=== PATIENT | male | born 1965 | race Caucasian/White ===

== ENCOUNTER 2016-12-17 15:56 | Day surgery (SDC) | payer OTHER ==
[~2016-12-17] VITALS: Ht 175.3 cm; Wt 105.7 kg
[2016-12-17] VITALS (8 sets, daily range): BP systolic 126–160; BP diastolic 80–98
[~2016-12-17 15:56] MED LIST: AC325T PO; ASP325T PO; ASP81CT PO; ASPI-808 PO; ATEN25TA PO; ATEN50TA PO; ATOR80TA PO; ATOR80TA76 PO; CIPR5DRO OP; CYCL10TA9 PO; DULO30CA3 PO; DULO40CA2 PO; HYDR-3583 PO; HYDR118S10 PO; IBUP-30 PO; ISM60TCR PO; NTG SL; PRAS10TA6 PO; PRAV80TA2 PO; ZLP10T PO; ZOLP10TA5 PO
[2016-12-17] MEDS ORDERED: ASPIRIN 81 MG CHEW (CHILDREN'S ASA) ONE (16:04)
[2016-12-17] MEDS ORDERED: RX-NITROGLYCERIN 0.4 MG TAB BTL 25'S SL ONE (16:05)
--- NOTE | 2016-12-17 16:19 | ED Chest Pain ---
General Chief Complaint: Chest Pain Stated Complaint: CHEST TIGHTNESS/SOA/ELEV BP Source: patient Exam Limitations: no limitations History of Present Illness Time seen by provider: 16:04 Initial Comments Here with reports of chest tightness, dizziness and overall not feeling well. Has history of 1112 cardiac stents. Patient normally follows with Dr. Mao. Denies nausea, vomiting or breathing problems. Timing/Duration: 1-3 hours, changing over time Severity/Quality: moderate, pressure Location: central Radiation: no radiation Activities at Onset: emotional stress Prior CP/Workup: cardiac cath, echocardiography, heart attack, stress test Modifying Factors: improves with oxygen, improves with rest Associated Symptoms: No abdominal pain, No back pain, dizziness, No nausea/ vomiting, No shortness of breath, No weakness Allergies and Home Medications Allergies Coded Allergies: amoxicillin (Verified Allergy, Unknown, 02/17/09) potassium clavulanate (Verified Allergy, Unknown, 02/17/09) Review of Systems Constitutional: see HPI, No chills, No fever EENTM: No Symptoms Reported Respiratory: No Symptoms Reported Cardiovascular: Chest Pain Gastrointestinal: No Symptoms Reported Genitourinary: No Symptoms Reported Musculoskeletal: no symptoms reported Skin: no symptoms reported Psychiatric/Neurological: See HPI, Anxiety, Other (dizziness) All Other Systems Reviewed Negative Unless Noted: Yes Past Jxqnuzk-Wuyziu-Wgfvrg Hx Patient Social History Alcohol Use: Denies Use Recreational Drug Use: No Smoking Status: Current Everyday Smoker Type Used: Cigarettes Recent Hopitalizations: No Seasonal Allergies Seasonal Allergies: No Surgeries HX Surgeries: Yes (CARDIAC STENTS x14, hernia X2, CYST REMOVAL WRIST/LOW BACK; BMT'S 04/2016) Surgeries: Abdominal, Cardiac, Coronary Stent, Ear Surgery Respiratory Hx Respiratory Disorders: No Cardiovascular Hx Cardiac Disorders: Yes (HX OF PA X2, HAS 14 STENTS) Cardiac Disorders: Coronary Artery Disease, Heart Attack, High Cholesterol, Hypertension Neurological Hx Neurological Disorders: No Reproductive System Hx Reproductive Disorders: No Genitourinary Hx Genitourinary Disorders: No Gastrointestinal Hx Gastrointestinal Disorders: No Musculoskeletal Hx Musculoskeletal Disorders: Yes (joint pain) Musculoskeletal Disorders: Arthritis, Chronic Back Pain Endocrine Hx Endocrine Disorders: No HEENT HX ENT Disorders: Yes (BMT'S 04/2016) HEENT Disorders: Chronic Ear Infection Cancer Hx Cancer: No Psychosocial Hx Psychiatric Problems: No Integumentary HX Skin/Integumentary Disorder: No Blood Transfusions Hx Blood Disorders: No Reviewed Nursing Assessment Reviewed/Agree w Nursing PMH: Yes Family Medical History Significant Family History: No Pertinent Family Hx Family Medial History: Physical Exam Vital Signs Vital Sign - Last 12Hours 12/17/16 15:57 Temp 97.3 Pulse 78 Resp 14 B/P (MAP) 161/101 Pulse Ox 95 O2 Delivery Room Air Capillary Refill : Less Than 3 Seconds General Appearance: No Apparent Distress, WD/WN HEENT: PERRL/EOMI Neck: Non Tender, Supple Respiratory: Lungs Clear, Normal Breath Sounds Cardiovascular: Regular Rate, Rhythm, No Murmur Gastrointestinal: Non Tender, Soft Extremity: Normal Range of Motion, Non Tender Neurologic/Psychiatric: Alert, Oriented x3 Skin: Normal Color, Warm/Dry Progress/Results/Core Measures Results/Orders Lab Results Laboratory Tests Test 12/17/16 16:00 Range/Units White Blood Count 10.5 4.3-11.0 10^3/uL Red Blood Count 4.81 4.35-5.85 10^6/uL Hemoglobin 16.0 13.3-17.7 G/DL Hematocrit 46 40-54 % Mean Corpuscular Volume 96 80-99 FL Mean Corpuscular Hemoglobin 33 25-34 PG Mean Corpuscular Hemoglobin Concent 35 32-36 G/DL Red Cell Distribution Width 13.2 10.0-14.5 % Platelet Count 225 130-400 10^3/uL Mean Platelet Volume 12.4 H 7.4-10.4 FL Neutrophils (%) (Auto) 70 42-75 % Lymphocytes (%) (Auto) 21 12-44 % Monocytes (%) (Auto) 7 0-12 % Eosinophils (%) (Auto) 1 0-10 % Basophils (%) (Auto) 0 0-10 % Neutrophils # (Auto) 7.4 1.8-7.8 X 10^3 Lymphocytes # (Auto) 2.2 1.0-4.0 X 10^3 Monocytes # (Auto) 0.8 0.0-1.0 X 10^3 Eosinophils # (Auto) 0.1 0.0-0.3 10^3/uL Basophils # (Auto) 0.0 0.0-0.1 10^3/uL Prothrombin Time 11.9 L 12.2-14.7 SEC INR Comment 0.9 0.8-1.4 Activated Partial Thromboplast Time 29 24-35 SEC D-Dimer 0.42 0.00-0.49 UG/ML Sodium Level 141 135-145 MMOL/L Potassium Level 4.0 3.6-5.0 MMOL/L Chloride Level 108 H 98-107 MMOL/L Carbon Dioxide Level 25 21-32 MMOL/L Anion Gap 8 5-14 MMOL/L Blood Urea Nitrogen 15 7-18 MG/DL Creatinine 0.86 0.60-1.30 MG/DL Estimat Glomerular Filtration Rate > 60 BUN/Creatinine Ratio 17 Glucose Level 130 H 70-105 MG/DL Calcium Level 9.7 8.5-10.1 MG/DL Magnesium Level 2.4 1.8-2.4 MG/DL Total Bilirubin 0.3 0.1-1.0 MG/DL Aspartate Amino Transf (AST/SGOT) 20 5-34 U/L Alanine Aminotransferase (ALT/SGPT) 33 0-55 U/L Alkaline Phosphatase 99 40-136 U/L Myoglobin 34.4 10.0-92.0 NG/ML Troponin I < 0.30 <0.30 NG/ML B-Type Natriuretic Peptide 11.5 <100.0 PG/ML Total Protein 7.6 6.4-8.2 G/DL Albumin 4.6 H 3.2-4.5 G/DL Amylase Level 48 25-125 U/L Lipase 36 8-78 U/L My Orders Orders - TONY MATIAS MD Aspirin Chewable Tablet (Baby Aspirin Ch (12/17/16 16:04) Rx-Nitroglycerin Sl Tabs (Rx-Nitrostat S (12/17/16 16:05) Cbc With Automated Diff (12/17/16 16:51) Magnesium (12/17/16 16:51) Chest 1 View, Ap/Pa Only (12/17/16 16:51) Ekg Tracing (12/17/16 16:51) Cardiac Profile 1 (12/17/16 16:51) Comprehensive Metabolic Panel (12/17/16 16:51) Myoglobin Serum (12/17/16 16:51) Protime With Inr (12/17/16 16:51) Partial Thromboplastin Time (12/17/16 16:51) O2 (12/17/16 16:51) Monitor-Rhythm Ecg Trace Only (12/17/16 16:51) Lipid Panel (12/18/16 06:00) Aspirin Chewable Tablet (Baby Aspirin Ch (12/17/16 17:00) Rx-Nitroglycerin Sl Tabs (Rx-Nitrostat S (12/17/16 17:00) Saline Lock/Iv-Start (12/17/16 16:51) Lipase (12/17/16 16:51) Amylase (12/17/16 16:51) BNP (12/17/16 16:51) Fibrin Degradation Products (12/17/16 16:51) Hydrocodone/Apap 7.5/325 Tab (Lortab 7. (12/17/16 17:56) Medications Given in ED Current Medications Medications Dose Ordered Sig/Paola Route Start Time Stop Time Status Last Admin Dose Admin Aspirin 81 mg STK-MED ONCE .ROUTE 12/17/16 16:04 12/17/16 16:09 DC 12/17/16 16:08 81 MG Nitroglycerin 0.4 mg STK-MED ONCE SL 12/17/16 16:05 12/17/16 16:10 DC 12/17/16 16:05 0.4 MG Vital Signs/I&O Vital Sign - Last 12Hours 12/17/16 12/17/16 15:57 15:57 Temp 97.3 Pulse 78 Resp 14 B/P (MAP) 161/101 Pulse Ox 95 O2 Delivery Room Air Progress Note : Progress Note Seen and evaluated. IV, labs, EKG and chest x-ray ordered. ASA 162 mg by mouth. Nitroglycerin sublingual given. 2 nitros were given and this did resolve the patient's pain. Given his history and current complaint, I do believe its indicated for admission for further evaluation. This was discussed with the patient and family who agree. 1759: Discussed case with Dr. Mueller and she agrees to admission, observation status. Dr. Rios consulted and accepts patient for Dr. Mao. Dr. Mao is his primary internet architect. ECG Initial ECG Impression Date: December 17, 2016 Initial ECG Impression Time: 16:01 Initial ECG Rate: 78 Initial ECG Rhythm: Normal Sinus Comment Sinus rhythm with left axis deviation. Occasional PVC. No evidence of ST elevation PA. Change from previous with increasing left axis. Interpreted by me. Diagnostic Imaging Diagonstic Imaging: Xray Plain Films/CT/US/NM/MRI: chest Comments VIA [facility], [facility]. [place], [place] NAME: GIANNA ROCA [facility] REC#: [id number] PT STATUS: REG ER : 1965 PHYSICIAN: TONY MATIAS MD ADMIT DATE: 12/17/16/ER Draft Date of Exam:12/17/16 CHEST 1 VIEW, AP/PA ONLY CLINICAL INDICATION: Patient complains of chest tightness and shortness of air this morning. Exam: Portable chest x-ray upright view. Comparisons: Chest x-ray dated 07/16/2016. Findings: Lungs/pleura: Lungs are clear. There is no pneumothorax. There is no pleural effusion. Mediastinum: Unremarkable. Pulmonary vasculature: Unremarkable. Heart: Unremarkable. Bones/extrathoracic soft tissue: There are small degenerative spurs involving the thoracic spine. Impression: There is no radiographic evidence of acute cardiopulmonary process. Dictated on workstation # [id number] Dict: 12/17/16 1732 Trans: 12/17/16 1740 [id number] Interpreted by: OCTAVIO BARFIELD MD Electronically signed by: Departure Communication Time/Spoke to Admitting Phy: 17:59 Time/Spoke to Consulting Physi: 18:02 Impression Impression: Primary Impression: Chest pain Qualified Codes: R07.9 - Chest pain, unspecified Disposition: ADMITTED INPATIENT Condition: Stable Decision to Admit Reason: Admit from ER (General) Decision to Admit/Date: December 17, 2016 Time/Decision to Admit Time: 17:59 Departure-Patient Inst. Referrals: FORTINO MUELLER DO (PCP/Family) Primary Care Physician TONY MATIAS MD December 17, 2016 16:19
[2016-12-17 17:00] LABS: BASOPHILS % (AUTO) 0 % (0-10); EOSINOPHILS # (AUTO) 0.1 10^3/uL (0.0-0.3); EOSINOPHILS % (AUTO) 1 % (0-10); LYMPHOCYTES # (AUTO) 2.2 X 10^3 (1.0-4.0); LYMPHOCYTES % (AUTO) 21 % (12-44); MEAN CORPUSCULAR HEMOGLOBIN 33 PG (25-34); MEAN CORPUSCULAR HGB CONC 35 G/DL (32-36); MEAN CORPUSCULAR VOLUME 96 FL (80-99); MEAN PLATELET VOLUME 12.4 FL (7.4-10.4); MONOCYTES # (AUTO) 0.8 X 10^3 (0.0-1.0); MONOCYTES % (AUTO) 7 % (0-12); NEUTROPHILS # (AUTO) 7.4 X 10^3 (1.8-7.8); NEUTROPHILS % (AUTO) 70 % (42-75); PLATELET COUNT 225 10^3/uL (130-400); RED BLOOD COUNT 4.81 10^6/uL (4.35-5.85); RED CELL DISTRIBUTION WIDTH 13.2 % (10.0-14.5); WHITE BLOOD COUNT 10.5 10^3/uL (4.3-11.0)
[2016-12-17] MEDS ORDERED: RX-NITROGLYCERIN 0.4 MG TAB BTL 25'S SL PRN (17:00)
[2016-12-17] MEDS ORDERED: ASPIRIN 81 MG CHEW (CHILDREN'S ASA) PO ONE (17:00)
[2016-12-17 17:02] LABS: INR 0.9 (0.8-1.4); PROTHROMBIN TIME PATIENT 11.9 SEC (12.2-14.7)
[2016-12-17 17:11] LABS: ALANINE AMINOTRANSFERASE 33 U/L (0-55); ALBUMIN 4.6 G/DL (3.2-4.5); AMYLASE 48 U/L (25-125); ANION GAP 8 MMOL/L (5-14); ASPARTATE AMINO TRANSFERASE 20 U/L (5-34); BILIRUBIN,TOTAL 0.3 MG/DL (0.1-1.0); BLOOD UREA NITROGEN 15 MG/DL (7-18); BUN/CREATININE RATIO 17; CALCIUM 9.7 MG/DL (8.5-10.1); CARBON DIOXIDE 25 MMOL/L (21-32); CHLORIDE 108 MMOL/L (98-107); CREATININE SERUM 0.86 MG/DL (0.60-1.30); GFR ESTIMATED > 60; GLUCOSE 130 MG/DL (70-105); LIPASE 36 U/L (8-78); MAGNESIUM 2.4 MG/DL (1.8-2.4); SODIUM 141 MMOL/L (135-145); TOTAL PROTEIN 7.6 G/DL (6.4-8.2)
[2016-12-17 17:18] LABS: MYOGLOBIN SERUM 34.4 NG/ML (10.0-92.0)
--- NOTE | 2016-12-17 17:41 | Diagnostic Imaging Report ---
CLINICAL INDICATION: Patient complains of chest tightness and shortness of air this morning. Exam: Portable chest x-ray upright view. Comparisons: Chest x-ray dated 07/16/2016. Findings: Lungs/pleura: Lungs are clear. There is no pneumothorax. There is no pleural effusion. Mediastinum: Unremarkable. Pulmonary vasculature: Unremarkable. Heart: Unremarkable. Bones/extrathoracic soft tissue: There are small degenerative spurs involving the thoracic spine. Impression: There is no radiographic evidence of acute cardiopulmonary process. Dictated by: Dictated on workstation # [id number]
[2016-12-17] MEDS ORDERED: HYDROcodone/APAP 7.5 MG/325 MG (LORTAB, LORCET PLUS) TABLET PO STA (17:56)
[2016-12-17] MEDS ORDERED: CATHETER FLUSH 10 ML SYR IV PRN (20:00)
[2016-12-17] MEDS ORDERED: morphine INJ 4 MG/ML 1 ML (VIAL/SYRINGE) IV PRN (20:00)
[2016-12-17] MEDS ORDERED: NITROGLYCERIN SUBLINGUAL 0.4 MG TAB (NITROSTAT) SL PRN (20:00)
[2016-12-17] MEDS: CATHETER FLUSH 10 ML SYR IV SCH (22:28)
[2016-12-17] MEDS ORDERED: ZOLPIDEM 5 MG (AMBIEN) TAB PO PRN (22:45)
[2016-12-17] MEDS ORDERED: ATENOLOL 25 MG (TENORMIN) TAB ONE (22:54)
[2016-12-17] MEDS: HYDROcodone/APAP 7.5 MG/325 MG (LORTAB, LORCET PLUS) TABLET PO PRN (23:01)
[2016-12-17] MEDS: ATENOLOL 25 MG (TENORMIN) TAB PO SCH (23:02)
[2016-12-17 23:43] LABS: MYOGLOBIN SERUM 37.5 NG/ML (10.0-92.0)
[2016-12-18] VITALS (13 sets, daily range): BP systolic 123–145; BP diastolic 80–105
[2016-12-18] MEDS: CATHETER FLUSH 10 ML SYR IV SCH ×3 (05:44→20:36)
[2016-12-18] MEDS: HYDROcodone/APAP 7.5 MG/325 MG (LORTAB, LORCET PLUS) TABLET PO PRN ×4 (05:48→18:29)
[2016-12-18 06:35] LABS: CHOLESTEROL 243 MG/DL (< 200); DIRECT LDL 142 MG/DL (1-129); TRIGLYCERIDES 347 MG/DL (<150); VLDL CHOLESTEROL 69 MG/DL (5-40)
[2016-12-18] MEDS ORDERED: ASPIRIN E.C. 325 MG (ECOTRIN) TABLET PO SCH (09:00)
[2016-12-18] MEDS: ATENOLOL 25 MG (TENORMIN) TAB PO SCH ×2 (09:37→20:35)
[2016-12-18] MEDS ORDERED: ZOLP10TA PO (11:30)
[2016-12-18] MEDS ORDERED: ASPI-983 PO (11:30)
[2016-12-18] MEDS ORDERED: IBUP-30 PO (11:30)
[2016-12-18] MEDS ORDERED: ATEN25TA PO (11:30)
[2016-12-18] MEDS ORDERED: ATOR80TA76 PO (11:30)
[2016-12-18] MEDS ORDERED: TRAM50TA2 PO (11:30)
[2016-12-18] MEDS ORDERED: NS IV 1000 ML 1,000 ML ONE (12:34)
[2016-12-18] MEDS ORDERED: LIDOCAINE 1% INJ 20 ML (XYLOCAINE) VIAL ONE (12:34)
[2016-12-18] MEDS ORDERED: HEParin (CATH LAB) 2,000 ML IV ONE (12:35)
--- NOTE | 2016-12-18 12:37 | Consultation-Cardiology ---
HPI-Cardiology Cardiology Consultation: Date of Consultation 12/18/16 Date of Admission 12-17-16 Attending Physician Franca Mueller DO Admitting Physician Franca Mueller DO Consulting Physician Garry Mao MD HPI: Chief Complaint: Chest pain Mr. Roca is a 51 year old male admitted to 429 from the ED with c/o left sided chest pain. He reports he has episodes of left sided chest discomfort for the last several months. He reports it is not r/t physical activity or emotional stress necessarily. The discomfort is a pressure. It lasts for minutes to half hour (length of time he is unclear on; he states he just puts it out of his mind). The episodes are not everyday, but at least a few times a week. He does not report any associated symptoms typically. Yesterday he was at work and began to have left sided chest pressure. He reports he felt generally unwell. He reports he has been having dizziness for the last few days, but yesterday it was worse. He reports feeling unsteady. No c/o SOB or palpitations. He states he came to the ED and received nitro which did result in resolution of the discomfort. He is currently not reporting any chest pain at this time. He does state he is concerned that it his heart causing him to feel unwell. No c/o LE edema. No c/o n/v/d. No c/o fever or chills. Review of Systems-Cardiology Review of Systems Constitutional: As described under HPI Eyes: No blurred vision, No drainage, No pain, No vision change Ears/Nose/Throat: No ear discharge, No ear pain, No nasal drainage, No ulcerations Respiratory: As described under HPI Cardiovascular: As described under HPI Gastrointestinal: No constipation, No diarrhea, No nausea, No vomiting, No stool coloration changes Genitourinary: No dysuria, No discharge, No frequency, No hematuria, No urgency Skin: No rash, No skin related problems, No ulcerations Psychiatric/Neurological: No anxiety, No depression, No focal weakness, No seizure, No syncope Hematologic: No bleeding abnormalities All Other Systems Reviewed Negative Unless Noted: Yes BJV-Ikqfze-Srdrby Hx Patient Social History Alcohol Use: Denies Use Recreational Drug Use: No Smoking Status: Current Everyday Smoker Type Used: Cigarettes Recent Foreign Travel: No Recent Infectious Disease Expo: No Hospitalization with Isolation: Denies Physical Abuse Screen: No Sexual Abuse: No Past Medical History PMH As described under Assessment. Family Medical History Family Medical History: He reports his father had CAD with CABG when he was in his 30's and a few years later of heart trouble. He reports his mother had strokes. Family History: Allergies and Home Medications Allergies Coded Allergies: amoxicillin (Verified Allergy, Unknown, 02/17/09) potassium clavulanate (Verified Allergy, Unknown, 02/17/09) Home Medications Aspirin 81 Mg Tablet.dr, 81 MG PO DAILY, (Reported) Atenolol 25 Mg Tablet, 25 MG PO HS, (Reported) Atorvastatin Calcium 80 Mg Tablet, 80 MG PO HS, (Reported) LAST FILLED #30 08-22-16 Ibuprofen 200 Mg Tablet, 1,200 MG PO BID, (Reported) TAKES 6 (200MG) TABLETS Tramadol HCl 50 Mg Tablet, 50 MG PO Q6H PRN for PAIN-MODERATE, (Reported) Zolpidem Tartrate 10 Mg Tablet, 10 MG PO HS, (Reported) Physical Exam-Cardiology Physical Exam Vital Signs/I&O Vital Sign - Last 12Hours 12/18/16 12/18/16 12/18/16 12/18/16 04:19 07:00 07:40 11:51 Temp 97.8 98.0 98.2 Pulse 73 68 72 69 Resp 18 20 20 B/P (MAP) 140/80 128/86 134/82 Pulse Ox 96 96 96 12/18/16 13:00 Pulse 63 Intake and Output 12/18/16 00:00 Intake Total 420 ml Balance 420 ml Capillary Refill : Less Than 3 Seconds Constitutional: appears stated age, No apparent distress, well-developed, well- nourished HEENT: PERRL, No discharge, hearing is well preserved, oral hygience is good, No ulceration, No xanthelasmas are seen Neck: No carotid bruit, carotid pulses are 2 + bilaterally Respiratory: No accessory muscle use, chest expansion is symmetric, chest is bilaterally symmetric, lungs clear to auscultation Cardiovascular: regular rate-rhythm, No JVD, S1 and S2 Gastrointestinal: No tender, soft, round, audible bowel sounds, No spleenomegaly Extremities: No clubbing, No cyanosis, no lower extremity edema bilateral, No significant edema Neurologic/Psychiatric: alert, oriented x 3, power is 5/5 both on sides Skin: No rash, No ulcerations Data Review Labs Laboratory Tests 12/17/16 16:00: White Blood Count 10.5, Red Blood Count 4.81, Hemoglobin 16.0, Hematocrit 46, Mean Corpuscular Volume 96, Mean Corpuscular Hemoglobin 33, Mean Corpuscular Hemoglobin Concent 35, Red Cell Distribution Width 13.2, Platelet Count 225, Mean Platelet Volume 12.4H, Neutrophils (%) (Auto) 70, Lymphocytes (%) (Auto) 21 , Monocytes (%) (Auto) 7, Eosinophils (%) (Auto) 1, Basophils (%) (Auto) 0, Neutrophils # (Auto) 7.4, Lymphocytes # (Auto) 2.2, Monocytes # (Auto) 0.8, Eosinophils # (Auto) 0.1, Basophils # (Auto) 0.0, Prothrombin Time 11.9L, INR Comment 0.9, Activated Partial Thromboplast Time 29, D-Dimer 0.42, Sodium Level 141, Potassium Level 4.0, Chloride Level 108H, Carbon Dioxide Level 25, Anion Gap 8, Blood Urea Nitrogen 15, Creatinine 0.86, Estimat Glomerular Filtration Rate > 60, BUN/Creatinine Ratio 17, Glucose Level 130H, Calcium Level 9.7, Magnesium Level 2.4, Total Bilirubin 0.3, Aspartate Amino Transf (AST/SGOT) 20, Alanine Aminotransferase (ALT/SGPT) 33, Alkaline Phosphatase 99, Myoglobin 34.4 , Troponin I < 0.30, B-Type Natriuretic Peptide 11.5, Total Protein 7.6, Albumin 4.6H, Amylase Level 48, Lipase 36 12/17/16 23:05: Myoglobin 37.5, Troponin I < 0.30 12/18/16 05:45: Triglycerides Level 347H, Cholesterol Level 243H, LDL Cholesterol Direct 142H, VLDL Cholesterol 69H, HDL Cholesterol 32L Radiology NAME: GIANNA ROCA [facility] REC#: [id number] PT STATUS: ADM Genoveva : 1965 PHYSICIAN: TONY MATIAS MD ADMIT DATE: 12/17/16 Signed Date of Exam: 12/17/16 CHEST 1 VIEW, AP/PA ONLY CLINICAL INDICATION: Patient complains of chest tightness and shortness of air this morning. Exam: Portable chest x-ray upright view. Comparisons: Chest x-ray dated 07/16/2016. Findings: Lungs/pleura: Lungs are clear. There is no pneumothorax. There is no pleural effusion. Mediastinum: Unremarkable. Pulmonary vasculature: Unremarkable. Heart: Unremarkable. Bones/extrathoracic soft tissue: There are small degenerative spurs involving the thoracic spine. Impression: There is no radiographic evidence of acute cardiopulmonary process. Dictated by: Dictated on workstation # [id number] Dict: 12/17/161731 Trans: 12/17/162132 Interpreted by: OCTAVIO BARFIELD MD Electronically signed by: OCTAVIO BARFIELD MD 12/17/162132 ECG Impression ECG Initial ECG Rhythm: Normal Sinus A/P-Cardiology Assessment/Admission Diagnosis Chest pain of undetermined etiology; unstable angina suspected CAD - Has complex cor stenting history. As far as we can determine, prior to 2011 he has had the following cor stents in [place], [place]: unknown stent of mid RCA ; Promus 3 x 23 in mid LAD and Promus 2.5 x 15 in distal LAD; Promus 2.5 x 18 in abdiag. At this hosp he has had the following stents: Promus element 2.5 x 12mm stent in the mid left circumflex [place] [address] Bolton; distal RCA with an Integrity Resolute 2.5 x 18mm stent [place] February [address] Bolton. Cardiac cath of 08-04-[address] Mao showed widely patent stents in the mid LAD, first diagonal branch, mid left cx and mid to distal RCA. LVEF 55-60%. Normal LVEDP. No significant MR HTN HLP - statin tx managed by PCP Tobaccoism - cessation advised Non-compliance with medications DJD, resulting in chronic bilateral ankle pain Anxiety Discussion and Recomendations Non-specific chest discomfort of undetermined etiology which has been off and on for the last 6 months. He has a h/o CAD with previous stent placement. He himself is expressing concern that his "heart" is causing him to feel unwell. Therefore, we advise cardiac cath for further work up. We have discussed with him the procedure, risks, benefits and potential complications of cardiac cath with possible ad hoc coronary intervention. He provides informed consent. We will continue ASA 81 mg daily. We will continue statin tx. He is reporting CABELLO , we will give Tylenol. Continue BB which has already been ordered. Further recommendations will be based on his hospital course. We would like to thank Dr. Mueller for this consult. This consult is being scribed by Roxana Vines APRN on behalf of Dr. Mao after discussion regarding plan of care. 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
[2016-12-18] MEDS ORDERED: NS IV 1000 ML 1,000 ML IV SCH ×2 (13:00→16:02)
[2016-12-18] MEDS ORDERED: ACETAMINOPHEN 500 MG TAB (TYLENOL) PO PRN (13:00)
[2016-12-18] MEDS ORDERED: ALPRAZolam 0.25 MG (XANAX) TAB PO NR (13:00)
[2016-12-18] MEDS ORDERED: fentaNYL INJECTION 100 MCG/2 ML AMP ONE (14:00)
[2016-12-18] MEDS ORDERED: MIDAZOLAM 5 MG/5 ML (VERSED) VIAL ONE (14:00)
[2016-12-18] MEDS ORDERED: diphenhydrAMINE 50 MG/ML INJ (BENADRYL) ONE (14:00)
[2016-12-18] MEDS ORDERED: EPTIFIBATIDE BOLUS 20 ML IV ONE (14:21)
[2016-12-18] MEDS ORDERED: NITROGLYCERIN DRIP 25 MG/D5W 250 ML IV ONE (14:21)
[2016-12-18] MEDS ORDERED: HEParin 1000 UNIT/ML (10ML VIAL) FOR BOLUS ONE (14:21)
[2016-12-18] MEDS ORDERED: CLOPIDOGREL 300 MG (PLAVIX) TABLET PO ONE (15:16)
[2016-12-18] MEDS ORDERED: ASPIRIN 81 MG CHEW (CHILDREN'S ASA) ONE (15:16)
[2016-12-18] MEDS ORDERED: PATIENT MAY USE OWN MEDS, ALL PO SCH (16:15)
[2016-12-18] MEDS ORDERED: CALCIUM CARBONATE 500 MG (TUMS) TAB.CHEW PO PRN (17:00)
[2016-12-18] MEDS: PANTOPRAZOLE 40 MG/10 ML (PROTONIX) VIAL IV SCH (17:22)
[2016-12-18] MEDS ORDERED: ATORVASTATIN 40 MG (LIPITOR) TABLET PO SCH (21:00)
--- NOTE | 2016-12-18 21:34 | History & Physicial ---
History of Present Illness History of Present Illness Reason for visit/HPI This is a 51 year old male with a history of CAD who presented to the emergency room with left sided chest pain and pressure that started while he was at work. He also reported dizziness the past few days which was worse on the day he presented to the emergency room. He admits to intermittent chest pain the past several months. He had been admitted with chest pain in July of 2016 and a cardiac catheterization was recommended, however, he left the hospital without this procedure being done and never followed up with cardiology as an outpatient as instructed to do so at that time. In the emergency room, he was given nitroglycerin which did relieve his chest pain. He will be admitted for cardiac consult and further evaluation. Date of Admission December 17, 2016 at 7:25 pm I consulted on this patient on 12/18/16 21:29 Attending Physician Franca Mueller DO Admitting Physician Franca Mueller DO Consult Allergies and Home Medications Allergies Coded Allergies: amoxicillin (Verified Allergy, Unknown, 02/17/09) potassium clavulanate (Verified Allergy, Unknown, 02/17/09) Home Medications Aspirin 81 Mg Tablet.dr, 81 MG PO DAILY, (Reported) Atenolol 25 Mg Tablet, 25 MG PO HS, (Reported) Atorvastatin Calcium 80 Mg Tablet, 80 MG PO HS, (Reported) LAST FILLED #30 08-22-16 Ibuprofen 200 Mg Tablet, 1,200 MG PO BID, (Reported) TAKES 6 (200MG) TABLETS Tramadol HCl 50 Mg Tablet, 50 MG PO Q6H PRN for PAIN-MODERATE, (Reported) Zolpidem Tartrate 10 Mg Tablet, 10 MG PO HS, (Reported) Past [id number]-Kgjmee-Ydkfup Hx Patient Social History Alcohol Use: Denies Use Recreational Drug Use: No Smoking Status: Current Everyday Smoker Type Used: Cigarettes Physical Abuse Screen: No Sexual Abuse: No Recent Foreign Travel: No Contact w/other who traveled: No Recent Hopitalizations: No Recent Infectious Disease Expo: No Seasonal Allergies Seasonal Allergies: No Surgeries HX Surgeries: Yes (CARDIAC STENTS x14, hernia X2, CYST REMOVAL WRIST/LOW BACK; BMT'S 04/2016) Surgeries: Abdominal, Cardiac, Coronary Stent, Ear Surgery Respiratory Hx Respiratory Disorders: No Cardiovascular Hx Cardiovascular Disorders: Yes (HX OF PA X2, HAS 14 STENTS) Cardiac Disorders: Coronary Artery Disease, Heart Attack, High Cholesterol, Hypertension Neurological Hx Neurological Disorders: No Reproductive System Hx Reproductive Disorders: No Sexually Transmitted Disease: No HIV/AIDS: No Genitourinary Hx Genitourinary Disorders: No Gastrointestinal Hx Gastrointestinal Disorders: No Musculoskeletal Hx Musculoskeletal Disorders: Yes (joint pain) Musculoskeletal Disorders: Arthritis, Chronic Back Pain Endocrine Hx Endocrine Disorders: No HEENT HX ENT Disorders: Yes (BMT'S 04/2016) HEENT Disorders: Chronic Ear Infection Loss of Vision: Denies Hearing Impairment: Denies Cancer Hx Cancer: No Psychosocial Hx Psychiatric Problems: No Integumentary HX Skin/Integumentary Disorder: No Blood Transfusions Hx Blood Disorders: No Reviewed Nursing Assessment Reviewed/Agree w Nursing PMH: Yes Family Medical History Significant Family History: No Pertinent Family Hx Family Hx: Constitutional: dizziness, weakness EENTM: No blurred vision, No dental problems, No double vision, No ear discharge, No ear pain, No epistaxis, No eye pain, No hearing loss, No hoarseness, No mouth pain, No mouth swelling, No no symptoms reported, No nose congestion, No nose pain, No other, No see HPI, No tearing, No throat pain, No throat swelling, No vision loss Respiratory: No no symptoms reported, No see HPI, No cough, No dyspnea on exertion, No hemoptysis, No orthopnea, No phlegm, No short of breath, No stridor , No wheezing, No other Cardiovascular: chest pain Gastrointestinal: No RUQ, No LUQ, No RLQ, No LLQ, No no symptoms reported, No see HPI, No abdominal pain, No constipation, No diarrhea, No dysphagia, No hematemesis, No heartburn, No jaundice, No loss of appetite, No melena, No nausea, No vomiting, No other Genitourinary: No no symptoms reported, No see HPI, No decreased output, No discharge, No dysuria, No frequency, No hematuria, No hesitancy, No incontinence , No nocturia, No pain, No other Musculoskeletal: back pain, joint pain Skin: No no symptoms reported, No see HPI, No change in color, No change in hair/nails, No dryness, No hx of skin cancer, No lesions, No lumps, No pruritus , No rash, No other Psychiatric/Neurological: Weakness Physical Exam Vital Signs Vital Sign - Last 12Hours 12/17/16 15:57 Temp 97.3 Pulse 78 Resp 14 B/P (MAP) 161/101 Pulse Ox 95 O2 Delivery Room Air Capillary Refill : Less Than 3 Seconds General Appearance: No Apparent Distress HEENT: Normal ENT Inspection Neck: Non Tender, Supple Respiratory: Lungs Clear Cardiovascular: Regular Rate, Rhythm, Systolic Murmur, Gallop/S4 Gastrointestinal: Normal Bowel Sounds, Non Tender, Soft Rectal: Deferred Back: No CVA Tenderness Extremity: Non Tender, No Calf Tenderness, No Pedal Edema Neurologic/Psychiatric: Alert, Oriented x3 Skin: Normal Color, Warm/Dry Lymphatic: No Adenopathy Comments Laboratory Tests 12/17/16 23:05: Myoglobin 37.5, Troponin I < 0.30 12/18/16 05:45: Triglycerides Level 347H, Cholesterol Level 243H, LDL Cholesterol Direct 142H, VLDL Cholesterol 69H, HDL Cholesterol 32L Assessment/Plan Assessment and Plan 1. Chest Pain suspicious for angina in patient with history of CAD--admit for repeat cardiac enzymes, cardiology consult, likely cardiac catheterization 2. Hypertension--restarted on atenolol 3. Hyperlipidemia--noncompliant with medications 4. Recent dizziness--likely inner ear etiology as has had increased ear pressure and drainage and has history of chronic inner ear problems 5. 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
[2016-12-19] VITALS: BP 117/73
[2016-12-19] MEDS: HYDROcodone/APAP 7.5 MG/325 MG (LORTAB, LORCET PLUS) TABLET PO PRN ×3 (02:27→11:27)
[2016-12-19 04:00] VITALS: BP 122/64
[2016-12-19 04:45] LABS: MEAN PLATELET VOLUME 12.1 FL (7.4-10.4); RED BLOOD COUNT 4.4 10^6/uL (4.35-5.85); RED CELL DISTRIBUTION WIDTH 13.5 % (10.0-14.5); WHITE BLOOD COUNT 7.2 10^3/uL (4.3-11.0)
[2016-12-19 05:06] LABS: ANION GAP 13 MMOL/L (5-14); BLOOD UREA NITROGEN 10 MG/DL (7-18); BUN/CREATININE RATIO 13; CALCIUM 8.8 MG/DL (8.5-10.1); CARBON DIOXIDE 19 MMOL/L (21-32); CHLORIDE 107 MMOL/L (98-107); CREATININE SERUM 0.79 MG/DL (0.60-1.30); GFR ESTIMATED > 60; GLUCOSE 108 MG/DL (70-105); SODIUM 139 MMOL/L (135-145)
[2016-12-19] MEDS: CATHETER FLUSH 10 ML SYR IV SCH (05:48)
[2016-12-19 08:04] VITALS: BP 129/84
[2016-12-19] MEDS: PANTOPRAZOLE 40 MG/10 ML (PROTONIX) VIAL IV SCH (08:08)
[2016-12-19] MEDS: ATENOLOL 25 MG (TENORMIN) TAB PO SCH (08:08)
--- NOTE | 2016-12-19 08:36 | Progress Note-Cardiology ---
Cardiology SOAP Progress Note Subjective: Feels better. No cp Has chronic bilat knee and ankle pains Has a h/o calf discomfort upon walking the equivalent of a couple of blocks, relieved with rest, unchanged in the recent past Does not report palp or syncope Has chronic exertional shortness of breath Does not report significant groin discomfort Objective: I&O/Vital Signs Vital Sign - Last 12Hours 12/19/16 12/19/16 12/19/16 12/19/16 00:00 01:00 04:00 06:55 Temp 97.8 98.1 Pulse 76 75 74 Resp 18 16 B/P (MAP) 117/73 122/64 Pulse Ox 94 95 98 O2 Flow Rate 2.00 2.00 12/19/16 12/19/16 07:00 08:04 Temp 97.3 Pulse 76 75 Resp 14 B/P (MAP) 129/84 Pulse Ox 95 Intake and Output 12/19/16 00:00 Intake Total 570 ml Output Total 300 ml Balance 270 ml Weight (Pounds): 233 Weight (Ounces): 0.0 Weight (Calculated Kilograms): 105.635134 Groin site without hematoma: Yes Condition: DP/PT pulses palpable Bruising: mild bruising Constitutional: appears stated age, No apparent distress, well-developed, well- nourished Respiratory: No accessory muscle use, chest expansion is symmetric, chest is bilaterally symmetric, lungs clear to auscultation Cardiovascular: regular rate-rhythm, No JVD, S1 and S2 Gastrointestional: No tender, soft, round, audible bowel sounds, No spleenomegaly Extremities: No clubbing, No cyanosis, no lower extremity edema bilateral, No significant edema Neurologic/Psychiatric: alert, oriented x 3, power is 5/5 both on sides Skin: No rash, No ulcerations Results/Procedures: Labs Laboratory Tests 12/19/16 04:00: White Blood Count 7.2, Red Blood Count 4.40, Hemoglobin 14.7, Hematocrit 43, Mean Corpuscular Volume 97, Mean Corpuscular Hemoglobin 33, Mean Corpuscular Hemoglobin Concent 34, Red Cell Distribution Width 13.5, Platelet Count 181, Mean Platelet Volume 12.1H, Sodium Level 139, Potassium Level 4.0, Chloride Level 107, Carbon Dioxide Level 19L, Anion Gap 13, Blood Urea Nitrogen 10, Creatinine 0.79, Estimat Glomerular Filtration Rate > 60, BUN/Creatinine Ratio 13, Glucose Level 108H, Calcium Level 8.8 Laboratory Tests 12/17/16 16:00 12/19/16 04:00 A/P: Assessment: Unstable angina, now resolved CAD - Has complex cor stenting history. As far as we can determine, prior to 2011 he has had the following cor stents in [place], [place]: unknown stent of mid RCA ; Promus 3 x 23 in mid LAD and Promus 2.5 x 15 in distal LAD; Promus 2.5 x 18 in a diag. At this hosp he has had the following stents: Promus element 2.5 x 12mm stent in the mid left circumflex in [address] Bolton; Integrity Resolute 2.5 x 18mm stent in the distal RCA in February [address] Bolton. Last card cath on 12/18/16: He underwent PTCA of distal LAD stent and placement of a new prox LAD stent (Alpine Xience 3x23); distal LAD has mod to severe disease that is not amenable to intervention due to very small vessel caliber; the very distal RCA has moderately severe obstructive disease, but the vessel here is of small caliber and should preferentially be treated with meds but consideration can be given to PCI if med therapy is inadequate in controlling symptoms DJD, primarily involving the knees and ankles and hands, managed by his pcp Symptoms of leg claudication HTN HLP - statin tx managed by PCP Tobaccoism - cessation advised Non-compliance with medications Anxiety Plan: * Multiple issues were reviewed and discussed * I discussed cath findings and cor interventions undertaken * I have advised med compliance and smoking cessation * I have reviewed the pros and cons of his card meds * I have advised close outpatient f/u for now, including eval for PAD Clinical Quality Measures AMI/AHF: ASA po 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
[2016-12-19] MEDS ORDERED: ASPIRIN E.C. 81 MG (ECOTRIN) TAB PO SCH (09:00)
[2016-12-19] MEDS ORDERED: CLOPIDOGREL 75 MG (PLAVIX) TABLET PO SCH (09:00)
[2016-12-19] MEDS ORDERED: ASPI-999 PO (09:40)
[2016-12-19] MEDS ORDERED: CLOP75TA69 PO (09:40)
[2016-12-19 12:05] VITALS: BP 132/82
[2016-12-19] MEDS ORDERED: CELE-63 PO (12:31)
[2016-12-19] MEDS ORDERED: DULO60CA6 PO (12:31)
--- NOTE | 2016-12-19 12:32 | Discharge Inst-Simple/Standard ---
Discharge Inst-Standard Discharge Medications New, Converted or Re-Newed RX: Transmitted to Pharmacy Patient Instructions/Follow Up Plan of Care/Instructions/FU: Fwup with me in 2 weeks Activity as Tolerated: Yes Discharge Diet: Cardiac Diet Planned Outpatient Orders/Ref. Pneu Vac Indicated: Yes FORTINO TAMAYO DO December 19, 2016 12:32
--- NOTE | 2016-12-19 12:40 | Discharge Summary ---
Diagnosis/Chief Complaint Date of Admission December 17, 2016 at 19:25 Date of Discharge Discharge Date: December 19, 2016 Admission Diagnosis Admission Diagnosis 1. Chest Pain suspicious for angina in patient with history of CAD--admit for repeat cardiac enzymes, cardiology consult, likely cardiac catheterization 2. Hypertension--restarted on atenolol 3. Hyperlipidemia--noncompliant with medications 4. Recent dizziness--likely inner ear etiology as has had increased ear pressure and drainage and has history of chronic inner ear problems 5. Osteoarthritis of Lumbars and bilateral ankles--given hydrocodone prn Discharge Diagnosis 1. Unstable Angina with Coronary Artery Disease--S/P balloon angioplasty and new stent placement 2. Hypertension--stable 3. History of Noncompliance--discussed importance of taking medications routinely, smoking cessation, lifestyle change with diet/exercise/weight loss and followup 4. Hyperlipidemia--resume atorvastatin plus lifestyle change 5. Osteoarthritis--will use celebrex since is back on plavix/aspirin and resume cymbalta, discussed that pain medications are not indicated for osteoarthritis Reason Hospital Visit This is a 51 year old male with a history of CAD who presented to the emergency room with left sided chest pain and pressure that started while he was at work. He also reported dizziness the past few days which was worse on the day he presented to the emergency room. He admits to intermittent chest pain the past several months. He had been admitted with chest pain in July of 2016 and a cardiac catheterization was recommended, however, he left the hospital without this procedure being done and never followed up with cardiology as an outpatient as instructed to do so at that time. In the emergency room, he was given nitroglycerin which did relieve his chest pain. He will be admitted for cardiac consult and further evaluation. Discharge Summary Hospital Course Hospital Course This is a 51 year old male with a history of CAD who presented to the emergency room with left sided chest pain and pressure that started while he was at work. He also reported dizziness the past few days which was worse on the day he presented to the emergency room. He admits to intermittent chest pain the past several months. He had been admitted with chest pain in July of 2016 and a cardiac catheterization was recommended, however, he left the hospital without this procedure being done and never followed up with cardiology as an outpatient as instructed to do so at that time. In the emergency room, he was given nitroglycerin which did relieve his chest pain. He will be admitted for cardiac consult and further evaluation. His repeat cardiac enzymes were negative and he had no further chest pressure after admission but due to his presentation and being high risk, he was taken to the cardiac catheterization lab by Dr. Mao on the afternoon of 12/19/16. He did undergo PTCA of distal LAD stent and placement of a new prox LAD stent (Alpine Xience 3x23). He was also found to have distal LAD with mod to severe disease that was not amenable to intervention due to very small vessel caliber. The patient was already feeling better on the day of discharge with less chest pressure. He was instructed of the importance of compliance with medications and followup as well as smoking cessation and lifestyle changes. He complained of ongoing arthritis pain with stiffness. He has recently seen rheumatology and was told had diffuse osteoarthritis but no evidence of inflammatory arthritis. I discussed with him that NSAIDs are the mainstay of treatment for osteoarthritis but due to his plavix and aspirin therapy that celebrex would be the only NSAID he could take. I also discussed restarting his cymbalta as he has been worse since stopping this. We also discussed pain management but I explained that narcotic medications should be last resort with osteoarthritis. Labs Laboratory Tests 12/17/16 16:00: Mean Platelet Volume 12.4H, Prothrombin Time 11.9L, Chloride Level 108H, Glucose Level 130H, Albumin 4.6H 12/17/16 23:05: 12/18/16 05:45: Triglycerides Level 347H, Cholesterol Level 243H, LDL Cholesterol Direct 142H, VLDL Cholesterol 69H, HDL Cholesterol 32L 12/19/16 04:00: Mean Platelet Volume 12.1H, Glucose Level 108H, Carbon Dioxide Level 19L Procedures Cardiac Catheterization by Dr. Mao on 12/18/[address] Mao Discharge Physical Examination Allergies: Coded Allergies: amoxicillin (Verified Allergy, Unknown, 02/17/09) potassium clavulanate (Verified Allergy, Unknown, 02/17/09) Vitals & I&Os Vital Signs Date Time Temp Pulse Resp B/P (MAP) Pulse Ox O2 Delivery O2 Flow Rate FiO2 12/19/16 08:04 97.3 75 14 129/84 95 12/19/16 06:55 2.00 12/17/16 15:57 Room Air General Appearance: Alert, Oriented X3, Cooperative, No Acute Distress Respiratory: Clear to Auscultation Cardiovascular: Regular Rate Abdominal: Normal Bowel Sounds, Soft, No Tenderness Skin: No Rashes Neuro: Normal Gait, Normal Speech Psych/Mental Status: Mental Status NL, Mood NL Discharge Home Medications Reviewed and agree with Discharge Medication list on patient's Discharge Instruction sheet Instructions to Patient/Family Please see electonic discharge instructions given to patient. 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
[2016-12-19 13:05] VITALS: BP 132/82
--- NOTE | 2016-12-19 21:29 | CARDIAC CATHETERIZATION ---
DATE OF SERVICE: 12/18/2016 PROCEDURE: Cardiac catheterization and coronary intervention report. HISTORY: The patient is a 51-year-old man with known coronary artery disease who was admitted with chest discomfort suggestive of unstable angina. He has a complex history of coronary stenting. As far as we can determine, he has had the following coronary interventions: Prior to 2011, he underwent an unknown stent to the mid right coronary artery; Promus 3 x 23 mm stents to the mid left anterior descending artery; Promus 2.5 x 15 mm stents to the distal left anterior descending artery; Promus 2.5 x 18 mm stents to a diagonal. At this hospital, he has had the following stents: Promus Element 2.5 x 12 mm stent to the mid left circumflex in January [address] Bolton; Resolute Integrity 2.5 x 18 mm stent to the distal right coronary artery by Dr. Bolton. PROCEDURE: He was brought to the cardiac catheterization laboratory in a fasting state. The right groin was prepared and draped in the usual sterile fashion. The 1% lidocaine was used for local anesthesia. Modified Seldinger technique was to advance a 5-Lithuanian sheath into the right femoral artery. A 5-Lithuanian JL4 catheter used for left coronary angiography and 5-Lithuanian JR4 catheter was not resulting in engagement with the right coronary artery. We exchanged the sheath over a wire for a 6 Lithuanian sheath and used 6-Lithuanian AL2 catheter to engage the right coronary artery which has a high anterior origin. Prior to the right coronary angiogram, we used 5-Lithuanian pigtail catheter for left heart catheterization and left ventricular angiography. PERCUTANEOUS INTERVENTION TO THE LEFT ANTERIOR DESCENDING ARTERY: Following completion of the diagnostic procedure, we used a 6-Lithuanian JL4 guide catheter to engage the left coronary artery and to carry out percutaneous intervention to the left anterior descending artery. We used a BMW wire which was placed across the multiple lesions in the left anterior descending artery and the tip of the wire was placed in the distal vessel. We first carried out balloon angioplasty with Emerge 2.5 x 15 mm balloon in a distal stent within left anterior descending artery which was exhibiting approximately 80% stenosis. Following balloon angioplasty, there is 0% residual stenosis. This balloon was then removed. We then proceeded with percutaneous intervention to the proximal left anterior descending artery which was exhibiting 80% stenosis. We used a Choice Floppy wire that was advanced into the ramus intermedius. We did this because it was not clear if the ramus intermedius was arising as a higher first diagonal branch from the left anterior descending artery, in which case, it would have been jailed by the proposed stent. We found that this was a ramus intermedius vessel and would not be in the path of the stent. This wire was then removed and we proceeded with stenting of the left anterior descending artery. We advanced an Alpine Xience 3.0 x 23 mm stent to the proximal left anterior descending artery. This was made slightly overlap with the previously present mid left anterior descending artery stent. The stent was deployed at 20 atmospheres achieving a final stent lumen size of nearly 3.4 mm, where full stent expansion was achieved. Subsequent angiography revealed 0% residual stenosis in the proximal left anterior descending artery where the patient previously had 80% stenosis. Flow throughout the vessel was normal. Angioplasty equipment was then removed. Angiography of the right femoral artery had been carried out through the sheath at the time of initial sheath deployment. At the end of the procedure, Mynx was used to achieve hemostasis. He tolerated the procedure well. HEMODYNAMICS: Left ventricular end diastolic pressure following coronary angiography was 11 mmHg. There was no significant pressure gradient on pullback across the aortic valve. The ascending aortic pressure is 122/79 with a mean of 98 mmHg. LEFT VENTRICULAR ANGIOGRAPHY: It was carried out in the MATHIS projection. Global left ventricular systolic function is normal. Left ventricular ejection fraction is 65-70%. No significant mitral regurgitation is seen. CORONARY ANGIOGRAPHY: Left main coronary artery does not exhibit significant disease. Left anterior descending artery had 80% proximal stenosis to which successful stenting was carried out with Alpine Xience 3.0 x 23 mm stent with reduction of stenosis to 0% residual. In the mid left anterior descending artery, the patient is known to have Promus 3.0 x 23 mm stent which is widely patent and free of significant disease. In the distal left anterior descending artery, the patient is known to have Promus 2.5 x 15 mm stent which was exhibiting 80% instent restenosis. To this, successful balloon angioplasty was carried out which reduced the stenosis to 0% residual. The very distal portion of the left anterior descending artery has moderately severe to severe disease, but here the vessel is too smaller caliber for intervention. The first diagonal branch of the left anterior descending artery had a patent stent. This is known to be Promus 2.5 x 18 mm stent. The left circumflex artery has a large first obtuse marginal branch which had a patent stent and this is known to be Promus Element 2.5 x 12 mm stent. The right coronary artery had a patent stent at its mid portion and patent stent at its distal portion. The proximal stent details are unknown. The distal stent is Resolute Integrity 2.5 x 18 mm stent. These stents did not show any significant instent restenosis. However, the distal right coronary artery distal to the origin of the posterior descending branch has multiple upto the 80% stenosis, but the vessel has a small caliber and is not easily amenable to intervention. CONCLUSIONS: 1. Coronary artery disease as detailed above. The patient underwent the stenting of the proximal left anterior descending artery with Alpine Xience 3.0 x 23 mm stent which reduced an 80% stenosis to 0% residual. The distal left anterior descending artery stent, known to be Promus 2.5 x 15 mm, was exhibiting 80% instent restenosis to which successful balloon angioplasty was carried out today with the reduction stenosis to 0% residual. The mid left anterior descending stent and a stent in the proximal portion of the first diagonal branch are patent. A stent in the proximal to mid portion of the first obtuse marginal branch is patent. Patent stents are also seen in the mid right coronary artery and distal right coronary artery. The very distal portion of the right coronary artery, following the origin of the posterior descending branch has multiple 80% stenosis, but the vessel is of small caliber and not easily amenable to intervention. The distal left anterior descending artery has moderately severe to severe disease. This is diffuse and the vessel is of a small caliber and the lesions are not amenable to intervention. 2. Normal global left ventricular systolic function with ejection fraction of approximately 65-70%. 3. Normal left ventricular end-diastolic pressures. 4. No significant mitral regurgitation. DISCUSSION AND RECOMMENDATIONS: Dual antiplatelet therapy has been initiated. We have again advised him to quit smoking immediately and completely. We have also advised statin therapy and this is being initiated. Further recommendations will be based on his hospital course. Job ID: [id number] DocumentID: [id number] Dictated Date: 12/18/2016 15:58:29 Filling Separator Date: 12/19/2016 14:38:25 Dictated By: LAKESHA GIBSON MD, MA, FACP, FACC, MTDD
== END 2016-12-19 13:05 | disposition home or self-care (01) ==
LOC: EDUNIT# 15:56 → ER 15:57 → 4TH 18:25 → UNDOADMOB 18:25 → 4TH 19:25 → CATH 19:25 → 4TH 19:25 → ICU 12-18 16:00 → 4TH 12-18 16:00 → CATH 12-19 13:05 → UNDODISOB 12-19 13:05
PROVIDERS: ATTEND Internal Medicine Cardiovascular Disease
DX: I25.110 Atherosclerotic heart disease of native coronary artery with unstable angina pectoris (principal); T82.855A Stenosis of coronary artery stent, initial encounter; I10 Essential (primary) hypertension; E78.5 Hyperlipidemia, unspecified; M19.90 Unspecified osteoarthritis, unspecified site; F41.9 Anxiety disorder, unspecified; Z72.0 Tobacco use; Z82.49 Family history of ischemic heart disease and other diseases of the circulatory system; Z79.899 Other long term (current) drug therapy; Z91.19 Patient's noncompliance with other medical treatment and regimen
CPT/HCPCS: 36415; 71010; 80048; 80053; 80061; 82150; 83690; 83735; 83874; 83880; 84484; 85025; 85027; 85379; 85610; 85730; 93005; 93041; 93458; G0378

== ENCOUNTER 2017-04-17 21:12 | Observation (INO) | payer OTHER ==
[~2017-04-17] VITALS: Ht 175.3 cm; Wt 100.3 kg
[~2017-04-17 21:12] MED LIST changes: +ASPI-983 PO; +ASPI-999 PO; +ASPIRIN 81 MG CHEW (CHILDREN'S ASA) ONE; +CELE-63 PO; +CLOP75TA69 PO; +DULO60CA6 PO; +TRAM50TA2 PO; +ZOLP10TA PO
[2017-04-17] MEDS ORDERED: RX-NITROGLYCERIN 0.4 MG TAB BTL 25'S SL PRN (21:15)
[2017-04-17] MEDS: ASPIRIN 81 MG CHEW (CHILDREN'S ASA) PO ONE (21:21)
[2017-04-17 21:26] LABS: BASOPHILS % (AUTO) 0 % (0-10); EOSINOPHILS # (AUTO) 0.2 10^3/uL (0.0-0.3); EOSINOPHILS % (AUTO) 2 % (0-10); LYMPHOCYTES # (AUTO) 2.2 X 10^3 (1.0-4.0); LYMPHOCYTES % (AUTO) 21 % (12-44); MEAN CORPUSCULAR HEMOGLOBIN 34 PG (25-34); MEAN CORPUSCULAR HGB CONC 35 G/DL (32-36); MEAN CORPUSCULAR VOLUME 95 FL (80-99); MEAN PLATELET VOLUME 11.9 FL (7.4-10.4); MONOCYTES # (AUTO) 0.7 X 10^3 (0.0-1.0); MONOCYTES % (AUTO) 7 % (0-12); NEUTROPHILS # (AUTO) 7.4 X 10^3 (1.8-7.8); NEUTROPHILS % (AUTO) 71 % (42-75); PLATELET COUNT 198 10^3/uL (130-400); RED BLOOD COUNT 4.52 10^6/uL (4.35-5.85); RED CELL DISTRIBUTION WIDTH 12.9 % (10.0-14.5); WHITE BLOOD COUNT 10.4 10^3/uL (4.3-11.0)
--- NOTE | 2017-04-17 21:28 | ED Chest Pain ---
General Chief Complaint: Chest Pain Stated Complaint: CHEST PAIN Source: patient History of Present Illness Time seen by provider: 21:15 Initial Comments PT ARRIVES VIA POV FROM HOME C/O LEFT LOWER CHEST PAIN SINCE 1900 TONIGHT--BEGAN WHILE LAYING DOWN PAIN COMES AND GOES, TOOK NTG X 1 AT 2013 AND PAIN HAS NOT RETURNED PT STATES HE IS ALWAYS SHORT OF BREATH, AND IS NO DIFFERENT TODAY HAS HAD CHILLS THEN SWEATS. 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 THIS FEELS THE SAME PRIOR CARDIAC PAIN PT HAS HISTORY OF NON-COMPLIANCE AND CONTINUES TO SMOKE PCP: TAMERA-GHADA, ANTONELLA WELCH DEPARTMENT OF MATHEMATICS CHAIR: DR. GIBSON Allergies and Home Medications Allergies Coded Allergies: amoxicillin (Verified Allergy, Unknown, 02/17/09) potassium clavulanate (Verified Allergy, Unknown, 02/17/09) Home Medications Aspirin 81 Mg Tab.chew, 81 MG PO DAILY for 30 Days Prescribed by: MAU HOLBROOK on 12/19/16 0940 Atenolol 25 Mg Tablet, 25 MG PO HS, (Reported) Atorvastatin Calcium 80 Mg Tablet, 80 MG PO HS, (Reported) LAST FILLED #30 08-22-16 Celecoxib 200 Mg Capsule, 200 MG PO DAILY for 30 Days, #30 Prescribed by: FORTINO TAMAYO on 12/19/16 1231 Clopidogrel Bisulfate 75 Mg Tablet, 75 MG PO DAILY for 90 Days, Ref 3 Prescribed by: MAU HOLBROOK on 12/19/16 0940 Duloxetine HCl 60 Mg Capsule., 60 MG PO DAILY, #30 Prescribed by: FORTINO TAMAYO on 12/19/16 1231 Zolpidem Tartrate 10 Mg Tablet, 10 MG PO HS, (Reported) Review of Systems Constitutional: see HPI, chills, diaphoresis EENTM: No Symptoms Reported Respiratory: See HPI, Denies Cough, Shortness of Air (CHRONIC /STABLE) Cardiovascular: See HPI, Chest Pain, Denies Edema, Denies Irregular Heart Rate , Denies Lightheadedness, Denies Palpitations, Denies Syncope Gastrointestinal: See HPI, Denies Abdominal Pain, Nausea, Vomiting Genitourinary: No Symptoms Reported Musculoskeletal: see HPI Skin: no symptoms reported Psychiatric/Neurological: Denies Headache, Denies Numbness, Denies Paresthesia , Other (AGITATED, ANGRY) Endocrine: No Symptoms Reported Hematologic/Lymphatic: No Symptoms Reported Past Cvfcqot-Ecbbwn-Boigap Hx Patient Social History Alcohol Use: Denies Use Recreational Drug Use: No Smoking Status: Current Everyday Smoker (<1/2 PPD) Type Used: Cigarettes Recent Foreign Travel: No Contact w/Someone Who Travel: No Recent Hopitalizations: No Seasonal Allergies Seasonal Allergies: No Surgeries History of Surgeries: Yes (CARDIAC CATHS--MULTIPLE ANGIOPLASTIES AND CARDIAC STENTS x14 OR 15, HERNIA X2, CYST REMOVAL WRIST/LOW BACK; BMT'S 04/2016) Surgeries: Abdominal, Cardiac, Coronary Stent, Ear Surgery Respiratory History of Respiratory Disorde: No (STATES HE IS ALWAYS SHORT OF BREATH, BUT NO DX OF RESPIRATORY PROBLEMS) Currently Using CPAP: No Currently Using BIPAP: No Cardiovascular History of Cardiac Disorders: Yes (HX OF SD X2, HAS 14 OR 15 STENTS; LAFB) Cardiac Disorders: Coronary Artery Disease, Heart Attack, High Cholesterol, Hypertension Neurological History of Neurological Disord: No Reproductive System Hx Reproductive Disorders: No Sexually Transmitted Disease: No HIV/AIDS: No Genitourinary History of Genitourinary Disor: No Gastrointestinal History of Gastrointestinal Di: No Musculoskeletal History of Musculoskeletal Dis: Yes (joint pain) Musculoskeletal Disorders: Arthritis, Chronic Back Pain Endocrine History of Endocrine Disorders: No HEENT History of HEENT Disorders: Yes HEENT Disorders: Chronic Ear Infection Loss of Vision: Denies Hearing Impairment: Denies Cancer History of Cancer: No Psychosocial History of Psychiatric Problem: No Integumentary History of Skin or Integumenta: No Blood Transfusions History of Blood Disorders: No Family Medical History Significant Family History: No Pertinent Family Hx Family Medial History: Physical Exam Vital Signs Vital Sign - Last 12Hours 04/17/17 21:18 Temp 97.6 Pulse 84 Resp 16 B/P (MAP) 156/105 Pulse Ox 95 O2 Delivery Room Air Capillary Refill : General Appearance: No Apparent Distress, WD/WN Neck: Full Range of Motion, Normal Inspection, Non Tender, Supple, No Carotid Bruit, No JVD Respiratory: Chest Non Tender, Normal Breath Sounds, No Accessory Muscle Use, No Respiratory Distress Cardiovascular: Regular Rate, Rhythm, No Edema, No JVD, No Murmur, Normal Peripheral Pulses Gastrointestinal: Normal Bowel Sounds, No Organomegaly, No Pulsatile Mass, Non Tender, Soft Extremity: Normal Capillary Refill, Normal Inspection, Normal Range of Motion, Non Tender, No Calf Tenderness, No Pedal Edema Neurologic/Psychiatric: Alert, Oriented x3, No Motor/Sensory Deficits, 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 Norm as Tested, Other (SOMEWHAT AGITATED AND ANGRY) Skin: Normal Color, Warm/Dry Progress/Results/Core Measures Results/Orders Lab Results Laboratory Tests Test 04/17/17 21:19 Range/Units White Blood Count 10.4 4.3-11.0 10^3/uL Red Blood Count 4.52 4.35-5.85 10^6/uL Hemoglobin 15.2 13.3-17.7 G/DL Hematocrit 43 40-54 % Mean Corpuscular Volume 95 80-99 FL Mean Corpuscular Hemoglobin 34 25-34 PG Mean Corpuscular Hemoglobin Concent 35 32-36 G/DL Red Cell Distribution Width 12.9 10.0-14.5 % Platelet Count 198 130-400 10^3/uL Mean Platelet Volume 11.9 H 7.4-10.4 FL Neutrophils (%) (Auto) 71 42-75 % Lymphocytes (%) (Auto) 21 12-44 % Monocytes (%) (Auto) 7 0-12 % Eosinophils (%) (Auto) 2 0-10 % Basophils (%) (Auto) 0 0-10 % Neutrophils # (Auto) 7.4 1.8-7.8 X 10^3 Lymphocytes # (Auto) 2.2 1.0-4.0 X 10^3 Monocytes # (Auto) 0.7 0.0-1.0 X 10^3 Eosinophils # (Auto) 0.2 0.0-0.3 10^3/uL Basophils # (Auto) 0.0 0.0-0.1 10^3/uL Prothrombin Time 13.1 12.2-14.7 SEC INR Comment 1.0 0.8-1.4 Activated Partial Thromboplast Time 27 24-35 SEC Sodium Level 142 135-145 MMOL/L Potassium Level 3.5 L 3.6-5.0 MMOL/L Chloride Level 105 98-107 MMOL/L Carbon Dioxide Level 26 21-32 MMOL/L Anion Gap 11 5-14 MMOL/L Blood Urea Nitrogen 12 7-18 MG/DL Creatinine 0.88 0.60-1.30 MG/DL Estimat Glomerular Filtration Rate > 60 BUN/Creatinine Ratio 14 Glucose Level 165 H 70-105 MG/DL Calcium Level 9.3 8.5-10.1 MG/DL Magnesium Level 2.2 1.8-2.4 MG/DL Total Bilirubin 0.4 0.1-1.0 MG/DL Aspartate Amino Transf (AST/SGOT) 21 5-34 U/L Alanine Aminotransferase (ALT/SGPT) 37 0-55 U/L Alkaline Phosphatase 95 40-136 U/L Total Creatine Kinase 151 30-200 U/L Creatine Kinase MB 1.6 <6.6 NG/ML Troponin I < 0.30 <0.30 NG/ML B-Type Natriuretic Peptide 25.2 <100.0 PG/ML Total Protein 7.1 6.4-8.2 GM/DL Albumin 4.4 3.2-4.5 GM/DL Amylase Level 44 25-125 U/L Lipase 43 8-78 U/L My Orders Orders - SYDNIE GUTIERREZ DO Amylase (04/17/17 21:15) Cbc With Automated Diff (04/17/17 21:15) Comprehensive Metabolic Panel (04/17/17 21:15) Creatine Kinase (04/17/17 21:15) Creatine Kinase Mb (04/17/17 21:15) Lipase (04/17/17 21:15) Partial Thromboplastin Time (04/17/17 21:15) Protime With Inr (04/17/17 21:15) Troponin I (04/17/17 21:15) Chest 1 View, Ap/Pa Only (04/17/17 21:15) O2 (04/17/17 21:15) Ekg Tracing (04/17/17 21:15) Aspirin Chewable Tablet (Baby Aspirin Ch (04/17/17 21:15) Rx-Nitroglycerin Sl Tabs (Rx-Nitrostat S (04/17/17 21:15) BNP (04/17/17 21:15) Monitor-Rhythm Ecg Trace Only (04/17/17 21:15) Magnesium (04/17/17 21:15) Aspirin Chewable Tablet (Baby Aspirin Ch (04/17/17 21:12) Lorazepam Injection (Ativan Injection) (04/17/17 21:45) Medications Given in ED Current Medications Medications Dose Ordered Sig/Paola Route Start Time Stop Time Status Last Admin Dose Admin Aspirin 324 mg ONCE ONCE PO 04/17/17 21:15 04/17/17 21:17 DC 04/17/17 21:21 324 MG Lorazepam 2 mg ONCE ONCE IVP 04/17/17 21:45 04/17/17 21:46 DC 04/17/17 21:42 2 MG Vital Signs/I&O Vital Sign - Last 12Hours 04/17/17 04/17/17 21:18 21:18 Temp 97.6 Pulse 84 Resp 16 B/P (MAP) 156/105 Pulse Ox 95 O2 Delivery Room Air Room Air Progress Note : Progress Note NO CHEST PAIN DURING ER STAY PT'S ANXIETY IMPROVED WITH ATIVAN ECG Initial ECG Impression Time: 21:13 Initial ECG Rate: 83 Initial ECG Rhythm: Normal Sinus (LAFB) Initial ECG Comparisson: Unchanged Diagnostic Imaging Comments CXR--BORDERLINE CARDIOMEGALY OTHERWISE NO ACUTE PROCESS, PER RADIOLOGIST REPORT @ 2135 Reviewed: Reviewed by Me Departure Communication (Admissions) Progress Notes 2199--SPOKE WITH DR. DOSS, ACCEPTS PT FOR ADMIT 2204--SPOKE WITH DR. GIBSON FOR CARDIOLOGY CONSULT Impression Impression: Primary Impression: Chest pain Additional Impressions: HX OF CAD Anxiety Smoker HTN (hypertension) Disposition: ADMITTED INPATIENT Condition: Improved Admissions Decision to Admit Reason: Admit from ER (General) Decision to Admit/Date: Apr 17, 2017 Time/Decision to Admit Time: 22:00 Departure-Patient Inst. Referrals: NO,LOCAL PHYSICIAN (PCP) Primary Care Physician SYDNIE GUTIERREZ DO Apr 17, 2017 21:28
--- NOTE | 2017-04-17 21:34 | Diagnostic Imaging Report ---
INDICATION: Chest pain. Frontal chest obtained at 9:26 p.m. FINDINGS: Heart is borderline in size. Mediastinal silhouette is unremarkable. The lungs are clear. There is no pneumothorax or pleural fluid. IMPRESSION: Borderline heart size with no acute process in the chest. Dictated by: Dictated on workstation # [id number]
[2017-04-17 21:36] LABS: PROTHROMBIN TIME PATIENT 13.1 SEC (12.2-14.7)
[2017-04-17] MEDS ORDERED: LORazepam INJ 2 MG/ML (ATIVAN) VIAL IVP ONE (21:45)
[2017-04-17 21:47] LABS: ALANINE AMINOTRANSFERASE 37 U/L (0-55); ALBUMIN 4.4 GM/DL (3.2-4.5); AMYLASE 44 U/L (25-125); ANION GAP 11 MMOL/L (5-14); ASPARTATE AMINO TRANSFERASE 21 U/L (5-34); BILIRUBIN,TOTAL 0.4 MG/DL (0.1-1.0); BLOOD UREA NITROGEN 12 MG/DL (7-18); BUN/CREATININE RATIO 14; CALCIUM 9.3 MG/DL (8.5-10.1); CARBON DIOXIDE 26 MMOL/L (21-32); CHLORIDE 105 MMOL/L (98-107); CREATINE KINASE 151 U/L (30-200); CREATININE SERUM 0.88 MG/DL (0.60-1.30); GFR ESTIMATED > 60; GLUCOSE 165 MG/DL (70-105); LIPASE 43 U/L (8-78); MAGNESIUM 2.2 MG/DL (1.8-2.4); POTASSIUM 3.5 MMOL/L (3.6-5.0); SODIUM 142 MMOL/L (135-145); TOTAL PROTEIN 7.1 GM/DL (6.4-8.2)
[2017-04-17 21:53] LABS: TROPONIN I < 0.30 NG/ML (<0.30)
[2017-04-17 22:55] VITALS: BP 155/98
[2017-04-17 23:04] VITALS: BP 152/98
[2017-04-17 23:20] VITALS: BP 146/91
[2017-04-17 23:45] VITALS: BP 154/87
[2017-04-18] VITALS (8 sets, daily range): BP systolic 132–159; BP diastolic 78–102
[2017-04-18] MEDS ORDERED: LORazepam INJ 2 MG/ML (ATIVAN) VIAL IV PRN (00:15)
[2017-04-18] MEDS ORDERED: NITROGLYCERIN 0.4 MG SL TABS BTL 25'S SL PRN (00:15)
[2017-04-18] MEDS ORDERED: morphine INJ 4 MG/ML 1 ML (VIAL/SYRINGE) IV PRN (00:15)
[2017-04-18 04:25] LABS: BASOPHILS % (AUTO) 0 % (0-10); EOSINOPHILS # (AUTO) 0.2 10^3/uL (0.0-0.3); EOSINOPHILS % (AUTO) 3 % (0-10); LYMPHOCYTES # (AUTO) 2.6 X 10^3 (1.0-4.0); LYMPHOCYTES % (AUTO) 32 % (12-44); MEAN CORPUSCULAR HEMOGLOBIN 33 PG (25-34); MEAN CORPUSCULAR HGB CONC 34 G/DL (32-36); MEAN CORPUSCULAR VOLUME 96 FL (80-99); MEAN PLATELET VOLUME 12.1 FL (7.4-10.4); MONOCYTES # (AUTO) 0.9 X 10^3 (0.0-1.0); MONOCYTES % (AUTO) 11 % (0-12); NEUTROPHILS # (AUTO) 4.4 X 10^3 (1.8-7.8); NEUTROPHILS % (AUTO) 55 % (42-75); PLATELET COUNT 177 10^3/uL (130-400); RED BLOOD COUNT 4.37 10^6/uL (4.35-5.85)
[2017-04-18 04:44] LABS: ALANINE AMINOTRANSFERASE 34 U/L (0-55); ANION GAP 10 MMOL/L (5-14); ASPARTATE AMINO TRANSFERASE 20 U/L (5-34); BILIRUBIN,TOTAL 0.4 MG/DL (0.1-1.0); BLOOD UREA NITROGEN 11 MG/DL (7-18); BUN/CREATININE RATIO 14; CARBON DIOXIDE 23 MMOL/L (21-32); CHLORIDE 108 MMOL/L (98-107); CHOLESTEROL 141 MG/DL (< 200); DIRECT LDL 80 MG/DL (1-129); GFR ESTIMATED > 60; GLUCOSE 122 MG/DL (70-105); POTASSIUM 3.7 MMOL/L (3.6-5.0); SODIUM 141 MMOL/L (135-145); TOTAL PROTEIN 6.6 GM/DL (6.4-8.2); TRIGLYCERIDES 230 MG/DL (<150); VLDL CHOLESTEROL 46 MG/DL (5-40)
[2017-04-18 04:55] LABS: MYOGLOBIN SERUM 33.3 NG/ML (10.0-92.0)
--- NOTE | 2017-04-18 07:43 | Consultation-Cardiology ---
HPI-Cardiology Cardiology Consultation: Date of Consultation 04/18/17 Time Seen by Provider: 07:15 Date of Admission Attending Physician Johanny Lopez MD Admitting Physician Kasey Molina DO Consulting Physician LAKESHA GIBSON MD, MA, FACP, FACC, FSCAI, CCDS HPI: Chief Complaint: CC: Chest pain 51 yo man with numerous episodes of cp last night after an emotionally stressful day Chest pain description: L lateral and L axillary Sharp at time, dull at times Lasting up to 30 sec Frequently repetitive (at least 6 episodes last night; none since) Self-resolving Associated with anxiety and a feeling of chills and sweats No radiation Has never experience such pain before Also feels he was getting irritable; feels it was having panic attacks Has chronic exertional shortness of breath, mod, unchanged. Denies palp or syncope or ankle swelling. Notes leg discomfort when walking, improved with rest , chronic, moderate, unchanged in the recent past. No leg discoloration Review of Systems-Cardiology Review of Systems Constitutional: tiredness, No weight loss, No weight gain Eyes: No vision change Ears/Nose/Throat: No ear discharge, No nasal drainage, No recent hearing loss Respiratory: As described under HPI Cardiovascular: As described under HPI Gastrointestinal: No constipation, No diarrhea, No nausea, No vomiting Genitourinary: No dysuria, No hematuria, No urine frequency changes Musculoskeletal: back pain, joint pain (chronic) Skin: No rash, No ulcerations Psychiatric/Neurological: anxiety, No seizure, No focal weakness, No syncope Hematologic: No bleeding abnormalities TWA-Bofzbq-Xjnkbz Hx Patient Social History Alcohol Use: Denies Use Recreational Drug Use: No Smoking Status: Current Everyday Smoker Type Used: Cigarettes 2nd Hand Smoke Exposure: Yes Recent Foreign Travel: No Recent Infectious Disease Expo: No Hospitalization with Isolation: Denies Physical Abuse Screen: No Sexual Abuse: No Immunizations Up To Date Tetanus Booster (TDap): Unknown Past Medical History PMH As described under Assessment. Family Medical History Family Medical History: He reports his father had CAD with CABG when he was in his 30's and a few years later of heart trouble. He reports his mother had strokes. Family History: Allergies and Home Medications Allergies Coded Allergies: amoxicillin (Verified Allergy, Unknown, 02/17/09) potassium clavulanate (Verified Allergy, Unknown, 7/16/09) Home Medications Aspirin 81 Mg Tab.chew, 81 MG PO DAILY for 30 Days Prescribed by: MAU HOLBROOK on 12/19/16 0940 Atenolol 25 Mg Tablet, 25 MG PO HS, (Reported) Atorvastatin Calcium 80 Mg Tablet, 80 MG PO HS, (Reported) LAST FILLED #30 08-22-16 Celecoxib 200 Mg Capsule, 200 MG PO DAILY for 30 Days, #30 Prescribed by: FORTINO TAMAYO on 12/19/16 1231 Clopidogrel Bisulfate 75 Mg Tablet, 75 MG PO DAILY for 90 Days, Ref 3 Prescribed by: MAU HOLBROOK on 12/19/16 0940 Duloxetine HCl 60 Mg Capsule.dr, 60 MG PO DAILY, #30 Prescribed by: FORTINO TAMAYO on 12/19/16 1231 Zolpidem Tartrate 10 Mg Tablet, 10 MG PO HS, (Reported) Physical Exam-Cardiology Physical Exam Vital Signs/I&O Vital Sign - Last 12Hours 04/17/17 04/17/17 04/17/17 04/17/17 21:18 21:18 22:44 22:55 Temp 97.6 97.6 97.8 Pulse 84 83 77 Resp 16 20 18 B/P (MAP) 156/105 155/98 Pulse Ox 95 95 96 O2 Delivery Room Air Room Air Room Air Room Air 04/17/17 04/17/17 04/17/17 04/17/17 23:04 23:07 23:20 23:45 Pulse 76 81 77 Resp 20 18 20 B/P (MAP) 152/98 146/91 154/87 Pulse Ox 95 93 97 96 O2 Delivery Room Air Room Air Room Air Room Air 04/18/17 04/18/17 04/18/17 04/18/17 00:00 00:30 00:30 01:00 Temp 98.2 Pulse 85 82 Resp 16 B/P (MAP) 151/78 147/85 Pulse Ox 93 98 O2 Delivery Room Air Room Air 04/18/17 04/18/17 04/18/17 04/18/17 01:00 01:30 02:00 03:04 Temp 98.0 Pulse 74 77 80 81 Resp 16 18 20 16 B/P (MAP) 155/92 149/87 147/96 159/102 Pulse Ox 95 96 94 97 O2 Delivery Room Air Room Air Room Air Room Air 04/18/17 04/18/17 03:05 04:00 Pulse 88 Resp 22 B/P (MAP) 157/96 Pulse Ox 97 98 O2 Delivery Room Air Room Air Capillary Refill : Less Than 3 Seconds Constitutional: AAO x 3, well-developed, well-nourished HEENT: PERRL, EOMI, hearing is well preserved, No xanthelasmas are seen Neck: carotid pulses are 2 + bilaterally, with good upstrokes Respiratory: No accessory muscle use, lungs clear to percussion, lungs clear to auscultation Cardiovascular: regular rate-rhythm, S1 and S2, systolic murmur (faint PETER at cardiac base) Gastrointestinal: No tender, soft, No guarding, No rebound, audible bowel sounds Extremities: No clubbing, No cyanosis, No significant edema Neurologic/Psychiatric: oriented x 3, grossly intact, power is 5/5 both on sides Skin: No rash on exposed areas, No ulcerations on exposed areas Data Review Labs Laboratory Tests 04/17/17 21:19: White Blood Count 10.4, Red Blood Count 4.52, Hemoglobin 15.2, Hematocrit 43, Mean Corpuscular Volume 95, Mean Corpuscular Hemoglobin 34, Mean Corpuscular Hemoglobin Concent 35, Red Cell Distribution Width 12.9, Platelet Count 198, Mean Platelet Volume 11.9H, Neutrophils (%) (Auto) 71, Lymphocytes (%) (Auto) 21 , Monocytes (%) (Auto) 7, Eosinophils (%) (Auto) 2, Basophils (%) (Auto) 0, Neutrophils # (Auto) 7.4, Lymphocytes # (Auto) 2.2, Monocytes # (Auto) 0.7, Eosinophils # (Auto) 0.2, Basophils # (Auto) 0.0, Prothrombin Time 13.1, INR Comment 1.0, Activated Partial Thromboplast Time 27, Sodium Level 142, Potassium Level 3.5L, Chloride Level 105, Carbon Dioxide Level 26, Anion Gap 11 , Blood Urea Nitrogen 12, Creatinine 0.88, Estimat Glomerular Filtration Rate > 60, BUN/Creatinine Ratio 14, Glucose Level 165H, Calcium Level 9.3, Magnesium Level 2.2, Total Bilirubin 0.4, Aspartate Amino Transf (AST/SGOT) 21, Alanine Aminotransferase (ALT/SGPT) 37, Alkaline Phosphatase 95, Total Creatine Kinase 151, Creatine Kinase MB 1.6, Troponin I < 0.30, B-Type Natriuretic Peptide 25.2 , Total Protein 7.1, Albumin 4.4, Amylase Level 44, Lipase 43 04/18/17 03:44: White Blood Count 8.0, Red Blood Count 4.37, Hemoglobin 14.5, Hematocrit 42, Mean Corpuscular Volume 96, Mean Corpuscular Hemoglobin 33, Mean Corpuscular Hemoglobin Concent 34, Red Cell Distribution Width 13.0, Platelet Count 177, Mean Platelet Volume 12.1H, Neutrophils (%) (Auto) 55, Lymphocytes (%) (Auto) 32 , Monocytes (%) (Auto) 11, Eosinophils (%) (Auto) 3, Basophils (%) (Auto) 0, Neutrophils # (Auto) 4.4, Lymphocytes # (Auto) 2.6, Monocytes # (Auto) 0.9, Eosinophils # (Auto) 0.2, Basophils # (Auto) 0.0, Sodium Level 141, Potassium Level 3.7, Chloride Level 108H, Carbon Dioxide Level 23, Anion Gap 10, Blood Urea Nitrogen 11, Creatinine 0.80, Estimat Glomerular Filtration Rate > 60, BUN/ Creatinine Ratio 14, Glucose Level 122H, Calcium Level 9.0, Total Bilirubin 0.4 , Aspartate Amino Transf (AST/SGOT) 20, Alanine Aminotransferase (ALT/SGPT) 34, Alkaline Phosphatase 89, Troponin I < 0.30, Total Protein 6.6, Albumin 4.0, Myoglobin 33.3, Triglycerides Level 230H, Cholesterol Level 141, LDL Cholesterol Direct 80, VLDL Cholesterol 46H, HDL Cholesterol 30L Laboratory Tests 04/17/17 21:19 04/18/17 03:44 ECG Impression ECG Comment Serial ECGs on 04/17/17 and 04/18/17: NSR without evidence of acute ischemia A/P-Cardiology Assessment/Admission Diagnosis CAD - Has complex cor stenting history. As far as we can determine, prior to 2011 he has had the following cor stents in [place], [place]: unknown stent of mid RCA ; Promus 3 x 23 in mid LAD and Promus 2.5 x 15 in distal LAD; Promus 2.5 x 18 in a diag. At this hosp he has had the following stents: Promus element 2.5 x 12mm stent in the mid left circumflex in [place] [address] Bolton; Integrity Resolute 2.5 x 18mm stent in the distal RCA in February [address] Bolton. Last card cath on 12/18/16: He underwent PTCA of distal LAD stent and placement of a new prox LAD stent (Alpine Xience 3x23); distal LAD has mod to severe disease that is not amenable to intervention due to very small vessel caliber; the very distal RCA has moderately severe obstructive disease, but the vessel here is of small caliber and should preferentially be treated with meds but consideration can be given to PCI if med therapy is inadequate in controlling symptoms DJD, primarily involving the knees and ankles and hands, managed by his pcp Symptoms of leg claudication HTN HLP - statin tx managed by PCP Tobaccoism - refraining since 12/18/16 Intermittent non-compliance with medications Discussion and Recomendations * He has complex CV history, but there is no current evidence of any ACS and symptoms appear non-cardiac * Given symptoms of chills and sweating, we do recommend Medical eval which he is due to have with his pcp today * We again discussed risk factor modification and have advised f/u at our office tomorrow * W/u for chronic leg claudication is advised and this will be done as an outpatient * We have advised him to continue to refrain from tobacco use * We have advised med compliance and reviewed the rationale and potential side effects of his current card regimen Clinical Quality Measures AMI/AHF: ASA po Prior to arrival: No DVT/VTE Risk/Contraindication: Risk Factor Score Per Nursin RFS Level Per Nursing on Admit: 3=High LAKESHA GIBSON MD FACP FAC CCDS Apr 18, 2017 07:43
[2017-04-18] MEDS ORDERED: ASPIRIN E.C. 325 MG (ECOTRIN) TABLET PO SCH (09:00)
--- NOTE | 2017-04-18 09:45 | Short Stay Summary ---
HPI Attending Physician Jack Lopez MD PCP Kasey Molina DO Consult Date of Admission Apr 17, 2017 at 22:00 Home Medications Home Medications Reviewed patient Home Medication Reconciliation Form Allergies Coded Allergies: amoxicillin (Verified Allergy, Unknown, 02/17/09) potassium clavulanate (Verified Allergy, Unknown, 02/17/09) ATW-Uwqpxq-Ioerzx Hx Patient Social History Alcohol Use: Denies Use Recreational Drug Use: No Smoking Status: Current Everyday Smoker Type Used: Cigarettes 2nd Hand Smoke Exposure: Yes Recent Foreign Travel: No Contact w/other who traveled: No Recent Hopitalizations: No Recent Infectious Disease Expo: No Physical Abuse Screen: No Sexual Abuse: No Immunizations Up To Date Tetanus Booster (TDap): Unknown Family Medical History Significant Family History: No Pertinent Family Hx Family History: Physical Exam-(CHC) Physical Exam Vital Signs VS - Last 72 Hours, by Label 04/17/17 04/17/17 04/17/17 04/17/17 21:18 21:18 22:44 22:55 Temp 97.6 97.6 97.8 Pulse 84 83 77 Resp 16 20 18 B/P (MAP) 156/105 155/98 Pulse Ox 95 95 96 O2 Delivery Room Air Room Air Room Air Room Air 04/17/17 04/17/17 04/17/17 04/17/17 23:04 23:07 23:20 23:45 Pulse 76 81 77 Resp 20 18 20 B/P (MAP) 152/98 146/91 154/87 Pulse Ox 95 93 97 96 O2 Delivery Room Air Room Air Room Air Room Air 04/18/17 04/18/17 04/18/17 04/18/17 00:00 00:30 00:30 01:00 Temp 98.2 Pulse 85 82 Resp 16 B/P (MAP) 151/78 147/85 Pulse Ox 93 98 O2 Delivery Room Air Room Air 04/18/17 04/18/17 04/18/17 04/18/17 01:00 01:30 02:00 03:04 Temp 98.0 Pulse 74 77 80 81 Resp 16 18 20 16 B/P (MAP) 155/92 149/87 147/96 159/102 Pulse Ox 95 96 94 97 O2 Delivery Room Air Room Air Room Air Room Air 9/14/17 9/14/17 9/14/17 03:05 04:00 07:00 Pulse 88 81 Resp 22 B/P (MAP) 157/96 Pulse Ox 97 98 O2 Delivery Room Air Room Air Capillary Refill : Less Than 3 Seconds Clinical Quality Measures AMI/AHF: ASA po Prior to arrival: No DVT/VTE Risk/Contraindication: Risk Factor Score Per Nursin RFS Level Per Nursing on Admit: 3=High JACK LOPEZ MD Apr 18, 2017 09:45
--- NOTE | 2017-04-18 09:45 | Discharge Instructions ---
Discharge Inst-[facility] Discharge Medications New, Converted or Re-Newed RX: Other (No New scripts) Continued Medications: Aspirin (Aspirin) 81 Mg Tab.chew 81 MG PO DAILY for 30 Days, TAB Atenolol (Atenolol) 25 Mg Tablet 25 MG PO HS, TAB Atorvastatin Calcium (Atorvastatin Calcium) 80 Mg Tablet 80 MG PO HS, TAB LAST FILLED #30 08-22-16 Celecoxib (Celecoxib) 200 Mg Capsule 200 MG PO DAILY for 30 Days, #30 CAP Clopidogrel Bisulfate (Plavix) 75 Mg Tablet 75 MG PO DAILY for 90 Days, TAB 3 Refills Duloxetine HCl (Cymbalta) 60 Mg Capsule.dr 60 MG PO DAILY, #30 CAP Zolpidem Tartrate (Ambien) 10 Mg Tablet 10 MG PO HS, TAB Patient Instructions Goal/Follow Up Appt: Has Follow up appts tomorrow with Dr Mao and Little Martínez NP Return to The Hospital For: Severe Chest pain Shortness of breath Unable to tolerate medications Activity & Diet Discharge Diet: Cardiac Diet Activity as Tolerated: Yes Orders-Post D/C & Referrals Pneu Vac Indicated: Yes Copy Copies To 1: Little PHILIP HOLLY R MD Apr 18, 2017 09:45
== END 2017-04-18 09:43 | disposition home or self-care (01) ==
LOC: EDUNIT# 21:12 → ER 21:13 → UNDOADMOB 22:00 → ICU 22:00 → UNDODISOB 04-18 10:35
PROVIDERS: ADMIT Family Medicine; ATTEND Family Medicine
DX: R07.9 Chest pain, unspecified (principal); F41.9 Anxiety disorder, unspecified; I10 Essential (primary) hypertension; E78.00 Pure hypercholesterolemia, unspecified; I25.10 Atherosclerotic heart disease of native coronary artery without angina pectoris; I25.2 Old myocardial infarction; M17.0 Bilateral primary osteoarthritis of knee; M19.041 Primary osteoarthritis, right hand; M19.042 Primary osteoarthritis, left hand; M19.071 Primary osteoarthritis, right ankle and foot; M19.072 Primary osteoarthritis, left ankle and foot; F17.210 Nicotine dependence, cigarettes, uncomplicated; Z79.02 Long term (current) use of antithrombotics/antiplatelets; Z79.899 Other long term (current) drug therapy; Z79.82 Long term (current) use of aspirin; Z95.5 Presence of coronary angioplasty implant and graft
CPT/HCPCS: 36415; 71010; 80053; 80061; 82150; 82550; 82553; 83690; 83735; 83874; 83880; 84484; 85025; 85610; 85730; 93005; 93041; 96374

== ENCOUNTER 2019-12-11 12:55 | Day surgery (SDC) | payer BC, OTHER ==
[~2019-12-11] VITALS: Ht 175 cm; Wt 105.0 kg
[~2019-12-11 12:55] MED LIST changes: -ASPIRIN 81 MG CHEW (CHILDREN'S ASA) ONE; +HEParin (CATH LAB) 2,000 ML IV ONE; +LIDOCAINE 1% INJ 20 ML 20 ML VIAL ONE; +NS IV 1000 ML 1,000 ML ONE; -TRAM50TA2 PO; +TRM50T PO
[2019-12-11 13:13] VITALS: BP 135/89
[2019-12-11] MEDS: NS IV 1000 ML 1,000 ML IV SCH ×2 (13:21→18:30)
[2019-12-11 13:31] LABS: HEMOGLOBIN 15.4 G/DL (13.3-17.7); MEAN PLATELET VOLUME 11.7 FL (7.4-10.4); RED CELL DISTRIBUTION WIDTH 13.6 % (10.0-14.5)
[2019-12-11 13:57] LABS: ALANINE AMINOTRANSFERASE 20 U/L (0-55); ALBUMIN 4.3 GM/DL (3.2-4.5); ALKALINE PHOSPHATASE 85 U/L (40-136); BILIRUBIN,TOTAL 0.4 MG/DL (0.1-1.0); BUN/CREATININE RATIO 20; CALCIUM 9.6 MG/DL (8.5-10.1); CARBON DIOXIDE 25 MMOL/L (21-32); CHLORIDE 105 MMOL/L (98-107); CHOLESTEROL 197 MG/DL (< 200); CREATININE SERUM 0.82 MG/DL (0.60-1.30); GFR ESTIMATED > 60; GLUCOSE 107 MG/DL (70-105); HDL CHOLESTEROL 32 MG/DL (40-60); POTASSIUM 4.1 MMOL/L (3.6-5.0); SODIUM 140 MMOL/L (135-145); TOTAL PROTEIN 7.1 GM/DL (6.4-8.2); TRIGLYCERIDES 374 MG/DL (<150); VLDL CHOLESTEROL 75 MG/DL (5-40)
[2019-12-11] MEDS ORDERED: QUET200T PO (14:09)
[2019-12-11] MEDS ORDERED: AMLO5TAB9 PO (14:09)
[2019-12-11] MEDS ORDERED: NITR0.4T42 SL (14:09)
[2019-12-11] MEDS ORDERED: ATOR20TA66 PO (14:09)
[2019-12-11] MEDS ORDERED: TRAM50TA3 PO (14:09)
[2019-12-11] MEDS ORDERED: MTP100TCR PO (14:09)
--- OUTSIDE RECORDS SUMMARY | 2019-12-11 14:35 | XMS REPORT ---
Author Author Reza CLINTON Organization [facility] Address [address] [place] [address] Care Team Providers Care Bradder Name Role Phone JOSE ROBERTO CLINTON Unavailable PROBLEMS Type Condition ICD9-CM Code [id number] Code Onset Dates Condition S tatus SNOMED Code Problem Foot pain, left M79.672 Active 3167 [id number] Problem Plantar fasciitis, bilateral M72.2 A ctive [id number] Problem Tobacco abuse Z72.0 Active 899238 000 Problem Tobacco abuse counseling Z71.6 Activ e 429296257 Problem Pain in right ankle and joints of right foot M25.5 71 Active 668648040 Problem Anxiety F41.9 Active 97238943 Problem Obesity (BMI 30-39.9) E66.9 Active 853934825 Problem Essential hypertension I10 Active 74712960 Problem Coronary artery disease invo lving [place] coronary artery of [place] heart without angina pectoris I25.10 Active 1641 370281342 Problem Chronic pain disorder G89.4 Active 102331721 Problem Acute reaction to situational stress F43.0 Active 44579725 Problem Mixed hyperlipidemia E78.2 Active 205014916 Problem Primary insomnia F51.01 Active 397 2004 ALLERGIES No Information ENCOUNTERS Encounter Location Date Diagnosis [facility] [address] [facility] [id number] [address] [place] [phone] Jan, [facility] [address] [facility] [id number] [address] [place] [phone] December, Chronic pain disorder G89.4 [facility] [address] [facility] [id number] [address] [place] [phone] Nov, Primary insomnia F51.01 [facility] [address] [facility] [id number] [address] [place] [phone] Nov, Chronic pain disorder G89.4 [facility] [address] [place] [address] Nov, Viral URI J06.9 [facility] [address] [facility] [id number] [address] [place] [phone] Oct, Primary insomnia F51.01 [facility] [address] [facility] [id number] [address] [place] [phone] Oct, Chronic pain disorder G89.4 [facility] [address] [facility] [id number] [address] [place] [phone] Sep, Primary insomnia F51.01 [facility] [address] [facility] [id number] [address] [place] [phone] Sep, Chronic pain disorder G89.4 [facility] [address] [facility] [id number] [address] [place] [phone] Aug, Primary insomnia F51.01 [facility] [address] [facility] [id number] [address] [place] [phone] Aug, [facility] [address] [facility] [id number] [address] [place] [phone] Aug, Coronary artery disease invo lving [place] coronary artery of [place] heart without angina pectoris I25.10 [facility] [address] [facility] [id number] [address] [place] [phone] Aug, Chronic pain disorder G89.4 [facility] [address] [facility] [id number] [address] [place] [phone] Aug, Primary insomnia F51.01 [facility] [address] [facility] [id number] [address] [place] [phone] Jul, Mixed hyperlipidemia E78.2 a nd Chronic pain disorder G89.4 [facility] [address] [facility] [id number] [address] [place] [phone] Jul, Primary insomnia F51.01 [facility] [address] [facility] [id number] [address] [place] [phone] Jun, Chronic pain disorder G89.4 [facility] [address] [place] [id number] [address] [place] [phone] Jun, Chronic pain disorder G89.4 [facility] [address] [place] [id number] [address] [place] [phone] Jun, Primary insomnia F51.01 [facility] [address] [place] [id number] [address] [place] [phone] Jun, Primary insomnia F51.01 [facility] [address] [place] [id number] [address] [place] [phone] May, Chronic pain disorder G89.4 ; Foot pain, left M79.672 ; Coronary artery disease involving [place] coronary artery of [place] heart without angina pectoris I25.10 and Recurrent acute suppurative otitis media without spontaneous rupture of left tympanic membrane H66.005 [facility] [address] [place] [id number] [address] [place] [phone] May, Primary insomnia F51.01 [facility] [address] [place] [id number] [address] [place] [phone] Apr, Primary insomnia F51.01 [facility] [address] [place] [id number] [address] [place] [phone] Mar, Primary insomnia F51.01 [facility] [address] [place] [id number] [address] [place] [id number] Mar, Primary insomnia F51.01 [facility] [address] [place] [id number] [address] [place] [phone] Feb, Primary insomnia F51.01 [facility] [address] [place] [id number] [address] [place] [phone] Jan, Essential hypertension I10 ; Mixed hyperlipidemia E78.2 ; Throat tightness R68.89 ; Left arm pain M79.602 ; Coronary artery disease involving [place] coronary artery of [place] heart without angina pectoris I25.10 ; Chronic pain disorder G89.4 ; Tobacco abuse counseling Z71.6 and Primary insomnia F51.01 [facility] [address] [facility] [id number] [address] [place] [phone] Jan, [facility] [address] [facility] [id number] [address] [place] [phone] December, Essential hypertension I10 a nd Mixed hyperlipidemia E78.2 [facility] [address] [facility] [id number] [address] [place] [phone] December, [facility] [address] [facility] [id number] [address] [place] [phone] December, Primary insomnia F51.01 [facility] [address] [facility] [id number] [address] [place] [phone] Nov, Chronic pain disorder G89.4 [facility] [address] [facility] [id number] [address] [place] [phone] Nov, [facility] [address] [facility] [id number] [address] [place] [phone] Oct, Acute bronchitis, unspecifie d organism J20.9 [facility] [address] [facility] [id number] [address] [place] [phone] Oct, [facility] [address] [facility] [id number] [address] [place] [phone] Oct, Chronic pain disorder G89.4 and Primary insomnia F51.01 [facility] [address] [facility] [id number] [address] [place] [phone] Oct, [facility] [address] [facility] [id number] [address] [place] [phone] Oct, Anxiety F41.9 and Essential hypertension I10 [facility] [address] [facility] [id number] [address] [place] [phone] Sep, Primary insomnia F51.01 [facility] [address] [facility] [id number] [address] [place] [phone] Sep, Chronic pain disorder G89.4 [place] [address] [place] [id number] [address] [place] [phone] 12 Sep, 2017 Essential hypertension I10 a nd Chronic pain disorder G89.4 [place] [address] [address] Sep, Anxiety F41.9 and Chronic pa in disorder G89.4 [place] [address] [address] Sep, Controlled substance agreeme nt signed Z79.899 [place] [address] [address] Aug, Chronic pain disorder G89.4 and Primary insomnia F51.01 [place] [address] [address] Aug, Essential hypertension I10 ; Mixed hyperlipidemia E78.2 ; Primary insomnia F51.01 ; Tobacco abuse Z72.0 ; Chronic pain disorder G89.4 ; Acute suppurative otitis media of left ear without spontaneous rupture of tympanic membrane, recurrence not specified H66.002 ; Acute bronchitis, unspecified organism J20.9 and Anxiety F41.9 [place] [address] [address] Aug, [place] [address] [address] Aug, [place] [address] [phone] Aug, Primary insomnia F51.01 [facility] [address] [place] [id number] [address] [place] [phone] Jul, Paronychia of finger of righ t hand L03.011 [place] [address] [place] [id number] [address] [place] [phone] Jul, Primary insomnia F51.01 [place] [address] [address] Jul, Mixed hyperlipidemia E78.2 [facility] [address] [id number] [address] [place] [id number] Jul, Chronic pain disorder G89.4 [facility] [address] [id number] [address] [place] [phone] Jun, Mixed hyperlipidemia E78.2 [facility] [address] [id number] [address] [place] [phone] Jun, Primary insomnia F51.01 [facility] [address] [id number] [address] [place] [phone] Jun, [facility] [address] [id number] [address] [place] [phone] May, [facility] [address] [id number] [address] [place] [phone] May, [facility] [address] [id number] [address] [place] [phone] May, Chronic pain disorder G89.4 ; Bilateral otitis media with effusion H65.93 and Primary insomnia F51.01 [facility] [address] [id number] [address] [place] [phone] May, Chronic pain disorder G89.4 [facility] [address] [id number] [address] [place] [phone] May, [facility] [address] [id number] [address] [place] [phone] May, [facility] [address] [id number] [address] [place] [phone] May, [facility] [address] [id number] [address] [place] [phone] Apr, [facility] [address] [id number] [address] [place] [phone] Apr, [facility] [address] [id number] [address] [place] [phone] 19 Apr, 2017 Coronary artery disease invo lving [place] coronary artery of [place] heart without angina pectoris I25.10 [facility] [address] [id number] [address] [place] [phone] 18 Apr, 2017 Chronic pain disorder G89.4 [facility] [address] [id number] [address] [place] [phone] 15 Apr, 2017 Coronary artery disease invo lving [place] coronary artery of [place] heart without angina pectoris I25.10 ; Tobacco abuse Z72.0 ; Tobacco abuse counseling Z71.6 ; Obesity (BMI 30-39.9) E66.9 ; Acute reaction to situational stress F43.0 ; Mixed hyperlipidemia E78.2 ; Chronic pain disorder G89.4 and Right otitis media with effusion H65.91 [facility] [address] [id number] [address] [place] [id number] Apr, Pain in right ankle and join ts of right foot M25.571 [facility] [address] [id number] [address] [place] [phone] Apr, Pain in right ankle and join ts of right foot M25.571 and Coronary artery disease involving [place] coronary artery of [place] heart without angina pectoris I25.10 [facility] [address] [id number] [address] [place] [id number] Mar, [facility] [address] [id number] [address] [place] [phone] Mar, [facility] [address] [id number] [address] [place] [phone] Mar, [facility] [address] [id number] [address] [place] [phone] Mar, Acute mucoid otitis media of both ears H65.113 and Dizziness R42 [facility] [address] [id number] [address] [place] [phone] Feb, [facility] [address] [id number] [address] [place] [phone] Feb, Pain in right ankle and join ts of right foot M25.571 ; Pain in left finger(s) M79.645 and Coronary artery disease involving [place] coronary artery of [place] heart without angina pectoris I25.10 [facility] [address] [facility] [id number] [address] [place] [phone] Feb, [facility] [address] [facility] [id number] [address] [place] [phone] Feb, [facility] [address] [facility] [id number] [address] [place] [phone] Jan, [facility] [address] [facility] [id number] [address] [place] [phone] Jan, Encounter for routine adult health examination with abnormal findings Z00.01 ; Foot pain, left M79.672 ; Pain in right ankle and joints of right foot M25.571 ; Chronic pain disorder G89.4 ; Coronary artery disease involving [place] coronary artery of [place] heart without angina pectoris I25.10 ; Tobacco abuse Z72.0 ; Tobacco abuse counseling Z71.6 and Obesity (BMI 30-39.9) E66.9 [facility] [address] [facility] [id number] [address] [place] [phone] Jan, [facility] [address] [id number] [address] [place] [id number] Mar, Dental examination V72.2 IMMUNIZATIONS No Known Immunizations SOCIAL HISTORY Never Assessed REASON FOR VISIT controlled 10/10 PLAN OF CARE VITAL SIGNS MEDICATIONS Medication Instructions Dosage Frequency Start Date End Date Duration S tatus Tramadol HCl 50 mg Orally every 6 hrs 1 tablet as needed 6h 28 days Active RESULTS No Results PROCEDURES No Known procedures INSTRUCTIONS MEDICATIONS ADMINISTERED No Known Medications MEDICAL (GENERAL) HISTORY Type Description Date Medical History Arthritis Medical History 2 heart attacks with numerou s stents- 10 yrs ago and then 7 years ago- 1st [place]- Promus 2.5 x 18 mm stent to LAD, 3.0x 23 mm stent to DIAG, 2.5x 15 mm stent to LAD/ 2nd [place]- Promus 2.5 x12 to distal Circ and Resolute 2.5x 18 mm to RCA- then recently had another stent placed along with PTCA-unknown vessel Medical History hypertension Medical History hyperlipidemia Surgical History hernia repair x2 2016 Surgical History cysts on wrists and lower tail bone Surgical History numerous stent placements Surgical History injections into lower lumbar of back (Dr Margaret Nelson) Surgical History myringotomy with ventilating tube multip le times Hospitalization History Surgery(s) Hospitalization History 2 heart attacks Hospitalization History chest pain 04/2017
--- OUTSIDE RECORDS SUMMARY | 2019-12-11 14:35 | XMS REPORT ---
Author Author Reza CLINTON Organization [facility] Address [address] [place] [address] Care Team Providers Care Energy Efficiency Engineer Name Role Phone JOSE ROBERTO CLINTON Unavailable PROBLEMS Type Condition ICD9-CM Code GLL33-OE Code Onset Dates Condition S tatus SNOMED Code Problem Plantar fasciitis, bilateral M72.2 A ctive [id number] Problem Coronary artery disease invo lving [place] coronary artery of [place] heart without angina pectoris I25.10 Active 1641 315779503 Problem Foot pain, left M79.672 Active 3167 [id number] Problem Tobacco abuse counseling Z71.6 Activ e 130210819 Problem Pain in right ankle and joints of right foot M25.5 71 Active 996399897 Problem Chronic pain disorder G89.4 Active 926706068 Problem Essential hypertension I10 Active 89412688 Problem Tobacco abuse Z72.0 Active 740150 000 Problem Dysthymia F34.1 Active 81958942 Problem Obesity (BMI 30-39.9) E66.9 Active 139872597 Problem Acute reaction to situational stress F43.0 Active 88169027 Problem Mixed hyperlipidemia E78.2 Active 678485415 Problem Primary insomnia F51.01 Active 397 2004 Problem Anxiety F41.9 Active 46301055 ALLERGIES No Information ENCOUNTERS Encounter Location Date Diagnosis [facility] [id number] [place] [address] Sep, [facility] [id number] [place] [address] Sep, Chronic pain disorder G89.4 [facility] [id number] [place] [address] Aug, Chronic pain disorder G89.4 [facility] [id number] [place] [address] Jul, Essential hypertension I10 ; Dysthymia F 34.1 and Chronic pain disorder G89.4 [facility] [id number] [place] [address] Jul, [facility] [id number] [place] [address] Jul, Chronic pain disorder G89.4 [facility] [address] [address] Jun, Chronic pain disorder G89.4 [facility] [id number] [place] [address] May, Chronic pain disorder G89.4 [facility] [id number] [place] [address] May, [facility] [id number] [place] [address] May, Primary insomnia F51.01 [facility] [id number] [place] [address] Apr, Chronic pain disorder G89.4 [facility] [id number] [place] [address] Apr, Primary insomnia F51.01 and Chronic pain disorder G89.4 [facility] [id number] [place] [address] Mar, Chronic pain disorder G89.4 [facility] [id number] [place] [address] Mar, Primary insomnia F51.01 [facility] [id number] [place] [address] Mar, Primary insomnia F51.01 [facility] [id number] [place] [address] Mar, Chronic pain disorder G89.4 [facility] [id number] [place] [address] Feb, Primary insomnia F51.01 [facility] [id number] [place] [address] Feb, Chronic pain disorder G89.4 [facility] [id number] [place] [address] Feb, Chronic pain disorder G89.4 [facility] [id number] [place] [address] Jan, Primary insomnia F51.01 [facility] [address] [address] Jan, Chronic pain disorder G89.4 ; Dysthymia F34.1 and Coronary artery disease involving [place] coronary artery of [place] heart without angina pectoris I25.10 [facility] [id number] [place] [address] Jan, [facility] [id number] [place] [address] Jan, [facility] [id number] [place] [address] Jan, Chronic pain disorder G89.4 [facility] [address] [facility] [id number] [place] [address] December, Laceration of right hand wit hout foreign body, initial encounter S61.411A ; Encounter for immunization Z23 and Foreign body of left eye, initial encounter T15.92XA [address] [place] [address] December, Primary insomnia F51.01 [facility] [address] [facility] [place] [address] December, [facility] [id number] [place] [address] December, Chronic pain disorder G89.4 [facility] [id number] [place] [address] Nov, Primary insomnia F51.01 [facility] [address] [address] Nov, Chronic pain disorder G89.4 [facility] [address] [facility] [place] [address] Nov, Viral URI J06.9 [facility] [address] [facility] [place] [address] Oct, Primary insomnia F51.01 [facility] [address] [address] Oct, Chronic pain disorder G89.4 [facility] [address] [address] Sep, Primary insomnia F51.01 [facility] [address] [address] Sep, Chronic pain disorder G89.4 [facility] [address] [address] Aug, Primary insomnia F51.01 [facility] [address] [address] Aug, [facility] [address] [address] Aug, Coronary artery disease involving [place] coronary artery of [place] heart without angina pectoris I25.10 [facility] [address] [address] Aug, Chronic pain disorder G89.4 [facility] [address] [address] Aug, Primary insomnia F51.01 [facility] [address] [address] Jul, Mixed hyperlipidemia E78.2 and Chronic p ain disorder G89.4 [facility] [address] [address] Jul, Primary insomnia F51.01 [facility] [address] [address] Jun, Chronic pain disorder G89.4 [address] [address] Jun, Chronic pain disorder G89.4 [address] [address] Jun, Primary insomnia F51.01 [address] [address] Jun, Primary insomnia F51.01 [address] [address] May, Chronic pain disorder G89.4 ; Foot pain, left M79.672 ; Coronary artery disease involving [place] coronary artery of [place] heart without angina pectoris I25.10 and Recurrent acute suppurative otitis media without spontaneous rupture of left tympanic membrane H66.005 [address] [address] May, Primary insomnia F51.01 [address] [address] Apr, Primary insomnia F51.01 [address] [address] Mar, Primary insomnia F51.01 [address] [address] Mar, Primary insomnia F51.01 [address] [address] Feb, Primary insomnia F51.01 [address] [address] Jan, Essential hypertension I10 ; Mixed hyper lipidemia E78.2 ; Throat tightness R68.89 ; Left arm pain M79.602 ; Coronary artery disease involving [place] coronary artery of [place] heart without angina pectoris I25.10 ; Chronic pain disorder G89.4 ; Tobacco abuse counseling Z71.6 and Primary insomnia F51.01 [address] [address] Jan, [facility] [address] [address] December, Essential hypertension I10 and Mixed hyp erlipidemia E78.2 [address] [address] December, [address] [address] December, Primary insomnia F51.01 [facility] [address] [address] Nov, Chronic pain disorder G89.4 [address] [address] Nov, [address] [address] Oct, Acute bronchitis, unspecified organism J 20.9 [address] [address] 16 Oct, 2017 [address] [address] Oct, Chronic pain disorder G89.4 and Primary insomnia F51.01 [address] [address] Oct, [address] [address] Oct, Anxiety F41.9 and Essential hypertension I10 [address] [address] Sep, Primary insomnia F51.01 [address] [address] Sep, Chronic pain disorder G89.4 [address] [address] Sep, Essential hypertension I10 and Chronic p ain disorder G89.4 [address] [address] 09 Sep, 2017 Anxiety F41.9 and Chronic pain disorder G89.4 [address] [address] 02 Sep, 2017 Controlled substance agreement signed Z7 9.899 [address] [address] Aug, Chronic pain disorder G89.4 and Primary insomnia F51.01 [address] [address] Aug, Essential hypertension I10 ; Mixed hyper lipidemia E78.2 ; Primary insomnia F51.01 ; Tobacco abuse Z72.0 ; Chronic pain disorder G89.4 ; Acute suppurative otitis media of left ear without spontaneous rupture of tympanic membrane, recurrence not specified H66.002 ; Acute bronchitis, unspecified organism J20.9 and Anxiety F41.9 [address] [address] Aug, [address] [address] Aug, [address] [address] Aug, Primary insomnia F51.01 [facility] [address] [facility] [id number] [place] [address] Jul, Paronychia of finger of righ t hand L03.011 [address] [address] Jul, Primary insomnia F51.01 [address] [address] Jul, Mixed hyperlipidemia E78.2 [address] [address] Jul, Chronic pain disorder G89.4 [address] [address] Jun, Mixed hyperlipidemia E78.2 [facility] [address] [address] Jun, Primary insomnia F51.01 [facility] [address] [address] Jun, [facility] [address] [address] May, [facility] [address] [address] May, [facility] [address] [address] May, Chronic pain disorder G89.4 ; Bilateral otitis media with effusion H65.93 and Primary insomnia F51.01 [facility] [address] [address] May, Chronic pain disorder G89.4 [facility] [address] [address] May, [facility] [address] [address] May, [facility] [address] [address] May, [facility] [address] [address] Apr, [facility] [address] [address] Apr, [facility] [address] [address] 19 Apr, 2017 Coronary artery disease involving [place] coronary artery of [place] heart without angina pectoris I25.10 [facility] [address] [address] 18 Apr, 2017 Chronic pain disorder G89.4 [facility] [address] [address] 15 Apr, 2017 Coronary artery disease involving [place] coronary artery of [place] heart without angina pectoris I25.10 ; Tobacco abuse Z72.0 ; Tobacco abuse counseling Z71.6 ; Obesity (BMI 30-39.9) E66.9 ; Acute reaction to situational stress F43.0 ; Mixed hyperlipidemia E78.2 ; Chronic pain disorder G89.4 and Right otitis media with effusion H65.91 [address] [address] Apr, Pain in right ankle and joints of right foot M25.571 [address] [address] Apr, Pain in right ankle and joints of right foot M25.571 and Coronary artery disease involving [place] coronary artery of [place] heart without angina pectoris I25.10 [address] [address] Mar, [address] [address] Mar, [address] [address] Mar, [address] [address] Mar, Acute mucoid otitis media of both ears H 65.113 and Dizziness R42 [address] [address] Feb, [address] [address] Feb, Pain in right ankle and joints of right foot M25.571 ; Pain in left finger(s) M79.645 and Coronary artery disease involving [place] coronary artery of [place] heart without angina pectoris I25.10 [address] [address] Feb, [address] [address] Feb, [address] [address] Jan, [facility] [address] [facility] [place] [address] Jan, Encounter for routine adult health exami nation with abnormal findings Z00.01 ; Foot pain, left M79.672 ; Pain in right ankle and joints of right foot M25.571 ; Chronic pain disorder G89.4 ; Coronary artery disease involving [place] coronary artery of [place] heart without angina pectoris I25.10 ; Tobacco abuse Z72.0 ; Tobacco abuse counseling Z71.6 and Obesity (BMI 30-39.9) E66.9 [facility] [address] [facility] [place] [address] Jan, [facility] [address] [facility] [id number] [place] [id number] Mar, Dental examination V72.2 IMMUNIZATIONS No Known Immunizations SOCIAL HISTORY Never Assessed REASON FOR VISIT controlled 10/31 PLAN OF CARE VITAL SIGNS MEDICATIONS Medication Instructions Dosage Frequency Start Date End Date Duration S tatus Ambien 10 mg Orally Once a day 1 tablet at bedtime as needed 24h 28 days Active RESULTS No Results PROCEDURES No Known procedures INSTRUCTIONS MEDICATIONS ADMINISTERED No Known Medications MEDICAL (GENERAL) HISTORY Type Description Date Medical History Arthritis Medical History 2 heart attacks with numerou s stents- 10 yrs ago and then 7 years ago- 1st [place]- Promus 2.5 x 18 mm stent to LAD, 3.0x 23 mm stent to DIAG, 2.5x 15 mm stent to LAD/ 2nd [place]- Promus 2.5 x12 to distal Circ and [...]
--- OUTSIDE RECORDS SUMMARY | 2019-12-11 14:35 | XMS REPORT ---
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 Name Role Phone FEDERICOROB FRANCA Levy Unavailable JO CAMPUZANO Unavailable WELCH, OLIVER Unavailable WELCH, OLIVER Unavailable WELCH, OLIVER Unavailable WELCH, OLIVER Unavailable WELCH, OLIVER Unavailable WELCH, OLIVER Unavailable WELCH, OLIVER Unavailable WELCH, OLIVER Unavailable WELCH, OLIVER Unavailable WELCH, OLIVER Unavailable WELCH, OLIVER Unavailable WELCH, OLIVER Unavailable WELCH, OLIVER Unavailable WELCH, OLIVER Unavailable WELCH, OLIVER Unavailable WELCH, OLIVER Unavailable WELCH, OLIVER Unavailable MAKEDA ROBERTS Unavailable WELCH, OLIVER Unavailable WELCH, OLIVER Unavailable WELCH, OLIVER Unavailable WELCH, OLIVER Unavailable WELCH, OLIVER Unavailable WELCH, OLIVER Unavailable WELCH, OLIVER Unavailable WELCH, OLIVER Unavailable WELCH, OLIVER Unavailable WELCH, OLIVER Unavailable WELCH, OLIVER Unavailable WELCH, OLIVER Unavailable WELCH, OLIVER Unavailable WELCH, OLIVER Unavailable WELCH, OLIVER Unavailable WELCH, OLIVER Unavailable WELCH, OLIVER Unavailable malcolmmalcolmLAURENCERAMÍREZ ZEUS Unavailable WELCH, OLIVER Unavailable WELCH, OLIVER Unavailable WELCH, OLIVER Unavailable WELCH, OLIVER Unavailable WELCH, OLIVER Unavailable WELCH, OLIVER Unavailable WELCH, OLIVER Unavailable WELCH, OLIVER Unavailable ORENDER DO, FRANCA S Unavailable Unavailable ORENDER DO, FRANCA S Unavailable Unavailable FARHAD GATES, YOLANDA Ochoa Unavailable Unavailable AUDREY GATES, SEJAL Unavailable Unavailable ANKITA MERRILL APRN Unavailable Unavailable LAKE GATES, CHATO Olvera Unavailable Unavailable PAIGE GATES FACC, LAKESHA FACP CCDS Unavailable Unavailgeorgina NELSON MD, GAVIN Meredith Unavailable Unavailable WELCH, OLIVER Unavailable WELCH, OLIVER Unavailable WELCH, OLIVER Unavailable TRACI LAI Unavailable JOSE ROBERTO CLINTON Unavailable JOSE ROBERTO CLINTON Unavailable JOSE ROBERTO CLINTON Unavailable JOSE ROBERTO CLINTON Unavailable Philippender, Franca S. Unavailable Unavailable JOSE ROBERTO CLINTON Unavailable Unavailable JOSE ROBERTO CLINTON Unavailable Unavailable Unavailable Unavailable Unavailable Unavailable Unavailable Allergies The data below is from unstructured sources No Information No Information No Information No Information No Information No Information No Information No Information No Information No Information No Information No Information No Information No Information No Information No Information No Information No Information No Information No Information No Information No Information No Information No Information No Information No Information No Information No Information No Information No Information No Information No Information No Information No Information No Information No Information No Information No Information No Information No Information No Information No Information No Information No Information No Information No Information No Information No Information No Information No Information No Information No Information No Information No Information No Information No Information No Information No Information No Information No Information No Information No Information No Information No Information No Information No Information No Information No Information No Information No Information No Information No Information No Information No Information No Information No Information No Information No Information No Information No Information No Information No Information No Information No Information No Information No Information No Information No Information No Information No Information No Information No Information No Information No Information No Information No Information No Information No Information No Information No Information No Information No Information No Information No Information No Information No Information No Information No Information No Information No Information No Information No Information No Information No Information No Information No Information No Information Medications Medication Ingredient Drug Dose Dates Status Sig Sig Care Class(es) (Normalized) (Original) Provid er no ASA no Active no ASA 1 tab no information information information Active name (1 source.) baclofen 20 baclofen gamma-Amino 20 mg 01-29-20 Active no B aclofen 20 no mg oral Translation butyric 18 - information mg Orally na me tablet (1 s: [ Acid-ergic 04-28-20 every 8 hrs source.) Baclofen 20 Agonist 18 1 tablet mg] with food or milk 8h Jan, Apr, 30 day(s) Active codeine codeine / Opioid Active no Promethazine no phosphate 2 promethazin Agonist, information -Codeine name mg/ml / e Phenothiazi 6.25-10 promethazin Translation ne MG/5ML e s: [ Orally every hydrochlori Promethazin 6 hrs PRN de 1.25 e-Codeine cough 5 ml mg/ml oral 6.25-10 Active solution (1 MG/5ML] source.) eszopiclone eszopiclone no 2 mg 01-29-20 Active no Esz opiclone no 2 mg oral Translation information 18 information 2 MG Ora lly name tablet (1 s: [ Once a day 1 source.) Eszopiclone tablet 2 MG] immediately before bedtime 24h Jan, 30 days Active Problems Active Problems Problem Normalized Date Last Normalized Normalized Provider Fa cility Classification Problem(s) Recorded Problem Problem Sta tus Duration Other upper Acute upper Episodic Active JOSE ROBERTO henning respiratory [facility] infections (2 infection, of [place] sources.) unspecified [place] () Translations: [ - Viral URI J06.9] Other Ankle joint Episodic Active OLIVER Bello ity non-traumatic pain [facility] joint Translations: of [facility] disorders (12 [ Pain in [place] () sources.) right ankle and joints of right foot, Pain in right ankle and joints of right foot] Other Arthropathy, Chronic Active SEJAL KHANTHERONR , Not Av ailable non-traumatic unspecified, () joint site disorders (9 unspecified sources.) Other Bilateral no information Active JOSE ROBERTO [place] munity connective plantar [address] [facility] tissue disease fasciitis of [facility] (1 source.) Translations: [place] () [ Plantar fasciitis, bilateral] Other Body mass Chronic Active OLIVER ROJASHerbert Belloit y nutritional; index 30+ - 80141 [facility] endocrine; and obesity of [facility] metabolic Translations: [place] () disorders (12 [ Obesity (BMI sources.) 30-39.9), Obesity (BMI 30-39.9)] Other Body Mass Chronic Active SEJAL KHANQIR , Not Avail able nutritional; Index MD (48848) endocrine; and 34.0-34.9, metabolic adult disorders (5 sources.) Other nervous Chronic pain Episodic Active OLIVER Nair ommunity system syndrome [facility] [facility] disorders (11 Translations: of [facility] sources.) [ Chronic pain [place] (20235) disorder, Chronic pain disorder] Other nervous Chronic pain Chronic Active JOSE ROBERTO Nair ommunity system syndrome [address] [facility] disorders (1 Translations: of [facility] source.) [ Chronic pain [place] () disorder] Coronary Coronary no information Active FRANCA Not Celeste ilable atherosclerosi atherosclerosi RONI DO (32592) s and other s of [place] heart disease coronary (31 sources.) artery Translations: [ PERCUTANEOUS TRANSLUM CORON ANGIOPLASTY , PRESENCE OF CORONARY ANGIOPLASTY IMPLANT, OLD MYOCARDIAL INFARCTION, ATHSCL HEART DISEASE OF [place] CORONARY , OLD MYOCARDIAL INFARCT, CORONARY ATHEROSCLEROSI S OF [place] CORON] Diverticulosis Diverticulosis Chronic Active CHATO BETHEA Not Available and of intestine, , (25936) diverticulitis part (19 sources.) unspecified, without perforation or abscess without bleeding Mood disorders Dysthymia Chronic Active JOSE ROBERTO CLINTON Com munity (3 sources.) Translations: [address] [place] [address] [ Dysthymia, - of [place] Dysthymia [place] (62502) F34.1] Immunizations Encounter for Episodic Active JOSE ROBERTO CLINTON [facility] and screening immunization [address] [place] [address] for infectious Translations: of [facility] disease (1 [ - Encounter [place] ([address]) source.) for immunization Z23] Esophageal Esophageal Chronic Active FRANCA Not Avail able disorders (9 reflux DO RONI (87532) sources.) Other injuries Foreign body Episodic Active JOSE ROBERTO CLINTON [facility] and conditions on external [address] [place] [address] due to eye, part of [place] external unspecified, [place] (62158) causes (1 left eye, source.) initial encounter Translations: [ - Foreign body of left eye, initial encounter T15.92XA] Open wounds of Laceration Episodic Active JOSE ROBERTO CLINTON De mmunity extremities ([address] [place] [address] Center source.) foreign body of [facility] of right hand, [place] (88114) initial encounter Translations: [ - Laceration of right hand without foreign body, initial encounter S61.411A] Spondylosis; Lumbosacral Chronic Active ANKITA GARFIELD Not Available intervertebral spondylosis (01217) disc without disorders; myelopathy other back Translations: problems (20 [ sources.) LUMB/LUMBOSAC DISC DEGEN] Substance-rela Nicotine Chronic Active FRANCA Not Celeste ilable jennifer disorders dependence, DO RONI (53342) (20 sources.) cigarettes, uncomplicated Translations: [ TOBACCO USE DISORDER] Chronic Obstructive Chronic Active FRANCA Not Avail able obstructive chronic DO RONI (16707) pulmonary bronchitis disease and with acute bronchiectasis bronchitis (9 sources.) Residual Other general Episodic Active JOSE ROBERTO CLINTON Comm unity codes; symptoms and [address] [place] [address] unclassified signs of [facility] (4 sources.) Translations: [place] (10384) [ - Throat tightness R68.89] Otitis media Other no information Active YOLANDA Brown ot Available and related specified , (01059) conditions (20 disorders of sources.) Eustachian tube, bilateral Translations: [ CHRONIC SEROUS OTITIS MEDIA, BILATERAL] Other Pain in left Episodic Active OLIVER Peñaloza nitherbert connective arm [address] [place] [address] Center tissue disease Translations: of [facility] (12 sources.) [ - Left arm [place] (29479) pain M79.602, - Left arm pain M79.602] Other Pain in left no information Active [facility] connective foot [address] [place] [address] tissue disease Translations: of [facility] (1 source.) [ Foot pain, [place] (57830) left] Other Pain in left Episodic Active JOSE ROBERTO dee connective foot [address] [place] [address] tissue disease Translations: of [facility] (1 source.) [ Foot pain, [place] (70253) left] Other Pain in left Episodic Active OLIVER Peñaloza nitherbert connective foot [address] [place] [address] tissue disease Translations: of [facility] (20 sources.) [ - Foot pain, [place] (14013) left M79.672, Foot pain, left, Foot pain, left, - Foot pain, left M79.672, Foot pain, left] 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 [facility] (11 sources.) Translations: [place] (43946) [ Plantar fasciitis, bilateral, Plantar fasciitis, bilateral] Unclassified Primary Chronic Active OLIVERMARIA FERNANDA Bello ity (20 sources.) insomnia [address] [place] [address] Center Translations: of [facility] [ - Primary [place] (60408) insomnia F51.01, - Primary insomnia F51.01] Osteoarthritis Primary Chronic Active JACK SELAM , Not Available (20 sources.) osteoarthritis (58971) , left ankle and foot Translations: [ PRIMARY OSTEOARTHRITIS , LEFT HAND, PRIMARY OSTEOARTHRITIS , RIGHT HAND, BILATERAL PRIMARY OSTEOARTHRITIS OF KNEE, PRIMARY OSTEOARTHRITIS , RIGHT ANKLE AND , UNSPECIFIED OSTEOARTHRITIS , UNSPECIFIED ] Unclassified Tobacco user Chronic [facility] De mmunity (11 sources.) Translations: [facility] [ Tobacco of [facility] abuse, Tobacco [place] (87859) abuse] Residual Tobacco user Episodic Active JOSE ROBERTO ZHU Jh dee codes; Translations: [facility] unclassified [ Tobacco of [facility] (1 source.) abuse] [place] ([address]2482) Past or Other Problems Problem Normalized Date Last Normalized Normalized Provider Fa cility Classification Problem(s) Recorded Problem Problem Sta tus Duration Unclassified Abnormal Episodic Completed CHATO ODGERS Not Av ailable (19 sources.) findings on , () diagnostic imaging of other abdominal regions, including retroperitoneu m Residual Family history Episodic Completed ALI PAIGE , Not Available codes; of ischemic MD CORDERO () unclassified heart disease (7 sources.) and other diseases of the circulatory system Hypertension Hypertensive no information no information JACQUEL INE Not Available with urgency DO RONI (75784) complications and secondary hypertension (21 sources.) Other penitentiary Episodic Completed JACK GAULT , Not Avai lable aftercare (20 (current) use (39963) sources.) of antithrombotic s/antiplatelet s Other penitentiary Episodic Completed JACK GAULT , Not Avai lable aftercare (20 (current) use (25917) sources.) of aspirin Other Long-term Episodic Completed SEJAL BAQIR , Not Avail able aftercare (29 (current) use (12517) sources.) of antiplatelet/a ntithrombotic Other Long-term Episodic Completed SEJAL BAQIR , Not Avail able aftercare (29 (current) use MD (70559) sources.) of aspirin Other Long-term Episodic Completed SEJAL BAQIR , Not Avail able aftercare (29 (current) use MD () sources.) of other medications Spondylosis; Low back pain Episodic Completed FRANCA Not Available intervertebral Translations: DO RONI (32540) disc [ CERVICALGIA, disorders; LUMBAGO] other back problems (20 sources.) Abdominal pain Lower Episodic Completed CHATO ODGERS Not Available (20 sources.) abdominal , (43441) pain, unspecified Other lower Other Episodic Completed SEJAL BAQIR , Not Avai lable respiratory respiratory (02885) disease (9 abnormalities sources.) Other Pain in joint, Episodic Completed SEJAL BAQIR , Not Available non-traumatic site (75998) joint unspecified disorders (20 sources.) Other Pain in left Episodic Completed FRANCA Not Avai lable non-traumatic shoulder DO RONI (26361) joint disorders (20 sources.) Residual Patient's Episodic Completed ALI PAIGE , Not Avail able codes; noncompliance MD CORDERO (05635) unclassified with other (7 sources.) medical treatment and regimen Screening or Personal Episodic Completed SEJAL JIMÉNEZLaura , Not Celeste ilable history of history of MD (48169) mental health tobacco use and substance abuse (20 sources.) Disorders of Pure no information no information JACK DOSS , Not Available lipid hypercholester (66832) metabolism (20 olemia, sources.) unspecified Complication Stenosis of no information no information ALI LUDMILA AD , Not Available of device; coronary [facility] (37101) implant or artery stent, graft (23 initial sources.) encounter Unclassified no information no information no information PHILI P HERNANDEZ Not Available (9 sources.) , (75437) Unclassified no information no information no information PHILI P HERNANDEZ Not Available (9 sources.) , (13618) Unclassified no information no information no information PHILI P HERNANDEZ Not Available (9 sources.) , (99520) Unclassified no information no information no information PHILI P HERNANDEZ Not Available (9 sources.) , (69831) Procedures Procedure Normalized Procedure Procedure Result Performer Facility Date CORONAR ARTERIOGR-1 no information no name Not Availa ble (94347) CATH 01-28-2018 Ecg routine ecg no information no name [facility] w/least 12 [facility] w/o i&r [place] (25407) 01-28-2018 EKG, TRACING no information no name [facility] (IN-HOUSE) [facility] (60735) Insertion of one no information no name Not Available (13490) vascular stent INSRT OF DRUG-ELUTING no information no name Not Avai lable (58715) CORON ARTERY STENT PERCUTANEOUS no information no name Not Available ( 66774) TRANSLUMINAL CORONARY ANGIO Immunizations Normalized Immunization Date Notes Care Provider Facili Immunization tetanus toxoid, 01-02-2019 no information no name Formerly [facility] reduced diphtheria [facility] toxoid, and [facility] acellular pertussis (26920) vaccine, adsorbed Results Test Name Value Interpretation Reference Range Date Time Fa cility (Normalized) (Normalized) (Medline Reference) not yet categorized on 2019-01-09 COMMENT no information (no code) [facility] Healt [facility] (18955) medMATCH CONSISTENT (no code) [facility] Amphetamines [facility] (34065) medMATCH CONSISTENT (no code) [facility] Barbiturates [facility] (36232) medMATCH CONSISTENT (no code) [facility] Benzodiazepines [facility] (39163) medMATCH Cocaine CONSISTENT (no code) On license of [facility] Metab [facility] (51058) medMATCH CONSISTENT (no code) [facility] Marijuana Metab [facility] (92481) medMATCH CONSISTENT (no code) [facility] Methadone Metab [facility] (00618) medMATCH Opiates CONSISTENT (no code) [facility] (35651) medMATCH CONSISTENT (no code) [facility] Oxycodone [facility] (28763) medMATCH CONSISTENT (no code) [facility] Phencyclidine [facility] (56876) Prescribed Drug Tramadol (no code) [facility] (04858) laboratory on 2019-01-09 Amphetamines Ql Negative (no code) Critical access hospital (U) [facility] (35462) Barbiturates Ql Negative (no code) [facility] hospital (U) [facility] (38056) Benzodiazepines Negative (no code) [facility] hospital Ql (U) [facility] (85581) Benzoylecgonine Negative (no code) [facility] hospital Ql (U) [facility] (81074) Creatinine (U) 204.4 mg/dL (no code) [facility] [Mass/Vol] [facility] (58378) Methadone Ql (U) Negative (no code) [facility] (39288) Opiates Ql (U) Negative (no code) [facility] (19643) Oxidants Ql (U) Negative (no code) [facility] (60488) Oxycodone Ql (U) Negative (no code) [facility] (44169) pH (U) 6.90 [pH] (no code) 4.6 - 8 [pH] [facility] (55427) Phencyclidine Ql Negative (no code) [facility] lt (U) [facility] (04710) Tetrahydrocannab Negative (no code) On license of [facility] inol Ql (U) [facility] (85360) thyroid on 2017-02-19 Free T3 3.7 pg/mL (no code) 2.3 - 4.2 pg/mL 02-19-2017 Not Av ailable [Mass/Vol] 17:50-0400 (76211) Free T4 1.35 ng/dL (no code) 0.9 - 2.2 ng/dL 02-19-2017 Not A vailable [Mass/Vol] 16:40-0400 (37304) TSH Qn 0.264 (L) 02-19-2017 Not Available 13:13-0400 (87624) other on 2017-02-19 Albumin/Globulin 2.0 {ratio} (no code) 1 - 2.5 {ratio} 7 Not Available [Mass ratio] 09:06-0400 (82396) Erythrocyte 14.2 % (no code) 11.6 - 14.6 % 02-19-2017 Not Av ailable distribution 09:170400 (34714) width (RBC) [Ratio] Globulin (S) 2.3 g/dL (no code) 2 - 3.5 g/dL 02-19-2017 Not Av ailable [Mass/Vol] 09:060400 (47804) Immature 0.0 10*3/uL (no code) 0 - 0.2 10*3/uL 02-19-2017 Not Available granulocytes 09:170400 (22597) (Bld) [#/Vol] Immature 0 % (no code) 0 - 0.5 % 02-19-2017 Not Availabl e granulocytes/100 09:170400 (59979) WBC (Bld) Interpretive Comment (no code) 02-19-2017 Not Available Comment 17:50-0400 (89388) MCHC (RBC) 33.8 g/dL (no code) 32 - 36 g/dL 02-19-2017 Not Avai lable [Mass/Vol] 09:17 (31776) Rheumatoid [IU]/mL (no code) 0 - 15 [IU]/mL 02-19-2017 Not Av ailable factor Qn 13:470 (28581) metabolic panel on 2017-02-19 Albumin 4.7 g/dL (no code) 3.4 - 5.4 g/dL 02-19-2017 Not Celeste ilable [Mass/Vol] 09: (80666) ALP [Catalytic 96 U/L (no code) 44 - 147 U/L 02-19-2017 Not Available activity/Vol] 09: (97457) ALT [Catalytic 25 U/L (no code) 4 - 40 U/L 02-19-2017 Not Av ailable activity/Vol] 09: (10244) AST [Catalytic 19 U/L (no code) 10 - 34 U/L 02-19-2017 Not A vailable activity/Vol] 09: () Bilirubin 0.6 mg/dL (no code) 0.1 - 1.2 mg/dL 02-19-2017 Not Av ailable [Mass/Vol] 09: () Calcium 9.4 mg/dL (no code) 8.5 - 10.2 mg/dL 02-19-2017 Not A vailable [Mass/Vol] 09: (86841) Chloride 103 mmol/L (no code) 95 - 106 mmol/L 02-19-2017 Not A vailable [Moles/Vol] 09: (30455) CO2 [Moles/Vol] 20 mmol/L (no code) 23 - 29 mmol/L 02-19-2017 N ot Available 09: (32995) Creatinine 0.80 mg/dL (no code) 02-19-2017 Not Available [Mass/Vol] 09: (09505) GFR/1.73 sq M 119 (no code) 90 - 120 02-19-2017 Not Avai lable predicted among mL/min/{1.73_m2} mL/min/{1.73_m2} 09: (71894) blacks MDRD (S/P/Bld) [Vol rate/Area] GFR/1.73 sq M 103 (no code) 90 - 120 02-19-2017 Not Avai lable predicted among mL/min/{1.73_m2} mL/min/{1.73_m2} 09: (68915) non-blacks MDRD (S/P/Bld) [Vol rate/Area] Glucose 91 mg/dL (no code) 60 - 125 mg/dL 02-19-2017 Not Celeste ilable [Mass/Vol] 09: (30406) Potassium 3.8 mmol/L (no code) 3.7 - 5.2 mmol/L 02-19-2017 Not Available [Moles/Vol] 09: (01441) Protein 7.0 g/dL (no code) 6.4 - 8.3 g/dL 02-19-2017 Not Celeste ilable [Mass/Vol] 09: (31867) Sodium 144 mmol/L (no code) 135 - 145 mmol/L 02-19-2017 Not Available [Moles/Vol] 09: (58745) Urea nitrogen 9 mg/dL (no code) 7 - 20 mg/dL 02-19-2017 Not A vailable [Mass/Vol] 09: (30629) Urea 11 mg/mg (no code) 6 - 22 mg/mg 02-19-2017 Not Avail able nitrogen/Creatin 09: (70469) ine [Mass ratio] hematology on 2017-02-19 Basophils (Bld) 0.0 10*3/uL (no code) 0 - 0.3 10*3/uL 02-19-2017 Not Available [#/Vol] 09:0 (33183) Basophils/100 0 % (no code) 0.5 - 1 % 02-19-2017 Not Avai lable WBC (Bld) 09: (84019) Eosinophils 0.1 10*3/uL (no code) 0.05 - 0.5 02-19-2017 Not Celeste ilable (Bld) [#/Vol] 10*3/uL 09:0 (97388) Eosinophils/100 1 % (no code) 1 - 4 % 02-19-2017 Not Av ailable WBC (Bld) 09: (20897) Hematocrit (Bld) 43.5 % (no code) 36.1 - 50.3 % 02-19-2017 N ot Available [Volume 09: (16116) fraction] Hemoglobin (Bld) 14.7 g/dL (no code) 12.1 - 17.2 g/dL 02-19-2017 Not Available [Mass/Vol] 09: (85131) Lymphocytes 2.0 10*3/uL (no code) 0.9 - 2.9 02-19-2017 Not Avai lable (Bld) [#/Vol] 10*3/uL 09: (85824) Lymphocytes/100 19 % (no code) 20 - 40 % 02-19-2017 Not Av ailable WBC (Bld) 09: (28181) MCH (RBC) 33.0 pg (no code) 27 - 31 pg 02-19-2017 Not Availab le [Entitic mass] 09: (47376) MCV (RBC) 98 fL (H) 80 - 100 fL 02-19-2017 Not Availa ble [Entitic vol] 09: (11197) Monocytes (Bld) 0.7 10*3/uL (no code) 0.3 - 0.9 02-19-2017 Not Available [#/Vol] 10*3/uL 09:0 (90210) Monocytes/100 7 % (no code) 2 - 8 % 02-19-2017 Not Avai lable WBC (Bld) 09: (17459) Neutrophils 7.6 10*3/uL (H) 1.7 - 7 10*3/uL 02-19-2017 No t Available (Bld) [#/Vol] 09:0 (12922) Neutrophils/100 73 % (no code) 40 - 60 % 02-19-2017 Not Av ailable WBC (Bld) 09: (34109) Platelets (Bld) 207 10*3/uL (no code) 150 - 450 02-19-2017 Not Available [#/Vol] 10*3/uL 09: (14989) RBC (Bld) 4.45 10*6/uL (no code) 4.2 - 6.1 02-19-2017 Not Avail able [#/Vol] 10*6/uL 09: (41026) WBC (Bld) 10.4 10*3/uL (no code) 3.5 - 10.5 02-19-2017 Not Avai lable [#/Vol] 10*3/uL 09: (26083) Vital Signs Vital Sign Value Interpretation Reference Date Time Care [facility] ider Facility (Normalized) (Normalized) Range BMI (Body Mass 32.69 kg/m2 (no code) 15 - 25 kg/m2 01-28-2018 M [facility] [facility] Community Index) 16:40-[address] [place] [address] ([id number]) BMI (Body Mass 33.52 kg/m2 (no code) 15 - 25 kg/m2 10-28-2017 [facility] Community Index) 16:40-[address] ([id number]) Body 98.6 [degF] (no code) 97.8 - 99.0 01-28-2018 [facility] Temperature [degF] 16:40-[address] [place] [address] ([id number]) Body 98.7 [degF] (no code) 97.8 - 99.0 10-28-2017 [facility] Temperature [degF] 16:40-[address] ([id number]) Height 175.26 cm (no code) cm 01-28-2018 [facility] 16:40-[address] [place] [address] ([id number]) Height 175.26 cm (no code) cm 10-28-2017 [facility] 16:40-[address] ([id number]) Weight 100.43 kg (no code) kg 01-28-2018 [facility] 16:40-[address] [place] [address] ([id number]) Weight 102.97 kg (no code) kg 10-28-2017 [facility] 16:40-0400 [facility] [address] [facility] ([id number]) Interventions No Information Plan of Treatment Normalized Care Care Detail Care Activity Date Care Provider F acility Activity (CHM) Chronic Health [facility] 01-09-2019 JOSE ROBERTO CLINTON [address] [facility] ([id number]) (IPT) Internal PCP [facility] 05-20-2018 TRACI LAI [phone] [facility] ([id number]) Goals No Information Social History No Information Functional Status The data below is from unstructured sources Query Response Date Brayden rded Patient Orientation Person Place Time Situation July 17, 2016 11:29am Comprehension Ability Understands Co ncepts July 17, 2016 12:49am Query Response Date Brayden rded Patient Orientation Person Place Time Situation December 19, 2016 9:00am Comprehension Ability Understands Co ncepts December 19, 2016 8:00am Query Response Date Brayden rded Comprehension Ability Understands Co ncepts April 18, 2017 9:00am Mental Status No Information Encounters Encounter Normalized Encounter Encounter Diagnosis Care Provi krysta Organization Date Type 05-02-2018 ([facility]) Chronic Health no information OLIVERMARIA FERNANDA ROJASY ( no [facility] Maintenance phone) (no phone) 05-20-2018 (IPT) Internal PCP Chronic pain syndrome JOSE ROBERTO NOLAN (no [facility] - Transfer phone) (no phone) 05-20-2018 - 05-20-2018 11-05-2018 (SD) Same Day Acute upper ASHLEY GARCIA (no [facility] (no phone) - respiratory infection, phone) 11-05-2018 unspecified - 11-05-2018 01-02-2019 [facility] Laceration without HAZEL GILR EATH (no [facility] CARE foreign body of right phone) CARE (no phone) hand, initial encounter 09-25-2019 [facility] no information JO CAMPUZANO (no phone) [facility] (no phone) 07-31-2019 [facility] Essential (primary) JOSE ROBERTO RUIZ (no [facility] hypertension phone) (no phone) 04-14-2019 [facility] Primary insomnia JOSE ROBERTO Sanchez (no [facility] phone) (no phone) 01-09-2019 [facility] Chronic pain syndrome JOSE ROBERTO ENGLISH (no [facility] phone) (no phone) 03-13-2018 [facility] Primary insomnia [facility] (no [facility] - phone) OLIVER zzCAREY (no phone) 03-13-2018 (no phone) OLIVER - zzCAREY (no phone) 03-13-2018 03-11-2018 [facility] Primary insomnia [facility] (no [facility] - phone) OLIVER zzCAREY (no phone) 03-11-2018 (no phone) OLIVER - zzCAREY (no phone) 03-11-2018 02-11-2018 [facility] Primary insomnia [facility] (no [facility] - phone) OLIVER zzCAREY (no phone) 02-11-2018 (no phone) OLIVER - zzCAREY (no phone) 02-11-2018 12-17-2016 Evaluation and no information no name no organ ization name - management of 12-19-2016 inpatient 01-28-2012 Evaluation and no information no name no organ ization name - management of 01-29-2012 inpatient NEGATED Patient encounter no information no name no or ganization name 01-28-2018 NEGATED Patient encounter no information no name no or ganization name 10-28-2017 12-17-2016 Patient encounter no information no name no or ganization name - 12-19-2016 04-20-2016 Patient encounter no information no name no or ganization name - 04-20-2016 01-03-2015 Patient encounter no information no name no or ganization name 01-02-2013 Patient encounter no information no name no or ganization name 08-04-2012 Patient encounter no information no name no or ganization name - 08-05-2012 02-22-2012 Patient encounter no information no name no or ganization name - 02-23-2012 01-25-2012 Patient encounter no information no name no or ganization name - 01-26-2012 02-09-2009 Patient encounter no information no name no or ganization name 12-04-2019 Patient encounter no information JOSE ROBERTO CLINTON (n o [facility]) [facility] (no phone) 09-25-2019 Patient encounter no information JOSE ROBERTO CLINTON (n o [facility] phone) [facility] (no phone) 07-31-2019 Patient encounter no information no name no or ganization name procedure 01-09-2019 Patient encounter no information no name no or ganization name procedure 01-09-2019 Patient encounter no information no name no or ganization name procedure 01-02-2019 Patient encounter no information no name no or ganization name procedure 01-02-2019 Patient encounter no information no name no or ganization name procedure 11-05-2018 Patient encounter no information no name no or ganization name procedure 04-17-2017 Patient encounter no information no name no or ganization name - procedure 04-18-2017 09-15-2019 Telephone encounter Chronic pain syndrome JOSE ROBERTO ESTEVES RTER (no [facility] phone) (no phone) 08-20-2019 Telephone encounter Chronic pain syndrome JOSE ROBERTO ESTEVES RTER (no [facility] phone) (no phone) 07-27-2019 Telephone encounter no information JOSE ROBERTO CLINTON (n o [facility] phone) (no phone) 07-22-2019 Telephone encounter Chronic pain syndrome JOSE ROBERTO ESTEVES RTER (no [facility] phone) (no phone) 06-23-2019 Telephone encounter Chronic pain syndrome JOSE ROBERTO ESTEVES RTER (no [facility] phone) (no phone) 05-29-2019 Telephone encounter Chronic pain syndrome JOSE ROBERTO ESTEVES RTER (no [facility] phone) (no phone) 05-27-2019 Telephone encounter no information JOSE ROBERTO CLINTON (n o [facility] phone) (no phone) 05-08-2019 Telephone encounter Primary insomnia JOSE ROBERTO CLINTON (no [facility] phone) (no phone) 05-01-2019 Telephone encounter Chronic pain syndrome JOSE ROBERTO ESTEVES RTER (no [facility] phone) (no phone) 04-02-2019 Telephone encounter Chronic pain syndrome JOSE ROBERTO ESTEVES RTER (no [facility] phone) (no phone) 03-26-2019 Telephone encounter Primary insomnia JOSE ROBERTO CLINTON (no [facility] phone) (no phone) 03-23-2019 Telephone encounter Primary insomnia JOSE ROBERTO CLINTON (no [facility] phone) (no phone) 03-06-2019 Telephone encounter Chronic pain syndrome JOSE ROBERTO ESTEVES RTER (no [facility] phone) (no phone) 02-23-2019 Telephone encounter Primary insomnia JOSE ROBERTO CLINTON (no [facility] phone) (no phone) 02-09-2019 Telephone encounter Chronic pain syndrome JOSE ROBERTO ESTEVES RTER (no [facility] phone) (no phone) 02-06-2019 Telephone encounter Chronic pain syndrome JOSE ROBERTO ESTEVES RTER (no [facility] phone) (no phone) 01-22-2019 Telephone encounter Primary insomnia JOSE ROBERTO CLINTON (no [facility] phone) (no phone) 01-09-2019 Telephone encounter no information JOSE ROBERTO CLINTON (n o [facility] phone) (no phone) 01-05-2019 Telephone encounter Chronic pain syndrome JOSE ROBERTO ESTEVES RTER (no [facility] phone) (no phone) 01-02-2019 Telephone encounter Primary insomnia JOSE ROBERTO CLINTON (no [facility] phone) (no phone) 12-10-2018 Telephone encounter no information JOSE ROBERTO CLINTON (n o [facility] phone) (no phone) 12-04-2018 Telephone encounter Chronic pain syndrome TRACI MA DL (no phone) [facility] - (no phone) 12-04-2018 - 12-04-2018 12-02-2018 Telephone encounter Primary insomnia JOSE ROBERTO CLINTON (no [facility] - phone) (no phone) 12-02-2018 - 12-02-2018 11-06-2018 Telephone encounter Chronic pain syndrome JOSE ROBERTO ESTEVES RTER (no [facility] - phone) (no phone) 11-06-2018 - 11-06-2018 10-29-2018 Telephone encounter Primary insomnia JOSE ROBERTO CLINTON (no [facility] - phone) (no phone) 10-29-2018 - 10-29-2018 10-08-2018 Telephone encounter Chronic pain syndrome JOSE ROBERTO ESTEVES RTER (no [facility] - phone) (no phone) 10-08-2018 - 10-08-2018 10-01-2018 Telephone encounter Primary insomnia JOSE ROBERTO CLINTON (no [facility] (no phone) 10-01-2018 - 10-01-2018 09-11-2018 Telephone encounter Chronic pain syndrome JOSE ROBERTO ESTEVES RTER (no [facility] phone) (no phone) 09-11-2018 - 09-11-2018 09-04-2018 Telephone encounter Primary insomnia JOSE ROBERTO CLINTON (no [facility] phone) (no phone) 09-04-2018 - 09-04-2018 08-22-2018 Telephone encounter Atherosclerotic heart JOSE ROBERTO ESTEVES RTER ([facility] [place] [facility] (no phone) 08-22-2018 coronary artery - without angina 08-22-2018 pectoris 08-13-2018 Telephone encounter Chronic pain syndrome JOSE ROBERTO ESTEVES RTER (no [email or web address] (no phone) 08-13-2018 - 08-13-2018 2018 Telephone encounter Primary insomnia JOSE ROBERTO CLINTON (no [email or web address]) (no phone) 2018 - 2018 07-14-2018 Telephone encounter Mixed hyperlipidemia JOSE ROBERTO ANAYA TER (no [facility] phone) (no phone) 07-14-2018 - 07-14-2018 07-10-2018 Telephone encounter Primary insomnia JOSE ROBERTO CLINTON ([facility] (no phone) 07-10-2018 - 07-10-2018 06-20-2018 Telephone encounter Chronic pain syndrome JOSE ROBERTO ESTEVES RTER (no [facility] (no phone) 06-20-2018 - 06-20-2018 06-16-2018 Telephone encounter Chronic pain syndrome JOSE ROBERTO ESTEVES RTER (no [facility]) (no phone) 06-16-2018 - 06-16-2018 06-12-2018 Telephone encounter Primary insomnia JOSE ROBERTO CLINTON (no [facility] phone) (no phone) 06-12-2018 - 06-12-2018 06-10-2018 Telephone encounter Primary insomnia JOSE ROBERTO CLINTON (no [facility]) (no phone) 06-10-2018 - 06-10-2018 05-13-2018 Telephone encounter Primary insomnia TRACI LAI (n o phone) [facility] - (no phone) 05-13-2018 - 05-13-2018 04-11-2018 Telephone encounter Primary insomnia OLIVER WELCH (no [facility] - phone) OLIVER Mccain (no phone) 04-11-2018 (no phone) OLIVER Mccain (no phone) 04-11-2018 no information Encounter for general no name no organ ization name adult medical examination with abnormal findings no information Dental examination no name no organiza tion name no information Encounter for other no name no organiz ation name preprocedural examination Medical Equipment No Information Payers No Information History general Narrative - Reported Note Type Note Facility History general Narrative - Reported Type Medical Arthritis History Medical 2 heart attacks with tay us stents- 10 yrs ago and then 7 years ago- 1st [facility]- History Promus 2.5 x 18 mm stent to LAD, 3.0x 23 mm stent to DIAG, 2.5x 15 mm stent to LAD/ 2nd UT- Promus 2.5 x12 to distal C irc and Resolute 2.5x 18 mm to RCA- then recently had another stent placed along with PTCA-unknown vessel Medical hypertension History Medical hyperlipidemia History Surgical hernia repair x2 2016 History Surgical cysts on wrists and lower t ail bone History Surgical numerous stent placements History Surgical injections into lower lumba r of back (Dr. Nelson) History Surgical myringotomy with ventilatin g tube multiple times History Hospitaliz Surgery(s) ation History Hospitaliz 2 heart attacks ation History Hospitaliz chest pain 04/2017 ation History [facility] ([id number]) Advance Directives Directive Response Recor ded Date/Time Advance Directives No 2:55pm Health Care Power of Supervisor Underwriting Clerks No 04/19/16 2:55pm Organ Donor Yes 04/19/16 2:55pm Resuscitation Status Full Code 04/19/16 2:55pm Directive Response Recor ded Date/Time Advance Directives No 12:56am Health Care Power of Supervisor Underwriting Clerks No 07/17/16 12:56am Organ Donor Yes 07/17/16 12:56am Resuscitation Status Full Code 07/17/16 12:56am Directive Response Recor ded Date/Time Advance Directives No 7:25pm Health Care Power of Supervisor Underwriting Clerks No 12/17/16 7:25pm Organ Donor Yes 12/17/16 7:25pm Resuscitation Status Full Code 12/17/16 7:25pm Directive Response Recor ded Date/Time Advance Directives No 3:09pm Health Care Power of Supervisor Underwriting Clerks No 08/26/15 3:09pm Organ Donor Yes 08/26/15 3:09pm Resuscitation Status Full Code 08/26/15 3:09pm Directive Response Recor ded Date/Time Advance Directives No 11:03pm Health Care Power of Supervisor Underwriting Clerks No 04/17/17 11:03pm Organ Donor Yes 04/17/17 11:03pm Resuscitation Status Full Code 04/17/17 11:03pm Discharge Instructions No hospital discharge instructions. Patient Instructions Physician Instructions New, Converted or Re-Newed RX: Transmitted to Pharmacy Patient Instructions: Immediate and complete smoking cessation Follow up appointment to see Dr. Mao on Saturday Be compliant with all medications and medical instructions Pneu Vac Indicated: Yes Care Plan Patient Instructions:: Immediate and complete smoking cessationFollow up appointment to see Dr. Mao on SaturdayBe compliant with all medications and medical instructions Patient Instructions Physician Instructions New, Converted or Re-Newed RX: Transmitted to Pharmacy Plan of Care/Instructions/FU: Fwup with me in 2 weeks Activity as Tolerated: Yes Discharge Diet: Cardiac Diet Pneu Vac Indicated: Yes Care Plan Patient Instructions:: Fwup with me in 2 weeks No hospital discharge instructions.No hospital discharge instructions.No hospit al discharge instruction information available.No hospital discharge instruction information available. Additional Source Comments This clinical document has been generated using [employer] ? software that has been certified by the Office of the National Coordinator for Health Information Technology (ONC 15.99.04.3023.Diam.[id number]) and the National Committee for Files Supervisor (NCQA, as an eMeasure certified technology). FOR RECORDS PERTAINING TO PATIENTS WHO ARE OR HAVE BEEN ENROLLED IN A CHEMICAL D EPENDENCY/SUBSTANCE ABUSE PROGRAM, SOME INFORMATION MAY BE OMITTED. This clinica l summary was aggregated from multiple sources. Caution should be exercised in using it in the provision of clinical care. This summary normalizes information from multiple sources, and as a consequence, information in this document may ma terially change the coding, format and clinical context of patient data. In sunil tion, data may be omitted in some cases. CLINICAL DECISIONS SHOULD BE BASED ON T HE PRIMARY CLINICAL RECORDS. [employer] provides no warranty or guara ntee of the accuracy or completeness of information in this document.The followi ng information is based on time limited clinical information UNRECOGNIZED CONTENT PROVIDED BELOW FOR UNRECOGNIZED SECTION MEDICAL (GENERAL) HISTORY Type Description Date Medical History Arthritis Medical History 2 heart attacks with numerous stents- 10 yrs ago and then 7 years ago- 1st UT- Promus 2.5 x 18 mm stent to LAD, 3.0x 23 mm stent to DIAG, 2.5x 15 mm stent to LAD/ 2nd UT- Promus 2.5 x12 to distal Circ a nd Resolute 2.5x 18 mm to RCA- then recently had another stent placed along with PTCA-unknown vessel Medical History hypertension Medical History hyperlipidemia Surgical History hernia repair x2 2016 Surgical History cysts on wrists and lower tail bone Surgical History numerous stent placements Surgical History injections into low er lumbar of back (Dr. Nelson) Surgical History myringotomy with ve ntilating tube multiple times Hospitalization History Surgery(s) Hospitalization History 2 heart attacks Hospitalization History chest pain 04/2017 UNRECOGNIZED CONTENT PROVIDED BELOW FOR UNRECOGNIZED SECTION REASON FOR VISIT Blood Pressure Pt here for blood pressure issues, also c/o recently pulling a mu scle in his back Mary, MAMedication questionRefill requestrequesting return c allControlled Med RefillAmbienAmbienambienControlled Med Refill 07/11Controlled Med Refill ontrolled ontrolled 10/31
--- OUTSIDE RECORDS SUMMARY | 2019-12-11 14:35 | XMS REPORT ---
Author Author Reza CLINTON Organization [facility] Address [address] [place] [address] Care Team Providers Care Member Certification Manager Name Role Phone JOSE ROBERTO CLINTON Unavailable PROBLEMS Type Condition ICD9-CM Code [id number] Code Onset Dates Condition S tatus SNOMED Code Problem Tobacco abuse Z72.0 Active 758518 000 Problem Pain in right ankle and joints of right foot M25.5 71 Active 854856401 Problem Tobacco abuse counseling Z71.6 Activ e 420369654 Problem Plantar fasciitis, bilateral M72.2 A ctive [id number] Problem Foot pain, left M79.672 Active 3167 [id number] Problem Coronary artery disease invo lving mentasta coronary artery of mentasta heart without angina pectoris I25.10 Active 1641 816095426 Problem Obesity (BMI 30-39.9) E66.9 Active 776658914 Problem Essential hypertension I10 Active 90626379 Problem Anxiety F41.9 Active 19530938 Problem Acute reaction to situational stress F43.0 Active 75453620 Problem Chronic pain disorder G89.4 Active 241221018 Problem Primary insomnia F51.01 Active 397 2004 Problem Mixed hyperlipidemia E78.2 Active 835822170 ALLERGIES No Information ENCOUNTERS Encounter Location Date Diagnosis [facility] [address] [facility] [id number] [address] [place] [phone] Jul, Mixed hyperlipidemia E78.2 a nd Chronic pain disorder G89.4 [facility] [address] [facility] [id number] [address] [place] [id number] Jul, Primary insomnia F51.01 [facility] [address] [facility] [id number] [address] [place] [phone] Jun, Chronic pain disorder G89.4 [facility] [address] [facility] [id number] [address] [place] [phone] Jun, Chronic pain disorder G89.4 [facility] [address] [facility] [id number] [address] [place] [phone] Jun, Primary insomnia F51.01 [facility] [address] [facility] [id number] [address] [place] [phone] Jun, Primary insomnia F51.01 [facility] [address] [place] [id number] [address] [place] [phone] May, Chronic pain disorder G89.4 ; Foot pain, left M79.672 ; Coronary artery disease involving mentasta coronary artery of mentasta heart without angina pectoris I25.10 and Recurrent acute suppurative otitis media without spontaneous rupture of left tympanic membrane H66.005 [facility] [address] [place] [id number] [address] [place] [phone] May, Primary insomnia F51.01 [place] [address] [place] [id number] [address] [place] [phone] Apr, Primary insomnia F51.01 [place] [address] [place] [id number] [address] [place] [phone] Mar, Primary insomnia F51.01 [place] [address] [place] [id number] [address] [place] [phone] Mar, Primary insomnia F51.01 [facility] [address] [place] [id number] [address] [place] [phone] Feb, Primary insomnia F51.01 [facility] [address] [facility] [id number] [address] [place] [phone] Jan, Essential hypertension I10 ; Mixed hyperlipidemia E78.2 ; Throat tightness R68.89 ; Left arm pain M79.602 ; Coronary artery disease involving mentasta coronary artery of mentasta heart without angina pectoris I25.10 ; Chronic pain disorder G89.4 ; Tobacco abuse counseling Z71.6 and Primary insomnia F51.01 [facility] [address] [place] [id number] [address] [place] [phone] Jan, [facility] [address] [facility] [id number] [address] [place] [phone] December, Essential hypertension I10 a nd Mixed hyperlipidemia E78.2 [facility] [address] [facility] [id number] [address] [place] [phone] December, [facility] [address] [facility] [id number] [address] [place] [phone] December, Primary insomnia F51.01 [facility] [address] [facility] [id number] [address] [place] [phone] Nov, Chronic pain disorder G89.4 [facility] [address] [facility] [id number] [address] [place] [phone] Nov, [facility] [address] [place] [id number] [address] [place] [phone] Oct, Acute bronchitis, unspecifie d organism J20.9 [facility] [address] [facility] [id number] [address] [place] [phone] 16 Oct, 2017 [facility] [address] [facility] [id number] [address] [place] [phone] Oct, Chronic pain disorder G89.4 and Primary insomnia F51.01 [facility] [address] [facility] [id number] [address] [place] [phone] 14 Oct, 2017 [facility] [address] [place] [id number] [address] [place] [phone] 05 Oct, 2017 Anxiety F41.9 and Essential hypertension I10 [facility] [address] [facility] [id number] [address] [place] [phone] Sep, Primary insomnia F51.01 [facility] [address] [facility] [id number] [address] [place] [phone] Sep, Chronic pain disorder G89.4 [facility] [address] [facility] [id number] [address] [place] [phone] Sep, Essential hypertension I10 a nd Chronic pain disorder G89.4 [facility] [address] [place] [id number] [address] [place] [phone] 09 Sep, 2017 Anxiety F41.9 and Chronic pa in disorder G89.4 [facility] [address] [place] [id number] [address] [place] [phone] 02 Sep, 2017 Controlled substance agreeme nt signed Z79.899 [facility] [address] [place] [id number] [address] [place] [phone] Aug, Chronic pain disorder G89.4 and Primary insomnia F51.01 [place] [address] [address] Aug, Essential hypertension I10 ; Mixed hyperlipidemia E78.2 ; Primary insomnia F51.01 ; Tobacco abuse Z72.0 ; Chronic pain disorder G89.4 ; Acute suppurative otitis media of left ear without spontaneous rupture of tympanic membrane, recurrence not specified H66.002 ; Acute bronchitis, unspecified organism J20.9 and Anxiety F41.9 [facility] [id number] [place] [phone] Aug, [facility] [address] [place] [id number] [address] [place] [phone] Aug, [facility] [id number] [place] [phone] Aug, Primary insomnia F51.01 [facility] [address] [place] [id number] [address] [place] [phone] Jul, Paronychia of finger of righ t hand L03.011 [facility] [address] [place] [id number] [address] [place] [phone] Jul, Primary insomnia F51.01 [facility] [address] [place] [id number] [address] [place] [phone] Jul, Mixed hyperlipidemia E78.2 [facility] [address] [place] [id number] [address] [place] [address] Jul, Chronic pain disorder G89.4 [facility] [address] [id number] [address] [place] [phone] Jun, Mixed hyperlipidemia E78.2 [facility] [address] [id number] [address] [place] [phone] Jun, Primary insomnia F51.01 [facility] [address] [id number] [address] [place] [phone] Jun, [facility] [address] [id number] [address] [place] [phone] May, [facility] [address] [id number] [address] [place] [phone] May, [facility] [address] [id number] [address] [place] [phone] May, Chronic pain disorder G89.4 ; Bilateral otitis media with effusion H65.93 and Primary insomnia F51.01 [facility] [address] [id number] [address] [place] [phone] May, Chronic pain disorder G89.4 [facility] [address] [id number] [address] [place] [phone] May, [facility] [address] [id number] [address] [place] [phone] May, [facility] [address] [id number] [address] [place] [phone] May, [facility] [address] [id number] [address] [place] [phone] Apr, [facility] [address] [id number] [address] [place] [phone] Apr, [facility] [address] [id number] [address] [place] [phone] 19 Apr, 2017 Coronary artery disease invo lving mentasta coronary artery of mentasta heart without angina pectoris I25.10 [place] [id number] [id number] [address] [place] [phone] 18 Apr, 2017 Chronic pain disorder G89.4 [facility] [address] [id number] [address] [place] [phone] 15 Apr, 2017 Coronary artery disease invo lving mentasta coronary artery of mentasta heart without angina pectoris I25.10 ; Tobacco abuse Z72.0 ; Tobacco abuse counseling Z71.6 ; Obesity (BMI 30-39.9) E66.9 ; Acute reaction to situational stress F43.0 ; Mixed hyperlipidemia E78.2 ; Chronic pain disorder G89.4 and Right otitis media with effusion H65.91 [place] [address] [id number] [address] [place] [phone] Apr, Pain in right ankle and join ts of right foot M25.571 [place] [address] [facility] [id number] [address] [place] [phone] Apr, Pain in right ankle and join ts of right foot M25.571 and Coronary artery disease involving mentasta coronary artery of mentasta heart without angina pectoris I25.10 [place] [address] [id number] [address] [place] [phone] Mar, [place] [address] [id number] [address] [place] [phone] Mar, [place] [address] [id number] [address] [place] [phone] Mar, [place] [address] [facility] [id number] [address] [place] [phone] Mar, Acute mucoid otitis media of both ears H65.113 and Dizziness R42 [place] [address] [id number] [address] [place] [phone] Feb, [place] [address] [facility] [id number] [address] [place] [phone] Feb, Pain in right ankle and join ts of right foot M25.571 ; Pain in left finger(s) M79.645 and Coronary artery disease involving mentasta coronary artery of mentasta heart without angina pectoris I25.10 [facility] [address] [facility] [id number] [address] [place] [phone] Feb, [facility] [address] [facility] [id number] [address] [place] [phone] Feb, [place] [address] [place] [id number] [address] [place] [phone] Jan, [facility] [address] [place] [id number] [address] [place] [phone] Jan, Encounter for routine adult health examination with abnormal findings Z00.01 ; Foot pain, left M79.672 ; Pain in right ankle and joints of right foot M25.571 ; Chronic pain disorder G89.4 ; Coronary artery disease involving mentasta coronary artery of mentasta heart without angina pectoris I25.10 ; Tobacco abuse Z72.0 ; Tobacco abuse counseling Z71.6 and Obesity (BMI 30-39.9) E66.9 [facility] [address] [facility] [id number] [address] [place] [phone] Jan, [facility] [address] [facility] [id number] [address] [place] [id number] Mar, Dental examination V72.2 IMMUNIZATIONS No Known Immunizations SOCIAL HISTORY Never Assessed REASON FOR VISIT Controlled Med Refill 07/18 PLAN OF CARE VITAL SIGNS MEDICATIONS Medication Instructions Dosage Frequency Start Date End Date Duration S tatus Tramadol HCl 50 mg Orally every 6 hrs 1 tablet as needed 6h 28 days Active Atorvastatin Calcium 80 MG Orally Once a day 1 tablet 24h 30 days Active RESULTS No Results PROCEDURES No Known procedures INSTRUCTIONS MEDICATIONS ADMINISTERED No Known Medications MEDICAL (GENERAL) HISTORY Type Description Date Medical History Arthritis Medical History 2 heart attacks with numerou s stents- 10 yrs ago and then 7 years ago- 1st OR- Promus 2.5 x 18 mm stent to LAD, 3.0x 23 mm stent to DIAG, 2.5x 15 mm stent to LAD/ 2nd OR- Promus 2.5 x12 to distal Circ and [...]
--- OUTSIDE RECORDS SUMMARY | 2019-12-11 14:36 | XMS REPORT ---
Author Author Reza CLINTON Organization [facility] Address [address] [place] [address] Care Team Providers Care News Video Editor Name Role Phone JOSE ROBERTO CLINTON Unavailable PROBLEMS Type Condition ICD9-CM Code [id number] Code Onset Dates Condition S tatus SNOMED Code Problem Tobacco abuse Z72.0 Active 369960 000 Problem Pain in right ankle and joints of right foot M25.5 71 Active 256301299 Problem Tobacco abuse counseling Z71.6 Activ e 063178950 Problem Plantar fasciitis, bilateral M72.2 A ctive [id number] Problem Foot pain, left M79.672 Active 3167 [id number] Problem Coronary artery disease invo lving ho-chunk coronary artery of ho-chunk heart without angina pectoris I25.10 Active 1641 320705083 Problem Obesity (BMI 30-39.9) E66.9 Active 741945805 Problem Essential hypertension I10 Active 43594086 Problem Anxiety F41.9 Active 02808885 Problem Acute reaction to situational stress F43.0 Active 13282815 Problem Chronic pain disorder G89.4 Active 000626472 Problem Primary insomnia F51.01 Active 397 2004 Problem Mixed hyperlipidemia E78.2 Active 053674303 ALLERGIES No Information ENCOUNTERS Encounter Location Date Diagnosis [facility] [address] [place] [id number] [address] [place] [id number] Jun, Primary insomnia F51.01 [facility] [address] [facility] [id number] [address] [place] [id number] May, Chronic pain disorder G89.4 ; Foot pain, left M79.672 ; Coronary artery disease involving ho-chunk coronary artery of ho-chunk heart without angina pectoris I25.10 and Recurrent acute suppurative otitis media without spontaneous rupture of left tympanic membrane H66.005 [facility] [id number] [address] [place] [phone] May, Primary insomnia F51.01 [facility] [address] [facility] [id number] [address] [place] [phone] Apr, Primary insomnia F51.01 [facility] [address] [facility] [id number] [address] [place] [phone] Mar, Primary insomnia F51.01 [facility] [address] [facility] [id number] [address] [place] [phone] Mar, Primary insomnia F51.01 [facility] [address] [facility] [id number] [address] [place] [phone] Feb, Primary insomnia F51.01 [facility] [address] [facility] [id number] [address] [place] [phone] Jan, Essential hypertension I10 ; Mixed hyperlipidemia E78.2 ; Throat tightness R68.89 ; Left arm pain M79.602 ; Coronary artery disease involving ho-chunk coronary artery of ho-chunk heart without angina pectoris I25.10 ; Chronic pain disorder G89.4 ; Tobacco abuse counseling Z71.6 and Primary insomnia F51.01 [facility] [address] [facility] [id number] [address] [place] [phone] Jan, [facility] [address] [facility] [id number] [address] [place] [phone] December, Essential hypertension I10 a nd Mixed hyperlipidemia E78.2 [facility] [address] [facility] [id number] [address] [place] [id number] December, [facility] [address] [facility] [id number] [address] [place] [phone] December, Primary insomnia F51.01 [facility] [address] [facility] [id number] [address] [place] [phone] Nov, Chronic pain disorder G89.4 [facility] [address] [facility] [id number] [address] [place] [phone] Nov, [facility] [address] [phone] 26 Oct, 2017 Acute bronchitis, unspecifie d organism J20.9 [place] [address] [place] [id number] 16 Oct, 2017 [place] [address] [phone] 15 Oct, 2017 Chronic pain disorder G89.4 and Primary insomnia F51.01 [place] [address] [phone] Oct, [place] [address] [phone] 05 Oct, 2017 Anxiety F41.9 and Essential hypertension I10 [place] [address] [address] Sep, Primary insomnia F51.01 [place] [address] [address] Sep, Chronic pain disorder G89.4 [place] [address] [address] Sep, Essential hypertension I10 a nd Chronic pain disorder G89.4 [place] [address] [address] Sep, Anxiety F41.9 and Chronic pa in disorder G89.4 [place] [address] [address] Sep, Controlled substance agreeme nt signed Z79.899 [place] [address] [address] Aug, Chronic pain disorder G89.4 and Primary insomnia F51.01 [place] [address] [place] [id number] [place] [phone] Aug, Essential hypertension I10 ; Mixed hyperlipidemia E78.2 ; Primary insomnia F51.01 ; Tobacco abuse Z72.0 ; Chronic pain disorder G89.4 ; Acute suppurative otitis media of left ear without spontaneous rupture of tympanic membrane, recurrence not specified H66.002 ; Acute bronchitis, unspecified organism J20.9 and Anxiety F41.9 [facility] [address] [facility] [id number] [address] [place] [phone] Aug, [facility] [address] [id number] [address] [place] [phone] Aug, [facility] [address] [id number] [address] [place] [phone] Aug, Primary insomnia F51.01 [facility] [address] [id number] [address] [place] [id number] Jul, Paronychia of finger of righ t hand L03.011 [facility] [address] [id number] [address] [place] [address] Jul, Primary insomnia F51.01 [facility] [address] [id number] [place] [phone] Jul, Mixed hyperlipidemia E78.2 [facility] [address] [address] Jul, Chronic pain disorder G89.4 [facility] [id number] [place] [phone] 17 Jun, 2017 Mixed hyperlipidemia E78.2 [facility] [id number] [place] [id number] 16 Jun, 2017 Primary insomnia F51.01 [facility] [address] [id number] [place] [phone] Jun, [facility] [id number] [place] [address] May, [facility] [address] [id number] [address] [place] [id number] May, [facility] [address] [place] [id number] [place] [address] May, Chronic pain disorder G89.4 ; Bilateral otitis media with effusion H65.93 and Primary insomnia F51.01 [facility] [address] [id number] [address] [place] [id number] May, Chronic pain disorder G89.4 [facility] [address] [id number] [address] [place] [phone] May, [facility] [address] [id number] [address] [place] [phone] May, [facility] [address] [id number] [address] [place] [phone] May, [facility] [address] [facility] [id number] [address] [place] [id number] 22 Apr, 2017 [place] [address] [facility] [id number] [address] [place] [id number] 21 Apr, 2017 [facility] [address] [id number] [address] [place] [id number] 19 Apr, 2017 Coronary artery disease invo lving ho-chunk coronary artery of ho-chunk heart without angina pectoris I25.10 [facility] [address] [facility] [id number] [address] [place] [id number] 18 Apr, 2017 Chronic pain disorder G89.4 [place] [address] [facility] [id number] [address] [place] [phone] 15 Apr, 2017 Coronary artery disease invo lving ho-chunk coronary artery of ho-chunk heart without angina pectoris I25.10 ; Tobacco abuse Z72.0 ; Tobacco abuse counseling Z71.6 ; Obesity (BMI 30-39.9) E66.9 ; Acute reaction to situational stress F43.0 ; Mixed hyperlipidemia E78.2 ; Chronic pain disorder G89.4 and Right otitis media with effusion H65.91 [facility] [address] [facility] [id number] [address] [place] [phone] 13 Apr, 2017 Pain in right ankle and join ts of right foot M25.571 [facility] [address] [id number] [address] [place] [address] Apr, Pain in right ankle and join ts of right foot M25.571 and Coronary artery disease involving ho-chunk coronary artery of ho-chunk heart without angina pectoris I25.10 [facility] [address] [id number] [address] [place] [id number] Mar, [facility] [address] [id number] [address] [place] [phone] Mar, [facility] [address] [id number] [address] [place] [phone] Mar, [place] [address] [id number] [address] [place] [address] Mar, Acute mucoid otitis media of both ears H65.113 and Dizziness R42 [facility] [address] [id number] [address] [place] [phone] Feb, [facility] [address] [id number] [address] [place] [id number] Feb, Pain in right ankle and join ts of right foot M25.571 ; Pain in left finger(s) M79.645 and Coronary artery disease involving ho-chunk coronary artery of ho-chunk heart without angina pectoris I25.10 [facility] [address] [id number] [address] [place] [phone] Feb, [facility] [address] [id number] [address] [place] [phone] Feb, [facility] [address] [id number] [address] [place] [phone] Jan, [place] [address] [id number] [address] [place] [phone] Jan, Encounter for routine adult health examination with abnormal findings Z00.01 ; Foot pain, left M79.672 ; Pain in right ankle and joints of right foot M25.571 ; Chronic pain disorder G89.4 ; Coronary artery disease involving ho-chunk coronary artery of ho-chunk heart without angina pectoris I25.10 ; Tobacco abuse Z72.0 ; Tobacco abuse counseling Z71.6 and Obesity (BMI 30-39.9) E66.9 [facility] [address] [facility] [id number] [address] [place] [address] Jan, [facility] [address] [id number] [address] [place] [id number] Mar, Dental examination V72.2 IMMUNIZATIONS No Known Immunizations SOCIAL HISTORY Never Assessed REASON FOR VISIT ambien PLAN OF CARE VITAL SIGNS MEDICATIONS Medication [...] ago and then 7 years ago- 1st AR- Promus 2.5 x 18 mm stent to LAD, 3.0x 23 mm stent to DIAG, 2.5x 15 mm stent to LAD/ 2nd AR- Promus 2.5 x12 to distal Circ and [...]
--- OUTSIDE RECORDS SUMMARY | 2019-12-11 14:36 | XMS REPORT ---
Author Author Reza CLINTON Organization 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 Phone JOSE ROBERTO CLINTON Unavailable PROBLEMS Type Condition ICD9-CM Code SWE84-FL Code Onset Dates Condition S tatus SNOMED Code Problem Tobacco abuse Z72.0 Active 778277 000 Problem Pain in right ankle and joints of right foot M25.5 71 Active 903923200 Problem Tobacco abuse counseling Z71.6 Activ e 634281409 Problem Plantar fasciitis, bilateral M72.2 A ctive [id number] Problem Foot pain, left M79.672 Active 3167 [id number] Problem Coronary artery disease invo lving [place] coronary artery of [place] heart without angina pectoris I25.10 Active 1641 193967652 Problem Obesity (BMI 30-39.9) E66.9 Active 138465085 Problem Essential hypertension I10 Active 59632191 Problem Anxiety F41.9 Active 27019664 Problem Acute reaction to situational stress F43.0 Active 29061571 Problem Chronic pain disorder G89.4 Active 246165193 Problem Primary insomnia F51.01 Active 397 2004 Problem Mixed hyperlipidemia E78.2 Active 533440920 ALLERGIES No Information ENCOUNTERS Encounter Location Date Diagnosis [facility] [address] [facility] [id number] [address] [place] [phone] Jul, Primary insomnia F51.01 [facility] [address] [facility] [id number] [address] [place] [phone] Jun, Chronic pain disorder G89.4 [facility] [address] [facility] [id number] [address] [place] [phone] Jun, Chronic pain disorder G89.4 [facility] [address] [facility] [id number] [address] [place] [phone] Jun, Primary insomnia F51.01 [facility] [address] [facility] [id number] [address] [place] [phone] Jun, Primary insomnia F51.01 [facility] [address] [facility] [id number] [address] [place] [address] May, Chronic pain disorder G89.4 ; Foot pain, left M79.672 ; Coronary artery disease involving [place] coronary artery of [place] heart without angina pectoris I25.10 and Recurrent acute suppurative otitis media without spontaneous rupture of left tympanic membrane H66.005 [facility] [address] [facility] [id number] [address] [place] [phone] May, Primary insomnia F51.01 [facility] [address] [facility] [id number] [address] [place] [phone] Apr, Primary insomnia F51.01 [facility] [address] [place] [id number] [address] [place] [phone] Mar, Primary insomnia F51.01 [facility] [address] [facility] [id number] [address] [place] [phone] Mar, Primary insomnia F51.01 [facility] [address] [facility] [id number] [address] [place] [phone] Feb, Primary insomnia F51.01 [facility] [address] [facility] [id number] [address] [place] [address] Jan, Essential hypertension I10 ; Mixed hyperlipidemia E78.2 ; Throat tightness R68.89 ; Left arm pain M79.602 ; Coronary artery disease involving [place] coronary artery of [place] heart without angina pectoris I25.10 ; Chronic pain disorder G89.4 ; Tobacco abuse counseling Z71.6 and Primary insomnia F51.01 [facility] [address] [facility] [id number] [address] [place] [phone] Jan, [facility] [address] [facility] [id number] [address] [place] [phone] December, Essential hypertension I10 a nd Mixed hyperlipidemia E78.2 [facility] [address] [facility] [id number] [address] [place] [phone] December, [facility] [address] [facility] [id number] [address] [place] [phone] December, Primary insomnia F51.01 [facility] [address] [facility] [id number] [address] [place] [phone] Nov, Chronic pain disorder G89.4 [facility] [address] [facility] [id number] [address] [place] [phone] Nov, [facility] [address] [facility] [id number] [address] [place] [phone] Oct, Acute bronchitis, unspecifie d organism J20.9 [facility] [address] [facility] [id number] [address] [place] [phone] 16 Oct, 2017 [facility] [address] [facility] [id number] [address] [place] [phone] 15 Oct, 2017 Chronic pain disorder G89.4 and Primary insomnia F51.01 [facility] [address] [facility] [id number] [address] [place] [phone] 14 Oct, 2017 [facility] [address] [facility] [id number] [address] [place] [phone] 05 Oct, 2017 Anxiety F41.9 and Essential hypertension I10 [facility] [address] [facility] [id number] [address] [place] [phone] Sep, Primary insomnia F51.01 [facility] [address] [facility] [id number] [address] [place] [address] Sep, Chronic pain disorder G89.4 [facility] [address] [facility] [id number] [address] [place] [address] Sep, Essential hypertension I10 a nd Chronic pain disorder G89.4 [facility] [address] [facility] [id number] [address] [place] [phone] 09 Sep, 2017 Anxiety F41.9 and Chronic pa in disorder G89.4 [facility] [address] [facility] [id number] [address] [place] [phone] 02 Sep, 2017 Controlled substance agreeme nt signed Z79.899 [place] [address] [facility] [id number] [address] [place] [phone] Aug, Chronic pain disorder G89.4 and Primary insomnia F51.01 [facility] [address] [place] [id number] [address] [place] [address] Aug, Essential hypertension I10 ; Mixed hyperlipidemia E78.2 ; Primary insomnia F51.01 ; Tobacco abuse Z72.0 ; Chronic pain disorder G89.4 ; Acute suppurative otitis media of left ear without spontaneous rupture of tympanic membrane, recurrence not specified H66.002 ; Acute bronchitis, unspecified organism J20.9 and Anxiety F41.9 [place] [address] [place] [id number] [address] [place] [phone] Aug, [place] [address] [place] [id number] [address] [place] [phone] Aug, [place] [address] [place] [id number] [address] [place] [address] Aug, Primary insomnia F51.01 [facility] [address] [facility] [id number] [address] [place] [address] Jul, Paronychia of finger of righ t hand L03.011 [facility] [address] [facility] [id number] [address] [place] [address] Jul, Primary insomnia F51.01 [facility] [address] [facility] [id number] [address] [place] [phone] Jul, Mixed hyperlipidemia E78.2 [place] [address] [place] [id number] [address] [place] [phone] Jul, Chronic pain disorder G89.4 [facility] [address] [place] [id number] [address] [place] [phone] Jun, Mixed hyperlipidemia E78.2 [facility] [address] [id number] [address] [place] [address] Jun, Primary insomnia F51.01 [facility] [address] [id number] [address] [place] [phone] Jun, [facility] [address] [id number] [address] [place] [phone] May, [facility] [address] [id number] [address] [place] [phone] May, [facility] [address] [id number] [address] [place] [phone] May, Chronic pain disorder G89.4 ; Bilateral otitis media with effusion H65.93 and Primary insomnia F51.01 [facility] [address] [id number] [address] [place] [phone] May, Chronic pain disorder G89.4 [facility] [address] [id number] [address] [place] [phone] May, [facility] [address] [id number] [address] [place] [phone] May, [facility] [address] [id number] [address] [place] [phone] May, [facility] [address] [id number] [address] [place] [phone] Apr, [facility] [address] [id number] [address] [place] [phone] Apr, [facility] [address] [id number] [address] [place] [phone] 19 Apr, 2017 Coronary artery disease invo [place]ving [place] coronary artery of [place] heart without angina pectoris I25.10 [facility] [address] [id number] [address] [place] [phone] 18 Apr, 2017 Chronic pain disorder G89.4 [facility] [address] [facility] [id number] [address] [place] [phone] 15 Apr, 2017 Coronary artery disease invo [place]ving [place] coronary artery of [place] heart without angina pectoris I25.10 ; Tobacco abuse Z72.0 ; Tobacco abuse counseling Z71.6 ; Obesity (BMI 30-39.9) E66.9 ; Acute reaction to situational stress F43.0 ; Mixed hyperlipidemia E78.2 ; Chronic pain disorder G89.4 and Right otitis media with effusion H65.91 [place] [address] [id number] [address] [place] [phone] Apr, Pain in right ankle and join ts of right foot M25.571 [place] [address] [facility] [id number] [address] [place] [phone] Apr, Pain in right ankle and join ts of right foot M25.571 and Coronary artery disease involving [place] coronary artery of [place] heart without angina pectoris I25.10 [place] [address] [facility] [id number] [address] [place] [phone] Mar, [place] [address] [id number] [address] [place] [phone] Mar, [place] [address] [facility] [id number] [address] [place] [phone] Mar, [place] [address] [facility] [id number] [address] [place] [address] Mar, Acute mucoid otitis media of both ears H65.113 and Dizziness R42 [place] [address] [id number] [address] [place] [phone] Feb, [place] [address] [id number] [address] [place] [phone] Feb, Pain in right ankle and join ts of right foot M25.571 ; Pain in left finger(s) M79.645 and Coronary artery disease involving [place] coronary artery of [place] heart without angina pectoris I25.10 [place] [address] [place] [id number] [address] [place] [phone] Feb, [facility] [address] [facility] [id number] [address] [place] [phone] Feb, [facility] [address] [facility] [id number] [address] [place] [phone] Jan, [facility] [address] [facility] [id number] [address] [place] [phone] Jan, Encounter for routine adult health examination with abnormal findings Z00.01 ; Foot pain, left M79.672 ; Pain in right ankle and joints of right foot M25.571 ; Chronic pain disorder G89.4 ; Coronary artery disease involving [place] coronary artery of [place] heart without angina pectoris I25.10 ; Tobacco abuse Z72.0 ; Tobacco abuse counseling Z71.6 and Obesity (BMI 30-39.9) E66.9 [facility] [address] [facility] [id number] [address] [place] [phone] Jan, [facility] [address] [facility] [id number] [address] [place] [id number] Mar, Dental examination V72.2 IMMUNIZATIONS No Known Immunizations SOCIAL HISTORY Never Assessed REASON FOR VISIT Controlled Med Refill 07/11 PLAN OF CARE VITAL SIGNS MEDICATIONS Medication [...] ago and then 7 years ago- 1st ME- Promus 2.5 x 18 mm stent to LAD, 3.0x 23 mm stent to DIAG, 2.5x 15 mm stent to LAD/ 2nd ME- Promus 2.5 x12 to distal Circ and [...]
--- OUTSIDE RECORDS SUMMARY | 2019-12-11 14:36 | XMS REPORT ---
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 WELCH Unavailable PROBLEMS Type Condition ICD9-CM Code KXT71-VA Code Onset Dates Condition S tatus SNOMED Code Problem Tobacco abuse Z72.0 Active 282904 000 Problem Pain in right ankle and joints of right foot M25.5 71 Active 830067795 Problem Tobacco abuse counseling Z71.6 Activ e 935130988 Problem Plantar fasciitis, bilateral M72.2 A ctive [id number] Problem Foot pain, left M79.672 Active 3167 [id number] Problem Coronary artery disease invo lving [place] coronary artery of [place] heart without angina pectoris I25.10 Active 1641 686254464 Problem Obesity (BMI 30-39.9) E66.9 Active 893675756 Problem Essential hypertension I10 Active 07254194 Problem Anxiety F41.9 Active 68931420 Problem Acute reaction to situational stress F43.0 Active 30267500 Problem Chronic pain disorder G89.4 Active 831712534 Problem Primary insomnia F51.01 Active 397 2004 Problem Mixed hyperlipidemia E78.2 Active 606762900 ALLERGIES No Information ENCOUNTERS Encounter Location Date Diagnosis [facility] [address] [facility] [id number] [address] [place] [address] Apr, [facility] [address] [facility] [id number] [address] [place] [address] Apr, Primary insomnia F51.01 [facility] [address] [facility] [id number] [address] [place] [address] Mar, Primary insomnia F51.01 [facility] [address] [facility] [id number] [address] [place] [address] Mar, Primary insomnia F51.01 [facility] [address] [facility] [id number] [address] [place] [address] Feb, Primary insomnia F51.01 [facility] [address] [facility] [id number] [address] [place] [phone] Jan, Essential hypertension I10 ; Mixed hyperlipidemia E78.2 ; Throat tightness R68.89 ; Left arm pain M79.602 ; Coronary artery disease involving [place] coronary artery of [place] heart without angina pectoris I25.10 ; Chronic pain disorder G89.4 ; Tobacco abuse counseling Z71.6 and Primary insomnia F51.01 [facility] [address] [facility] [id number] [address] [place] [address] Jan, [facility] [address] [place] [id number] [address] [place] [address] December, Essential hypertension I10 a nd Mixed hyperlipidemia E78.2 [facility] [address] [place] [id number] [address] [place] [address] December, [facility] [address] [facility] [id number] [address] [place] [address] December, Primary insomnia F51.01 [facility] [address] [facility] [id number] [address] [place] [address] Nov, Chronic pain disorder G89.4 [facility] [address] [place] [id number] [address] [place] [address] Nov, [facility] [address] [place] [id number] [address] [place] [address] Oct, Acute bronchitis, unspecifie d organism J20.9 [facility] [address] [facility] [id number] [address] [place] [address] Oct, [facility] [address] [place] [id number] [address] [place] [address] Oct, Chronic pain disorder G89.4 and Primary insomnia F51.01 [facility] [address] [place] [id number] [address] [place] [address] Oct, [facility] [address] [place] [id number] [address] [place] [address] Oct, Anxiety F41.9 and Essential hypertension I10 [facility] [address] [place] [id number] [address] [place] [address] Sep, Primary insomnia F51.01 [facility] [id number] [place] [address] Sep, Chronic pain disorder G89.4 [place] [address] [place] [id number] [address] [place] [address] Sep, Essential hypertension I10 a nd Chronic pain disorder G89.4 [place] [address] [address] Sep, Anxiety F41.9 and Chronic pa in disorder G89.4 [place] [address] [address] Sep, Controlled substance agreeme nt signed Z79.899 [place] [address] [address] Aug, Chronic pain disorder G89.4 and Primary insomnia F51.01 [place] [address] [address] Aug, Essential hypertension I10 ; Mixed hyperlipidemia E78.2 ; Primary insomnia F51.01 ; Tobacco abuse Z72.0 ; Chronic pain disorder G89.4 ; Acute suppurative otitis media of left ear without spontaneous rupture of tympanic membrane, recurrence not specified H66.002 ; Acute bronchitis, unspecified organism J20.9 and Anxiety F41.9 [place] [address] [place] [id number] [address] [place] [address] Aug, [place] [address] [place] [id number] [address] [place] [address] Aug, [place] [address] [place] [address] Aug, Primary insomnia F51.01 [facility] [address] [facility] [id number] [address] [place] [address] Jul, Paronychia of finger of karl t hand L03.011 [facility] [address] [facility] [id number] [address] [place] [address] Jul, Primary insomnia F51.01 [facility] [address] [facility] [id number] [address] [place] [address] Jul, Mixed hyperlipidemia E78.2 [facility] [address] [facility] [id number] [address] [place] [address] Jul, Chronic pain disorder G89.4 [facility] [address] [facility] [id number] [address] [place] [address] Jun, Mixed hyperlipidemia E78.2 [facility] [address] [facility] [id number] [address] [place] [address] Jun, Primary insomnia F51.01 [facility] [address] [facility] [id number] [address] [place] [address] Jun, [facility] [address] [facility] [id number] [address] [place] [address] May, [facility] [address] [facility] [id number] [address] [place] [address] May, [facility] [address] [facility] [id number] [address] [place] [phone] May, Chronic pain disorder G89.4 ; Bilateral otitis media with effusion H65.93 and Primary insomnia F51.01 [facility] [address] [facility] [id number] [address] [place] [address] May, Chronic pain disorder G89.4 [facility] [address] [facility] [id number] [address] [place] [address] May, [facility] [address] [id number] [address] [place] [address] May, [facility] [address] [id number] [address] [place] [phone] May, [facility] [address] [id number] [address] [place] [address] Apr, [facility] [address] [id number] [address] [place] [address] Apr, [facility] [address] [id number] [address] [place] [address] 19 Apr, 2017 Coronary artery disease invo lving [place] coronary artery of [place] heart without angina pectoris I25.10 [facility] [address] [facility] [id number] [address] [place] [address] 18 Apr, 2017 Chronic pain disorder G89.4 [facility] [address] [id number] [address] [place] [address] 15 Apr, 2017 Coronary artery disease invo lving [place] coronary artery of [place] heart without angina pectoris I25.10 ; Tobacco abuse Z72.0 ; Tobacco abuse counseling Z71.6 ; Obesity (BMI 30-39.9) E66.9 ; Acute reaction to situational stress F43.0 ; Mixed hyperlipidemia E78.2 ; Chronic pain disorder G89.4 and Right otitis media with effusion H65.91 [facility] [address] [id number] [address] [place] [address] 13 Apr, 2017 Pain in right ankle and join ts of right foot M25.571 [facility] [address] [id number] [address] [place] [address] 13 Apr, 2017 Pain in right ankle and join ts of right foot M25.571 and Coronary artery disease involving [place] coronary artery of [place] heart without angina pectoris I25.10 [facility] [address] [id number] [address] [place] [address] Mar, [facility] [address] [id number] [address] [place] [address] Mar, [place] [address] [facility] [id number] [address] [place] [address] Mar, [place] [address] [place] [id number] [place] [address] Mar, Acute mucoid otitis media of both ears H65.113 and Dizziness R42 [place] [id number] [address] [place] [address] Feb, [place] [address] [place] [id number] [address] [place] [address] Feb, Pain in right ankle and join ts of right foot M25.571 ; Pain in left finger(s) M79.645 and Coronary artery disease involving [place] coronary artery of [place] heart without angina pectoris I25.10 [place] [id number] [address] [place] [address] Feb, [place] [id number] [address] [place] [address] Feb, [place] [address] [place] [id number] [address] [place] [address] Jan, [place] [id number] [place] [address] Jan, Encounter for routine adult health examination with abnormal findings Z00.01 ; Foot pain, left M79.672 ; Pain in right ankle and joints of right foot M25.571 ; Chronic pain disorder G89.4 ; Coronary artery disease involving [place] coronary artery of [place] heart without angina pectoris I25.10 ; Tobacco abuse Z72.0 ; Tobacco abuse counseling Z71.6 and Obesity (BMI 30-39.9) E66.9 [place] [id number] [address] [place] [address] Jan, [facility] [address] [id number] [address] [place] [id number] Mar, Dental examination V72.2 IMMUNIZATIONS No Known Immunizations SOCIAL HISTORY Never Assessed REASON FOR VISIT requesting return call PLAN OF CARE VITAL SIGNS MEDICATIONS Medication Instructions Dosage Frequency Start Date End Date Duration S tanna Ambien 10 mg Orally Once a day [...]
--- OUTSIDE RECORDS SUMMARY | 2019-12-11 14:36 | XMS REPORT ---
Author Author Reza LAI Organization [facility] Address [address] [place] [address] Care Team Providers Care Automotive Porter Name Role Phone TRACI LAI Unavailable PROBLEMS Type Condition ICD9-CM Code TCS27-WA Code Onset Dates Condition S tatus SNOMED Code Problem Tobacco abuse Z72.0 Active 836998 000 Problem Pain in right ankle and joints of right foot M25.5 71 Active 668447913 Problem Tobacco abuse counseling Z71.6 Activ e 038591014 Problem Plantar fasciitis, bilateral M72.2 A ctive [id number] Problem Foot pain, left M79.672 Active 3167 65462721890 Problem Coronary artery disease invo lving [place] coronary artery of teller heart without angina pectoris I25.10 Active 1641 589901533 Problem Obesity (BMI 30-39.9) E66.9 Active 296349088 Problem Essential hypertension I10 Active 15071287 Problem Anxiety F41.9 Active 76905676 Problem Acute reaction to situational stress F43.0 Active 49210866 Problem Chronic pain disorder G89.4 Active 324156661 Problem Primary insomnia F51.01 Active 397 2004 Problem Mixed hyperlipidemia E78.2 Active 662408320 ALLERGIES No Information ENCOUNTERS Encounter Location Date Diagnosis [facility] [address] [facility] [id number] [address] [place] [address] May, [facility] [address] [facility] [id number] [address] [place] [address] May, Primary insomnia F51.01 [facility] [address] [facility] [id number] [address] [place] [address] Apr, Primary insomnia F51.01 [facility] [address] [facility] [id number] [address] [place] [address] Mar, Primary insomnia F51.01 [facility] [address] [facility] [id number] [address] [place] [address] Mar, Primary insomnia F51.01 [facility] [address] [facility] [id number] [address] [place] [address] Feb, Primary insomnia F51.01 [facility] [address] [facility] [id number] [address] [place] [address] Jan, Essential hypertension I10 ; Mixed hyperlipidemia E78.2 ; Throat tightness R68.89 ; Left arm pain M79.602 ; Coronary artery disease involving teller coronary artery of teller heart without angina pectoris I25.10 ; Chronic pain disorder G89.4 ; Tobacco abuse counseling Z71.6 and Primary insomnia F51.01 [facility] [address] [facility] [id number] [address] [place] [address] Jan, [facility] [address] [facility] [id number] [address] [place] [address] December, Essential hypertension I10 a nd Mixed hyperlipidemia E78.2 [facility] [address] [facility] [id number] [address] [place] [address] December, [facility] [address] [facility] [id number] [address] [place] [address] December, Primary insomnia F51.01 [facility] [address] [facility] [id number] [address] [place] [address] Nov, Chronic pain disorder G89.4 [facility] [address] [facility] [id number] [address] [place] [address] Nov, [facility] [address] [facility] [id number] [address] [place] [phone] Oct, Acute bronchitis, unspecifie d organism J20.9 [facility] [address] [facility] [id number] [address] [place] [address] Oct, [facility] [address] [facility] [id number] [address] [place] [address] Oct, Chronic pain disorder G89.4 and Primary insomnia F51.01 [place] [id number] [address] Oct, [facility] [address] [place] [address] 05 Oct, 2017 Anxiety F41.9 and Essential hypertension I10 [place] [address] [address] Sep, Primary insomnia F51.01 [place] [address] [address] Sep, Chronic pain disorder G89.4 [place] [address] [address] Sep, Essential hypertension I10 a nd Chronic pain disorder G89.4 [place] [address] [address] Sep, Anxiety F41.9 and Chronic pa in disorder G89.4 [place] [address] [address] Sep, Controlled substance agreeme nt signed Z79.899 [place] [address] [address] Aug, Chronic pain disorder G89.4 and Primary insomnia F51.01 [place] [address] [address] Aug, Essential hypertension I10 ; Mixed hyperlipidemia E78.2 ; Primary insomnia F51.01 ; Tobacco abuse Z72.0 ; Chronic pain disorder G89.4 ; Acute suppurative otitis media of left ear without spontaneous rupture of tympanic membrane, recurrence not specified H66.002 ; Acute bronchitis, unspecified organism J20.9 and Anxiety F41.9 [place] [address] [place] [id number] [address] [place] [address] Aug, [place] [address] [facility] [id number] [address] [place] [address] Aug, [facility] [address] [facility] [id number] [address] [place] [address] Aug, Primary insomnia F51.01 [facility] [address] [facility] [id number] [address] [place] [address] Jul, Paronychia of finger of righ t hand L03.011 [facility] [address] [facility] [id number] [address] [place] [address] Jul, Primary insomnia F51.01 [facility] [address] [facility] [id number] [address] [place] [address] Jul, Mixed hyperlipidemia E78.2 [facility] [address] [facility] [id number] [address] [place] [address] Jul, Chronic pain disorder G89.4 [facility] [address] [facility] [id number] [address] [place] [address] Jun, Mixed hyperlipidemia E78.2 [facility] [address] [facility] [id number] [address] [place] [address] Jun, Primary insomnia F51.01 [facility] [address] [facility] [id number] [address] [place] [address] Jun, [facility] [address] [facility] [id number] [address] [place] [address] May, [facility] [address] [facility] [id number] [address] [place] [address] May, [facility] [address] [facility] [id number] [address] [place] [address] May, Chronic pain disorder G89.4 ; Bilateral otitis media with effusion H65.93 and Primary insomnia F51.01 [facility] [address] [facility] [id number] [address] [place] [address] May, Chronic pain disorder G89.4 [facility] [address] [facility] [id number] [address] [place] [address] May, [facility] [address] [facility] [id number] [address] [place] [address] May, [facility] [address] [facility] [id number] [address] [place] [address] May, [facility] [address] [facility] [id number] [address] [place] [address] Apr, [facility] [address] [facility] [id number] [address] [place] [address] Apr, [facility] [address] [facility] [id number] [address] [place] [address] 19 Apr, 2017 Coronary artery disease invo lving teller coronary artery of teller heart without angina pectoris I25.10 [place] [address] [facility] [id number] [address] [place] [address] 18 Apr, 2017 Chronic pain disorder G89.4 [place] [address] [facility] [id number] [address] [place] [address] 15 Apr, 2017 Coronary artery disease invo lving teller coronary artery of teller heart without angina pectoris I25.10 ; Tobacco abuse Z72.0 ; Tobacco abuse counseling Z71.6 ; Obesity (BMI 30-39.9) E66.9 ; Acute reaction to situational stress F43.0 ; Mixed hyperlipidemia E78.2 ; Chronic pain disorder G89.4 and Right otitis media with effusion H65.91 [facility] [address] [facility] [id number] [address] [place] [address] 13 Apr, 2017 Pain in right ankle and join ts of right foot M25.571 [place] [address] [facility] [id number] [address] [place] [address] 13 Apr, 2017 Pain in right ankle and join ts of right foot M25.571 and Coronary artery disease involving teller coronary artery of teller heart without angina pectoris I25.10 [place] [address] [facility] [id number] [address] [place] [address] Mar, [facility] [address] [facility] [id number] [address] [place] [address] Mar, [facility] [address] [facility] [id number] [address] [place] [address] Mar, [facility] [address] [place] [id number] [address] [place] [address] Mar, Acute mucoid otitis media of both ears H65.113 and Dizziness R42 [facility] [address] [facility] [id number] [address] [place] [address] Feb, [place] [address] [place] [id number] [address] [place] [address] Feb, Pain in right ankle and join ts of right foot M25.571 ; Pain in left finger(s) M79.645 and Coronary artery disease involving teller coronary artery of teller heart without angina pectoris I25.10 [place] [address] [place] [id number] [address] [place] [address] Feb, [facility] [address] [place] [id number] [address] [place] [address] Feb, [facility] [address] [place] [id number] [address] [place] [address] Jan, [place] [id number] [place] [address] Jan, Encounter for routine adult health examination with abnormal findings Z00.01 ; Foot pain, left M79.672 ; Pain in right ankle and joints of right foot M25.571 ; Chronic pain disorder G89.4 ; Coronary artery disease involving teller coronary artery of teller heart without angina pectoris I25.10 ; Tobacco abuse Z72.0 ; Tobacco abuse counseling Z71.6 and Obesity (BMI 30-39.9) E66.9 [facility] [address] [place] [id number] [address] [place] [phone] Jan, [facility] [address] [facility] [id number] [facility] [place] [id number] 10 Mar, 2015 Dental examination V72.2 IMMUNIZATIONS No Known Immunizations SOCIAL HISTORY Never Assessed REASON FOR VISIT Ambien PLAN OF CARE VITAL SIGNS MEDICATIONS Medication [...] ago and then 7 years ago- 1st VT- Promus 2.5 x 18 mm stent to LAD, 3.0x 23 mm stent to DIAG, 2.5x 15 mm stent to LAD/ 2nd VT- Promus 2.5 x12 to distal Circ and [...]
--- OUTSIDE RECORDS SUMMARY | 2019-12-11 14:36 | XMS REPORT ---
Author Author Reza WELCH Organization [facility] Address [address] [place] [address] Care Team Providers Care Six Pack Packer Name Role Phone OLIVER WELCH Unavailable PROBLEMS Type Condition ICD9-CM Code [id number] Code Onset Dates Condition S tatus SNOMED Code Problem Tobacco abuse Z72.0 Active 689478 000 Problem Pain in right ankle and joints of right foot M25.5 71 Active 567216145 Problem Tobacco abuse counseling Z71.6 Activ e 722076766 Problem Plantar fasciitis, bilateral M72.2 A ctive [id number] Problem Foot pain, left M79.672 Active 3167 [id number] Problem Coronary artery disease invo lving [place] coronary artery of [place] heart without angina pectoris I25.10 Active 1641 137853166 Problem Obesity (BMI 30-39.9) E66.9 Active 812021918 Problem Essential hypertension I10 Active 76124366 Problem Anxiety F41.9 Active 51981754 Problem Acute reaction to situational stress F43.0 Active 81201631 Problem Chronic pain disorder G89.4 Active 395667656 Problem Primary insomnia F51.01 Active 397 2004 Problem Mixed hyperlipidemia E78.2 Active 347667478 ALLERGIES Substance Reaction Event Type Date Status Augmentin Unknown Drug Allergy Jan, Active ENCOUNTERS Encounter Location Date Diagnosis [facility] [address] [facility] [id number] [address] [place] [phone] Apr, [facility] [address] [facility] [id number] [address] [place] [phone] Mar, Primary insomnia F51.01 [facility] [address] [facility] [id number] [address] [place] [phone] Mar, Primary insomnia F51.01 [facility] [address] [facility] [id number] [address] [place] [phone] Feb, Primary insomnia F51.01 [facility] [address] [facility] [id number] [address] [place] [phone] Jan, Essential hypertension I10 ; Mixed hyperlipidemia E78.2 ; Throat tightness R68.89 ; Left arm pain M79.602 ; Coronary artery disease involving [place] coronary artery of [place] heart without angina pectoris I25.10 ; Chronic pain disorder G89.4 ; Tobacco abuse counseling Z71.6 and Primary insomnia F51.01 [facility] [address] [facility] [id number] [address] [place] [phone] Jan, [facility] [address] [facility] [id number] [address] [place] [phone] December, Essential hypertension I10 a nd Mixed hyperlipidemia E78.2 [facility] [address] [facility] [id number] [address] [place] [phone] December, [facility] [address] [facility] [id number] [address] [place] [phone] December, Primary insomnia F51.01 [facility] [address] [facility] [id number] [address] [place] [phone] Nov, Chronic pain disorder G89.4 [facility] [address] [facility] [id number] [address] [place] [phone] Nov, [facility] [address] [facility] [id number] [address] [place] [phone] Oct, Acute bronchitis, unspecifie d organism J20.9 [facility] [address] [facility] [id number] [address] [place] [phone] Oct, [facility] [address] [facility] [id number] [address] [place] [phone] Oct, Chronic pain disorder G89.4 and Primary insomnia F51.01 [facility] [address] [facility] [id number] [address] [place] [phone] Oct, [facility] [address] [phone] Oct, Anxiety F41.9 and Essential hypertension I10 [place] [address] [address] Sep, Primary insomnia F51.01 [place] [address] [address] Sep, Chronic pain disorder G89.4 [place] [address] [address] Sep, Essential hypertension I10 a nd Chronic pain disorder G89.4 [place] [address] [address] Sep, Anxiety F41.9 and Chronic pa in disorder G89.4 [place] [address] [address] Sep, Controlled substance agreeme nt signed Z79.899 [place] [address] [address] Aug, Chronic pain disorder G89.4 and Primary insomnia F51.01 [place] [address] [address] Aug, Essential hypertension I10 ; Mixed hyperlipidemia E78.2 ; Primary insomnia F51.01 ; Tobacco abuse Z72.0 ; Chronic pain disorder G89.4 ; Acute suppurative otitis media of left ear without spontaneous rupture of tympanic membrane, recurrence not specified H66.002 ; Acute bronchitis, unspecified organism J20.9 and Anxiety F41.9 [place] [address] [address] Aug, [place] [address] [address] Aug, [place] [address] [address] Aug, Primary insomnia F51.01 [facility] [address] [id number] [address] [place] [phone] Jul, Paronychia of finger of karl t hand L03.011 [facility] [address] [id number] [address] [place] [phone] Jul, Primary insomnia F51.01 [facility] [address] [facility] [id number] [address] [place] [phone] Jul, Mixed hyperlipidemia E78.2 [facility] [address] [id number] [address] [place] [phone] Jul, Chronic pain disorder G89.4 [facility] [address] [facility] [id number] [address] [place] [phone] Jun, Mixed hyperlipidemia E78.2 [facility] [address] [facility] [id number] [address] [place] [phone] Jun, Primary insomnia F51.01 [facility] [address] [id number] [address] [place] [phone] Jun, [facility] [address] [facility] [id number] [address] [place] [phone] May, [facility] [address] [facility] [id number] [address] [place] [phone] May, [facility] [address] [facility] [id number] [address] [place] [phone] May, Chronic pain disorder G89.4 ; Bilateral otitis media with effusion H65.93 and Primary insomnia F51.01 [facility] [address] [facility] [id number] [address] [place] [phone] May, Chronic pain disorder G89.4 [facility] [address] [facility] [id number] [address] [place] [phone] May, [facility] [address] [facility] [id number] [address] [place] [phone] May, [facility] [address] [id number] [address] [place] [phone] May, [facility] [address] [id number] [address] [place] [phone] Apr, [facility] [address] [id number] [address] [place] [phone] Apr, [facility] [address] [id number] [address] [place] [phone] 19 Apr, 2017 Coronary artery disease invo lving [place] coronary artery of [place] heart without angina pectoris I25.10 [facility] [address] [id number] [address] [place] [phone] 18 Apr, 2017 Chronic pain disorder G89.4 [place] [address] [id number] [address] [place] [phone] 15 Apr, 2017 Coronary artery disease invo lving [place] coronary artery of [place] heart without angina pectoris I25.10 ; Tobacco abuse Z72.0 ; Tobacco abuse counseling Z71.6 ; Obesity (BMI 30-39.9) E66.9 ; Acute reaction to situational stress F43.0 ; Mixed hyperlipidemia E78.2 ; Chronic pain disorder G89.4 and Right otitis media with effusion H65.91 [facility] [address] [id number] [address] [place] [phone] 13 Apr, 2017 Pain in right ankle and join ts of right foot M25.571 [facility] [address] [id number] [address] [place] [phone] Apr, Pain in right ankle and join ts of right foot M25.571 and Coronary artery disease involving [place] coronary artery of [place] heart without angina pectoris I25.10 [facility] [address] [id number] [address] [place] [phone] Mar, [facility] [address] [id number] [address] [place] [phone] Mar, [facility] [address] [id number] [address] [place] [phone] Mar, [facility] [address] [facility] [id number] [address] [place] [phone] Mar, Acute mucoid otitis media of both ears H65.113 and Dizziness R42 [place] [address] [facility] [id number] [address] [place] [phone] Feb, [place] [address] [facility] [id number] [address] [place] [phone] Feb, Pain in right ankle and join ts of right foot M25.571 ; Pain in left finger(s) M79.645 and Coronary artery disease involving [place] coronary artery of [place] heart without angina pectoris I25.10 [place] [address] [facility] [id number] [address] [place] [phone] Feb, [place] [address] [facility] [id number] [address] [place] [phone] Feb, [place] [address] [facility] [id number] [address] [place] [phone] Jan, [place] [address] [facility] [id number] [address] [place] [phone] Jan, Encounter for routine adult health examination with abnormal findings Z00.01 ; Foot pain, left M79.672 ; Pain in right ankle and joints of right foot M25.571 ; Chronic pain disorder G89.4 ; Coronary artery disease involving [place] coronary artery of [place] heart without angina pectoris I25.10 ; Tobacco abuse Z72.0 ; Tobacco abuse counseling Z71.6 and Obesity (BMI 30-39.9) E66.9 [facility] [address] [facility] [id number] [address] [place] [phone] Jan, [facility] [address] [id number] [address] [place] [id number] Mar, Dental examination V72.2 IMMUNIZATIONS No Known Immunizations SOCIAL HISTORY Never Assessed REASON FOR VISIT Blood Pressure Pt here for blood pressure issues, also c/o recently pulling a m uscle in his back SILVIA Hernandez PLAN OF CARE Activity Details Follow Up 3 Months, prn Reason:CHM/HTN VITAL SIGNS Height 69 in 2018-01-28 Weight 221.4 lbs 2018-01-28 Temperature 98.6 degrees Fahrenheit 2018-01-28 Heart Rate 100 bpm 2018-01-28 Respiratory Rate 20 2018-01-28 BMI 32.69 kg/m2 2018-01-28 Blood pressure systolic 156 mmHg 2018-01-28 Blood pressure diastolic 96 mmHg 2018-01-28 MEDICATIONS Medication Instructions Dosage Frequency Start Date End Date Duration S tatus Baclofen 20 mg Orally every 8 hrs 1 tablet with food or milk 8h Jan, Apr, 30 day(s) Active Atenolol 50 MG Orally twice a day 1 tablet 12h 90 Active Eszopiclone 2 MG Orally Once a day 1 tablet immediately before bedt rolanda 24h Jan, 30 days Active Duloxetine HCl 40 mg Orally Once a day 1 capsule 24h 90 days Active Atorvastatin Calcium 80 MG Orally Once a day 1 tablet 24h 90 days Active Clopidogrel Bisulfate 75 MG Orally Once a day 1 tablet 24h 90 days Active ASA 1 tab Active RESULTS No Results PROCEDURES Procedure Date Ordered Result Body Site EKG, TRACING (IN-HOUSE) 2018-01-28 N/A ELECTROCARDIOGRAM, TRACING January 28, 2018 INSTRUCTIONS MEDICATIONS ADMINISTERED No Known Medications MEDICAL (GENERAL) HISTORY Type Description Date Medical History Arthritis Medical History 2 heart attacks with numerou s stents- 10 yrs ago and then 7 years ago- 1st PA- Promus 2.5 x 18 mm stent to LAD, 3.0x 23 mm stent to DIAG, 2.5x 15 mm stent to LAD/ 2nd PA- Promus 2.5 x12 to distal Circ and [...]
--- OUTSIDE RECORDS SUMMARY | 2019-12-11 14:36 | XMS REPORT ---
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 Role Phone OLIVER WELCH Unavailable PROBLEMS Type Condition ICD9-CM Code BRM96-DP Code Onset Dates Condition S tatus SNOMED Code Problem Tobacco abuse Z72.0 Active 844070 000 Problem Pain in right ankle and joints of right foot M25.5 71 Active 133683675 Problem Tobacco abuse counseling Z71.6 Activ e 147498002 Problem Plantar fasciitis, bilateral M72.2 A ctive [id number] Problem Foot pain, left M79.672 Active 3167 81390993603 Problem Coronary artery disease invo lving [place] coronary artery of [place] heart without angina pectoris I25.10 Active 1641 555667723 Problem Obesity (BMI 30-39.9) E66.9 Active 807661508 Problem Essential hypertension I10 Active 24409960 Problem Anxiety F41.9 Active 78742298 Problem Acute reaction to situational stress F43.0 Active 21725570 Problem Chronic pain disorder G89.4 Active 881213201 Problem Primary insomnia F51.01 Active 397 2004 Problem Mixed hyperlipidemia E78.2 Active [id number] ALLERGIES No Information ENCOUNTERS Encounter Location Date Diagnosis [facility] [address] [facility] [id number] [address] [place] [phone] Apr, [facility] [address] [facility] [id number] [address] [place] [address] Mar, Primary insomnia F51.01 [facility] [address] [facility] [id number] [address] [place] [address] Mar, Primary insomnia F51.01 [facility] [address] [facility] [id number] [address] [place] [address] Feb, Primary insomnia F51.01 [facility] [address] [facility] [id number] [address] [place] [address] Jan, Essential hypertension I10 ; Mixed hyperlipidemia E78.2 ; Throat tightness R68.89 ; Left arm pain M79.602 ; Coronary artery disease involving [place] coronary artery of [place] heart without angina pectoris I25.10 ; Chronic pain disorder G89.4 ; Tobacco abuse counseling Z71.6 and Primary insomnia F51.01 [facility] [address] [facility] [id number] [address] [place] [phone] 15 Jan, 2018 [facility] [address] [facility] [id number] [address] [place] [address] December, Essential hypertension I10 a nd Mixed hyperlipidemia E78.2 [facility] [address] [facility] [id number] [address] [place] [address] December, [place] [address] [place] [id number] [address] [place] [address] December, Primary insomnia F51.01 [facility] [address] [facility] [id number] [address] [place] [phone] Nov, Chronic pain disorder G89.4 [place] [address] [facility] [id number] [address] [place] [address] Nov, [facility] [address] [place] [id number] [address] [place] [phone] Oct, Acute bronchitis, unspecifie d organism J20.9 [facility] [address] [facility] [id number] [address] [place] [phone] 16 Oct, 2017 [facility] [address] [facility] [id number] [address] [place] [phone] Oct, Chronic pain disorder G89.4 and Primary insomnia F51.01 [facility] [address] [facility] [id number] [address] [place] [address] Oct, [facility] [address] [place] [id number] [address] [place] [id number] Oct, Anxiety F41.9 and Essential hypertension I10 [facility] [address] [facility] [id number] [address] [place] [address] Sep, Primary insomnia F51.01 [facility] [address] [facility] [id number] [address] [place] [address] Sep, Chronic pain disorder G89.4 [facility] [address] [place] [address] Sep, Essential hypertension I10 a nd Chronic pain disorder G89.4 [facility] [address] [place] [address] Sep, Anxiety F41.9 and Chronic pa in disorder G89.4 [facility] [address] [place] [address] Sep, Controlled substance agreeme nt signed Z79.899 [place] [address] [address] [place] [id number] [address] [place] [address] Aug, Chronic pain disorder G89.4 and Primary insomnia F51.01 [facility] [address] [place] [id number] [address] [place] [address] Aug, Essential hypertension I10 ; Mixed hyperlipidemia E78.2 ; Primary insomnia F51.01 ; Tobacco abuse Z72.0 ; Chronic pain disorder G89.4 ; Acute suppurative otitis media of left ear without spontaneous rupture of tympanic membrane, recurrence not specified H66.002 ; Acute bronchitis, unspecified organism J20.9 and Anxiety F41.9 [facility] [address] [facility] [id number] [address] [place] [phone] Aug, [facility] [address] [place] [address] Aug, [facility] [address] [facility] [id number] [address] [place] [phone] Aug, Primary insomnia F51.01 [facility] [address] [id number] [address] [place] [address] Jul, Paronychia of finger of righ t hand L03.011 [facility] [address] [facility] [id number] [address] [place] [address] Jul, Primary insomnia F51.01 [facility] [address] [facility] [id number] [address] [place] [phone] Jul, Mixed hyperlipidemia E78.2 [facility] [address] [facility] [id number] [address] [place] [address] Jul, Chronic pain disorder G89.4 [facility] [address] [id number] [address] [place] [address] Jun, Mixed hyperlipidemia E78.2 [facility] [address] [facility] [id number] [address] [place] [address] Jun, Primary insomnia F51.01 [facility] [address] [facility] [id number] [address] [place] [address] Jun, [facility] [address] [facility] [id number] [address] [place] [phone] May, [facility] [address] [facility] [id number] [address] [place] [phone] May, [facility] [address] [facility] [id number] [address] [place] [address] May, Chronic pain disorder G89.4 ; Bilateral otitis media with effusion H65.93 and Primary insomnia F51.01 [facility] [address] [id number] [address] [place] [address] May, Chronic pain disorder G89.4 [facility] [address] [facility] [id number] [address] [place] [address] May, [facility] [address] [facility] [id number] [address] [place] [phone] May, [facility] [address] [facility] [id number] [address] [place] [phone] May, [facility] [address] [id number] [address] [place] [phone] Apr, [facility] [address] [id number] [address] [place] [phone] Apr, [facility] [address] [id number] [address] [place] [phone] 19 Apr, 2017 Coronary artery disease invo lving [place] coronary artery of [place] heart without angina pectoris I25.10 [facility] [address] [id number] [address] [place] [phone] 18 Apr, 2017 Chronic pain disorder G89.4 [facility] [address] [id number] [address] [place] [phone] 15 Apr, 2017 Coronary artery disease invo lving [place] coronary artery of [place] heart without angina pectoris I25.10 ; Tobacco abuse Z72.0 ; Tobacco abuse counseling Z71.6 ; Obesity (BMI 30-39.9) E66.9 ; Acute reaction to situational stress F43.0 ; Mixed hyperlipidemia E78.2 ; Chronic pain disorder G89.4 and Right otitis media with effusion H65.91 [facility] [address] [id number] [address] [place] [phone] Apr, Pain in right ankle and join ts of right foot M25.571 [facility] [address] [id number] [address] [place] [address] Apr, Pain in right ankle and join ts of right foot M25.571 and Coronary artery disease involving [place] coronary artery of [place] heart without angina pectoris I25.10 [facility] [address] [id number] [address] [place] [address] Mar, [facility] [address] [id number] [address] [place] [address] Mar, [facility] [address] [id number] [address] [place] [phone] Mar, [facility] [address] [place] [id number] [address] [place] [address] Mar, Acute mucoid otitis media of both ears H65.113 and Dizziness R42 [place] [address] [facility] [id number] [address] [place] [phone] Feb, [place] [address] [place] [id number] [address] [place] [address] Feb, Pain in right ankle and join ts of right foot M25.571 ; Pain in left finger(s) M79.645 and Coronary artery disease involving [place] coronary artery of [place] heart without angina pectoris I25.10 [place] [id number] [address] [place] [phone] Feb, [place] [address] [place] [id number] [place] [address] Feb, [address] [place] [address] Jan, [address] [place] [address] Jan, Encounter for routine adult health examination with abnormal findings Z00.01 ; Foot pain, left M79.672 ; Pain in right ankle and joints of right foot M25.571 ; Chronic pain disorder G89.4 ; Coronary artery disease involving [place] coronary artery of [place] heart without angina pectoris I25.10 ; Tobacco abuse Z72.0 ; Tobacco abuse counseling Z71.6 and Obesity (BMI 30-39.9) E66.9 [place] [id number] [address] [place] [phone] Jan, [facility] [address] [facility] [id number] [address] [place] [place] [id number] Mar, Dental examination V72.2 IMMUNIZATIONS No Known Immunizations SOCIAL HISTORY Never Assessed REASON FOR VISIT Medication question PLAN OF CARE VITAL SIGNS MEDICATIONS Medication [...] ago and then 7 years ago- 1st AK- Promus 2.5 x 18 mm stent to LAD, 3.0x 23 mm stent to DIAG, 2.5x 15 mm stent to LAD/ 2nd AK- Promus 2.5 x12 to distal Circ and [...]
--- OUTSIDE RECORDS SUMMARY | 2019-12-11 14:36 | XMS REPORT ---
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 Role Phone OLIVER WELCH Unavailable PROBLEMS Type Condition ICD9-CM Code AAF40-BY Code Onset Dates Condition S tatus SNOMED Code Problem Tobacco abuse Z72.0 Active 390463 000 Problem Pain in right ankle and joints of right foot M25.5 71 Active 397720830 Problem Tobacco abuse counseling Z71.6 Activ e 862992950 Problem Plantar fasciitis, bilateral M72.2 A ctive 86381625435918041 Problem Foot pain, left M79.672 Active 3167 61644767667 Problem Coronary artery disease invo lving [place] coronary artery of [place] heart without angina pectoris I25.10 Active 1641 683182136 Problem Obesity (BMI 30-39.9) E66.9 Active 296486376 Problem Essential hypertension I10 Active 46937342 Problem Anxiety F41.9 Active 49938036 Problem Acute reaction to situational stress F43.0 Active 03012362 Problem Chronic pain disorder G89.4 Active 757371864 Problem Primary insomnia F51.01 Active 397 2004 Problem Mixed hyperlipidemia E78.2 Active 202403710 ALLERGIES No Information ENCOUNTERS Encounter Location Date Diagnosis [facility] [place] [address] [facility] [id number] [address] [place] [phone] Apr, [facility] [place] [address] [facility] [id number] [address] [place] [address] Apr, Primary insomnia F51.01 [facility] [place] [address] [facility] [id number] [address] [place] [address] Mar, Primary insomnia F51.01 [facility] [place] [address] [facility] [id number] [address] [place] [address] Mar, Primary insomnia F51.01 [facility] [place] [address] [facility] [id number] [address] [place] [address] Feb, Primary insomnia F51.01 [facility] [place] [address] [facility] [id number] [address] [place] [address] Jan, Essential hypertension I10 ; Mixed hyperlipidemia E78.2 ; Throat tightness R68.89 ; Left arm pain M79.602 ; Coronary artery disease involving [place] coronary artery of [place] heart without angina pectoris I25.10 ; Chronic pain disorder G89.4 ; Tobacco abuse counseling Z71.6 and Primary insomnia F51.01 [facility] [place] [address] [facility] [id number] [address] [place] [address] Jan, [facility] [place] [address] [place] [id number] [address] [place] [address] December, Essential hypertension I10 a nd Mixed hyperlipidemia E78.2 [facility] [place] [address] [place] [id number] [address] [place] [address] December, [facility] [place] [address] [facility] [id number] [address] [place] [address] December, Primary insomnia F51.01 [facility] [place] [address] [facility] [id number] [address] [place] [phone] Nov, Chronic pain disorder G89.4 [facility] [place] [address] [place] [id number] [address] [place] [address] Nov, [facility] [place] [address] [place] [id number] [address] [place] [address] Oct, Acute bronchitis, unspecifie d organism J20.9 [facility] [place] [address] [facility] [id number] [address] [place] [address] Oct, [facility] [place] [address] [place] [id number] [address] [place] [address] Oct, Chronic pain disorder G89.4 and Primary insomnia F51.01 [facility] [place] [address] [place] [id number] [address] [place] [address] Oct, [facility] [place] [address] [place] [id number] [address] [place] [address] Oct, Anxiety F41.9 and Essential hypertension I10 [facility] [place] [address] [place] [id number] [address] [place] [address] Sep, Primary insomnia F51.01 [facility] [place] [address] [place] [address] Sep, Chronic pain disorder G89.4 [place] [address] [address] [place] [id number] [address] [place] [address] Sep, Essential hypertension I10 a nd Chronic pain disorder G89.4 [place] [address] [address] Sep, Anxiety F41.9 and Chronic pa in disorder G89.4 [place] [address] [address] Sep, Controlled substance agreeme nt signed Z79.899 [place] [address] [address] Aug, Chronic pain disorder G89.4 and Primary insomnia F51.01 [place] [address] [address] Aug, Essential hypertension I10 ; Mixed hyperlipidemia E78.2 ; Primary insomnia F51.01 ; Tobacco abuse Z72.0 ; Chronic pain disorder G89.4 ; Acute suppurative otitis media of left ear without spontaneous rupture of tympanic membrane, recurrence not specified H66.002 ; Acute bronchitis, unspecified organism J20.9 and Anxiety F41.9 [place] [address] [place] [id number] [address] [place] [address] Aug, [place] [address] [place] [id number] [address] [place] [address] Aug, [place] [address] [place] [address] Aug, Primary insomnia F51.01 [facility] [address] [facility] [id number] [address] [place] [address] Jul, Paronychia of finger of karl t hand L03.011 [facility] [place] [address] [facility] [id number] [address] [place] [address] Jul, Primary insomnia F51.01 [facility] [place] [address] [facility] [id number] [address] [place] [address] Jul, Mixed hyperlipidemia E78.2 [facility] [place] [address] [facility] [id number] [address] [place] [address] Jul, Chronic pain disorder G89.4 [facility] [place] [address] [facility] [id number] [address] [place] [address] Jun, Mixed hyperlipidemia E78.2 [facility] [place] [address] [facility] [id number] [address] [place] [address] Jun, Primary insomnia F51.01 [facility] [place] [address] [facility] [id number] [address] [place] [address] Jun, [facility] [place] [address] [facility] [id number] [address] [place] [address] May, [facility] [place] [address] [facility] [id number] [address] [place] [address] May, [facility] [place] [address] [facility] [id number] [address] [place] [address] May, Chronic pain disorder G89.4 ; Bilateral otitis media with effusion H65.93 and Primary insomnia F51.01 [facility] [place] [address] [facility] [id number] [address] [place] [address] May, Chronic pain disorder G89.4 [facility] [place] [address] [facility] [id number] [address] [place] [address] May, [facility] [place] [address] [id number] [address] [place] [address] May, [facility] [place] [address] [id number] [address] [place] [address] May, [facility] [place] [address] [id number] [address] [place] [address] Apr, [facility] [place] [address] [id number] [address] [place] [address] Apr, [facility] [place] [address] [id number] [address] [place] [address] 19 Apr, 2017 Coronary artery disease invo lving [place] coronary artery of [place] heart without angina pectoris I25.10 [facility] [place] [address] [facility] [id number] [address] [place] [address] 18 Apr, 2017 Chronic pain disorder G89.4 [facility] [place] [address] [id number] [address] [place] [address] 15 Apr, 2017 Coronary artery disease invo lving [place] coronary artery of [place] heart without angina pectoris I25.10 ; Tobacco abuse Z72.0 ; Tobacco abuse counseling Z71.6 ; Obesity (BMI 30-39.9) E66.9 ; Acute reaction to situational stress F43.0 ; Mixed hyperlipidemia E78.2 ; Chronic pain disorder G89.4 and Right otitis media with effusion H65.91 [facility] [place] [address] [id number] [address] [place] [address] 13 Apr, 2017 Pain in right ankle and join ts of right foot M25.571 [facility] [place] [address] [id number] [address] [place] [address] 13 Apr, 2017 Pain in right ankle and join ts of right foot M25.571 and Coronary artery disease involving [place] coronary artery of [place] heart without angina pectoris I25.10 [facility] [place] [address] [id number] [address] [place] [address] Mar, [facility] [place] [address] [id number] [address] [place] [address] Mar, [place] [address] [facility] [id number] [address] [place] [address] Mar, [place] [address] [place] [id number] [place] [address] Mar, Acute mucoid otitis media of both ears H65.113 and Dizziness R42 [place] [id number] [address] [place] [address] Feb, [place] [address] [place] [id number] [address] [place] [address] Feb, Pain in right ankle and join ts of right foot M25.571 ; Pain in left finger(s) M79.645 and Coronary artery disease involving [place] coronary artery of [place] heart without angina pectoris I25.10 [place] [id number] [address] [place] [phone] Feb, [place] [id number] [address] [place] [phone] Feb, [place] [address] [place] [id number] [address] [place] [phone] Jan, [place] [id number] [place] [phone] Jan, Encounter for routine adult health examination with abnormal findings Z00.01 ; Foot pain, left M79.672 ; Pain in right ankle and joints of right foot M25.571 ; Chronic pain disorder G89.4 ; Coronary artery disease involving [place] coronary artery of [place] heart without angina pectoris I25.10 ; Tobacco abuse Z72.0 ; Tobacco abuse counseling Z71.6 and Obesity (BMI 30-39.9) E66.9 [place] [id number] [place] [phone] Jan, [facility] [address] [id number] [address] [place] [id number] Mar, Dental examination V72.2 IMMUNIZATIONS No Known Immunizations SOCIAL HISTORY Never Assessed REASON FOR VISIT Refill request PLAN OF CARE VITAL SIGNS MEDICATIONS Medication [...] ago and then 7 years ago- 1st AL- Promus 2.5 x 18 mm stent to LAD, 3.0x 23 mm stent to DIAG, 2.5x 15 mm stent to LAD/ 2nd AL- Promus 2.5 x12 to distal Circ and [...]
--- OUTSIDE RECORDS SUMMARY | 2019-12-11 14:36 | XMS REPORT ---
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 Name Role Phone OLIVER WELCH Unavailable PROBLEMS Type Condition ICD9-CM Code LBM53-RP Code Onset Dates Condition S tatus SNOMED Code Problem Tobacco abuse Z72.0 Active 303649 000 Problem Pain in right ankle and joints of right foot M25.5 71 Active 970770527 Problem Tobacco abuse counseling Z71.6 Activ e 845757902 Problem Plantar fasciitis, bilateral M72.2 A ctive [id number] Problem Foot pain, left M79.672 Active 3167 83680045472 Problem Coronary artery disease invo lving [place] coronary artery of [place] heart without angina pectoris I25.10 Active 1641 310866616 Problem Obesity (BMI 30-39.9) E66.9 Active 045467064 Problem Essential hypertension I10 Active 86395657 Problem Anxiety F41.9 Active 87488831 Problem Acute reaction to situational stress F43.0 Active 85188539 Problem Chronic pain disorder G89.4 Active 117003869 Problem Primary insomnia F51.01 Active 397 2004 Problem Mixed hyperlipidemia E78.2 Active 037511954 ALLERGIES No Information ENCOUNTERS Encounter Location Date Diagnosis [facility] [address] [facility] [id number] [address] [place] [id number] Apr, Primary insomnia F51.01 [facility] [address] [facility] [id number] [address] [place] [phone] Mar, Primary insomnia F51.01 [facility] [address] [facility] [id number] [address] [place] [address] Mar, Primary insomnia F51.01 [facility] [address] [facility] [id number] [address] [place] [address] Feb, Primary insomnia F51.01 [facility] [address] [facility] [id number] [address] [place] [address] Jan, Essential hypertension I10 ; Mixed hyperlipidemia E78.2 ; Throat tightness R68.89 ; Left arm pain M79.602 ; Coronary artery disease involving [place] coronary artery of [place] heart without angina pectoris I25.10 ; Chronic pain disorder G89.4 ; Tobacco abuse counseling Z71.6 and Primary insomnia F51.01 [facility] [address] [facility] [id number] [address] [place] [address] Jan, [facility] [address] [facility] [id number] [address] [place] [address] December, Essential hypertension I10 a nd Mixed hyperlipidemia E78.2 [facility] [address] [facility] [id number] [address] [place] [address] December, [facility] [address] [facility] [id number] [address] [place] [address] December, Primary insomnia F51.01 [facility] [address] [facility] [id number] [address] [place] [id number] Nov, Chronic pain disorder G89.4 [facility] [address] [facility] [id number] [address] [place] [phone] Nov, [facility] [address] [facility] [id number] [address] [place] [address] Oct, Acute bronchitis, unspecifie d organism J20.9 [facility] [address] [facility] [id number] [address] [place] [phone] Oct, [facility] [address] [facility] [id number] [address] [place] [address] Oct, Chronic pain disorder G89.4 and Primary insomnia F51.01 [facility] [address] [facility] [id number] [address] [place] [address] Oct, [facility] [address] [facility] [id number] [address] [place] [phone] Oct, Anxiety F41.9 and Essential hypertension I10 [facility] [address] [facility] [id number] [address] [place] [address] Sep, Primary insomnia F51.01 [facility] [address] [place] [id number] [address] [place] [address] Sep, Chronic pain disorder G89.4 [facility] [id number] [place] [address] Sep, Essential hypertension I10 a nd Chronic pain disorder G89.4 [place] [address] [address] Sep, Anxiety F41.9 and Chronic pa in disorder G89.4 [facility] [address] [address] Sep, Controlled substance agreeme nt signed Z79.899 [place] [address] [place] [address] Aug, Chronic pain disorder G89.4 and Primary insomnia F51.01 [facility] [address] [address] Aug, Essential hypertension I10 ; Mixed hyperlipidemia E78.2 ; Primary insomnia F51.01 ; Tobacco abuse Z72.0 ; Chronic pain disorder G89.4 ; Acute suppurative otitis media of left ear without spontaneous rupture of tympanic membrane, recurrence not specified H66.002 ; Acute bronchitis, unspecified organism J20.9 and Anxiety F41.9 [facility] [address] [facility] [id number] [address] [place] [address] Aug, [place] [address] [place] [id number] [address] [place] [address] Aug, [facility] [address] [place] [id number] [address] [place] [address] Aug, Primary insomnia F51.01 [facility] [address] [id number] [address] [place] [address] Jul, Paronychia of finger of righ t hand L03.011 [facility] [address] [id number] [address] [place] [address] Jul, Primary insomnia F51.01 [facility] [address] [id number] [address] [place] [address] Jul, Mixed hyperlipidemia E78.2 [facility] [address] [id number] [address] [place] [address] Jul, Chronic pain disorder G89.4 [facility] [address] [id number] [address] [place] [address] Jun, Mixed hyperlipidemia E78.2 [facility] [address] [facility] [id number] [address] [place] [address] Jun, Primary insomnia F51.01 [facility] [address] [id number] [address] [place] [phone] Jun, [facility] [address] [id number] [address] [place] [address] May, [facility] [address] [facility] [id number] [address] [place] [address] May, [facility] [address] [facility] [id number] [address] [place] [address] May, Chronic pain disorder G89.4 ; Bilateral otitis media with effusion H65.93 and Primary insomnia F51.01 [facility] [address] [id number] [address] [place] [address] May, Chronic pain disorder G89.4 [facility] [address] [facility] [id number] [address] [place] [address] May, [facility] [address] [facility] [id number] [address] [place] [address] May, [facility] [address] [id number] [address] [place] [phone] May, [facility] [address] [id number] [address] [place] [address] Apr, [facility] [address] [id number] [address] [place] [address] Apr, [facility] [address] [id number] [address] [place] [phone] 19 Apr, 2017 Coronary artery disease invo lving [place] coronary artery of [place] heart without angina pectoris I25.10 [facility] [address] [id number] [address] [place] [address] 18 Apr, 2017 Chronic pain disorder G89.4 [facility] [address] [id number] [address] [place] [phone] 15 Apr, 2017 Coronary artery disease invo lving [place] coronary artery of [place] heart without angina pectoris I25.10 ; Tobacco abuse Z72.0 ; Tobacco abuse counseling Z71.6 ; Obesity (BMI 30-39.9) E66.9 ; Acute reaction to situational stress F43.0 ; Mixed hyperlipidemia E78.2 ; Chronic pain disorder G89.4 and Right otitis media with effusion H65.91 [facility] [address] [id number] [address] [place] [address] Apr, Pain in right ankle and join ts of right foot M25.571 [facility] [address] [id number] [address] [place] [address] Apr, Pain in right ankle and join ts of right foot M25.571 and Coronary artery disease involving [place] coronary artery of [place] heart without angina pectoris I25.10 [facility] [address] [id number] [address] [place] [address] Mar, [facility] [address] [id number] [address] [place] [address] Mar, [facility] [address] [id number] [address] [place] [address] Mar, [place] [address] [facility] [id number] [address] [place] [address] Mar, Acute mucoid otitis media of both ears H65.113 and Dizziness R42 [place] [address] [facility] [id number] [address] [place] [address] Feb, [place] [address] [place] [id number] [place] [address] Feb, Pain in right ankle and join ts of right foot M25.571 ; Pain in left finger(s) M79.645 and Coronary artery disease involving [place] coronary artery of [place] heart without angina pectoris I25.10 [place] [address] [place] [id number] [place] [phone] Feb, [place] [address] [place] [id number] [place] [address] Feb, [place] [address] [address] Jan, [place] [address] [place] [id number] [address] [place] [address] Jan, Encounter for routine adult health examination with abnormal findings Z00.01 ; Foot pain, left M79.672 ; Pain in right ankle and joints of right foot M25.571 ; Chronic pain disorder G89.4 ; Coronary artery disease involving [place] coronary artery of [place] heart without angina pectoris I25.10 ; Tobacco abuse Z72.0 ; Tobacco abuse counseling Z71.6 and Obesity (BMI 30-39.9) E66.9 [place] [address] [place] [id number] [address] [place] [address] Jan, [facility] [address] [facility] [id number] [address] [place] [id number] Mar, Dental examination V72.2 IMMUNIZATIONS No Known Immunizations SOCIAL HISTORY Never Assessed REASON FOR VISIT Controlled Med Refill PLAN OF CARE VITAL SIGNS MEDICATIONS Medication [...] ago and then 7 years ago- 1st [place]- Promus 2.5 x 18 mm stent to LAD, 3.0x 23 mm stent to DIAG, 2.5x 15 mm stent to LAD/ 2nd [place]- Promus 2.5 x12 to distal Circ and [...]
--- OUTSIDE RECORDS SUMMARY | 2019-12-11 14:37 | XMS REPORT ---
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 Role Phone REBEKAH OLIVER Unavailable PROBLEMS Type Condition ICD9-CM Code YTZ09-DL Code Onset Dates Condition S tatus SNOMED Code Problem Tobacco abuse Z72.0 Active 468525 000 Problem Pain in right ankle and joints of right foot M25.5 71 Active 309251518 Problem Tobacco abuse counseling Z71.6 Activ e 946560085 Problem Plantar fasciitis, bilateral M72.2 A ctive [id number] Problem Foot pain, left M79.672 Active 3167 18170470302 Problem Coronary artery disease invo lving [place] coronary artery of [place] heart without angina pectoris I25.10 Active 1641 188946141 Problem Obesity (BMI 30-39.9) E66.9 Active 308678790 Problem Essential hypertension I10 Active 95226906 Problem Anxiety F41.9 Active 13203136 Problem Acute reaction to situational stress F43.0 Active 66075191 Problem Chronic pain disorder G89.4 Active 216157231 Problem Primary insomnia F51.01 Active 397 2004 Problem Mixed hyperlipidemia E78.2 Active 671144823 ALLERGIES No Information ENCOUNTERS Encounter Location Date Diagnosis [facility] [address] [facility] [id number] [address] [place] [phone] Mar, Primary insomnia F51.01 [facility] [address] [facility] [id number] [address] [place] [phone] Mar, Primary insomnia F51.01 [facility] [address] [facility] [id number] [address] [place] [phone] Feb, Primary insomnia F51.01 [facility] [address] [facility] [id number] [address] [place] [address] Jan, Essential hypertension I10 ; Mixed hyperlipidemia E78.2 ; Throat tightness R68.89 ; Left arm pain M79.602 ; Coronary artery disease involving [place] coronary artery of [place] heart without angina pectoris I25.10 ; Chronic pain disorder G89.4 ; Tobacco abuse counseling Z71.6 and Primary insomnia F51.01 [facility] [address] [facility] [id number] [address] [place] [phone] 15 Jan, 2018 [facility] [address] [facility] [id number] [address] [place] [phone] December, Essential hypertension I10 a nd Mixed hyperlipidemia E78.2 [facility] [address] [facility] [id number] [address] [place] [phone] December, [facility] [address] [place] [id number] [address] [place] [phone] December, Primary insomnia F51.01 [facility] [address] [place] [id number] [address] [place] [phone] Nov, Chronic pain disorder G89.4 [facility] [address] [place] [id number] [address] [place] [phone] Nov, [facility] [address] [place] [id number] [address] [place] [phone] Oct, Acute bronchitis, unspecifie d organism J20.9 [facility] [address] [place] [id number] [address] [place] [phone] 16 Oct, 2017 [facility] [address] [place] [id number] [address] [place] [phone] Oct, Chronic pain disorder G89.4 and Primary insomnia F51.01 [facility] [address] [place] [id number] [address] [place] [phone] Oct, [facility] [address] [place] [id number] [address] [place] [phone] 05 Oct, 2017 Anxiety F41.9 and Essential hypertension I10 [facility] [address] [place] [id number] [address] [place] [phone] Sep, Primary insomnia F51.01 [facility] [address] [place] [phone] Sep, Chronic pain disorder G89.4 [facility] [address] [place] [id number] [address] [place] [phone] Sep, Essential hypertension I10 a nd Chronic pain disorder G89.4 [place] [address] [place] [address] Sep, Anxiety F41.9 and Chronic pa in disorder G89.4 [place] [address] [address] Sep, Controlled substance agreeme nt signed Z79.899 [place] [address] [address] Aug, Chronic pain disorder G89.4 and Primary insomnia F51.01 [facility] [address] [place] [address] Aug, Essential hypertension I10 ; Mixed hyperlipidemia E78.2 ; Primary insomnia F51.01 ; Tobacco abuse Z72.0 ; Chronic pain disorder G89.4 ; Acute suppurative otitis media of left ear without spontaneous rupture of tympanic membrane, recurrence not specified H66.002 ; Acute bronchitis, unspecified organism J20.9 and Anxiety F41.9 [facility] [address] [place] [phone] Aug, [facility] [address] [place] [phone] Aug, [facility] [address] [place] [id number] [address] [place] [phone] Aug, Primary insomnia F51.01 [facility] [address] [facility] [id number] [address] [place] [phone] Jul, Paronychia of finger of righ t hand L03.011 [facility] [address] [id number] [address] [place] [phone] Jul, Primary insomnia F51.01 [facility] [address] [id number] [address] [place] [phone] Jul, Mixed hyperlipidemia E78.2 [facility] [address] [id number] [address] [place] [phone] Jul, Chronic pain disorder G89.4 [facility] [address] [id number] [address] [place] [phone] Jun, Mixed hyperlipidemia E78.2 [facility] [address] [id number] [address] [place] [phone] Jun, Primary insomnia F51.01 [facility] [address] [id number] [address] [place] [phone] Jun, [facility] [address] [id number] [address] [place] [phone] May, [facility] [address] [id number] [address] [place] [phone] May, [facility] [address] [facility] [id number] [address] [place] [phone] May, Chronic pain disorder G89.4 ; Bilateral otitis media with effusion H65.93 and Primary insomnia F51.01 [facility] [address] [id number] [address] [place] [phone] May, Chronic pain disorder G89.4 [facility] [address] [id number] [address] [place] [phone] May, [facility] [address] [id number] [address] [place] [phone] May, [facility] [address] [id number] [address] [place] [phone] May, [facility] [address] [id number] [address] [place] [phone] Apr, [facility] [address] [id number] [address] [place] [phone] Apr, [facility] [address] [id number] [address] [place] [phone] 19 Apr, 2017 Coronary artery disease invo lving chipewwa coronary artery of ch[place] heart without angina pectoris I25.10 [facility] [address] [id number] [address] [place] [phone] 18 Apr, 2017 Chronic pain disorder G89.4 [facility] [address] [id number] [address] [place] [phone] 15 Apr, 2017 Coronary artery disease invo lving ch[place]ww[place] coronary artery of chipe[place] heart without angina pectoris I25.10 ; Tobacco abuse Z72.0 ; Tobacco abuse counseling Z71.6 ; Obesity (BMI 30-39.9) E66.9 ; Acute reaction to situational stress F43.0 ; Mixed hyperlipidemia E78.2 ; Chronic pain disorder G89.4 and Right otitis media with effusion H65.91 [facility] [address] [id number] [address] [place] [phone] Apr, Pain in right ankle and join ts of right foot M25.571 [facility] [address] [id number] [address] [place] [phone] Apr, Pain in right ankle and join ts of right foot M25.571 and Coronary artery disease involving chipewwa coronary artery of chipe[place] heart without angina pectoris I25.10 [facility] [address] [id number] [address] [place] [phone] Mar, [facility] [address] [id number] [address] [place] [phone] Mar, [facility] [address] [id number] [address] [place] [phone] Mar, [facility] [address] [id number] [address] [place] [phone] Mar, Acute mucoid otitis media of both ears H65.113 and Dizziness R42 [facility] [address] [facility] [id number] [address] [place] [phone] Feb, [place] [id number] [address] [place] [phone] Feb, Pain in right ankle and join ts of right foot M25.571 ; Pain in left finger(s) M79.645 and Coronary artery disease involving chipewwa coronary artery of [place]a heart without angina pectoris I25.10 [place] [id number] [address] [place] [phone] Feb, [place] [id number] [place] [phone] Feb, [place] [id number] [place] [phone] Jan, [address] [address] Jan, Encounter for routine adult health examination with abnormal findings Z00.01 ; Foot pain, left M79.672 ; Pain in right ankle and joints of right foot M25.571 ; Chronic pain disorder G89.4 ; Coronary artery disease involving chipewwa coronary artery of chipewwa heart without angina pectoris I25.10 ; Tobacco abuse Z72.0 ; Tobacco abuse counseling Z71.6 and Obesity (BMI 30-39.9) E66.9 [facility] [address] [place] [id number] [address] [place] [phone] Jan, [facility] [address] [facility] [id number] [address] [place] [id number] Mar, Dental examination V72.2 IMMUNIZATIONS No Known Immunizations SOCIAL HISTORY Never Assessed REASON FOR VISIT Controlled Med Refill PLAN OF CARE VITAL SIGNS MEDICATIONS Unknown Medications RESULTS No Results PROCEDURES No Known procedures INSTRUCTIONS MEDICATIONS ADMINISTERED No Known Medications MEDICAL (GENERAL) HISTORY Type Description Date Medical History Arthritis Medical History 2 heart attacks with numerou s stents- 10 yrs ago and then 7 years ago- 1st [place]- Promus 2.5 x 18 mm stent to LAD, 3.0x 23 mm stent to DIAG, 2.5x 15 mm stent to LAD/ 2nd [place]- Promus 2.5 x12 to distal Circ and [...]
--- OUTSIDE RECORDS SUMMARY | 2019-12-11 14:37 | XMS REPORT ---
Author Author Reza WELCH Organization [facility] Address [address] [place] [address] Care Team Providers Care Rubber Washer Name Role Phone OLIVER WELCH Unavailable PROBLEMS Type Condition ICD9-CM Code KOS12-GB Code Onset Dates Condition S tatus SNOMED Code Problem Tobacco abuse Z72.0 Active 674844 000 Problem Pain in right ankle and joints of right foot M25.5 71 Active 941359370 Problem Tobacco abuse counseling Z71.6 Activ e 548743971 Problem Plantar fasciitis, bilateral M72.2 A ctive [id number] Problem Foot pain, left M79.672 Active 3167 [id number] Problem Coronary artery disease invo lving [place] coronary artery of [place] heart without angina pectoris I25.10 Active 1641 896395435 Problem Obesity (BMI 30-39.9) E66.9 Active 901128429 Problem Essential hypertension I10 Active 75317539 Problem Anxiety F41.9 Active 00517239 Problem Acute reaction to situational stress F43.0 Active 15587434 Problem Chronic pain disorder G89.4 Active 382471219 Problem Primary insomnia F51.01 Active 397 2004 Problem Mixed hyperlipidemia E78.2 Active [id number] ALLERGIES No Information ENCOUNTERS Encounter Location Date Diagnosis [facility] [address] [place] [id number] [address] [place] [address] Feb, Primary insomnia F51.01 [facility] [address] [facility] [id number] [address] [place] [address] Jan, Essential hypertension I10 ; Mixed hyperlipidemia E78.2 ; Throat tightness R68.89 ; Left arm pain M79.602 ; Coronary artery disease involving la jolla coronary artery of [place] j[place] heart without angina pectoris I25.10 ; Chronic pain disorder G89.4 ; Tobacco abuse counseling Z71.6 and Primary insomnia F51.01 [facility] [address] [place] [address] [id number] [address] [place] [id number] 15 Jan, 2018 [facility] [address] [facility] [id number] [address] [place] [address] December, Essential hypertension I10 a nd Mixed hyperlipidemia E78.2 [facility] [address] [facility] [id number] [address] [place] [address] December, [facility] [address] [facility] [id number] [address] [place] [address] December, Primary insomnia F51.01 [facility] [address] [facility] [id number] [address] [place] [address] Nov, Chronic pain disorder G89.4 [facility] [address] [facility] [id number] [address] [place] [address] Nov, [facility] [address] [facility] [id number] [address] [place] [phone] Oct, Acute bronchitis, unspecifie d organism J20.9 [facility] [address] [facility] [id number] [address] [place] [address] Oct, [facility] [address] [facility] [id number] [address] [place] [address] Oct, Chronic pain disorder G89.4 and Primary insomnia F51.01 [facility] [address] [facility] [id number] [address] [place] [address] Oct, [facility] [address] [facility] [id number] [address] [place] [id number] 05 Oct, 2017 Anxiety F41.9 and Essential hypertension I10 [facility] [address] [facility] [id number] [address] [place] [address] Sep, Primary insomnia F51.01 [facility] [address] [facility] [id number] [address] [place] [address] Sep, Chronic pain disorder G89.4 [facility] [address] [place] [address] [address] Sep, Essential hypertension I10 a nd Chronic pain disorder G89.4 [place] [address] [address] 09 Sep, 2017 Anxiety F41.9 and Chronic pa in disorder G89.4 [place] [address] [address] 02 Sep, 2017 Controlled substance agreeme nt signed Z79.899 [place] [address] [address] Aug, Chronic pain disorder G89.4 and Primary insomnia F51.01 [place] [address] [address] Aug, Essential hypertension I10 ; Mixed hyperlipidemia E78.2 ; Primary insomnia F51.01 ; Tobacco abuse Z72.0 ; Chronic pain disorder G89.4 ; Acute suppurative otitis media of left ear without spontaneous rupture of tympanic membrane, recurrence not specified H66.002 ; Acute bronchitis, unspecified organism J20.9 and Anxiety F41.9 [place] [address] [address] Aug, [place] [address] [address] Aug, [place] [address] [address] Aug, Primary insomnia F51.01 [facility] [address] [address] Jul, Paronychia of finger of righ t hand L03.011 [place] [address] [address] Jul, Primary insomnia F51.01 [facility] [address] [address] Jul, Mixed hyperlipidemia E78.2 [facility] [address] [id number] [address] [place] [address] Jul, Chronic pain disorder G89.4 [facility] [address] [id number] [address] [place] [address] Jun, Mixed hyperlipidemia E78.2 [facility] [address] [id number] [address] [place] [address] Jun, Primary insomnia F51.01 [facility] [address] [id number] [address] [place] [address] Jun, [facility] [address] [id number] [address] [place] [address] May, [facility] [address] [id number] [address] [place] [address] May, [facility] [address] [id number] [address] [place] [address] May, Chronic pain disorder G89.4 ; Bilateral otitis media with effusion H65.93 and Primary insomnia F51.01 [facility] [address] [id number] [address] [place] [address] May, Chronic pain disorder G89.4 [facility] [address] [id number] [address] [place] [address] May, [facility] [address] [id number] [address] [place] [address] May, [facility] [address] [id number] [address] [place] [address] May, [facility] [address] [id number] [address] [place] [address] Apr, [facility] [address] [id number] [address] [place] [address] Apr, [facility] [address] [id number] [address] [place] [address] Apr, Coronary artery disease invo lving [place] j[place] coronary artery of [place] heart without angina pectoris I25.10 [facility] [address] [id number] [address] [place] [address] 18 Apr, 2017 Chronic pain disorder G89.4 [facility] [address] [id number] [address] [place] [address] 15 Apr, 2017 Coronary artery disease invo lving [place] coronary artery of [place] heart without angina pectoris I25.10 ; Tobacco abuse Z72.0 ; Tobacco abuse counseling Z71.6 ; Obesity (BMI 30-39.9) E66.9 ; Acute reaction to situational stress F43.0 ; Mixed hyperlipidemia E78.2 ; Chronic pain disorder G89.4 and Right otitis media with effusion H65.91 [facility] [address] [id number] [address] [place] [address] 13 Apr, 2017 Pain in right ankle and join ts of right foot M25.571 [place] [address] [id number] [address] [place] [address] Apr, Pain in right ankle and join ts of right foot M25.571 and Coronary artery disease involving la j[place] coronary artery of [place] heart without angina pectoris I25.10 [facility] [address] [id number] [address] [place] [phone] Mar, [facility] [address] [id number] [address] [place] [address] Mar, [facility] [address] [id number] [address] [place] [address] Mar, [facility] [address] [id number] [address] [place] [address] Mar, Acute mucoid otitis media of both ears H65.113 and Dizziness R42 [facility] [address] [id number] [address] [place] [address] Feb, [facility] [address] [id number] [address] [place] [address] Feb, Pain in right ankle and join ts of right foot M25.571 ; Pain in left finger(s) M79.645 and Coronary artery disease involving la jolla coronary artery of [place] heart without angina pectoris I25.10 [facility] [address] [facility] [id number] [address] [place] [address] Feb, [facility] [address] [facility] [id number] [address] [place] [address] Feb, [facility] [address] [facility] [id number] [address] [place] [address] Jan, [facility] [address] [facility] [id number] [address] [place] [address] Jan, Encounter for routine adult health examination with abnormal findings Z00.01 ; Foot pain, left M79.672 ; Pain in right ankle and joints of right foot M25.571 ; Chronic pain disorder G89.4 ; Coronary artery disease involving [place] j[place] coronary artery of [place] heart without angina pectoris I25.10 ; Tobacco abuse Z72.0 ; Tobacco abuse counseling Z71.6 and Obesity (BMI 30-39.9) E66.9 [facility] [address] [facility] [id number] [address] [place] [phone] Jan, [facility] [address] [facility] [id number] [address] [place] [id number] Mar, Dental examination V72.2 IMMUNIZATIONS No Known Immunizations SOCIAL HISTORY Never Assessed REASON FOR VISIT Refill request PLAN OF CARE VITAL SIGNS MEDICATIONS Unknown Medications RESULTS No Results PROCEDURES No Known procedures INSTRUCTIONS MEDICATIONS ADMINISTERED No Known Medications MEDICAL (GENERAL) HISTORY Type Description Date Medical History Arthritis Medical History 2 heart attacks with numerou s stents- 10 yrs ago and then 7 years ago- 1st DE- Promus 2.5 x 18 mm stent to LAD, 3.0x 23 mm stent to DIAG, 2.5x 15 mm stent to LAD/ 2nd DE- Promus 2.5 x12 to distal Circ and [...]
--- OUTSIDE RECORDS SUMMARY | 2019-12-11 14:37 | XMS REPORT ---
Author Author Reza WELCH Organization [facility] Address [address] [place] [address] Care Team Providers Care Fudge Candy Maker Name Role Phone REBEKAH OLIVER Unavailable PROBLEMS Type Condition ICD9-CM Code ANF06-DJ Code Onset Dates Condition S tatus SNOMED Code Problem Tobacco abuse Z72.0 Active 956147 000 Problem Pain in right ankle and joints of right foot M25.5 71 Active 583660615 Problem Tobacco abuse counseling Z71.6 Activ e 841559432 Problem Plantar fasciitis, bilateral M72.2 A ctive [id number] Problem Foot pain, left M79.672 Active 3167 97893278102 Problem Coronary artery disease invo lving benton coronary artery of benton heart without angina pectoris I25.10 Active 1641 476194294 Problem Obesity (BMI 30-39.9) E66.9 Active 509299397 Problem Essential hypertension I10 Active 47739588 Problem Anxiety F41.9 Active 05806987 Problem Acute reaction to situational stress F43.0 Active 75863127 Problem Chronic pain disorder G89.4 Active 661310878 Problem Primary insomnia F51.01 Active 397 2004 Problem Mixed hyperlipidemia E78.2 Active 649834179 ALLERGIES No Information ENCOUNTERS Encounter Location Date Diagnosis [facility] [address] [facility] [id number] [address] [place] [address] Mar, Primary insomnia F51.01 [facility] [address] [facility] [id number] [address] [place] [address] Mar, Primary insomnia F51.01 [facility] [address] [facility] [id number] [address] [place] [address] Feb, Primary insomnia F51.01 [facility] [address] [facility] [id number] [address] [place] [address] Jan, Essential hypertension I10 ; Mixed hyperlipidemia E78.2 ; Throat tightness R68.89 ; Left arm pain M79.602 ; Coronary artery disease involving benton coronary artery of benton heart without angina pectoris I25.10 ; Chronic pain disorder G89.4 ; Tobacco abuse counseling Z71.6 and Primary insomnia F51.01 [facility] [address] [facility] [id number] [address] [place] [id number] 15 Jan, 2018 [facility] [address] [facility] [id number] [address] [place] [address] December, Essential hypertension I10 a nd Mixed hyperlipidemia E78.2 [facility] [address] [facility] [id number] [address] [place] [address] December, [facility] [address] [place] [id number] [address] [place] [address] December, Primary insomnia F51.01 [facility] [address] [place] [id number] [address] [place] [phone] Nov, Chronic pain disorder G89.4 [facility] [address] [place] [id number] [address] [place] [address] Nov, [facility] [address] [place] [id number] [address] [place] [address] Oct, Acute bronchitis, unspecifie d organism J20.9 [facility] [address] [place] [id number] [address] [place] [id number] 16 Oct, 2017 [facility] [address] [place] [id number] [address] [place] [id number] Oct, Chronic pain disorder G89.4 and Primary insomnia F51.01 [facility] [address] [place] [id number] [address] [place] [address] Oct, [facility] [address] [place] [id number] [address] [place] [phone] 05 Oct, 2017 Anxiety F41.9 and Essential hypertension I10 [facility] [address] [place] [id number] [address] [place] [address] Sep, Primary insomnia F51.01 [facility] [address] [place] [address] Sep, Chronic pain disorder G89.4 [facility] [address] [place] [id number] [address] [place] [address] Sep, Essential hypertension I10 a nd Chronic pain disorder G89.4 [place] [address] [place] [address] Sep, Anxiety F41.9 and Chronic pa in disorder G89.4 [place] [address] [address] Sep, Controlled substance agreeme nt signed Z79.899 [place] [address] [address] Aug, Chronic pain disorder G89.4 and Primary insomnia F51.01 [facility] [address] [place] [address] Aug, Essential hypertension I10 ; Mixed hyperlipidemia E78.2 ; Primary insomnia F51.01 ; Tobacco abuse Z72.0 ; Chronic pain disorder G89.4 ; Acute suppurative otitis media of left ear without spontaneous rupture of tympanic membrane, recurrence not specified H66.002 ; Acute bronchitis, unspecified organism J20.9 and Anxiety F41.9 [facility] [address] [place] [address] Aug, [facility] [address] [place] [phone] Aug, [facility] [address] [place] [id number] [address] [place] [address] Aug, Primary insomnia F51.01 [facility] [address] [facility] [id number] [address] [place] [address] Jul, Paronychia of finger of righ t hand L03.011 [facility] [address] [id number] [address] [place] [address] Jul, Primary insomnia F51.01 [facility] [address] [id number] [address] [place] [address] Jul, Mixed hyperlipidemia E78.2 [facility] [address] [id number] [address] [place] [address] Jul, Chronic pain disorder G89.4 [facility] [address] [id number] [address] [place] [address] Jun, Mixed hyperlipidemia E78.2 [facility] [address] [id number] [address] [place] [address] Jun, Primary insomnia F51.01 [facility] [address] [id number] [address] [place] [address] Jun, [facility] [address] [id number] [address] [place] [address] May, [facility] [address] [id number] [address] [place] [address] May, [facility] [address] [facility] [id number] [address] [place] [address] May, Chronic pain disorder G89.4 ; Bilateral otitis media with effusion H65.93 and Primary insomnia F51.01 [facility] [address] [id number] [address] [place] [address] May, Chronic pain disorder G89.4 [facility] [address] [id number] [address] [place] [address] May, [facility] [address] [id number] [address] [place] [address] May, [facility] [address] [id number] [address] [place] [address] May, [facility] [address] [id number] [address] [place] [address] Apr, [facility] [address] [id number] [address] [place] [address] Apr, [facility] [address] [id number] [address] [place] [address] 19 Apr, 2017 Coronary artery disease invo lving benton coronary artery of benton heart without angina pectoris I25.10 [facility] [address] [id number] [address] [place] [phone] 18 Apr, 2017 Chronic pain disorder G89.4 [facility] [address] [id number] [address] [place] [id number] 15 Apr, 2017 Coronary artery disease invo lving benton coronary artery of benton heart without angina pectoris I25.10 ; Tobacco abuse Z72.0 ; Tobacco abuse counseling Z71.6 ; Obesity (BMI 30-39.9) E66.9 ; Acute reaction to situational stress F43.0 ; Mixed hyperlipidemia E78.2 ; Chronic pain disorder G89.4 and Right otitis media with effusion H65.91 [facility] [address] [id number] [address] [place] [address] Apr, Pain in right ankle and join ts of right foot M25.571 [facility] [address] [id number] [address] [place] [address] Apr, Pain in right ankle and join ts of right foot M25.571 and Coronary artery disease involving benton coronary artery of benton heart without angina pectoris I25.10 [facility] [address] [id number] [address] [place] [address] Mar, [facility] [address] [id number] [address] [place] [address] Mar, [facility] [address] [id number] [address] [place] [address] Mar, [facility] [address] [id number] [address] [place] [address] Mar, Acute mucoid otitis media of both ears H65.113 and Dizziness R42 [facility] [address] [place] [id number] [address] [place] [phone] Feb, [place] [id number] [address] [place] [phone] Feb, Pain in right ankle and join ts of right foot M25.571 ; Pain in left finger(s) M79.645 and Coronary artery disease involving benton coronary artery of benton heart without angina pectoris I25.10 [place] [id number] [address] [place] [phone] Feb, [place] [id number] [place] [address] Feb, [place] [id number] [place] [address] Jan, [address] [address] Jan, Encounter for routine adult health examination with abnormal findings Z00.01 ; Foot pain, left M79.672 ; Pain in right ankle and joints of right foot M25.571 ; Chronic pain disorder G89.4 ; Coronary artery disease involving benton coronary artery of benton heart without angina pectoris I25.10 ; Tobacco abuse Z72.0 ; Tobacco abuse counseling Z71.6 and Obesity (BMI 30-39.9) E66.9 [facility] [address] [place], [place] [id number] [address] [place] [phone] Jan, [facility] [address] [facility] [id number] [address] [place] [address] [id number] 10 Mar, 2015 Dental examination V72.2 IMMUNIZATIONS No Known Immunizations SOCIAL HISTORY Never Assessed REASON FOR VISIT medication question PLAN OF CARE VITAL SIGNS MEDICATIONS Medication Instructions Dosage Frequency Start Date End Date Duration S whitneyus Clopidogrel Bisulfate 75 MG Orally Once a day 1 tablet 24h 30 days Active Atorvastatin Calcium 80 MG Orally Once a day 1 tablet 24h Active RESULTS No Results PROCEDURES No Known [...]
--- OUTSIDE RECORDS SUMMARY | 2019-12-11 14:37 | XMS REPORT ---
Author Author Reza WELCH Organization [facility] Address [address] [place] [address] Care Team Providers Care Reconciling Clerk Name Role Phone OLIVER WELCH Unavailable PROBLEMS Type Condition ICD9-CM Code [id number] Code Onset Dates Condition S tatus SNOMED Code Problem Tobacco abuse Z72.0 Active 088194 000 Problem Pain in right ankle and joints of right foot M25.5 71 Active 253676280 Problem Tobacco abuse counseling Z71.6 Activ e 370019921 Problem Plantar fasciitis, bilateral M72.2 A ctive [id number] Problem Foot pain, left M79.672 Active 3167 [id number] Problem Coronary artery disease invo lving [place] coronary artery of [place] heart without angina pectoris I25.10 Active 1641 514970859 Problem Obesity (BMI 30-39.9) E66.9 Active 691233036 Problem Essential hypertension I10 Active 47060029 Problem Anxiety F41.9 Active 04741970 Problem Acute reaction to situational stress F43.0 Active 74234691 Problem Chronic pain disorder G89.4 Active 965059864 Problem Primary insomnia F51.01 Active 397 2004 Problem Mixed hyperlipidemia E78.2 Active 946844293 ALLERGIES No Information ENCOUNTERS Encounter Location Date Diagnosis [facility] [address] [place] [id number] [address] [place] [address] Feb, Primary insomnia F51.01 [facility] [address] [facility] [id number] [address] [place] [address] Jan, Essential hypertension I10 ; Mixed hyperlipidemia E78.2 ; Throat tightness R68.89 ; Left arm pain M79.602 ; Coronary artery disease involving [place] coronary artery of [place] heart without angina pectoris I25.10 ; Chronic pain disorder G89.4 ; Tobacco abuse counseling Z71.6 and Primary insomnia F51.01 [facility] [address] [place] [id number] [address] [place] [id number] 15 Jan, 2018 [facility] [address] [facility] [id number] [address] [place] [address] December, Essential hypertension I10 a nd Mixed hyperlipidemia E78.2 [facility] [address] [facility] [id number] [address] [place] [address] December, [facility] [address] [facility] [id number] [address] [place] [address] December, Primary insomnia F51.01 [facility] [address] [facility] [id number] [address] [place] [address] Nov, Chronic pain disorder G89.4 [facility] [address] [facility] [id number] [address] [place] [address] Nov, [facility] [address] [facility] [id number] [address] [place] [id number] Oct, Acute bronchitis, unspecifie d organism J20.9 [facility] [address] [facility] [id number] [address] [place] [address] Oct, [facility] [address] [facility] [id number] [address] [place] [address] Oct, Chronic pain disorder G89.4 and Primary insomnia F51.01 [facility] [address] [facility] [id number] [address] [place] [phone] Oct, [facility] [address] [facility] [id number] [address] [place] [id number] 05 Oct, 2017 Anxiety F41.9 and Essential hypertension I10 [facility] [address] [facility] [id number] [address] [place] [address] Sep, Primary insomnia F51.01 [facility] [address] [facility] [id number] [address] [place] [address] Sep, Chronic pain disorder G89.4 [facility] [address] [place] [address] [address] Sep, Essential hypertension I10 a nd Chronic pain disorder G89.4 [place] [address] [id number] 09 Sep, 2017 Anxiety F41.9 and Chronic pa in disorder G89.4 [place] [address] [address] 02 Sep, 2017 Controlled substance agreeme nt signed Z79.899 [place] [address] [address] Aug, Chronic pain disorder G89.4 and Primary insomnia F51.01 [place] [address] [address] Aug, Essential hypertension I10 ; Mixed hyperlipidemia E78.2 ; Primary insomnia F51.01 ; Tobacco abuse Z72.0 ; Chronic pain disorder G89.4 ; Acute suppurative otitis media of left ear without spontaneous rupture of tympanic membrane, recurrence not specified H66.002 ; Acute bronchitis, unspecified organism J20.9 and Anxiety F41.9 [place] [address] [address] Aug, [place] [address] [address] Aug, [place] [address] [address] Aug, Primary insomnia F51.01 [facility] [address] [address] Jul, Paronychia of finger of righ t hand L03.011 [place] [address] [address] Jul, Primary insomnia F51.01 [facility] [address] [address] Jul, Mixed hyperlipidemia E78.2 [facility] [address] [id number] [address] [place] [address] Jul, Chronic pain disorder G89.4 [facility] [address] [id number] [address] [place] [address] Jun, Mixed hyperlipidemia E78.2 [facility] [address] [id number] [address] [place] [address] Jun, Primary insomnia F51.01 [facility] [address] [id number] [address] [place] [address] Jun, [facility] [address] [id number] [address] [place] [phone] May, [facility] [address] [id number] [address] [place] [address] May, [facility] [address] [id number] [address] [place] [address] May, Chronic pain disorder G89.4 ; Bilateral otitis media with effusion H65.93 and Primary insomnia F51.01 [facility] [address] [id number] [address] [place] [address] May, Chronic pain disorder G89.4 [facility] [address] [id number] [address] [place] [address] May, [facility] [address] [id number] [address] [place] [address] May, [facility] [address] [id number] [address] [place] [address] May, [facility] [address] [id number] [address] [place] [address] Apr, [facility] [address] [id number] [address] [place] [address] Apr, [facility] [address] [id number] [address] [place] [address] Apr, Coronary artery disease invo lving [place] coronary artery of [place] heart without angina pectoris I25.10 [facility] [address] [id number] [address] [place] [id number] 18 Apr, 2017 Chronic pain disorder G89.4 [facility] [address] [id number] [address] [place] [address] 15 Apr, 2017 Coronary artery disease invo lving [place] coronary artery of [place] heart without angina pectoris I25.10 ; Tobacco abuse Z72.0 ; Tobacco abuse counseling Z71.6 ; Obesity (BMI 30-39.9) E66.9 ; Acute reaction to situational stress F43.0 ; Mixed hyperlipidemia E78.2 ; Chronic pain disorder G89.4 and Right otitis media with effusion H65.91 [facility] [address] [id number] [address] [place] [address] 13 Apr, 2017 Pain in right ankle and join ts of right foot M25.571 [place] [address] [id number] [address] [place] [address] Apr, Pain in right ankle and join ts of right foot M25.571 and Coronary artery disease involving [place] coronary artery of [place] heart without angina pectoris I25.10 [facility] [address] [id number] [address] [place] [address] Mar, [facility] [address] [id number] [address] [place] [id number] Mar, [facility] [address] [id number] [address] [place] [id number] Mar, [facility] [address] [id number] [address] [place] [address] Mar, Acute mucoid otitis media of both ears H65.113 and Dizziness R42 [facility] [address] [id number] [address] [place] [address] Feb, [facility] [address] [id number] [address] [place] [address] Feb, Pain in right ankle and join ts of right foot M25.571 ; Pain in left finger(s) M79.645 and Coronary artery disease involving [place] coronary artery of [place] heart without angina pectoris I25.10 [facility] [address] [facility] [id number] [address] [place] [id number] Feb, [facility] [address] [facility] [id number] [address] [place] [address] Feb, [facility] [address] [facility] [id number] [address] [place] [id number] Jan, [facility] [address] [facility] [id number] [address] [place] [address] Jan, Encounter for routine adult health examination with abnormal findings Z00.01 ; Foot pain, left M79.672 ; Pain in right ankle and joints of right foot M25.571 ; Chronic pain disorder G89.4 ; Coronary artery disease involving [place] coronary artery of [place] heart without angina pectoris I25.10 ; Tobacco abuse Z72.0 ; Tobacco abuse counseling Z71.6 and Obesity (BMI 30-39.9) E66.9 [facility] [address] [facility] [id number] [address] [place] [address] Jan, [facility] [address] [facility] [id number] [address] [place] [id number] Mar, Dental examination V72.2 IMMUNIZATIONS No Known Immunizations SOCIAL HISTORY Never Assessed REASON FOR VISIT med refill PLAN OF CARE VITAL SIGNS MEDICATIONS Unknown Medications RESULTS No Results PROCEDURES No Known procedures INSTRUCTIONS MEDICATIONS ADMINISTERED No Known Medications MEDICAL (GENERAL) HISTORY Type Description Date Medical History Arthritis Medical History 2 heart attacks with numerou s stents- 10 yrs ago and then 7 years ago- 1st [place]- Promus 2.5 x 18 mm stent to LAD, 3.0x 23 mm stent to DIAG, 2.5x 15 mm stent to LAD/ 2nd [place]- Promus 2.5 x12 to distal Circ and [...]
--- OUTSIDE RECORDS SUMMARY | 2019-12-11 14:37 | XMS REPORT ---
Author Author Reza Prieto Organization [facility] Address [address] [place] [address] Care Team Providers Care Plasterer Spray Gun Name Role Phone ZEUS Prieto Unavailable PROBLEMS Type Condition ICD9-CM Code CPC54-NA Code Onset Dates Condition S tatus SNOMED Code Problem Tobacco abuse Z72.0 Active 334737 000 Problem Pain in right ankle and joints of right foot M25.5 71 Active 102853075 Problem Tobacco abuse counseling Z71.6 Activ e 189985859 Problem Plantar fasciitis, bilateral M72.2 A ctive [id number] Problem Foot pain, left M79.672 Active 3167 62011552465 Problem Coronary artery disease invo lving [place] coronary artery of [place] heart without angina pectoris I25.10 Active 1641 923904220 Problem Obesity (BMI 30-39.9) E66.9 Active 367760317 Problem Essential hypertension I10 Active 23437152 Problem Anxiety F41.9 Active 73846035 Problem Acute reaction to situational stress F43.0 Active 54480678 Problem Chronic pain disorder G89.4 Active 234307221 Problem Primary insomnia F51.01 Active 397 2004 Problem Mixed hyperlipidemia E78.2 Active 286951942 ALLERGIES Substance Reaction Event Type Date Status Augmentin Unknown Drug Allergy Oct, Active ENCOUNTERS Encounter Location Date Diagnosis [facility] [address] [facility] [id number] [address] [place] [phone] Feb, Primary insomnia F51.01 [facility] [address] [facility] [id number] [address] [place] [phone] Jan, Essential hypertension I10 ; Mixed hyperlipidemia E78.2 ; Throat tightness R68.89 ; Left arm pain M79.602 ; Coronary artery disease involving [place] coronary artery of lummi heart without angina pectoris I25.10 ; Chronic pain disorder G89.4 ; Tobacco abuse counseling Z71.6 and Primary insomnia F51.01 [facility] [address] [facility] [id number] [address] [place] [phone] Jan, [facility] [address] [place] [id number] [address] [place] [phone] December, Essential hypertension I10 a nd Mixed hyperlipidemia E78.2 [facility] [address] [place] [id number] [address] [place] [phone] December, [facility] [address] [facility] [id number] [address] [place] [phone] December, Primary insomnia F51.01 [facility] [address] [facility] [id number] [address] [place] [phone] Nov, Chronic pain disorder G89.4 [facility] [address] [place] [id number] [place] [phone] Nov, [facility] [address] [place] [id number] [address] [place] [phone] Oct, Acute bronchitis, unspecifie d organism J20.9 [facility] [address] [place] [id number] [place] [address] 16 Oct, 2017 [facility] [address] [place] [id number] [address] [place] [phone] Oct, Chronic pain disorder G89.4 and Primary insomnia F51.01 [facility] [address] [place] [id number] [address] [place] [phone] Oct, [facility] [address] [place] [id number] [address] [place] [phone] 05 Oct, 2017 Anxiety F41.9 and Essential hypertension I10 [facility] [address] [place] [id number] [address] [place] [phone] Sep, Primary insomnia F51.01 [facility] [address] [place] [id number] [address] [place] [phone] Sep, Chronic pain disorder G89.4 [facility] [address] [place] [id number] [address] [place] [address] Sep, Essential hypertension I10 a nd Chronic pain disorder G89.4 [facility] [address] [address] Sep, Anxiety F41.9 and Chronic pa in disorder G89.4 [facility] [address] [address] Sep, Controlled substance agreeme nt signed Z79.899 [place] [address] [address] Aug, Chronic pain disorder G89.4 and Primary insomnia F51.01 [place] [address] [address] Aug, Essential hypertension I10 ; Mixed hyperlipidemia E78.2 ; Primary insomnia F51.01 ; Tobacco abuse Z72.0 ; Chronic pain disorder G89.4 ; Acute suppurative otitis media of left ear without spontaneous rupture of tympanic membrane, recurrence not specified H66.002 ; Acute bronchitis, unspecified organism J20.9 and Anxiety F41.9 [place] [address] [place] [id number] [address] [place] [phone] Aug, [place] [address] [address] Aug, [facility] [address] [address] Aug, Primary insomnia F51.01 [facility] [address] [place] [id number] [address] [place] [phone] Jul, Paronychia of finger of righ t hand L03.011 [facility] [address] [place] [id number] [address] [place] [phone] Jul, Primary insomnia F51.01 [place] [address] [place] [address] Jul, Mixed hyperlipidemia E78.2 [facility] [address] [id number] [address] [place] [phone] Jul, Chronic pain disorder G89.4 [facility] [address] [id number] [address] [place] [phone] Jun, Mixed hyperlipidemia E78.2 [facility] [address] [id number] [address] [place] [phone] Jun, Primary insomnia F51.01 [facility] [address] [id number] [address] [place] [phone] Jun, [facility] [address] [id number] [address] [place] [phone] May, [facility] [address] [id number] [address] [place] [phone] May, [facility] [address] [id number] [address] [place] [address] May, Chronic pain disorder G89.4 ; Bilateral otitis media with effusion H65.93 and Primary insomnia F51.01 [facility] [address] [id number] [address] [place] [phone] May, Chronic pain disorder G89.4 [facility] [address] [id number] [address] [place] [phone] May, [facility] [address] [id number] [address] [place] [phone] May, [facility] [address] [id number] [address] [place] [phone] May, [facility] [address] [facility] [id number] [address] [place] [phone] Apr, [facility] [address] [id number] [address] [place] [phone] Apr, [facility] [address] [id number] [address] [place] [id number] 19 Apr, 2017 Coronary artery disease invo lving lummi coronary artery of lummi heart without angina pectoris I25.10 [facility] [address] [facility] [id number] [address] [place] [phone] 18 Apr, 2017 Chronic pain disorder G89.4 [facility] [address] [id number] [address] [place] [phone] 15 Apr, 2017 Coronary artery disease invo lving [place] coronary artery of lummi heart without angina pectoris I25.10 ; Tobacco abuse Z72.0 ; Tobacco abuse counseling Z71.6 ; Obesity (BMI 30-39.9) E66.9 ; Acute reaction to situational stress F43.0 ; Mixed hyperlipidemia E78.2 ; Chronic pain disorder G89.4 and Right otitis media with effusion H65.91 [place] [address] [facility] [id number] [address] [place] [phone] Apr, Pain in right ankle and join ts of right foot M25.571 [place] [address] [id number] [address] [place] [phone] Apr, Pain in right ankle and join ts of right foot M25.571 and Coronary artery disease involving lummi coronary artery of lummi heart without angina pectoris I25.10 [facility] [address] [id number] [address] [place] [phone] Mar, [facility] [address] [id number] [address] [place] [phone] Mar, [facility] [address] [id number] [address] [place] [phone] Mar, [facility] [address] [facility] [id number] [address] [place] [phone] Mar, Acute mucoid otitis media of both ears H65.113 and Dizziness R42 [facility] [address] [id number] [address] [place] [phone] Feb, [facility] [address] [facility] [id number] [address] [place] [phone] 17 Feb, 2017 Pain in right ankle and join ts of right foot M25.571 ; Pain in left finger(s) M79.645 and Coronary artery disease involving lummi coronary artery of lummi heart without angina pectoris I25.10 [place] [address] [place] [id number] [address] [place] [phone] Feb, [place] [address] [place] [id number] [address] [place] [phone] Feb, [place] [address] [place] [id number] [address] [place] [phone] Jan, [place] [address] [place] [id number] [address] [place] [address] Jan, Encounter for routine adult health examination with abnormal findings Z00.01 ; Foot pain, left M79.672 ; Pain in right ankle and joints of right foot M25.571 ; Chronic pain disorder G89.4 ; Coronary artery disease involving lummi coronary artery of lummi heart without angina pectoris I25.10 ; Tobacco abuse Z72.0 ; Tobacco abuse counseling Z71.6 and Obesity (BMI 30-39.9) E66.9 [place] [address] [place] [id number] [address] [place] [phone] Jan, [facility] [address] [facility] [id number] [address] [place] [address] [id number] Mar, Dental examination V72.2 IMMUNIZATIONS No Known Immunizations SOCIAL HISTORY Never Assessed REASON FOR VISIT cough x4 days, rib/back pain, yellow sputum----DBennettRN PLAN OF CARE Activity Details Follow Up prn Reason: VITAL SIGNS Height 69 in 2017-10-28 Weight 227 lbs 2017-10-28 Temperature 98.7 degrees Fahrenheit 2017-10-28 Heart Rate 70 bpm 2017-10-28 Respiratory Rate 20 2017-10-28 BMI 33.52 kg/m2 2017-10-28 Blood pressure systolic 142 mmHg 2017-10-28 Blood pressure diastolic 90 mmHg 2017-10-28 MEDICATIONS Medication Instructions Dosage Frequency Start Date End Date Duration S tatus Promethazine-Codeine 6.25-10 MG/5ML Orally every 6 hrs PRN cough 5 ml Active Clopidogrel Bisulfate 75 MG Orally Once a day 1 tablet 24h 30 days Active Lyrica 150 MG Orally twice a day 1 capsule 1 to 3 flower rs before bedtime in the evening 12h Aug, 30 days Active Azithromycin 250 MG Orally Once a day 2 tablets on day 1, the take 1 tablet day 2-5 24h 5 day(s) Active Duloxetine HCl 40 mg Orally Once a day 1 capsule 24h 15 Apr, 2017 30 day(s) Not-Taking Aspir-81 81 MG Orally Once a day 1 tablet 24h 3 Jan, 2018 30 days Active PredniSONE 10 mg Orally once daily, morning with food 4 t ablet x 2 day, then 3 tablets x 2 days, then 2 tablets x 2 days, then 1 tablets x 2 days 30 day(s) Active Clonidine HCl 0.1 MG Orally twice a day PRN 1 tablet May, 30 days Active Atenolol 25 MG Orally twice a day 2 tablet 12h Active Atorvastatin Calcium 80 MG Orally Once a day 1 tablet 24h Active Ambien 10 mg Orally Once a day 1 tablet at bedtime as needed 24h 28 days Active Meclizine HCl 25 MG Orally 3 times a day 1 tablet as needed 8h Mar, 10 days Active Tramadol HCl 50 mg Orally every 6 hrs 1 tablet as needed 6h 28 days Active Ciprodex 0.3-0.1 % Otic Twice a day 4 drops into affected ear 12h 16 May, 2017 10 days Not-Taking RESULTS No Results PROCEDURES No Known procedures INSTRUCTIONS MEDICATIONS ADMINISTERED No Known Medications MEDICAL (GENERAL) HISTORY Type Description Date Medical History Arthritis Medical History 2 heart attacks with numerou s stents- 10 yrs ago and then 7 years ago- 1st [place]- Promus 2.5 x 18 mm stent to LAD, 3.0x 23 mm stent to DIAG, 2.5x 15 mm stent to LAD/ 2nd [place]- Promus 2.5 x12 to distal Circ and [...]
--- OUTSIDE RECORDS SUMMARY | 2019-12-11 14:37 | XMS REPORT ---
Author Author Reza WELCH Organization [facility] Address [address] [place] [address] Care Team Providers Care Medical Educator Name Role Phone OLIVER WELCH Unavailable PROBLEMS Type Condition ICD9-CM Code RDT83-ZH Code Onset Dates Condition S tatus SNOMED Code Problem Tobacco abuse Z72.0 Active 793738 000 Problem Pain in right ankle and joints of right foot M25.5 71 Active 562492089 Problem Tobacco abuse counseling Z71.6 Activ e 889623519 Problem Plantar fasciitis, bilateral M72.2 A ctive [id number] Problem Foot pain, left M79.672 Active 3167 95395235698 Problem Coronary artery disease invo lving 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.10 Active 1641 685120463 Problem Obesity (BMI 30-39.9) E66.9 Active 288575432 Problem Essential hypertension I10 Active 50494522 Problem Anxiety F41.9 Active 09837357 Problem Acute reaction to situational stress F43.0 Active 67879348 Problem Chronic pain disorder G89.4 Active 990072884 Problem Primary insomnia F51.01 Active 397 2004 Problem Mixed hyperlipidemia E78.2 Active 624588723 ALLERGIES No Information ENCOUNTERS Encounter Location Date Diagnosis [facility] [address] [place] [id number] [address] [place] [phone] Feb, Primary insomnia F51.01 [facility] [address] [facility] [id number] [address] [place] [phone] Jan, Essential hypertension I10 ; Mixed hyperlipidemia E78.2 ; Throat tightness R68.89 ; Left arm pain M79.602 ; Coronary artery disease involving 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.10 ; Chronic pain disorder G89.4 ; Tobacco abuse counseling Z71.6 and Primary insomnia F51.01 [facility] [address] [place] [id number] [address] [place] [phone] 15 Jan, 2018 [facility] [address] [facility] [id number] [address] [place] [phone] December, Essential hypertension I10 a nd Mixed hyperlipidemia E78.2 [facility] [address] [facility] [id number] [address] [place] [phone] December, [facility] [address] [facility] [id number] [address] [place] [phone] December, Primary insomnia F51.01 [facility] [address] [facility] [id number] [address] [place] [phone] Nov, Chronic pain disorder G89.4 [facility] [address] [facility] [id number] [address] [place] [phone] Nov, [facility] [address] [facility] [id number] [address] [place] [phone] Oct, Acute bronchitis, unspecifie d organism J20.9 [facility] [address] [facility] [id number] [address] [place] [phone] Oct, [facility] [address] [facility] [id number] [address] [place] [phone] Oct, Chronic pain disorder G89.4 and Primary insomnia F51.01 [facility] [address] [facility] [id number] [address] [place] [phone] Oct, [facility] [address] [facility] [id number] [address] [place] [phone] 05 Oct, 2017 Anxiety F41.9 and Essential hypertension I10 [facility] [address] [facility] [id number] [address] [place] [phone] Sep, Primary insomnia F51.01 [facility] [address] [facility] [id number] [address] [place] [phone] Sep, Chronic pain disorder G89.4 [facility] [address] [place] [address] [address] Sep, Essential hypertension I10 a nd Chronic pain disorder G89.4 [place] [address] [phone] 09 Sep, 2017 Anxiety F41.9 and Chronic pa in disorder G89.4 [place] [address] [address] 02 Sep, 2017 Controlled substance agreeme nt signed Z79.899 [place] [address] [address] Aug, Chronic pain disorder G89.4 and Primary insomnia F51.01 [place] [address] [address] Aug, Essential hypertension I10 ; Mixed hyperlipidemia E78.2 ; Primary insomnia F51.01 ; Tobacco abuse Z72.0 ; Chronic pain disorder G89.4 ; Acute suppurative otitis media of left ear without spontaneous rupture of tympanic membrane, recurrence not specified H66.002 ; Acute bronchitis, unspecified organism J20.9 and Anxiety F41.9 [place] [address] [address] Aug, [place] [address] [address] Aug, [place] [address] [address] Aug, Primary insomnia F51.01 [facility] [address] [address] Jul, Paronychia of finger of righ t hand L03.011 [place] [address] [address] Jul, Primary insomnia F51.01 [facility] [address] [address] Jul, Mixed hyperlipidemia E78.2 [facility] [address] [id number] [address] [place] [phone] Jul, Chronic pain disorder G89.4 [facility] [address] [id number] [address] [place] [phone] Jun, Mixed hyperlipidemia E78.2 [facility] [address] [id number] [address] [place] [phone] Jun, Primary insomnia F51.01 [facility] [address] [id number] [address] [place] [phone] Jun, [facility] [address] [id number] [address] [place] [phone] May, [facility] [address] [id number] [address] [place] [phone] May, [facility] [address] [id number] [address] [place] [address] May, Chronic pain disorder G89.4 ; Bilateral otitis media with effusion H65.93 and Primary insomnia F51.01 [facility] [address] [id number] [address] [place] [phone] May, Chronic pain disorder G89.4 [facility] [address] [id number] [address] [place] [phone] May, [facility] [address] [id number] [address] [place] [phone] May, [facility] [address] [id number] [address] [place] [phone] May, [facility] [address] [id number] [address] [place] [phone] Apr, [facility] [address] [id number] [address] [place] [phone] Apr, [facility] [address] [id number] [address] [place] [phone] Apr, Coronary artery disease invo lving 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.10 [facility] [address] [id number] [address] [place] [phone] 18 Apr, 2017 Chronic pain disorder G89.4 [facility] [address] [id number] [address] [place] [phone] 15 Apr, 2017 Coronary artery disease invo lving 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.10 ; Tobacco abuse Z72.0 ; Tobacco abuse counseling Z71.6 ; Obesity (BMI 30-39.9) E66.9 ; Acute reaction to situational stress F43.0 ; Mixed hyperlipidemia E78.2 ; Chronic pain disorder G89.4 and Right otitis media with effusion H65.91 [facility] [address] [id number] [address] [place] [phone] 13 Apr, 2017 Pain in right ankle and join ts of right foot M25.571 [place] [address] [id number] [address] [place] [phone] Apr, Pain in right ankle and join ts of right foot M25.571 and Coronary artery disease involving 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.10 [facility] [address] [id number] [address] [place] [phone] Mar, [facility] [address] [id number] [address] [place] [phone] Mar, [facility] [address] [id number] [address] [place] [phone] Mar, [facility] [address] [id number] [address] [place] [phone] Mar, Acute mucoid otitis media of both ears H65.113 and Dizziness R42 [facility] [address] [id number] [address] [place] [phone] Feb, [facility] [address] [id number] [address] [place] [phone] Feb, Pain in right ankle and join ts of right foot M25.571 ; Pain in left finger(s) M79.645 and Coronary artery disease involving 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.10 [facility] [address] [facility] [id number] [address] [place] [phone] Feb, [facility] [address] [facility] [id number] [address] [place] [phone] Feb, [facility] [address] [facility] [id number] [address] [place] [phone] Jan, [facility] [address] [facility] [id number] [address] [place] [phone] Jan, Encounter for routine adult health examination with abnormal findings Z00.01 ; Foot pain, left M79.672 ; Pain in right ankle and joints of right foot M25.571 ; Chronic pain disorder G89.4 ; Coronary artery disease involving 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.10 ; Tobacco abuse Z72.0 ; Tobacco abuse counseling Z71.6 and Obesity (BMI 30-39.9) E66.9 [facility] [address] [facility] [id number] [address] [place] [phone] Jan, [facility] [address] [facility] [id number] [address] [place] [id number] Mar, Dental examination V72.2 IMMUNIZATIONS No Known Immunizations SOCIAL HISTORY Never Assessed REASON FOR VISIT Medication refill request PLAN OF CARE VITAL SIGNS MEDICATIONS Unknown Medications RESULTS No Results PROCEDURES No Known procedures INSTRUCTIONS MEDICATIONS ADMINISTERED No Known Medications MEDICAL (GENERAL) HISTORY Type Description Date Medical History Arthritis Medical History 2 heart attacks with numerou s stents- 10 yrs ago and then 7 years ago- 1st MT- Promus 2.5 x 18 mm stent to LAD, 3.0x 23 mm stent to DIAG, 2.5x 15 mm stent to LAD/ 2nd MT- Promus 2.5 x12 to distal Circ and [...]
--- OUTSIDE RECORDS SUMMARY | 2019-12-11 14:37 | XMS REPORT ---
Author Author Reza WELCH Organization [facility] Address [address] [place] [address] Care Team Providers Care Bi Technical Lead Name Role Phone OLIVER WELCH Unavailable PROBLEMS Type Condition ICD9-CM Code YTD42-SV Code Onset Dates Condition S tatus SNOMED Code Problem Tobacco abuse Z72.0 Active 039743 000 Problem Pain in right ankle and joints of right foot M25.5 71 Active 147164394 Problem Tobacco abuse counseling Z71.6 Activ e 382645469 Problem Plantar fasciitis, bilateral M72.2 A ctive [id number] Problem Foot pain, left M79.672 Active 3167 02488397421 Problem Coronary artery disease invo lving wrangell coronary artery of wrangell heart without angina pectoris I25.10 Active 1641 025158215 Problem Obesity (BMI 30-39.9) E66.9 Active 150567721 Problem Essential hypertension I10 Active 08129878 Problem Anxiety F41.9 Active 20034399 Problem Acute reaction to situational stress F43.0 Active 37359522 Problem Chronic pain disorder G89.4 Active 257841931 Problem Primary insomnia F51.01 Active 397 2004 Problem Mixed hyperlipidemia E78.2 Active 799677825 ALLERGIES No Information ENCOUNTERS Encounter Location Date Diagnosis [facility] [address] [facility] [id number] [address] [place] [phone] Mar, Primary insomnia F51.01 [facility] [address] [facility] [id number] [address] [place] [phone] Mar, Primary insomnia F51.01 [facility] [address] [facility] [id number] [address] [place] [address] Feb, Primary insomnia F51.01 [facility] [address] [facility] [id number] [address] [place] [address] Jan, Essential hypertension I10 ; Mixed hyperlipidemia E78.2 ; Throat tightness R68.89 ; Left arm pain M79.602 ; Coronary artery disease involving wrangell coronary artery of wrangell heart without angina pectoris I25.10 ; Chronic pain disorder G89.4 ; Tobacco abuse counseling Z71.6 and Primary insomnia F51.01 [facility] [address] [facility] [id number] [address] [place] [phone] 15 Jan, 2018 [facility] [address] [facility] [id number] [address] [place] [phone] December, Essential hypertension I10 a nd Mixed hyperlipidemia E78.2 [facility] [address] [facility] [id number] [address] [place] [address] December, [facility] [address] [place] [id number] [address] [place] [phone] December, Primary insomnia F51.01 [facility] [address] [place] [id number] [address] [place] [phone] Nov, Chronic pain disorder G89.4 [facility] [address] [place] [id number] [address] [place] [phone] Nov, [facility] [address] [place] [id number] [address] [place] [phone] Oct, Acute bronchitis, unspecifie d organism J20.9 [facility] [address] [place] [id number] [address] [place] [phone] 16 Oct, 2017 [facility] [address] [place] [id number] [address] [place] [address] Oct, Chronic pain disorder G89.4 and Primary insomnia F51.01 [facility] [address] [place] [id number] [address] [place] [phone] Oct, [facility] [address] [place] [id number] [address] [place] [phone] 05 Oct, 2017 Anxiety F41.9 and Essential hypertension I10 [facility] [address] [place] [id number] [address] [place] [phone] Sep, Primary insomnia F51.01 [facility] [address] [place] [address] Sep, Chronic pain disorder G89.4 [facility] [address] [place] [id number] [address] [place] [address] Sep, Essential hypertension I10 a nd Chronic pain disorder G89.4 [place] [address] [place] [address] Sep, Anxiety F41.9 and Chronic pa in disorder G89.4 [place] [address] [address] Sep, Controlled substance agreeme nt signed Z79.899 [place] [address] [address] Aug, Chronic pain disorder G89.4 and Primary insomnia F51.01 [facility] [address] [place] [address] Aug, Essential hypertension I10 ; Mixed hyperlipidemia E78.2 ; Primary insomnia F51.01 ; Tobacco abuse Z72.0 ; Chronic pain disorder G89.4 ; Acute suppurative otitis media of left ear without spontaneous rupture of tympanic membrane, recurrence not specified H66.002 ; Acute bronchitis, unspecified organism J20.9 and Anxiety F41.9 [facility] [address] [place] [address] Aug, [facility] [address] [place] [address] Aug, [facility] [address] [place] [id number] [address] [place] [address] Aug, Primary insomnia F51.01 [facility] [address] [facility] [id number] [address] [place] [address] Jul, Paronychia of finger of righ t hand L03.011 [facility] [address] [id number] [address] [place] [address] Jul, Primary insomnia F51.01 [facility] [address] [id number] [address] [place] [address] Jul, Mixed hyperlipidemia E78.2 [facility] [address] [id number] [address] [place] [address] Jul, Chronic pain disorder G89.4 [facility] [address] [id number] [address] [place] [address] Jun, Mixed hyperlipidemia E78.2 [facility] [address] [id number] [address] [place] [address] Jun, Primary insomnia F51.01 [facility] [address] [id number] [address] [place] [address] Jun, [facility] [address] [id number] [address] [place] [address] May, [facility] [address] [id number] [address] [place] [address] May, [facility] [address] [facility] [id number] [address] [place] [address] May, Chronic pain disorder G89.4 ; Bilateral otitis media with effusion H65.93 and Primary insomnia F51.01 [facility] [address] [id number] [address] [place] [address] May, Chronic pain disorder G89.4 [facility] [address] [id number] [address] [place] [phone] May, [facility] [address] [id number] [address] [place] [phone] May, [facility] [address] [id number] [address] [place] [address] May, [facility] [address] [id number] [address] [place] [phone] Apr, [facility] [address] [id number] [address] [place] [address] Apr, [facility] [address] [id number] [address] [place] [id number] 19 Apr, 2017 Coronary artery disease invo lving wrangell coronary artery of wrangell heart without angina pectoris I25.10 [facility] [address] [id number] [address] [place] [address] 18 Apr, 2017 Chronic pain disorder G89.4 [facility] [address] [id number] [address] [place] [phone] 15 Apr, 2017 Coronary artery disease invo lving wrangell coronary artery of wrangell heart without angina pectoris I25.10 ; Tobacco abuse Z72.0 ; Tobacco abuse counseling Z71.6 ; Obesity (BMI 30-39.9) E66.9 ; Acute reaction to situational stress F43.0 ; Mixed hyperlipidemia E78.2 ; Chronic pain disorder G89.4 and Right otitis media with effusion H65.91 [facility] [address] [id number] [address] [place] [address] Apr, Pain in right ankle and join ts of right foot M25.571 [facility] [address] [id number] [address] [place] [address] Apr, Pain in right ankle and join ts of right foot M25.571 and Coronary artery disease involving wrangell coronary artery of wrangell heart without angina pectoris I25.10 [facility] [address] [id number] [address] [place] [address] Mar, [facility] [address] [id number] [address] [place] [phone] Mar, [facility] [address] [id number] [address] [place] [address] Mar, [facility] [address] [id number] [address] [place] [address] Mar, Acute mucoid otitis media of both ears H65.113 and Dizziness R42 [facility] [address] [place] [id number] [address] [place] [address] Feb, [place] [id number] [address] [place] [address] Feb, Pain in right ankle and join ts of right foot M25.571 ; Pain in left finger(s) M79.645 and Coronary artery disease involving wrangell coronary artery of wrangell heart without angina pectoris I25.10 [place] [id number] [address] [place] [address] Feb, [place] [id number] [place] [phone] Feb, [place] [id number] [place] [address] Jan, [address] [address] Jan, Encounter for routine adult health examination with abnormal findings Z00.01 ; Foot pain, left M79.672 ; Pain in right ankle and joints of right foot M25.571 ; Chronic pain disorder G89.4 ; Coronary artery disease involving wrangell coronary artery of wrangell heart without angina pectoris I25.10 ; Tobacco abuse Z72.0 ; Tobacco abuse counseling Z71.6 and Obesity (BMI 30-39.9) E66.9 [facility] [address] [place] [id number] [address] [place] [address] Jan, [facility] [address] [facility] [id number] [address] [place] [address] [id number] 10 Mar, 2015 Dental examination V72.2 IMMUNIZATIONS No Known Immunizations SOCIAL HISTORY Never Assessed REASON FOR VISIT Refill request PLAN OF CARE VITAL SIGNS MEDICATIONS Medication Instructions Dosage Frequency Start Date End Date Duration S whitneyus Clopidogrel Bisulfate 75 MG Orally Once a day 1 tablet 24h 30 Active Duloxetine HCl 40 mg Orally Once a day 1 capsule 24h 30 Active Atorvastatin Calcium 80 MG Orally Once a day 1 tablet 24h Active RESULTS No Results PROCEDURES No Known procedures INSTRUCTIONS MEDICATIONS ADMINISTERED No Known Medications MEDICAL (GENERAL) HISTORY Type Description Date Medical History Arthritis Medical History 2 heart attacks with numerou s stents- 10 yrs ago and then 7 years ago- 1st DC- Promus 2.5 x 18 mm stent to LAD, 3.0x 23 mm stent to DIAG, 2.5x 15 mm stent to LAD/ 2nd DC- Promus 2.5 x12 to distal Circ and [...]
--- OUTSIDE RECORDS SUMMARY | 2019-12-11 14:37 | XMS REPORT ---
Author Author Reza WELCH Organization [facility] Address [address] [place] [address] Care Team Providers Care Cable Mechanic Name Role Phone OLIVER WELCH Unavailable PROBLEMS Type Condition ICD9-CM Code [id number] Code Onset Dates Condition S tatus SNOMED Code Problem Tobacco abuse Z72.0 Active 959660 000 Problem Pain in right ankle and joints of right foot M25.5 71 Active 740824718 Problem Tobacco abuse counseling Z71.6 Activ e 559457265 Problem Plantar fasciitis, bilateral M72.2 A ctive [id number] Problem Foot pain, left M79.672 Active 3167 [id number] Problem Coronary artery disease invo lving [place] coronary artery of [place] heart without angina pectoris I25.10 Active 1641 198258776 Problem Obesity (BMI 30-39.9) E66.9 Active 038501563 Problem Essential hypertension I10 Active 46059502 Problem Anxiety F41.9 Active 38099229 Problem Acute reaction to situational stress F43.0 Active 33367850 Problem Chronic pain disorder G89.4 Active 595209309 Problem Primary insomnia F51.01 Active 397 2004 Problem Mixed hyperlipidemia E78.2 Active 186487684 ALLERGIES No Information ENCOUNTERS Encounter Location Date Diagnosis [facility] [address] [place] [id number] [address] [place] [phone] Feb, Primary insomnia F51.01 [facility] [address] [facility] [id number] [address] [place] [phone] Jan, Essential hypertension I10 ; Mixed hyperlipidemia E78.2 ; Throat tightness R68.89 ; Left arm pain M79.602 ; Coronary artery disease involving [place] coronary artery of [place] heart without angina pectoris I25.10 ; Chronic pain disorder G89.4 ; Tobacco abuse counseling Z71.6 and Primary insomnia F51.01 [facility] [address] [place] [id number] [address] [place] [id number] 15 Jan, 2018 [facility] [address] [facility] [id number] [address] [place] [phone] December, Essential hypertension I10 a nd Mixed hyperlipidemia E78.2 [facility] [address] [facility] [id number] [address] [place] [phone] December, [facility] [address] [facility] [id number] [address] [place] [id number] December, Primary insomnia F51.01 [facility] [address] [facility] [id number] [address] [place] [phone] Nov, Chronic pain disorder G89.4 [facility] [address] [facility] [id number] [address] [place] [phone] Nov, [facility] [address] [facility] [id number] [address] [place] [phone] Oct, Acute bronchitis, unspecifie d organism J20.9 [facility] [address] [facility] [id number] [address] [place] [phone] Oct, [facility] [address] [facility] [id number] [address] [place] [phone] Oct, Chronic pain disorder G89.4 and Primary insomnia F51.01 [facility] [address] [facility] [id number] [address] [place] [id number] Oct, [facility] [address] [facility] [id number] [address] [place] [id number] 05 Oct, 2017 Anxiety F41.9 and Essential hypertension I10 [facility] [address] [facility] [id number] [address] [place] [phone] Sep, Primary insomnia F51.01 [facility] [address] [facility] [id number] [address] [place] [phone] Sep, Chronic pain disorder G89.4 [facility] [address] [address] Sep, Essential hypertension I10 a nd Chronic pain disorder G89.4 [place] [address] [address] 09 Sep, 2017 Anxiety F41.9 and Chronic pa in disorder G89.4 [place] [address] [address] 02 Sep, 2017 Controlled substance agreeme nt signed Z79.899 [place] [address] [address] Aug, Chronic pain disorder G89.4 and Primary insomnia F51.01 [place] [address] [address] Aug, Essential hypertension I10 ; Mixed hyperlipidemia E78.2 ; Primary insomnia F51.01 ; Tobacco abuse Z72.0 ; Chronic pain disorder G89.4 ; Acute suppurative otitis media of left ear without spontaneous rupture of tympanic membrane, recurrence not specified H66.002 ; Acute bronchitis, unspecified organism J20.9 and Anxiety F41.9 [place] [address] [address] Aug, [place] [address] [address] Aug, [place] [address] [address] Aug, Primary insomnia F51.01 [facility] [address] [address] Jul, Paronychia of finger of righ t hand L03.011 [place] [address] [address] Jul, Primary insomnia F51.01 [facility] [address] [address] Jul, Mixed hyperlipidemia E78.2 [facility] [address] [id number] [address] [place] [phone] Jul, Chronic pain disorder G89.4 [facility] [address] [id number] [address] [place] [phone] Jun, Mixed hyperlipidemia E78.2 [facility] [address] [id number] [address] [place] [id number] Jun, Primary insomnia F51.01 [facility] [address] [id number] [address] [place] [phone] Jun, [facility] [address] [id number] [address] [place] [phone] May, [facility] [address] [id number] [address] [place] [phone] May, [facility] [address] [id number] [address] [place] [phone] May, Chronic pain disorder G89.4 ; Bilateral otitis media with effusion H65.93 and Primary insomnia F51.01 [facility] [address] [id number] [address] [place] [phone] May, Chronic pain disorder G89.4 [facility] [address] [id number] [address] [place] [phone] May, [facility] [address] [id number] [address] [place] [phone] May, [facility] [address] [id number] [address] [place] [phone] May, [facility] [address] [id number] [address] [place] [phone] Apr, [facility] [address] [id number] [address] [place] [phone] Apr, [facility] [address] [id number] [address] [place] [phone] Apr, Coronary artery disease invo lving [place] coronary artery of [place] heart without angina pectoris I25.10 [facility] [address] [id number] [address] [place] [phone] 18 Apr, 2017 Chronic pain disorder G89.4 [facility] [address] [id number] [address] [place] [phone] 15 Apr, 2017 Coronary artery disease invo lving [place] coronary artery of [place] heart without angina pectoris I25.10 ; Tobacco abuse Z72.0 ; Tobacco abuse counseling Z71.6 ; Obesity (BMI 30-39.9) E66.9 ; Acute reaction to situational stress F43.0 ; Mixed hyperlipidemia E78.2 ; Chronic pain disorder G89.4 and Right otitis media with effusion H65.91 [facility] [address] [id number] [address] [place] [id number] 13 Apr, 2017 Pain in right ankle and join ts of right foot M25.571 [place] [address] [id number] [address] [place] [phone] Apr, Pain in right ankle and join ts of right foot M25.571 and Coronary artery disease involving [place] coronary artery of [place] heart without angina pectoris I25.10 [facility] [address] [id number] [address] [place] [id number] Mar, [facility] [address] [id number] [address] [place] [phone] Mar, [facility] [address] [id number] [address] [place] [phone] Mar, [facility] [address] [id number] [address] [place] [phone] Mar, Acute mucoid otitis media of both ears H65.113 and Dizziness R42 [facility] [address] [id number] [address] [place] [phone] Feb, [facility] [address] [id number] [address] [place] [phone] Feb, Pain in right ankle and join ts of right foot M25.571 ; Pain in left finger(s) M79.645 and Coronary artery disease involving [place] coronary artery of [place] heart without angina pectoris I25.10 [facility] [address] [facility] [id number] [address] [place] [phone] Feb, [facility] [address] [facility] [id number] [address] [place] [phone] Feb, [facility] [address] [facility] [id number] [address] [place] [phone] Jan, [facility] [address] [facility] [id number] [address] [place] [phone] Jan, Encounter for routine adult health examination with abnormal findings Z00.01 ; Foot pain, left M79.672 ; Pain in right ankle and joints of right foot M25.571 ; Chronic pain disorder G89.4 ; Coronary artery disease involving [place] coronary artery of [place] heart without angina pectoris I25.10 ; Tobacco abuse Z72.0 ; Tobacco abuse counseling Z71.6 and Obesity (BMI 30-39.9) E66.9 [facility] [address] [facility] [id number] [address] [place] [phone] Jan, [facility] [address] [facility] [id number] [address] [place] [id number] Mar, Dental examination V72.2 IMMUNIZATIONS No Known [...] ago and then 7 years ago- 1st [place]- Promus 2.5 x 18 mm stent to LAD, 3.0x 23 mm stent to DIAG, 2.5x 15 mm stent to LAD/ 2nd [place]- Promus 2.5 x12 to distal Circ and [...]
--- OUTSIDE RECORDS SUMMARY | 2019-12-11 14:37 | XMS REPORT ---
Author Author Reza WELCH Organization [facility] Address [address] [place] [address] Care Team Providers Care It Network Engineer Name Role Phone OLIVER WELCH Unavailable PROBLEMS Type Condition ICD9-CM Code [id number] Code Onset Dates Condition S tatus SNOMED Code Problem Tobacco abuse Z72.0 Active 921873 000 Problem Pain in right ankle and joints of right foot M25.5 71 Active 461886042 Problem Tobacco abuse counseling Z71.6 Activ e 883213364 Problem Plantar fasciitis, bilateral M72.2 A ctive [id number] Problem Foot pain, left M79.672 Active 3167 09273890350 Problem Coronary artery disease invo lving [place] coronary artery of [place] heart without angina pectoris I25.10 Active 1641 247724864 Problem Obesity (BMI 30-39.9) E66.9 Active 461555029 Problem Essential hypertension I10 Active 80647932 Problem Anxiety F41.9 Active 58657510 Problem Acute reaction to situational stress F43.0 Active 32180673 Problem Chronic pain disorder G89.4 Active 908106206 Problem Primary insomnia F51.01 Active 397 2004 Problem Mixed hyperlipidemia E78.2 Active 816034572 ALLERGIES No Information ENCOUNTERS Encounter Location Date Diagnosis [facility] [address] [facility] [id number] [address] [place] [phone] Mar, [facility] [address] [facility] [id number] [address] [place] [phone] Feb, Primary insomnia F51.01 [facility] [address] [facility] [id number] [address] [place] [phone] Jan, Essential hypertension I10 ; Mixed hyperlipidemia E78.2 ; Throat tightness R68.89 ; Left arm pain M79.602 ; Coronary artery disease involving [place] coronary artery of [place] heart without angina pectoris I25.10 ; Chronic pain disorder G89.4 ; Tobacco abuse counseling Z71.6 and Primary insomnia F51.01 [facility] [address] [id number] Jan, [facility] [address] [place] [id number] [address] [place] [phone] December, Essential hypertension I10 a nd Mixed hyperlipidemia E78.2 [facility] [address] [address] December, [facility] [address] [address] December, Primary insomnia F51.01 [place] [address] [address] Nov, Chronic pain disorder G89.4 [place] [address] [address] Nov, [facility] [address] [address] Oct, Acute bronchitis, unspecifie d organism J20.9 [place] [address] [address] 16 Oct, 2017 [place] [address] [address] Oct, Chronic pain disorder G89.4 and Primary insomnia F51.01 [facility] [address] [place] [id number] [address] [place] [phone] Oct, [facility] [address] [address] 05 Oct, 2017 Anxiety F41.9 and Essential hypertension I10 [facility] [address] [place] [id number] [address] [place] [address] Sep, Primary insomnia F51.01 [facility] [address] [place] [id number] [address] [place] [address] Sep, Chronic pain disorder G89.4 [facility] [address] [place] [address] Sep, Essential hypertension I10 a nd Chronic pain disorder G89.4 [facility] [address] [place] [address] Sep, Anxiety F41.9 and Chronic pa in disorder G89.4 [place] [address] [address] Sep, Controlled substance agreeme nt signed Z79.899 [place] [address] [address] Aug, Chronic pain disorder G89.4 and Primary insomnia F51.01 [place] [address] [address] Aug, Essential hypertension I10 ; Mixed hyperlipidemia E78.2 ; Primary insomnia F51.01 ; Tobacco abuse Z72.0 ; Chronic pain disorder G89.4 ; Acute suppurative otitis media of left ear without spontaneous rupture of tympanic membrane, recurrence not specified H66.002 ; Acute bronchitis, unspecified organism J20.9 and Anxiety F41.9 [place] [address] [place] [id number] [address] [place] [phone] Aug, [place] [address] [address] Aug, [facility] [address] [place] [id number] [address] [place] [address] Aug, Primary insomnia F51.01 [facility] [address] [place] [address] Jul, Paronychia of finger of righ t hand L03.011 [facility] [address] [place] [id number] [address] [place] [address] Jul, Primary insomnia F51.01 [place] [address] [id number] [address] [place] [address] Jul, Mixed hyperlipidemia E78.2 [facility] [address] [id number] [address] [place] [phone] Jul, Chronic pain disorder G89.4 [facility] [address] [id number] [address] [place] [phone] Jun, Mixed hyperlipidemia E78.2 [facility] [address] [id number] [address] [place] [address] Jun, Primary insomnia F51.01 [facility] [address] [id number] [address] [place] [phone] Jun, [facility] [address] [id number] [address] [place] [phone] May, [facility] [address] [id number] [address] [place] [phone] May, [facility] [address] [id number] [address] [place] [phone] May, Chronic pain disorder G89.4 ; Bilateral otitis media with effusion H65.93 and Primary insomnia F51.01 [facility] [address] [id number] [address] [place] [address] May, Chronic pain disorder G89.4 [facility] [address] [id number] [address] [place] [address] May, [facility] [address] [id number] [address] [place] [address] May, [facility] [address] [id number] [address] [place] [phone] May, [facility] [address] [id number] [address] [place] [phone] Apr, [facility] [address] [id number] [address] [place] [phone] Apr, [facility] [address] [id number] [address] [place] [id number] 19 Apr, 2017 Coronary artery disease invo lving [place] coronary artery of [place] heart without angina pectoris I25.10 [facility] [address] [id number] [address] [place] [phone] 18 Apr, 2017 Chronic pain disorder G89.4 [facility] [address] [id number] [address] [place] [address] 15 Apr, 2017 Coronary artery disease invo lving [place] coronary artery of [place] heart without angina pectoris I25.10 ; Tobacco abuse Z72.0 ; Tobacco abuse counseling Z71.6 ; Obesity (BMI 30-39.9) E66.9 ; Acute reaction to situational stress F43.0 ; Mixed hyperlipidemia E78.2 ; Chronic pain disorder G89.4 and Right otitis media with effusion H65.91 [place] [id number] [id number] [address] [place] [address] Apr, Pain in right ankle and join ts of right foot M25.571 [place] [address] [id number] [address] [place] [address] Apr, Pain in right ankle and join ts of right foot M25.571 and Coronary artery disease involving [place] coronary artery of [place] heart without angina pectoris I25.10 [facility] [address] [id number] [address] [place] [address] Mar, [facility] [address] [id number] [address] [place] [phone] Mar, [facility] [address] [id number] [address] [place] [phone] Mar, [facility] [address] [facility] [id number] [address] [place] [phone] Mar, Acute mucoid otitis media of both ears H65.113 and Dizziness R42 [facility] [address] [id number] [address] [place] [phone] Feb, [place] [address] [facility] [id number] [address] [place] [phone] Feb, Pain in right ankle and join ts of right foot M25.571 ; Pain in left finger(s) M79.645 and Coronary artery disease involving [place] coronary artery of [place] heart without angina pectoris I25.10 [place] [address] [place] [id number] [address] [place] [phone] Feb, [place] [address] [place] [id number] [address] [place] [phone] Feb, [place] [address] [place] [id number] [address] [place] [phone] Jan, [place] [address] [place] [id number] [address] [place] [id number] Jan, Encounter for routine adult health examination with abnormal findings Z00.01 ; Foot pain, left M79.672 ; Pain in right ankle and joints of right foot M25.571 ; Chronic pain disorder G89.4 ; Coronary artery disease involving [place] coronary artery of [place] heart without angina pectoris I25.10 ; Tobacco abuse Z72.0 ; Tobacco abuse counseling Z71.6 and Obesity (BMI 30-39.9) E66.9 [place] [id number] [address] [place] [phone] Jan, [facility] [address] [facility] [id number] [address] [place] [id number] Mar, Dental examination V72.2 IMMUNIZATIONS No Known [...]
--- OUTSIDE RECORDS SUMMARY | 2019-12-11 14:38 | XMS REPORT ---
Author Author Reza WELCH Organization [facility] Address [address] [place] [address] Care Team Providers Care Press Set Up Name Role Phone OLIVER WELCH Unavailable PROBLEMS Type Condition ICD9-CM Code MZH80-QX Code Onset Dates Condition S tatus SNOMED Code Problem Tobacco abuse Z72.0 Active 306941 000 Problem Pain in right ankle and joints of right foot M25.5 71 Active 709928870 Problem Tobacco abuse counseling Z71.6 Activ e 397828740 Problem Plantar fasciitis, bilateral M72.2 A ctive 40684506532247927 Problem Foot pain, left M79.672 Active 3167 91757046751 Problem Coronary artery disease invo lving [place] coronary artery of [place] heart without angina pectoris I25.10 Active 1641 057567705 Problem Obesity (BMI 30-39.9) E66.9 Active 083537489 Problem Essential hypertension I10 Active 15672185 Problem Anxiety F41.9 Active 49200409 Problem Acute reaction to situational stress F43.0 Active 43712219 Problem Chronic pain disorder G89.4 Active 253415450 Problem Primary insomnia F51.01 Active 397 2004 Problem Mixed hyperlipidemia E78.2 Active 038834962 ALLERGIES No Information ENCOUNTERS Encounter Location Date Diagnosis [facility] [address] [place] [id number] [address] [place] [phone] Feb, Primary insomnia F51.01 [facility] [address] [facility] [id number] [address] [place] [phone] Jan, Essential hypertension I10 ; Mixed hyperlipidemia E78.2 ; Throat tightness R68.89 ; Left arm pain M79.602 ; Coronary artery disease involving [place] coronary artery of [place] heart without angina pectoris I25.10 ; Chronic pain disorder G89.4 ; Tobacco abuse counseling Z71.6 and Primary insomnia F51.01 [facility] [address] [place] [id number] [address] [place] [id number] 15 Jan, 2018 [facility] [address] [facility] [id number] [address] [place] [address] December, Essential hypertension I10 a nd Mixed hyperlipidemia E78.2 [facility] [address] [facility] [id number] [address] [place] [phone] December, [facility] [address] [facility] [id number] [address] [place] [phone] December, Primary insomnia F51.01 [facility] [address] [facility] [id number] [address] [place] [phone] Nov, Chronic pain disorder G89.4 [facility] [address] [facility] [id number] [address] [place] [phone] Nov, [facility] [address] [facility] [id number] [address] [place] [phone] Oct, Acute bronchitis, unspecifie d organism J20.9 [facility] [address] [facility] [id number] [address] [place] [phone] Oct, [facility] [address] [facility] [id number] [address] [place] [phone] Oct, Chronic pain disorder G89.4 and Primary insomnia F51.01 [facility] [address] [facility] [id number] [address] [place] [phone] Oct, [facility] [address] [facility] [id number] [address] [place] [phone] 05 Oct, 2017 Anxiety F41.9 and Essential hypertension I10 [facility] [address] [facility] [id number] [address] [place] [phone] Sep, Primary insomnia F51.01 [facility] [address] [facility] [id number] [address] [place] [phone] Sep, Chronic pain disorder G89.4 [facility] [address] [address] Sep, Essential hypertension I10 a nd Chronic pain disorder G89.4 [place] [address] [address] 09 Sep, 2017 Anxiety F41.9 and Chronic pa in disorder G89.4 [place] [address] [address] 02 Sep, 2017 Controlled substance agreeme nt signed Z79.899 [place] [address] [address] Aug, Chronic pain disorder G89.4 and Primary insomnia F51.01 [place] [address] [address] Aug, Essential hypertension I10 ; Mixed hyperlipidemia E78.2 ; Primary insomnia F51.01 ; Tobacco abuse Z72.0 ; Chronic pain disorder G89.4 ; Acute suppurative otitis media of left ear without spontaneous rupture of tympanic membrane, recurrence not specified H66.002 ; Acute bronchitis, unspecified organism J20.9 and Anxiety F41.9 [place] [address] [address] Aug, [place] [address] [address] Aug, [place] [address] [address] Aug, Primary insomnia F51.01 [facility] [address] [address] Jul, Paronychia of finger of righ t hand L03.011 [place] [address] [address] Jul, Primary insomnia F51.01 [facility] [address] [address] Jul, Mixed hyperlipidemia E78.2 [facility] [address] [id number] [address] [place] [id number] Jul, Chronic pain disorder G89.4 [facility] [address] [id number] [address] [place] [phone] Jun, Mixed hyperlipidemia E78.2 [facility] [address] [id number] [address] [place] [phone] Jun, Primary insomnia F51.01 [facility] [address] [id number] [address] [place] [phone] Jun, [facility] [address] [id number] [address] [place] [phone] May, [facility] [address] [id number] [address] [place] [phone] May, [facility] [address] [id number] [address] [place] [phone] May, Chronic pain disorder G89.4 ; Bilateral otitis media with effusion H65.93 and Primary insomnia F51.01 [facility] [address] [id number] [address] [place] [phone] May, Chronic pain disorder G89.4 [facility] [address] [id number] [address] [place] [phone] May, [facility] [address] [id number] [address] [place] [phone] May, [facility] [address] [id number] [address] [place] [phone] May, [facility] [address] [id number] [address] [place] [id number] Apr, [facility] [address] [id number] [address] [place] [id number] Apr, [facility] [address] [id number] [address] [place] [phone] Apr, Coronary artery disease invo lving [place] coronary artery of [place] heart without angina pectoris I25.10 [facility] [address] [id number] [address] [place] [id number] 18 Apr, 2017 Chronic pain disorder G89.4 [facility] [address] [id number] [address] [place] [id number] 15 Apr, 2017 Coronary artery disease invo lving [place] coronary artery of [place] heart without angina pectoris I25.10 ; Tobacco abuse Z72.0 ; Tobacco abuse counseling Z71.6 ; Obesity (BMI 30-39.9) E66.9 ; Acute reaction to situational stress F43.0 ; Mixed hyperlipidemia E78.2 ; Chronic pain disorder G89.4 and Right otitis media with effusion H65.91 [facility] [address] [id number] [address] [place] [phone] 13 Apr, 2017 Pain in right ankle and join ts of right foot M25.571 [place] [address] [id number] [address] [place] [address] Apr, Pain in right ankle and join ts of right foot M25.571 and Coronary artery disease involving [place] coronary artery of [place] heart without angina pectoris I25.10 [facility] [address] [id number] [address] [place] [phone] Mar, [facility] [address] [id number] [address] [place] [phone] Mar, [facility] [address] [id number] [address] [place] [address] Mar, [facility] [address] [id number] [address] [place] [id number] Mar, Acute mucoid otitis media of both ears H65.[address] [facility] [address] [id number] [address] [place] [phone] Feb, [facility] [address] [id number] [address] [place] [phone] Feb, Pain in right ankle and join ts of right foot M25.571 ; Pain in left finger(s) M79.645 and Coronary artery disease involving [place] coronary artery of [place] heart without angina pectoris I25.10 [facility] [address] [facility] [id number] [address] [place] [phone] Feb, [facility] [address] [facility] [id number] [address] [place] [phone] Feb, [facility] [address] [facility] [id number] [address] [place] [phone] Jan, [facility] [address] [facility] [id number] [address] [place] [phone] Jan, Encounter for routine adult health examination with abnormal findings Z00.01 ; Foot pain, left M79.672 ; Pain in right ankle and joints of right foot M25.571 ; Chronic pain disorder G89.4 ; Coronary artery disease involving [place] coronary artery of [place] heart without angina pectoris I25.10 ; Tobacco abuse Z72.0 ; Tobacco abuse counseling Z71.6 and Obesity (BMI 30-39.9) E66.9 [facility] [address] [facility] [id number] [address] [place] [phone] Jan, [facility] [address] [facility] [id number] [address] [place] [id number] Mar, Dental examination V72.2 IMMUNIZATIONS No Known Immunizations SOCIAL HISTORY Never Assessed REASON FOR VISIT refill request PLAN OF CARE VITAL SIGNS MEDICATIONS Medication Instructions Dosage Frequency Start Date End Date Duration S tatus Aspir-81 81 MG Orally Once a day 1 tablet 24h 3 Jan, 2018 30 days Active Clonidine HCl 0.1 MG Orally twice a day PRN 1 tablet May, 7 30 days Active RESULTS No Results PROCEDURES No Known procedures INSTRUCTIONS MEDICATIONS ADMINISTERED No Known Medications MEDICAL (GENERAL) HISTORY Type Description Date Medical History Arthritis Medical History 2 heart attacks with numerou s stents- 10 yrs ago and then 7 years ago- 1st [place]- Promus 2.5 x 18 mm stent to LAD, 3.0x 23 mm stent to DIAG, 2.5x 15 mm stent to LAD/ 2nd [place]- Promus 2.5 x12 to distal Circ and [...]
--- OUTSIDE RECORDS SUMMARY | 2019-12-11 14:38 | XMS REPORT ---
Author Author Reza WELCH Organization [facility] [place] Address [address] [place] [address] Care Team Providers Care Residence Director Name Role Phone REBEKAH OLIVER Unavailable PROBLEMS Type Condition ICD9-CM Code MCW82-OF Code Onset Dates Condition S tatus SNOMED Code Problem Tobacco abuse Z72.0 Active 081534 000 Problem Pain in right ankle and joints of right foot M25.5 71 Active 996244740 Problem Tobacco abuse counseling Z71.6 Activ e 652770706 Problem Plantar fasciitis, bilateral M72.2 A ctive 92025088170511113 Problem Foot pain, left M79.672 Active 3167 42722201589 Problem Coronary artery disease invo lving [place] coronary artery of [place] heart without angina pectoris I25.10 Active 1641 089679217 Problem Obesity (BMI 30-39.9) E66.9 Active 832461272 Problem Essential hypertension I10 Active 56465246 Problem Anxiety F41.9 Active 87296393 Problem Acute reaction to situational stress F43.0 Active 99179038 Problem Chronic pain disorder G89.4 Active 014377438 Problem Primary insomnia F51.01 Active 397 2004 Problem Mixed hyperlipidemia E78.2 Active 453310599 ALLERGIES No Information ENCOUNTERS Encounter Location Date Diagnosis [facility] [place] [address] [facility] [id number] [address] [place] [phone] 16 Oct, 2017 [facility] [place] [address] [facility] [id number] [address] [place] [id number] 15 Oct, 2017 Chronic pain disorder G89.4 and Primary insomnia F51.01 [facility] [place] [address] [facility] [id number] [address] [place] [phone] 14 Oct, 2017 [facility] [place] [address] [facility] [id number] [address] [place] [phone] 05 Oct, 2017 Anxiety F41.9 and Essential hypertension I10 [facility] [place] [address] [facility] [id number] [address] [place] [phone] Sep, Primary insomnia F51.01 [facility] [place] [address] [facility] [id number] [address] [place] [phone] Sep, Chronic pain disorder G89.4 [facility] [place] [address] [facility] [id number] [address] [place] [phone] Sep, Essential hypertension I10 a nd Chronic pain disorder G89.4 [facility] [place] [address] [facility] [id number] [address] [place] [phone] Sep, Anxiety F41.9 and Chronic pa in disorder G89.4 [facility] [place] [address] [facility] [id number] [address] [place] [id number] Sep, Controlled substance agreeme nt signed Z79.899 [place] [address] [place] [id number] [address] [place] [phone] Aug, Chronic pain disorder G89.4 and Primary insomnia F51.01 [facility] [place] [address] [facility] [id number] [address] [place] [phone] Aug, Essential hypertension I10 ; Mixed hyperlipidemia E78.2 ; Primary insomnia F51.01 ; Tobacco abuse Z72.0 ; Chronic pain disorder G89.4 ; Acute suppurative otitis media of left ear without spontaneous rupture of tympanic membrane, recurrence not specified H66.002 ; Acute bronchitis, unspecified organism J20.9 and Anxiety F41.9 [facility] [place] [address] [facility] [id number] [address] [place] [phone] Aug, [facility] [place] [address] [facility] [id number] [address] [place] [phone] Aug, [facility] [place] [address] [facility] [id number] [address] [place] [phone] Aug, Primary insomnia F51.01 [facility] [address] [facility] [id number] [address] [place] [phone] Jul, Paronychia of finger of righ t hand L03.011 [facility] [place] [address] [id number] [address] [place] [phone] Jul, Primary insomnia F51.01 [facility] [place] [address] [id number] [address] [place] [phone] Jul, Mixed hyperlipidemia E78.2 [facility] [place] [address] [id number] [address] [place] [phone] Jul, Chronic pain disorder G89.4 [facility] [place] [address] [id number] [address] [place] [phone] Jun, Mixed hyperlipidemia E78.2 [facility] [place] [address] [id number] [address] [place] [phone] Jun, Primary insomnia F51.01 [facility] [place] [address] [id number] [address] [place] [phone] Jun, [facility] [place] [address] [id number] [address] [place] [phone] May, [facility] [place] [address] [facility] [id number] [address] [place] [phone] May, [facility] [place] [address] [facility] [id number] [address] [place] [phone] May, Chronic pain disorder G89.4 ; Bilateral otitis media with effusion H65.93 and Primary insomnia F51.01 [facility] [place] [address] [id number] [address] [place] [phone] May, Chronic pain disorder G89.4 [facility] [place] [address] [facility] [id number] [address] [place] [phone] May, [facility] [place] [address] [facility] [id number] [address] [place] [phone] May, [facility] [place] [address] [facility] [id number] [address] [place] [phone] May, [facility] [place] [address] [id number] [address] [place] [phone] Apr, [facility] [place] [address] [id number] [address] [place] [phone] Apr, [facility] [place] [address] [id number] [address] [place] [phone] 19 Apr, 2017 Coronary artery disease invo lving [place] coronary artery of [place] heart without angina pectoris I25.10 [facility] [place] [address] [id number] [address] [place] [phone] 18 Apr, 2017 Chronic pain disorder G89.4 [facility] [place] [address] [id number] [address] [place] [phone] 15 Apr, 2017 Coronary artery disease invo lving [place] coronary artery of [place] heart without angina pectoris I25.10 ; Tobacco abuse Z72.0 ; Tobacco abuse counseling Z71.6 ; Obesity (BMI 30-39.9) E66.9 ; Acute reaction to situational stress F43.0 ; Mixed hyperlipidemia E78.2 ; Chronic pain disorder G89.4 and Right otitis media with effusion H65.91 [facility] [place] [address] [id number] [address] [place] [phone] Apr, Pain in right ankle and join ts of right foot M25.571 [facility] [place] [address] [id number] [address] [place] [phone] Apr, Pain in right ankle and join ts of right foot M25.571 and Coronary artery disease involving [place] coronary artery of [place] heart without angina pectoris I25.10 [facility] [place] [address] [id number] [address] [place] [phone] Mar, [facility] [place] [address] [id number] [address] [place] [phone] Mar, [facility] [place] [address] [id number] [address] [place] [phone] Mar, [facility] [place] [address] [id number] [address] [place] [phone] Mar, Acute mucoid otitis media of both ears H65.113 and Dizziness R42 [address] [address] Feb, [address] [address] Feb, Pain in right ankle and join ts of right foot M25.571 ; Pain in left finger(s) M79.645 and Coronary artery disease involving [place] coronary artery of [place] heart without angina pectoris I25.[address] [address] Feb, [place] [address] [address] Feb, [address] [address] Jan, [address] [address] Jan, Encounter for routine adult health examination with abnormal findings Z00.01 ; Foot pain, left M79.672 ; Pain in right ankle and joints of right foot M25.571 ; Chronic pain disorder G89.4 ; Coronary artery disease involving [place] coronary artery of [place] heart without angina pectoris I25.10 ; Tobacco abuse Z72.0 ; Tobacco abuse counseling Z71.6 and Obesity (BMI 30-39.9) E66.9 [place] [id number] [place] [phone] Jan, [facility] [address] [facility] [id number] [address] [place] [id number] Mar, Dental examination V72.2 IMMUNIZATIONS No Known Immunizations SOCIAL HISTORY Never Assessed REASON FOR VISIT Controlled Refill Request PLAN OF CARE VITAL SIGNS MEDICATIONS Medication Instructions Dosage Frequency Start Date End Date Duration S tatus Tramadol HCl 50 mg Orally every 6 hrs 1 tablet as needed 6h Feb, 28 days Active RESULTS No Results PROCEDURES [...]
--- OUTSIDE RECORDS SUMMARY | 2019-12-11 14:38 | XMS REPORT ---
Author Author Reza WELCH Organization [facility] Address [address] [place] [address] Care Team Providers Care Sports Therapist Name Role Phone OLIVER WELCH Unavailable PROBLEMS Type Condition ICD9-CM Code XKU95-CF Code Onset Dates Condition S tatus SNOMED Code Problem Tobacco abuse Z72.0 Active 502777 000 Problem Pain in right ankle and joints of right foot M25.5 71 Active 986601535 Problem Tobacco abuse counseling Z71.6 Activ e 878798455 Problem Plantar fasciitis, bilateral M72.2 A ctive 26117897466547001 Problem Foot pain, left M79.672 Active 3167 49481965514 Problem Coronary artery disease invo lving [place] coronary artery of [place] heart without angina pectoris I25.10 Active 1641 725929849 Problem Obesity (BMI 30-39.9) E66.9 Active 621153431 Problem Essential hypertension I10 Active 79354286 Problem Anxiety F41.9 Active 47070124 Problem Acute reaction to situational stress F43.0 Active 33251597 Problem Chronic pain disorder G89.4 Active 282956785 Problem Primary insomnia F51.01 Active 397 2004 Problem Mixed hyperlipidemia E78.2 Active 948378518 ALLERGIES Substance Reaction Event Type Date Status Augmentin Unknown Drug Allergy May, Active ENCOUNTERS Encounter Location Date Diagnosis [facility] [address] [facility] [id number] [address] [place] [phone] December, Primary insomnia F51.01 [facility] [address] [facility] [id number] [address] [place] [phone] Nov, Chronic pain disorder G89.4 [facility] [address] [facility] [id number] [address] [place] [phone] Nov, [facility] [address] [facility] [id number] [address] [place] [phone] Oct, Acute bronchitis, unspecifie d organism J20.9 [place] [address] [address] Oct, [place] [address] [place] [address] Oct, Chronic pain disorder G89.4 and Primary insomnia F51.01 [place] [address] [address] Oct, [place] [address] [address] 05 Oct, 2017 Anxiety F41.9 and Essential hypertension I10 [place] [address] [address] Sep, Primary insomnia F51.01 [place] [address] [address] Sep, Chronic pain disorder G89.4 [place] [address] [address] Sep, Essential hypertension I10 a nd Chronic pain disorder G89.4 [place] [address] [address] Sep, Anxiety F41.9 and Chronic pa in disorder G89.4 [place] [address] [address] Sep, Controlled substance agreeme nt signed Z79.899 [place] [address] [address] Aug, Chronic pain disorder G89.4 and Primary insomnia F51.01 [place] [address] [address] Aug, Essential hypertension I10 ; Mixed hyperlipidemia E78.2 ; Primary insomnia F51.01 ; Tobacco abuse Z72.0 ; Chronic pain disorder G89.4 ; Acute suppurative otitis media of left ear without spontaneous rupture of tympanic membrane, recurrence not specified H66.002 ; Acute bronchitis, unspecified organism J20.9 and Anxiety F41.9 [facility] [address] [place] [id number] [address] [place] [phone] Aug, [facility] [address] [place] [id number] [address] [place] [address] Aug, [facility] [address] [place] [address] Aug, Primary insomnia F51.01 [facility] [address] [facility] [id number] [address] [place] [address] Jul, Paronychia of finger of righ t hand L03.011 [facility] [address] [place] [id number] [address] [place] [phone] Jul, Primary insomnia F51.01 [facility] [address] [place] [id number] [address] [place] [address] Jul, Mixed hyperlipidemia E78.2 [facility] [address] [address] Jul, Chronic pain disorder G89.4 [facility] [address] [place] [id number] [address] [place] [phone] 17 Jun, 2017 Mixed hyperlipidemia E78.2 [facility] [address] [place] [id number] [address] [place] [address] 16 Jun, 2017 Primary insomnia F51.01 [facility] [address] [place] [id number] [address] [place] [phone] Jun, [facility] [address] [place] [id number] [address] [place] [phone] May, [facility] [address] [place] [id number] [address] [place] [phone] May, [facility] [address] [place] [id number] [place] [address] May, Chronic pain disorder G89.4 ; Bilateral otitis media with effusion H65.93 and Primary insomnia F51.01 [facility] [address] [id number] [address] [place] [phone] May, Chronic pain disorder G89.4 [facility] [address] [id number] [address] [place] [phone] May, [facility] [address] [id number] [address] [place] [phone] May, [facility] [address] [id number] [address] [place] [phone] May, [facility] [address] [id number] [address] [place] [phone] 22 Apr, 2017 [facility] [address] [id number] [address] [place] [phone] Apr, [facility] [address] [id number] [address] [place] [phone] 19 Apr, 2017 Coronary artery disease invo lving [place] coronary artery of [place] heart without angina pectoris I25.10 [facility] [address] [facility] [id number] [address] [place] [phone] 18 Apr, 2017 Chronic pain disorder G89.4 [facility] [address] [id number] [address] [place] [phone] 15 Apr, 2017 Coronary artery disease invo lving [place] coronary artery of [place] heart without angina pectoris I25.10 ; Tobacco abuse Z72.0 ; Tobacco abuse counseling Z71.6 ; Obesity (BMI 30-39.9) E66.9 ; Acute reaction to situational stress F43.0 ; Mixed hyperlipidemia E78.2 ; Chronic pain disorder G89.4 and Right otitis media with effusion H65.91 [facility] [address] [id number] [address] [place] [phone] 13 Apr, 2017 Pain in right ankle and join ts of right foot M25.571 [facility] [address] [id number] [address] [place] [address] Apr, Pain in right ankle and join ts of right foot M25.571 and Coronary artery disease involving [place] coronary artery of [place] heart without angina pectoris I25.10 [facility] [address] [id number] [address] [place] [phone] Mar, [place] [address] [id number] [address] [place] [phone] Mar, [place] [address] [id number] [address] [place] [address] Mar, [place] [address] [id number] [address] [place] [address] Mar, Acute mucoid otitis media of both ears H65.113 and Dizziness R42 [address] [id number] [address] [place] [phone] Feb, [place] [address] [id number] [address] [place] [address] Feb, Pain in right ankle and join ts of right foot M25.571 ; Pain in left finger(s) M79.645 and Coronary artery disease involving [place] coronary artery of [place] heart without angina pectoris I25.10 [place] [id number] [id number] [address] [place] [phone] Feb, [place] [address] [facility] [id number] [address] [place] [phone] Feb, [place] [address] [id number] [address] [place] [phone] Jan, [address] [id number] [address] [place] [address] Jan, Encounter for routine adult health examination with abnormal findings Z00.01 ; Foot pain, left M79.672 ; Pain in right ankle and joints of right foot M25.571 ; Chronic pain disorder G89.4 ; Coronary artery disease involving [place] coronary artery of [place] heart without angina pectoris I25.10 ; Tobacco abuse Z72.0 ; Tobacco abuse counseling Z71.6 and Obesity (BMI 30-39.9) E66.9 [facility] [address] [id number] [address] [place] [address] Jan, [facility] [address] [id number] [address] [place] [id number] Mar, Dental examination V72.2 IMMUNIZATIONS No Known Immunizations SOCIAL HISTORY Never Assessed REASON FOR VISIT Ear c/o-both ears are clogged and cannot hear, pt has tubes in his ears-AHarryma nRN PLAN OF CARE Activity Details Follow Up prn Reason: VITAL SIGNS Height 69 in 2017-05-20 Weight 230.3 lbs 2017-05-20 Temperature 98.1 degrees Fahrenheit 2017-05-20 Heart Rate 86 bpm 2017-05-20 Respiratory Rate 20 2017-05-20 BMI 34.01 kg/m2 2017-05-20 Blood pressure systolic 136 mmHg 2017-05-20 Blood pressure diastolic 98 mmHg 2017-05-20 MEDICATIONS Medication Instructions Dosage Frequency Start Date End Date Duration S tatus Atorvastatin Calcium 80 MG Orally Once a day 1 tablet 24h 90 days Active Clopidogrel Bisulfate 75 MG Orally Once a day 1 tablet 24h 90 days Active Lyrica 75 MG Orally Twice a day 1 capsule 12h Apr, 9 0 days Active Aspir-81 81 MG Orally Once a day 1 tablet 24h 30 day s Active Duloxetine HCl 40 mg Orally Once a day 1 capsule 24h Apr, 30 day(s) Active Tramadol HCl 50 mg Orally every 6 hrs 1 tablet as needed 6h 28 days Active Ambien 10 mg Orally Once a day 1 tablet at bedtime as needed 24h 28 days Active Atenolol 25 MG Orally twice a day 2 tablet 12h 90 da ys Active Clonidine HCl 0.1 MG Orally twice a day 1 tablet at bedtime 12h 06 May, 2017 30 day(s) Active Meclizine HCl 25 MG Orally 3 times a day 1 tablet as needed 8h 03 Mar, 2017 10 days Active Azithromycin 250 MG Orally Once a day 2 tablets on the fi rst day, then 1 tablet daily for 4 days 24h 16 May, 2017 May, 5 day(s) Active Ciprodex 0.3-0.1 % Otic Twice a day 4 drops into affected ear 12h 16 May, 2017 10 days Active RESULTS No Results PROCEDURES No [...]
--- OUTSIDE RECORDS SUMMARY | 2019-12-11 14:38 | XMS REPORT ---
Author Author Reza WELCH Organization [facility] Address [address] [place] [address] Care Team Providers Care Biomedical Scientist Name Role Phone OLIVER WELCH Unavailable PROBLEMS Type Condition ICD9-CM Code WKK42-KP Code Onset Dates Condition S tatus SNOMED Code Problem Tobacco abuse Z72.0 Active 610479 000 Problem Pain in right ankle and joints of right foot M25.5 71 Active 010495649 Problem Tobacco abuse counseling Z71.6 Activ e 858972771 Problem Plantar fasciitis, bilateral M72.2 A ctive 11245807710827730 Problem Foot pain, left M79.672 Active 3167 92505795902 Problem Coronary artery disease invo lving [place] coronary artery of [place] heart without angina pectoris I25.10 Active 1641 489782463 Problem Obesity (BMI 30-39.9) E66.9 Active 764098191 Problem Essential hypertension I10 Active 51594279 Problem Anxiety F41.9 Active 70933002 Problem Acute reaction to situational stress F43.0 Active 66398041 Problem Chronic pain disorder G89.4 Active 296233253 Problem Primary insomnia F51.01 Active 397 2004 Problem Mixed hyperlipidemia E78.2 Active 195325966 ALLERGIES No Information ENCOUNTERS Encounter Location Date Diagnosis [facility] [address] [facility] [id number] [address] [place] [phone] Nov, Chronic pain disorder G89.4 [facility] [address] [facility] [id number] [address] [place] [phone] Nov, [facility] [address] [facility] [id number] [address] [place] [phone] Oct, Acute bronchitis, unspecifie d organism J20.9 [facility] [address] [facility] [id number] [address] [place] [address] Oct, [place] [id number] [place] [address] Oct, Chronic pain disorder G89.4 and Primary insomnia F51.01 [place] [id number] [place] [address] Oct, [place] [address] [phone] Oct, Anxiety F41.9 and Essential hypertension I10 [place] [address] [place] [id number] [address] [place] [address] Sep, Primary insomnia F51.01 [place] [address] [address] Sep, Chronic pain disorder G89.4 [place] [address] [address] Sep, Essential hypertension I10 a nd Chronic pain disorder G89.4 [place] [address] [address] Sep, Anxiety F41.9 and Chronic pa in disorder G89.4 [place] [address] [address] Sep, Controlled substance agreeme nt signed Z79.899 [place] [address] [address] Aug, Chronic pain disorder G89.4 and Primary insomnia F51.01 [place] [address] [place] [id number] [address] [place] [address] Aug, Essential hypertension I10 ; Mixed hyperlipidemia E78.2 ; Primary insomnia F51.01 ; Tobacco abuse Z72.0 ; Chronic pain disorder G89.4 ; Acute suppurative otitis media of left ear without spontaneous rupture of tympanic membrane, recurrence not specified H66.002 ; Acute bronchitis, unspecified organism J20.9 and Anxiety F41.9 [place] [address] [place] [address] [address] Aug, [facility] [address] [facility] [id number] [address] [place] [phone] Aug, [facility] [address] [facility] [id number] [address] [place] [address] Aug, Primary insomnia F51.01 [facility] [address] [facility] [id number] [address] [place] [address] Jul, Paronychia of finger of righ t hand L03.011 [facility] [address] [facility] [id number] [address] [place] [address] Jul, Primary insomnia F51.01 [facility] [address] [facility] [id number] [address] [place] [address] Jul, Mixed hyperlipidemia E78.2 [facility] [address] [facility] [id number] [address] [place] [address] Jul, Chronic pain disorder G89.4 [facility] [address] [facility] [id number] [address] [place] [address] Jun, Mixed hyperlipidemia E78.2 [facility] [address] [facility] [id number] [address] [place] [address] Jun, Primary insomnia F51.01 [facility] [address] [facility] [id number] [address] [place] [address] Jun, [facility] [address] [facility] [id number] [address] [place] [phone] May, [facility] [address] [facility] [id number] [address] [place] [address] May, [facility] [address] [facility] [id number] [address] [place] [address] May, Chronic pain disorder G89.4 ; Bilateral otitis media with effusion H65.93 and Primary insomnia F51.01 [facility] [address] [facility] [id number] [address] [place] [address] 16 May, 2017 Chronic pain disorder G89.4 [facility] [address] [id number] [address] [place] [phone] 12 May, 2017 [facility] [address] [id number] [address] [place] [address] 05 May, 2017 [facility] [address] [id number] [address] [place] [phone] 03 May, 2017 [facility] [address] [id number] [address] [place] [address] 22 Apr, 2017 [facility] [address] [id number] [address] [place] [phone] 21 Apr, 2017 [facility] [address] [id number] [address] [place] [phone] 19 Apr, 2017 Coronary artery disease invo lving [place] coronary artery of [place] heart without angina pectoris I25.10 [facility] [address] [id number] [address] [place] [address] 18 Apr, 2017 Chronic pain disorder G89.4 [facility] [address] [id number] [address] [place] [phone] 15 Apr, 2017 Coronary artery disease invo lving [place] coronary artery of [place] heart without angina pectoris I25.10 ; Tobacco abuse Z72.0 ; Tobacco abuse counseling Z71.6 ; Obesity (BMI 30-39.9) E66.9 ; Acute reaction to situational stress F43.0 ; Mixed hyperlipidemia E78.2 ; Chronic pain disorder G89.4 and Right otitis media with effusion H65.91 [facility] [address] [id number] [address] [place] [address] 13 Apr, 2017 Pain in right ankle and join ts of right foot M25.571 [facility] [address] [id number] [address] [place] [address] 13 Apr, 2017 Pain in right ankle and join ts of right foot M25.571 and Coronary artery disease involving [place] coronary artery of [place] heart without angina pectoris I25.10 [place] [id number] [id number] [address] [place] [address] Mar, [facility] [address] [id number] [address] [place] [address] Mar, [facility] [address] [facility] [id number] [address] [place] [address] Mar, [place] [address] [facility] [id number] [address] [place] [address] Mar, Acute mucoid otitis media of both ears H65.113 and Dizziness R42 [place] [address] [id number] [address] [place] [phone] Feb, [place] [address] [facility] [id number] [address] [place] [address] Feb, Pain in right ankle and join ts of right foot M25.571 ; Pain in left finger(s) M79.645 and Coronary artery disease involving [place] coronary artery of [place] heart without angina pectoris I25.10 [place] [address] [facility] [id number] [address] [place] [phone] Feb, [place] [address] [facility] [id number] [address] [place] [id number] Feb, [place] [address] [facility] [id number] [address] [place] [phone] Jan, [place] [address] [facility] [id number] [address] [place] [phone] Jan, Encounter for routine adult health examination with abnormal findings Z00.01 ; Foot pain, left M79.672 ; Pain in right ankle and joints of right foot M25.571 ; Chronic pain disorder G89.4 ; Coronary artery disease involving [place] coronary artery of [place] heart without angina pectoris I25.10 ; Tobacco abuse Z72.0 ; Tobacco abuse counseling Z71.6 and Obesity (BMI 30-39.9) E66.[address] [id number] [address] [place] [phone] Jan, [facility] [address] [id number] [address] [place] [id number] Mar, Dental examination V72.2 IMMUNIZATIONS No Known Immunizations SOCIAL HISTORY Never Assessed REASON FOR VISIT Requests return call PLAN OF CARE VITAL SIGNS MEDICATIONS Unknown [...]
--- OUTSIDE RECORDS SUMMARY | 2019-12-11 14:38 | XMS REPORT ---
Author Author Reza WELCH Organization [facility] Address [address] [place] [address] Care Team Providers Care Welding Manager Name Role Phone REBEKAH OLIVER Unavailable PROBLEMS Type Condition ICD9-CM Code [id number] Code Onset Dates Condition S tatus SNOMED Code Problem Tobacco abuse Z72.0 Active 871243 000 Problem Pain in right ankle and joints of right foot M25.5 71 Active 549918768 Problem Tobacco abuse counseling Z71.6 Activ e 951991834 Problem Plantar fasciitis, bilateral M72.2 A ctive [id number] Problem Foot pain, left M79.672 Active 3167 [id number] Problem Coronary artery disease invo lving ho[place] coronary artery of ho[place] heart without angina pectoris I25.10 Active 1641 848625899 Problem Obesity (BMI 30-39.9) E66.9 Active 525535041 Problem Essential hypertension I10 Active 38902547 Problem Anxiety F41.9 Active 19246026 Problem Acute reaction to situational stress F43.0 Active 57901573 Problem Chronic pain disorder G89.4 Active 892755722 Problem Primary insomnia F51.01 Active 397 2004 Problem Mixed hyperlipidemia E78.2 Active 527190544 ALLERGIES No Information ENCOUNTERS Encounter Location Date Diagnosis [facility] [address] [id number] [address] [place] [address] December, [facility] [address] [id number] [address] [place] [address] December, Primary insomnia F51.01 [facility] [address] [id number] [address] [place] [address] Nov, Chronic pain disorder G89.4 [facility] [address] [id number] [address] [place] [phone] Nov, [facility] [address] [address] 26 Oct, 2017 Acute bronchitis, unspecifie d organism J20.9 [place] [address] [address] 16 Oct, 2017 [place] [address] [address] 15 Oct, 2017 Chronic pain disorder G89.4 and Primary insomnia F51.01 [place] [address] [address] Oct, [place] [address] [address] 05 Oct, 2017 Anxiety F41.9 and Essential hypertension I10 [place] [address] [address] Sep, Primary insomnia F51.01 [place] [address] [address] Sep, Chronic pain disorder G89.4 [place] [address] [address] Sep, Essential hypertension I10 a nd Chronic pain disorder G89.4 [place] [address] [address] Sep, Anxiety F41.9 and Chronic pa in disorder G89.4 [place] [address] [address] Sep, Controlled substance agreeme nt signed Z79.899 [place] [address] [address] Aug, Chronic pain disorder G89.4 and Primary insomnia F51.01 [place] [address] [address] Aug, Essential hypertension I10 ; Mixed hyperlipidemia E78.2 ; Primary insomnia F51.01 ; Tobacco abuse Z72.0 ; Chronic pain disorder G89.4 ; Acute suppurative otitis media of left ear without spontaneous rupture of tympanic membrane, recurrence not specified H66.002 ; Acute bronchitis, unspecified organism J20.9 and Anxiety F41.9 [facility] [address] [id number] [address] [place] [address] Aug, [facility] [address] [place] [id number] [address] [place] [phone] Aug, [facility] [address] [id number] [address] [place] [address] Aug, Primary insomnia F51.01 [facility] [address] [id number] [address] [place] [address] Jul, Paronychia of finger of righ t hand L03.011 [place] [address] [place] [id number] [address] [place] [address] Jul, Primary insomnia F51.01 [facility] [address] [id number] [address] [place] [address] Jul, Mixed hyperlipidemia E78.2 [place] [address] [id number] [address] [place] [address] Jul, Chronic pain disorder G89.4 [facility] [address] [id number] [address] [place] [phone] 17 Jun, 2017 Mixed hyperlipidemia E78.2 [facility] [address] [id number] [address] [place] [id number] 16 Jun, 2017 Primary insomnia F51.01 [facility] [address] [id number] [address] [place] [address] Jun, [facility] [address] [id number] [address] [place] [phone] May, [facility] [address] [place] [id number] [address] [place] [address] May, [place] [address] [id number] [address] [place] [address] 16 May, 2017 Chronic pain disorder G89.4 ; Bilateral otitis media with effusion H65.93 and Primary insomnia F51.01 [facility] [address] [id number] [address] [place] [phone] May, Chronic pain disorder G89.4 [facility] [address] [id number] [address] [place] [address] May, [facility] [address] [id number] [address] [place] [phone] May, [facility] [address] [id number] [address] [place] [address] May, [facility] [address] [id number] [address] [place] [address] 22 Apr, 2017 [facility] [address] [id number] [address] [place] [address] 21 Apr, 2017 [facility] [address] [id number] [address] [place] [phone] 19 Apr, 2017 Coronary artery disease invo lving ho-[place] coronary artery of ho-chunk heart without angina pectoris I25.10 [facility] [address] [id number] [address] [place] [phone] 18 Apr, 2017 Chronic pain disorder G89.4 [facility] [address] [id number] [address] [place] [phone] 15 Apr, 2017 Coronary artery disease invo lving [place] coronary artery of ho-[place] heart without angina pectoris I25.10 ; Tobacco abuse Z72.0 ; Tobacco abuse counseling Z71.6 ; Obesity (BMI 30-39.9) E66.9 ; Acute reaction to situational stress F43.0 ; Mixed hyperlipidemia E78.2 ; Chronic pain disorder G89.4 and Right otitis media with effusion H65.91 [facility] [address] [id number] [address] [place] [id number] 13 Apr, 2017 Pain in right ankle and join ts of right foot M25.571 [facility] [address] [id number] [address] [place] [address] Apr, Pain in right ankle and join ts of right foot M25.571 and Coronary artery disease involving ho-[place] coronary artery of ho-[place] heart without angina pectoris I25.10 [facility] [address] [id number] [address] [place] [phone] Mar, [facility] [address] [id number] [address] [place] [address] Mar, [facility] [address] [id number] [address] [place] [address] Mar, [place] [address] [id number] [address] [place] [address] Mar, Acute mucoid otitis media of both ears H65.113 and Dizziness R42 [facility] [address] [id number] [address] [place] [address] Feb, [facility] [address] [id number] [address] [place] [address] Feb, Pain in right ankle and join ts of right foot M25.571 ; Pain in left finger(s) M79.645 and Coronary artery disease involving ho-[place] coronary artery of ho-chunk heart without angina pectoris I25.10 [facility] [address] [id number] [address] [place] [address] Feb, [facility] [address] [id number] [address] [place] [address] Feb, [facility] [address] [id number] [address] [place] [address] Jan, [place] [address] [id number] [address] [place] [address] Jan, Encounter for routine adult health examination with abnormal findings Z00.01 ; Foot pain, left M79.672 ; Pain in right ankle and joints of right foot M25.571 ; Chronic pain disorder G89.4 ; Coronary artery disease involving ho-chunk coronary artery of ho-chunk heart without angina pectoris I25.10 ; Tobacco abuse Z72.0 ; Tobacco abuse counseling Z71.6 and Obesity (BMI 30-39.9) E66.9 [facility] [address] [id number] [address] [place] [address] 12 Jan, 2017 [facility] [address] [facility] [id number] [address] [place] [id number] Mar, Dental examination V72.2 IMMUNIZATIONS No Known Immunizations SOCIAL HISTORY Never Assessed REASON FOR VISIT Requesting return call PLAN OF CARE VITAL SIGNS MEDICATIONS Unknown Medications RESULTS No Results PROCEDURES No Known procedures INSTRUCTIONS MEDICATIONS ADMINISTERED No Known Medications MEDICAL (GENERAL) HISTORY Type Description Date Medical History Arthritis Medical History 2 heart attacks with numerou s stents- 10 yrs ago and then 7 years ago- 1st MD- Promus 2.5 x 18 mm stent to LAD, 3.0x 23 mm stent to DIAG, 2.5x 15 mm stent to LAD/ 2nd MD- Promus 2.5 x12 to distal Circ and [...]
--- OUTSIDE RECORDS SUMMARY | 2019-12-11 14:38 | XMS REPORT ---
Author Author Reza WELCH Organization [facility] Address [address] [place] [address] Care Team Providers Care Tufter Hand Name Role Phone REBEKAH OLIVER Unavailable PROBLEMS Type Condition ICD9-CM Code DYU57-VU Code Onset Dates Condition S tatus SNOMED Code Problem Tobacco abuse Z72.0 Active 622752 000 Problem Pain in right ankle and joints of right foot M25.5 71 Active 519717378 Problem Tobacco abuse counseling Z71.6 Activ e 989848469 Problem Plantar fasciitis, bilateral M72.2 A ctive [id number] Problem Foot pain, left M79.672 Active 3167 91539617666 Problem Coronary artery disease invo lving [place] coronary artery of [place] heart without angina pectoris I25.10 Active 1641 607088926 Problem Obesity (BMI 30-39.9) E66.9 Active 575602053 Problem Essential hypertension I10 Active 81214591 Problem Anxiety F41.9 Active 32536241 Problem Acute reaction to situational stress F43.0 Active 36306552 Problem Chronic pain disorder G89.4 Active 365385574 Problem Primary insomnia F51.01 Active 397 2004 Problem Mixed hyperlipidemia E78.2 Active 912527025 ALLERGIES No Information ENCOUNTERS Encounter Location Date Diagnosis [facility] [address] [facility] [id number] [address] [place] [address] December, Primary insomnia F51.01 [facility] [address] [facility] [id number] [address] [place] [address] Nov, Chronic pain disorder G89.4 [facility] [address] [facility] [id number] [address] [place] [address] Nov, [facility] [address] [facility] [id number] [address] [place] [address] Oct, Acute bronchitis, unspecifie d organism J20.9 [place] [address] [address] 16 Oct, 2017 [place] [address] [address] 15 Oct, 2017 Chronic pain disorder G89.4 and Primary insomnia F51.01 [place] [address] [address] 14 Oct, 2017 [place] [address] [address] 05 Oct, 2017 Anxiety F41.9 and Essential hypertension I10 [place] [address] [address] Sep, Primary insomnia F51.01 [place] [address] [address] Sep, Chronic pain disorder G89.4 [place] [address] [address] Sep, Essential hypertension I10 a nd Chronic pain disorder G89.4 [place] [address] [address] Sep, Anxiety F41.9 and Chronic pa in disorder G89.4 [place] [address] [address] Sep, Controlled substance agreeme nt signed Z79.899 [place] [address] [place] [id number] [address] [place] [address] Aug, Chronic pain disorder G89.4 and Primary insomnia F51.01 [place] [address] [address] Aug, Essential hypertension I10 ; Mixed hyperlipidemia E78.2 ; Primary insomnia F51.01 ; Tobacco abuse Z72.0 ; Chronic pain disorder G89.4 ; Acute suppurative otitis media of left ear without spontaneous rupture of tympanic membrane, recurrence not specified H66.002 ; Acute bronchitis, unspecified organism J20.9 and Anxiety F41.9 [facility] [address] [facility] [id number] [address] [place] [address] Aug, [facility] [address] [facility] [id number] [address] [place] [address] Aug, [facility] [address] [place] [id number] [address] [place] [address] Aug, Primary insomnia F51.01 [facility] [address] [facility] [id number] [address] [place] [address] Jul, Paronychia of finger of righ t hand L03.011 [facility] [address] [facility] [id number] [address] [place] [address] Jul, Primary insomnia F51.01 [facility] [address] [facility] [id number] [address] [place] [address] Jul, Mixed hyperlipidemia E78.2 [facility] [address] [facility] [id number] [address] [place] [address] Jul, Chronic pain disorder G89.4 [facility] [address] [facility] [id number] [address] [place] [address] Jun, Mixed hyperlipidemia E78.2 [facility] [address] [facility] [id number] [address] [place] [address] Jun, Primary insomnia F51.01 [facility] [address] [facility] [id number] [address] [place] [address] Jun, [facility] [address] [facility] [id number] [address] [place] [address] May, [facility] [address] [facility] [id number] [address] [place] [address] May, [facility] [address] [facility] [id number] [address] [place] [address] May, Chronic pain disorder G89.4 ; Bilateral otitis media with effusion H65.93 and Primary insomnia F51.01 [facility] [address] [id number] [address] [place] [address] 16 May, 2017 Chronic pain disorder G89.4 [facility] [address] [id number] [address] [place] [address] May, [facility] [address] [id number] [address] [place] [phone] May, [facility] [address] [id number] [address] [place] [address] May, [facility] [address] [id number] [address] [place] [address] 22 Apr, 2017 [facility] [address] [id number] [address] [place] [address] Apr, [facility] [address] [facility] [id number] [address] [place] [address] 19 Apr, 2017 Coronary artery disease invo lving [place] coronary artery of [place] heart without angina pectoris I25.10 [facility] [address] [id number] [address] [place] [address] 18 Apr, 2017 Chronic pain disorder G89.4 [facility] [address] [facility] [id number] [address] [place] [address] 15 Apr, 2017 Coronary artery disease invo lving [place] coronary artery of [place] heart without angina pectoris I25.10 ; Tobacco abuse Z72.0 ; Tobacco abuse counseling Z71.6 ; Obesity (BMI 30-39.9) E66.9 ; Acute reaction to situational stress F43.0 ; Mixed hyperlipidemia E78.2 ; Chronic pain disorder G89.4 and Right otitis media with effusion H65.91 [facility] [address] [id number] [address] [place] [address] 13 Apr, 2017 Pain in right ankle and join ts of right foot M25.571 [facility] [address] [facility] [id number] [address] [place] [address] Apr, Pain in right ankle and join ts of right foot M25.571 and Coronary artery disease involving [place] coronary artery of [place] heart without angina pectoris I25.10 [facility] [address] [id number] [address] [place] [address] Mar, [facility] [address] [id number] [address] [place] [address] Mar, [facility] [address] [id number] [address] [place] [address] Mar, [facility] [address] [id number] [address] [place] [address] Mar, Acute mucoid otitis media of both ears H65.113 and Dizziness R42 [place] [address] [id number] [address] [place] [address] Feb, [place] [address] [id number] [address] [place] [address] Feb, Pain in right ankle and join ts of right foot M25.571 ; Pain in left finger(s) M79.645 and Coronary artery disease involving [place] coronary artery of [place] heart without angina pectoris I25.10 [facility] [address] [id number] [address] [place] [address] Feb, [place] [address] [id number] [address] [place] [address] Feb, [place] [address] [id number] [address] [place] [address] Jan, [address] [id number] [address] [place] [address] Jan, Encounter for routine adult health examination with abnormal findings Z00.01 ; Foot pain, left M79.672 ; Pain in right ankle and joints of right foot M25.571 ; Chronic pain disorder G89.4 ; Coronary artery disease involving [place] coronary artery of [place] heart without angina pectoris I25.10 ; Tobacco abuse Z72.0 ; Tobacco abuse counseling Z71.6 and Obesity (BMI 30-39.9) E66.9 [facility] [address] [facility] [id number] [address] [place] [address] Jan, [facility] [address] [id number] [address] [place] [id number] Mar, Dental examination V72.2 IMMUNIZATIONS No Known [...] ago and then 7 years ago- 1st ND- Promus 2.5 x 18 mm stent to LAD, 3.0x 23 mm stent to DIAG, 2.5x 15 mm stent to LAD/ 2nd ND- Promus 2.5 x12 to distal Circ and [...]
--- OUTSIDE RECORDS SUMMARY | 2019-12-11 14:38 | XMS REPORT ---
Author Author Reza WELCH Organization [facility] Address [address] [place] [address] Care Team Providers Care Residential Sales Name Role Phone OLIVER WELCH Unavailable PROBLEMS Type Condition ICD9-CM Code [id number] Code Onset Dates Condition S tatus SNOMED Code Problem Tobacco abuse Z72.0 Active 123962 000 Problem Pain in right ankle and joints of right foot M25.5 71 Active 140467502 Problem Tobacco abuse counseling Z71.6 Activ e 065943852 Problem Plantar fasciitis, bilateral M72.2 A ctive [id number] Problem Foot pain, left M79.672 Active 3167 [id number] Problem Coronary artery disease invo lving [place] coronary artery of [place] heart without angina pectoris I25.10 Active 1641 542221365 Problem Obesity (BMI 30-39.9) E66.9 Active 252082041 Problem Essential hypertension I10 Active 83237351 Problem Anxiety F41.9 Active 33154104 Problem Acute reaction to situational stress F43.0 Active 40618507 Problem Chronic pain disorder G89.4 Active 445601848 Problem Primary insomnia F51.01 Active 397 2004 Problem Mixed hyperlipidemia E78.2 Active 777104526 ALLERGIES No Information ENCOUNTERS Encounter Location Date Diagnosis [facility] [address] [facility] [id number] [address] [place] [address] Nov, Chronic pain disorder G89.4 [facility] [address] [facility] [id number] [address] [place] [address] Nov, [facility] [address] [facility] [id number] [address] [place] [address] Oct, Acute bronchitis, unspecifie d organism J20.9 [facility] [address] [facility] [id number] [address] [place] [address] Oct, [place] [address] [place] [address] Oct, Chronic pain disorder G89.4 and Primary insomnia F51.01 [place] [address] [place] [address] Oct, [place] [address] [address] Oct, Anxiety F41.9 and Essential hypertension I10 [place] [address] [place] [id number] [address] [place] [address] Sep, Primary insomnia F51.01 [place] [address] [address] Sep, Chronic pain disorder G89.4 [place] [address] [address] Sep, Essential hypertension I10 a nd Chronic pain disorder G89.4 [place] [address] [address] Sep, Anxiety F41.9 and Chronic pa in disorder G89.4 [place] [address] [address] Sep, Controlled substance agreeme nt signed Z79.899 [place] [address] [address] Aug, Chronic pain disorder G89.4 and Primary insomnia F51.01 [place] [address] [place] [id number] [address] [place] [address] Aug, Essential hypertension I10 ; Mixed hyperlipidemia E78.2 ; Primary insomnia F51.01 ; Tobacco abuse Z72.0 ; Chronic pain disorder G89.4 ; Acute suppurative otitis media of left ear without spontaneous rupture of tympanic membrane, recurrence not specified H66.002 ; Acute bronchitis, unspecified organism J20.9 and Anxiety F41.9 [place] [address] [place] [address] [place] [address] Aug, [facility] [address] [facility] [id number] [address] [place] [address] Aug, [facility] [address] [facility] [id number] [address] [place] [address] Aug, Primary insomnia F51.01 [facility] [address] [facility] [id number] [address] [place] [address] Jul, Paronychia of finger of righ t hand L03.011 [facility] [address] [facility] [id number] [address] [place] [address] Jul, Primary insomnia F51.01 [facility] [address] [facility] [id number] [address] [place] [address] Jul, Mixed hyperlipidemia E78.2 [facility] [address] [facility] [id number] [address] [place] [address] Jul, Chronic pain disorder G89.4 [facility] [address] [facility] [id number] [address] [place] [address] Jun, Mixed hyperlipidemia E78.2 [facility] [address] [facility] [id number] [address] [place] [address] Jun, Primary insomnia F51.01 [facility] [address] [facility] [id number] [address] [place] [address] Jun, [facility] [address] [facility] [id number] [address] [place] [address] May, [facility] [address] [facility] [id number] [address] [place] [address] May, [facility] [address] [facility] [id number] [address] [place] [address] May, Chronic pain disorder G89.4 ; Bilateral otitis media with effusion H65.93 and Primary insomnia F51.01 [facility] [address] [facility] [id number] [address] [place] [address] 16 May, 2017 Chronic pain disorder G89.4 [facility] [address] [id number] [address] [place] [address] 12 May, 2017 [facility] [address] [id number] [address] [place] [address] 05 May, 2017 [facility] [address] [id number] [address] [place] [address] 03 May, 2017 [facility] [address] [id number] [address] [place] [address] 22 Apr, 2017 [facility] [address] [id number] [address] [place] [address] 21 Apr, 2017 [facility] [address] [id number] [address] [place] [address] 19 Apr, 2017 Coronary artery disease invo lving [place] coronary artery of [place] heart without angina pectoris I25.10 [facility] [address] [id number] [address] [place] [address] 18 Apr, 2017 Chronic pain disorder G89.4 [facility] [address] [id number] [address] [place] [address] 15 Apr, 2017 Coronary artery disease invo lving [place] coronary artery of [place] heart without angina pectoris I25.10 ; Tobacco abuse Z72.0 ; Tobacco abuse counseling Z71.6 ; Obesity (BMI 30-39.9) E66.9 ; Acute reaction to situational stress F43.0 ; Mixed hyperlipidemia E78.2 ; Chronic pain disorder G89.4 and Right otitis media with effusion H65.91 [facility] [address] [id number] [address] [place] [address] 13 Apr, 2017 Pain in right ankle and join ts of right foot M25.571 [facility] [address] [id number] [address] [place] [address] 13 Apr, 2017 Pain in right ankle and join ts of right foot M25.571 and Coronary artery disease involving [place] coronary artery of [place] heart without angina pectoris I25.10 [place] [address] [id number] [address] [place] [address] Mar, [facility] [address] [id number] [address] [place] [address] Mar, [facility] [address] [facility] [id number] [address] [place] [address] Mar, [place] [address] [facility] [id number] [address] [place] [address] Mar, Acute mucoid otitis media of both ears H65.113 and Dizziness R42 [place] [address] [id number] [address] [place] [address] Feb, [place] [address] [facility] [id number] [address] [place] [address] Feb, Pain in right ankle and join ts of right foot M25.571 ; Pain in left finger(s) M79.645 and Coronary artery disease involving [place] coronary artery of [place] heart without angina pectoris I25.10 [place] [address] [facility] [id number] [address] [place] [address] Feb, [place] [address] [facility] [id number] [address] [place] [address] Feb, [place] [address] [facility] [id number] [address] [place] [address] Jan, [place] [address] [facility] [id number] [address] [place] [address] Jan, Encounter for routine adult health examination with abnormal findings Z00.01 ; Foot pain, left M79.672 ; Pain in right ankle and joints of right foot M25.571 ; Chronic pain disorder G89.4 ; Coronary artery disease involving [place] coronary artery of [place] heart without angina pectoris I25.10 ; Tobacco abuse Z72.0 ; Tobacco abuse counseling Z71.6 and Obesity (BMI 30-39.9) E66.[address] [id number] [address] [place] [address] Jan, [facility] [address] [id number] [address] [place] [id number] Mar, Dental examination V72.2 IMMUNIZATIONS No Known Immunizations SOCIAL HISTORY Never Assessed REASON FOR VISIT Rx on Backorder PLAN OF CARE VITAL SIGNS MEDICATIONS Medication Instructions Dosage Frequency Start Date End Date Duration S tanna Atenolol 25 MG Orally twice a day 2 tablet 12h 90 da ys Active RESULTS No Results PROCEDURES No Known procedures INSTRUCTIONS MEDICATIONS ADMINISTERED No Known Medications MEDICAL (GENERAL) HISTORY Type Description Date Medical History Arthritis Medical History 2 heart attacks with numerou s stents- 10 yrs ago and then 7 years ago- 1st PR- Promus 2.5 x 18 mm stent to LAD, 3.0x 23 mm stent to DIAG, 2.5x 15 mm stent to LAD/ 2nd PR- Promus 2.5 x12 to distal Circ and [...]
--- OUTSIDE RECORDS SUMMARY | 2019-12-11 14:38 | XMS REPORT ---
Author Author Reza WELCH Organization [facility] Address [address] [place] [address] Care Team Providers Care Review Analyst Name Role Phone OLIVER WELCH Unavailable PROBLEMS Type Condition ICD9-CM Code ZXN50-UN Code Onset Dates Condition S tatus SNOMED Code Problem Tobacco abuse Z72.0 Active 452410 000 Problem Pain in right ankle and joints of right foot M25.5 71 Active 306129076 Problem Tobacco abuse counseling Z71.6 Activ e 039839999 Problem Plantar fasciitis, bilateral M72.2 A ctive [id number] Problem Foot pain, left M79.672 Active 3167 02344525044 Problem Coronary artery disease invo lving [place] coronary artery of [place] heart without angina pectoris I25.10 Active 1641 743456155 Problem Obesity (BMI 30-39.9) E66.9 Active 059048409 Problem Essential hypertension I10 Active 94834499 Problem Anxiety F41.9 Active 49952337 Problem Acute reaction to situational stress F43.0 Active 73466286 Problem Chronic pain disorder G89.4 Active 844538729 Problem Primary insomnia F51.01 Active 397 2004 Problem Mixed hyperlipidemia E78.2 Active 169319176 ALLERGIES No Information ENCOUNTERS Encounter Location Date Diagnosis [facility] [address] [place] [id number] [address] [place] [address] Feb, Primary insomnia F51.01 [facility] [address] [facility] [id number] [address] [place] [address] Jan, Essential hypertension I10 ; Mixed hyperlipidemia E78.2 ; Throat tightness R68.89 ; Left arm pain M79.602 ; Coronary artery disease involving [place] coronary artery of [place] heart without angina pectoris I25.10 ; Chronic pain disorder G89.4 ; Tobacco abuse counseling Z71.6 and Primary insomnia F51.01 [facility] [address] [place] [id number] [address] [place] [phone] 15 Jan, 2018 [facility] [address] [facility] [id number] [address] [place] [address] December, Essential hypertension I10 a nd Mixed hyperlipidemia E78.2 [facility] [address] [facility] [id number] [address] [place] [address] December, [facility] [address] [facility] [id number] [address] [place] [address] December, Primary insomnia F51.01 [facility] [address] [facility] [id number] [address] [place] [address] Nov, Chronic pain disorder G89.4 [facility] [address] [facility] [id number] [address] [place] [address] Nov, [facility] [address] [facility] [id number] [address] [place] [address] Oct, Acute bronchitis, unspecifie d organism J20.9 [facility] [address] [facility] [id number] [address] [place] [address] Oct, [facility] [address] [facility] [id number] [address] [place] [address] Oct, Chronic pain disorder G89.4 and Primary insomnia F51.01 [facility] [address] [facility] [id number] [address] [place] [address] Oct, [facility] [address] [facility] [id number] [address] [place] [address] 05 Oct, 2017 Anxiety F41.9 and Essential hypertension I10 [facility] [address] [facility] [id number] [address] [place] [address] Sep, Primary insomnia F51.01 [facility] [address] [facility] [id number] [address] [place] [address] Sep, Chronic pain disorder G89.4 [facility] [address] [place] [address] [address] Sep, Essential hypertension I10 a nd Chronic pain disorder G89.4 [place] [address] [address] 09 Sep, 2017 Anxiety F41.9 and Chronic pa in disorder G89.4 [place] [address] [address] 02 Sep, 2017 Controlled substance agreeme nt signed Z79.899 [place] [address] [address] Aug, Chronic pain disorder G89.4 and Primary insomnia F51.01 [place] [address] [address] Aug, Essential hypertension I10 ; Mixed hyperlipidemia E78.2 ; Primary insomnia F51.01 ; Tobacco abuse Z72.0 ; Chronic pain disorder G89.4 ; Acute suppurative otitis media of left ear without spontaneous rupture of tympanic membrane, recurrence not specified H66.002 ; Acute bronchitis, unspecified organism J20.9 and Anxiety F41.9 [place] [address] [address] Aug, [place] [address] [address] Aug, [place] [address] [address] Aug, Primary insomnia F51.01 [facility] [address] [address] Jul, Paronychia of finger of righ t hand L03.011 [place] [address] [address] Jul, Primary insomnia F51.01 [facility] [address] [address] Jul, Mixed hyperlipidemia E78.2 [facility] [address] [id number] [address] [place] [address] Jul, Chronic pain disorder G89.4 [facility] [address] [id number] [address] [place] [address] Jun, Mixed hyperlipidemia E78.2 [facility] [address] [id number] [address] [place] [address] Jun, Primary insomnia F51.01 [facility] [address] [id number] [address] [place] [address] Jun, [facility] [address] [id number] [address] [place] [address] May, [facility] [address] [id number] [address] [place] [address] May, [facility] [address] [id number] [address] [place] [address] May, Chronic pain disorder G89.4 ; Bilateral otitis media with effusion H65.93 and Primary insomnia F51.01 [facility] [address] [id number] [address] [place] [address] May, Chronic pain disorder G89.4 [facility] [address] [id number] [address] [place] [address] May, [facility] [address] [id number] [address] [place] [address] May, [facility] [address] [id number] [address] [place] [address] May, [facility] [address] [id number] [address] [place] [address] Apr, [facility] [address] [id number] [address] [place] [address] Apr, [facility] [address] [id number] [address] [place] [address] Apr, Coronary artery disease invo lving [place] coronary artery of [place] heart without angina pectoris I25.10 [facility] [address] [id number] [address] [place] [address] 18 Apr, 2017 Chronic pain disorder G89.4 [facility] [address] [id number] [address] [place] [address] 15 Apr, 2017 Coronary artery disease invo lving [place] coronary artery of [place] heart without angina pectoris I25.10 ; Tobacco abuse Z72.0 ; Tobacco abuse counseling Z71.6 ; Obesity (BMI 30-39.9) E66.9 ; Acute reaction to situational stress F43.0 ; Mixed hyperlipidemia E78.2 ; Chronic pain disorder G89.4 and Right otitis media with effusion H65.91 [facility] [address] [id number] [address] [place] [address] 13 Apr, 2017 Pain in right ankle and join ts of right foot M25.571 [place] [address] [id number] [address] [place] [address] Apr, Pain in right ankle and join ts of right foot M25.571 and Coronary artery disease involving [place] coronary artery of [place] heart without angina pectoris I25.10 [facility] [address] [id number] [address] [place] [address] Mar, [facility] [address] [id number] [address] [place] [address] Mar, [facility] [address] [id number] [address] [place] [address] Mar, [facility] [address] [id number] [address] [place] [address] Mar, Acute mucoid otitis media of both ears H65.113 and Dizziness R42 [facility] [address] [id number] [address] [place] [address] Feb, [facility] [address] [id number] [address] [place] [address] Feb, Pain in right ankle and join ts of right foot M25.571 ; Pain in left finger(s) M79.645 and Coronary artery disease involving [place] coronary artery of [place] heart without angina pectoris I25.10 [facility] [address] [facility] [id number] [address] [place] [address] Feb, [facility] [address] [facility] [id number] [address] [place] [address] Feb, [facility] [address] [facility] [id number] [address] [place] [id number] Jan, [facility] [address] [facility] [id number] [address] [place] [address] Jan, Encounter for routine adult health examination with abnormal findings Z00.01 ; Foot pain, left M79.672 ; Pain in right ankle and joints of right foot M25.571 ; Chronic pain disorder G89.4 ; Coronary artery disease involving [place] coronary artery of [place] heart without angina pectoris I25.10 ; Tobacco abuse Z72.0 ; Tobacco abuse counseling Z71.6 and Obesity (BMI 30-39.9) E66.9 [facility] [address] [facility] [id number] [address] [place] [address] Jan, [facility] [address] [facility] [id number] [address] [place] [id number] Mar, Dental examination V72.2 IMMUNIZATIONS No Known Immunizations SOCIAL HISTORY Never Assessed REASON FOR VISIT Controlled Med Refill PLAN OF CARE VITAL SIGNS MEDICATIONS Medication Instructions Dosage Frequency Start Date End Date Duration S tatus Ambien 10 mg Orally Once a day 1 tablet at bedtime as needed 24h 28 days Active Tramadol HCl 50 mg Orally [...]
--- OUTSIDE RECORDS SUMMARY | 2019-12-11 14:38 | XMS REPORT ---
Author Author Reza WELCH Organization [facility] Address [address] [place] [address] Care Team Providers Care Web Architect Name Role Phone REBEKAH OLIVER Unavailable PROBLEMS Type Condition ICD9-CM Code [id number] Code Onset Dates Condition S tatus SNOMED Code Problem Tobacco abuse Z72.0 Active 799056 000 Problem Pain in right ankle and joints of right foot M25.5 71 Active 388401567 Problem Tobacco abuse counseling Z71.6 Activ e 919843535 Problem Plantar fasciitis, bilateral M72.2 A ctive [id number] Problem Foot pain, left M79.672 Active 3167 [id number] Problem Coronary artery disease invo lving [place] coronary artery of [place] heart without angina pectoris I25.10 Active 1641 613717943 Problem Obesity (BMI 30-39.9) E66.9 Active 288236803 Problem Essential hypertension I10 Active 23816632 Problem Anxiety F41.9 Active 58282870 Problem Acute reaction to situational stress F43.0 Active 09865505 Problem Chronic pain disorder G89.4 Active 824036958 Problem Primary insomnia F51.01 Active 397 2004 Problem Mixed hyperlipidemia E78.2 Active [id number] ALLERGIES No Information ENCOUNTERS Encounter Location Date Diagnosis [facility] [address] [facility] [id number] [address] [place] [address] December, Primary insomnia F51.01 [facility] [address] [facility] [id number] [address] [place] [address] Nov, Chronic pain disorder G89.4 [facility] [address] [facility] [id number] [address] [place] [address] Nov, [facility] [address] [facility] [id number] [address] [place] [address] Oct, Acute bronchitis, unspecifie d organism J20.9 [place] [address] [address] 16 Oct, 2017 [place] [address] [address] 15 Oct, 2017 Chronic pain disorder G89.4 and Primary insomnia F51.01 [place] [address] [address] 14 Oct, 2017 [place] [address] [address] 05 Oct, 2017 Anxiety F41.9 and Essential hypertension I10 [place] [address] [address] Sep, Primary insomnia F51.01 [place] [address] [address] Sep, Chronic pain disorder G89.4 [place] [address] [address] Sep, Essential hypertension I10 a nd Chronic pain disorder G89.4 [place] [address] [address] Sep, Anxiety F41.9 and Chronic pa in disorder G89.4 [place] [address] [address] Sep, Controlled substance agreeme nt signed Z79.899 [place] [address] [address] [place] [id number] [address] [place] [address] Aug, Chronic pain disorder G89.4 and Primary insomnia F51.01 [place] [address] [address] Aug, Essential hypertension I10 ; Mixed hyperlipidemia E78.2 ; Primary insomnia F51.01 ; Tobacco abuse Z72.0 ; Chronic pain disorder G89.4 ; Acute suppurative otitis media of left ear without spontaneous rupture of tympanic membrane, recurrence not specified H66.002 ; Acute bronchitis, unspecified organism J20.9 and Anxiety F41.9 [facility] [address] [facility] [id number] [address] [place] [address] Aug, [facility] [address] [facility] [id number] [address] [place] [address] Aug, [facility] [address] [place] [id number] [address] [place] [address] Aug, Primary insomnia F51.01 [facility] [address] [facility] [id number] [address] [place] [address] Jul, Paronychia of finger of righ t hand L03.011 [facility] [address] [facility] [id number] [address] [place] [address] Jul, Primary insomnia F51.01 [facility] [address] [facility] [id number] [address] [place] [address] Jul, Mixed hyperlipidemia E78.2 [facility] [address] [facility] [id number] [address] [place] [address] Jul, Chronic pain disorder G89.4 [facility] [address] [facility] [id number] [address] [place] [address] Jun, Mixed hyperlipidemia E78.2 [facility] [address] [facility] [id number] [address] [place] [address] Jun, Primary insomnia F51.01 [facility] [address] [facility] [id number] [address] [place] [phone] Jun, [facility] [address] [facility] [id number] [address] [place] [address] May, [facility] [address] [facility] [id number] [address] [place] [address] May, [facility] [address] [facility] [id number] [address] [place] [address] May, Chronic pain disorder G89.4 ; Bilateral otitis media with effusion H65.93 and Primary insomnia F51.01 [facility] [address] [id number] [address] [place] [address] 16 May, 2017 Chronic pain disorder G89.4 [facility] [address] [id number] [address] [place] [address] May, [facility] [address] [id number] [address] [place] [phone] May, [facility] [address] [id number] [address] [place] [address] May, [facility] [address] [id number] [address] [place] [address] 22 Apr, 2017 [facility] [address] [id number] [address] [place] [address] Apr, [facility] [address] [facility] [id number] [address] [place] [phone] 19 Apr, 2017 Coronary artery disease invo lving [place] coronary artery of [place] heart without angina pectoris I25.10 [facility] [address] [id number] [address] [place] [address] 18 Apr, 2017 Chronic pain disorder G89.4 [facility] [address] [facility] [id number] [address] [place] [address] 15 Apr, 2017 Coronary artery disease invo lving [place] coronary artery of [place] heart without angina pectoris I25.10 ; Tobacco abuse Z72.0 ; Tobacco abuse counseling Z71.6 ; Obesity (BMI 30-39.9) E66.9 ; Acute reaction to situational stress F43.0 ; Mixed hyperlipidemia E78.2 ; Chronic pain disorder G89.4 and Right otitis media with effusion H65.91 [facility] [address] [id number] [address] [place] [phone] 13 Apr, 2017 Pain in right ankle and join ts of right foot M25.571 [facility] [address] [facility] [id number] [address] [place] [address] Apr, Pain in right ankle and join ts of right foot M25.571 and Coronary artery disease involving [place] coronary artery of [place] heart without angina pectoris I25.10 [facility] [address] [id number] [address] [place] [address] Mar, [facility] [address] [id number] [address] [place] [address] Mar, [facility] [address] [id number] [address] [place] [address] Mar, [facility] [address] [id number] [address] [place] [address] Mar, Acute mucoid otitis media of both ears H65.113 and Dizziness R42 [place] [address] [id number] [address] [place] [address] Feb, [place] [address] [id number] [address] [place] [address] Feb, Pain in right ankle and join ts of right foot M25.571 ; Pain in left finger(s) M79.645 and Coronary artery disease involving [place] coronary artery of [place] heart without angina pectoris I25.10 [facility] [address] [id number] [address] [place] [address] Feb, [place] [address] [id number] [address] [place] [address] Feb, [place] [address] [id number] [address] [place] [address] Jan, [address] [id number] [address] [place] [address] Jan, Encounter for routine adult health examination with abnormal findings Z00.01 ; Foot pain, left M79.672 ; Pain in right ankle and joints of right foot M25.571 ; Chronic pain disorder G89.4 ; Coronary artery disease involving [place] coronary artery of [place] heart without angina pectoris I25.10 ; Tobacco abuse Z72.0 ; Tobacco abuse counseling Z71.6 and Obesity (BMI 30-39.9) E66.9 [facility] [address] [facility] [id number] [address] [place] [address] Jan, [facility] [address] [id number] [address] [place] [id number] 10 Mar, 2015 Dental examination V72.2 IMMUNIZATIONS No Known Immunizations SOCIAL HISTORY Never Assessed REASON FOR VISIT Medication refill request PLAN OF CARE VITAL SIGNS MEDICATIONS Medication Instructions Dosage Frequency Start Date End Date Duration S tatus Duloxetine HCl 40 mg Orally Once a day 1 capsule 24h 15 Apr, 2017 30 day(s) Active Ambien 10 mg Orally Once a [...]
--- OUTSIDE RECORDS SUMMARY | 2019-12-11 14:39 | XMS REPORT ---
Author Author Reza WELCH Organization [facility] Address [address] [place] [address] Care Team Providers Care Superintendent Recreation Name Role Phone OLIVER WELCH Unavailable PROBLEMS Type Condition ICD9-CM Code FHR56-NF Code Onset Dates Condition S tatus SNOMED Code Problem Tobacco abuse Z72.0 Active 630010 000 Problem Pain in right ankle and joints of right foot M25.5 71 Active 201971021 Problem Tobacco abuse counseling Z71.6 Activ e 419055460 Problem Plantar fasciitis, bilateral M72.2 A ctive [id number] Problem Foot pain, left M79.672 Active 3167 02804239637 Problem Coronary artery disease invo lving [place]' coronary artery of [place]' heart without angina pectoris I25.10 Active 1641 589717428 Problem Obesity (BMI 30-39.9) E66.9 Active 834095899 Problem Essential hypertension I10 Active 94594199 Problem Anxiety F41.9 Active 52279176 Problem Acute reaction to situational stress F43.0 Active 05852653 Problem Chronic pain disorder G89.4 Active 245035759 Problem Primary insomnia F51.01 Active 397 2004 Problem Mixed hyperlipidemia E78.2 Active 867288402 ALLERGIES No Information ENCOUNTERS Encounter Location Date Diagnosis [facility] [address] [facility] [id number] [address] [place] [address] Jan, [facility] [address] [facility] [id number] [address] [place] [address] December, Essential hypertension I10 a nd Mixed hyperlipidemia E78.2 [facility] [address] [facility] [id number] [address] [place] [address] December, [facility] [address] [facility] [id number] [address] [place] [address] December, Primary insomnia F51.01 [facility] [address] [facility] [id number] [address] [place] [address] 13 Nov, 2017 Chronic pain disorder G89.4 [facility] [address] [facility] [id number] [address] [place] [phone] Nov, [facility] [address] [facility] [id number] [address] [place] [phone] Oct, Acute bronchitis, unspecifie d organism J20.9 [facility] [address] [facility] [id number] [address] [place] [address] 16 Oct, 2017 [facility] [address] [phone] 15 Oct, 2017 Chronic pain disorder G89.4 and Primary insomnia F51.01 [place] [address] [address] [place] [id number] [address] [place] [address] 14 Oct, 2017 [place] [address] [address] [place] [id number] [address] [place] [address] Oct, Anxiety F41.9 and Essential hypertension I10 [place] [address] [address] Sep, Primary insomnia F51.01 [facility] [address] [place] [id number] [address] [place] [address] 12 Sep, 2017 Chronic pain disorder G89.4 [facility] [address] [place] [address] Sep, Essential hypertension I10 a nd Chronic pain disorder G89.4 [facility] [address] [place] [address] Sep, Anxiety F41.9 and Chronic pa in disorder G89.4 [facility] [address] [place] [id number] [address] [place] [address] 02 Sep, 2017 Controlled substance agreeme nt signed Z79.899 [place] [address] [address] [place] [id number] [address] [place] [address] Aug, Chronic pain disorder G89.4 and Primary insomnia F51.01 [facility] [address] [place] [id number] [address] [place] [address] Aug, Essential hypertension I10 ; Mixed hyperlipidemia E78.2 ; Primary insomnia F51.01 ; Tobacco abuse Z72.0 ; Chronic pain disorder G89.4 ; Acute suppurative otitis media of left ear without spontaneous rupture of tympanic membrane, recurrence not specified H66.002 ; Acute bronchitis, unspecified organism J20.9 and Anxiety F41.9 [facility] [address] [facility] [id number] [address] [place] [address] Aug, [facility] [address] [place] [id number] [address] [place] [address] Aug, [facility] [address] [place] [address] Aug, Primary insomnia F51.01 [facility] [address] [place] [id number] [address] [place] [phone] Jul, Paronychia of finger of righ t hand L03.011 [facility] [address] [place] [id number] [address] [place] [address] Jul, Primary insomnia F51.01 [facility] [address] [place] [id number] [address] [place] [address] Jul, Mixed hyperlipidemia E78.2 [facility] [address] [place] [id number] [address] [place] [address] 13 Jul, 2017 Chronic pain disorder G89.4 [facility] [address] [facility] [id number] [address] [place] [address] 17 Jun, 2017 Mixed hyperlipidemia E78.2 [facility] [address] [place] [id number] [address] [place] [address] 16 Jun, 2017 Primary insomnia F51.01 [facility] [address] [place] [id number] [address] [place] [address] Jun, [facility] [address] [id number] [address] [place] [address] May, [facility] [address] [id number] [address] [place] [address] May, [facility] [address] [id number] [address] [place] [address] May, Chronic pain disorder G89.4 ; Bilateral otitis media with effusion H65.93 and Primary insomnia F51.01 [facility] [address] [id number] [address] [place] [address] May, Chronic pain disorder G89.4 [facility] [address] [id number] [address] [place] [phone] May, [facility] [address] [id number] [address] [place] [address] May, [facility] [address] [id number] [address] [place] [address] May, [facility] [address] [id number] [address] [place] [address] Apr, [facility] [address] [id number] [address] [place] [address] Apr, [facility] [address] [id number] [address] [place] [address] 19 Apr, 2017 Coronary artery disease invo lving [place]' coronary artery of [place]' heart without angina pectoris I25.10 [facility] [address] [id number] [address] [place] [address] 18 Apr, 2017 Chronic pain disorder G89.4 [facility] [address] [id number] [address] [place] [address] 15 Apr, 2017 Coronary artery disease invo lving [place]' coronary artery of [place]' heart without angina pectoris I25.10 ; Tobacco abuse Z72.0 ; Tobacco abuse counseling Z71.6 ; Obesity (BMI 30-39.9) E66.9 ; Acute reaction to situational stress F43.0 ; Mixed hyperlipidemia E78.2 ; Chronic pain disorder G89.4 and Right otitis media with effusion H65.91 [facility] [address] [id number] [address] [place] [address] Apr, Pain in right ankle and join ts of right foot M25.571 [facility] [address] [id number] [address] [place] [address] Apr, Pain in right ankle and join ts of right foot M25.571 and Coronary artery disease involving [place]' coronary artery of [place]' heart without angina pectoris I25.10 [facility] [address] [id number] [address] [place] [address] Mar, [facility] [address] [id number] [address] [place] [address] Mar, [facility] [address] [id number] [address] [place] [address] Mar, [facility] [address] [id number] [address] [place] [address] Mar, Acute mucoid otitis media of both ears H65.113 and Dizziness R42 [facility] [address] [id number] [address] [place] [address] Feb, [facility] [address] [id number] [address] [place] [address] Feb, Pain in right ankle and join ts of right foot M25.571 ; Pain in left finger(s) M79.645 and Coronary artery disease involving [place]' coronary artery of [place]' heart without angina pectoris I25.10 [facility] [address] [id number] [address] [place] [address] Feb, [facility] [address] [id number] [address] [place] [phone] Feb, [facility] [address] [id number] [address] [place] [address] Jan, [facility] [address] [facility] [id number] [address] [address] 15 Jan, 2017 Encounter for routine adult health examination with abnormal findings Z00.01 ; Foot pain, left M79.672 ; Pain in right ankle and joints of right foot M25.571 ; Chronic pain disorder G89.4 ; Coronary artery disease involving [place]' coronary artery of [place]' heart without angina pectoris I25.10 ; Tobacco abuse Z72.0 ; Tobacco abuse counseling Z71.6 and Obesity (BMI 30-39.9) E66.9 [facility] [address] [facility] [id number] [address] [address] 12 Jan, 2017 [facility] [address] [facility] [id number] [place] [id number] 10 Mar, 2015 Dental examination V72.2 IMMUNIZATIONS [...] ago and then 7 years ago- 1st [place]- Promus 2.5 x 18 mm stent to LAD, 3.0x 23 mm stent to DIAG, 2.5x 15 mm stent to LAD/ 2nd [place]- Promus 2.5 x12 to distal Circ and [...]
--- OUTSIDE RECORDS SUMMARY | 2019-12-11 14:39 | XMS REPORT ---
Author Author Reza WELCH Organization [facility] Address [address] [place] [address] Care Team Providers Care Client Associate Name Role Phone OLIVER WELCH Unavailable PROBLEMS Type Condition ICD9-CM Code ZMC69-KM Code Onset Dates Condition S tatus SNOMED Code Problem Tobacco abuse Z72.0 Active 587366 000 Problem Pain in right ankle and joints of right foot M25.5 71 Active 313091801 Problem Tobacco abuse counseling Z71.6 Activ e 089816422 Problem Plantar fasciitis, bilateral M72.2 A ctive [id number] Problem Foot pain, left M79.672 Active 3167 46821374361 Problem 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.10 Active 1641 105196175 Problem Obesity (BMI 30-39.9) E66.9 Active 586165490 Problem Essential hypertension I10 Active 77766230 Problem Anxiety F41.9 Active 20246053 Problem Acute reaction to situational stress F43.0 Active 44136747 Problem Chronic pain disorder G89.4 Active 806386610 Problem Primary insomnia F51.01 Active 397 2004 Problem Mixed hyperlipidemia E78.2 Active 035394148 ALLERGIES No Information ENCOUNTERS Encounter Location Date Diagnosis [facility] [address] [facility] [id number] [place] [address] Jan, [facility] [address] [facility] [id number] [place] [address] December, Essential hypertension I10 a nd Mixed hyperlipidemia E78.2 [facility] [address] [facility] [id number] [place] [address] December, [facility] [address] [facility] [id number] [place] [address] December, Primary insomnia F51.01 [facility] [address] [facility] [id number] [place] [address] 13 Nov, 2017 Chronic pain disorder G89.4 [facility] [address] [facility] [id number] [place] [address] Nov, [facility] [address] [facility] [id number] [place] [address] Oct, Acute bronchitis, unspecifie d organism J20.9 [facility] [address] [facility] [id number] [place] [address] 16 Oct, 2017 [facility] [address] [address] 15 Oct, 2017 Chronic pain disorder G89.4 and Primary insomnia F51.01 [place] [address] [place] [id number] [address] [place] [address] 14 Oct, 2017 [place] [address] [place] [id number] [address] [place] [address] Oct, Anxiety F41.9 and Essential hypertension I10 [place] [address] [address] Sep, Primary insomnia F51.01 [facility] [address] [place] [id number] [address] [place] [address] 12 Sep, 2017 Chronic pain disorder G89.4 [facility] [address] [place] [address] Sep, Essential hypertension I10 a nd Chronic pain disorder G89.4 [facility] [address] [place] [address] Sep, Anxiety F41.9 and Chronic pa in disorder G89.4 [facility] [address] [place] [id number] [address] [place] [address] 02 Sep, 2017 Controlled substance agreeme nt signed Z79.899 [place] [address] [place] [id number] [address] [place] [address] Aug, Chronic pain disorder G89.4 and Primary insomnia F51.01 [facility] [address] [place] [id number] [address] [place] [address] Aug, Essential hypertension I10 ; Mixed hyperlipidemia E78.2 ; Primary insomnia F51.01 ; Tobacco abuse Z72.0 ; Chronic pain disorder G89.4 ; Acute suppurative otitis media of left ear without spontaneous rupture of tympanic membrane, recurrence not specified H66.002 ; Acute bronchitis, unspecified organism J20.9 and Anxiety F41.9 [facility] [address] [facility] [id number] [place] [address] Aug, [facility] [address] [place] [id number] [address] [place] [address] Aug, [facility] [address] [place] [address] Aug, Primary insomnia F51.01 [facility] [address] [place] [id number] [address] [place] [address] Jul, Paronychia of finger of righ t hand L03.011 [facility] [address] [place] [id number] [address] [place] [address] Jul, Primary insomnia F51.01 [facility] [address] [place] [id number] [address] [place] [address] Jul, Mixed hyperlipidemia E78.2 [facility] [address] [place] [id number] [address] [place] [address] 13 Jul, 2017 Chronic pain disorder G89.4 [facility] [address] [facility] [id number] [place] [address] 17 Jun, 2017 Mixed hyperlipidemia E78.2 [facility] [address] [place] [id number] [address] [place] [address] 16 Jun, 2017 Primary insomnia F51.01 [facility] [address] [place] [id number] [address] [place] [address] Jun, [facility] [address] [id number] [address] [place] [address] May, [facility] [address] [id number] [address] [place] [address] May, [facility] [address] [id number] [address] [place] [address] May, Chronic pain disorder G89.4 ; Bilateral otitis media with effusion H65.93 and Primary insomnia F51.01 [facility] [address] [id number] [address] [place] [address] May, Chronic pain disorder G89.4 [facility] [address] [id number] [address] [place] [address] May, [facility] [address] [id number] [address] [place] [address] May, [facility] [address] [id number] [address] [place] [address] May, [facility] [address] [id number] [address] [place] [address] Apr, [facility] [address] [id number] [address] [place] [address] Apr, [facility] [address] [id number] [address] [place] [address] 19 Apr, 2017 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.10 [facility] [address] [id number] [address] [place] [address] 18 Apr, 2017 Chronic pain disorder G89.4 [facility] [address] [id number] [address] [place] [address] 15 Apr, 2017 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.10 ; Tobacco abuse Z72.0 ; Tobacco abuse counseling Z71.6 ; Obesity (BMI 30-39.9) E66.9 ; Acute reaction to situational stress F43.0 ; Mixed hyperlipidemia E78.2 ; Chronic pain disorder G89.4 and Right otitis media with effusion H65.91 [facility] [address] [id number] [address] [place] [address] Apr, Pain in right ankle and join ts of right foot M25.571 [facility] [address] [id number] [address] [place] [address] Apr, Pain in right ankle and join ts of right foot M25.571 and Coronary artery disease invo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.10 [facility] [address] [id number] [address] [place] [address] Mar, [facility] [address] [id number] [address] [place] [address] Mar, [facility] [address] [id number] [address] [place] [address] Mar, [facility] [address] [id number] [address] [place] [address] Mar, Acute mucoid otitis media of both ears H65.113 and Dizziness R42 [facility] [address] [id number] [address] [place] [address] Feb, [facility] [address] [id number] [address] [place] [address] Feb, Pain in right ankle and join ts of right foot M25.571 ; Pain in left finger(s) M79.645 and Coronary artery disease invo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.10 [facility] [address] [id number] [address] [place] [address] Feb, [facility] [address] [id number] [address] [place] [address] Feb, [facility] [address] [id number] [address] [place] [address] Jan, [facility] [address] [facility] 2001 [id number] [address] [place] [address] 15 Jan, 2017 Encounter for routine adult health examination with abnormal findings Z00.01 ; Foot pain, left M79.672 ; Pain in right ankle and joints of right foot M25.571 ; Chronic pain disorder G89.4 ; Coronary artery disease invo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.10 ; Tobacco abuse Z72.0 ; Tobacco abuse counseling Z71.6 and Obesity (BMI 30-39.9) E66.9 [facility] [address] [facility] [address] [id number] [place] [address] Jan, [facility] [address] [facility] [id number] [address] [id number] 10 Mar, 2015 Dental examination V72.2 IMMUNIZATIONS [...] ago and then 7 years ago- 1st [place]- Promus 2.5 x 18 mm stent to LAD, 3.0x 23 mm stent to DIAG, 2.5x 15 mm stent to LAD/ 2nd [place]- Promus 2.5 x12 to distal Circ and [...]
--- OUTSIDE RECORDS SUMMARY | 2019-12-11 14:39 | XMS REPORT ---
Author Author Reza WELCH Organization [facility] Address [address] [place] [address] Care Team Providers Care Bleacher [employer] Name Role Phone OLIVER WELCH Unavailable PROBLEMS Type Condition ICD9-CM Code ICC69-EL Code Onset Dates Condition S tatus SNOMED Code Problem Tobacco abuse Z72.0 Active 225487 000 Problem Pain in right ankle and joints of right foot M25.5 71 Active 101938955 Problem Tobacco abuse counseling Z71.6 Activ e 866880853 Problem Plantar fasciitis, bilateral M72.2 A ctive [id number] Problem Foot pain, left M79.672 Active 3167 41546955932 Problem Coronary artery disease invo lving [place] coronary artery of [place] heart without angina pectoris I25.10 Active 1641 243983309 Problem Obesity (BMI 30-39.9) E66.9 Active 307382084 Problem Essential hypertension I10 Active 55502230 Problem Anxiety F41.9 Active 11374661 Problem Acute reaction to situational stress F43.0 Active 75094663 Problem Chronic pain disorder G89.4 Active 101110131 Problem Primary insomnia F51.01 Active 397 2004 Problem Mixed hyperlipidemia E78.2 Active 701596741 ALLERGIES No Information ENCOUNTERS Encounter Location Date Diagnosis [facility] [address] [facility] [id number] [address] [place] [address] Nov, Chronic pain disorder G89.4 [facility] [address] [facility] [facility] [id number] [address] [place] [address] Nov, [facility] [address] [facility] [facility] [id number] [address] [place] [address] Oct, Acute bronchitis, unspecifie d organism J20.9 [facility] [address] [facility] [id number] [address] [place] [address] Oct, [place] [address] [place] [address] Oct, Chronic pain disorder G89.4 and Primary insomnia F51.01 [place] [address] [place] [address] Oct, [place] [address] [address] Oct, Anxiety F41.9 and Essential hypertension I10 [place] [address] [place] [id number] [address] [place] [address] Sep, Primary insomnia F51.01 [place] [address] [address] Sep, Chronic pain disorder G89.4 [place] [address] [address] Sep, Essential hypertension I10 a nd Chronic pain disorder G89.4 [place] [address] [address] Sep, Anxiety F41.9 and Chronic pa in disorder G89.4 [place] [address] [address] Sep, Controlled substance agreeme nt signed Z79.899 [place] [address] [address] Aug, Chronic pain disorder G89.4 and Primary insomnia F51.01 [place] [address] [place] [id number] [address] [place] [address] Aug, Essential hypertension I10 ; Mixed hyperlipidemia E78.2 ; Primary insomnia F51.01 ; Tobacco abuse Z72.0 ; Chronic pain disorder G89.4 ; Acute suppurative otitis media of left ear without spontaneous rupture of tympanic membrane, recurrence not specified H66.002 ; Acute bronchitis, unspecified organism J20.9 and Anxiety F41.9 [place] [address] [place] [address] [place] [address] Aug, [facility] [address] [facility] [facility] [id number] [address] [place] [address] Aug, [facility] [address] [facility] [facility] [id number] [address] [place] [address] Aug, Primary insomnia F51.01 [facility] [address] [facility] [id number] [address] [place] [address] Jul, Paronychia of finger of righ t hand L03.011 [facility] [address] [facility] [id number] [address] [place] [address] Jul, Primary insomnia F51.01 [facility] [address] [facility] [id number] [address] [place] [address] Jul, Mixed hyperlipidemia E78.2 [facility] [address] [facility] [id number] [address] [place] [address] Jul, Chronic pain disorder G89.4 [facility] [address] [facility] [id number] [address] [place] [address] Jun, Mixed hyperlipidemia E78.2 [facility] [address] [facility] [id number] [address] [place] [address] Jun, Primary insomnia F51.01 [facility] [address] [facility] [id number] [address] [place] [address] Jun, [facility] [address] [facility] [id number] [address] [place] [address] May, [facility] [address] [facility] [id number] [address] [place] [address] May, [facility] [address] [facility] [id number] [address] [place] [address] May, Chronic pain disorder G89.4 ; Bilateral otitis media with effusion H65.93 and Primary insomnia F51.01 [facility] [address] [facility] [id number] [address] [place] [address] 16 May, 2017 Chronic pain disorder G89.4 [facility] [address] [id number] [address] [place] [address] 12 May, 2017 [facility] [address] [id number] [address] [place] [phone] 05 May, 2017 [facility] [address] [id number] [address] [place] [address] 03 May, 2017 [facility] [address] [id number] [address] [place] [address] 22 Apr, 2017 [facility] [address] [id number] [address] [place] [address] 21 Apr, 2017 [facility] [address] [id number] [address] [place] [address] 19 Apr, 2017 Coronary artery disease invo lving [place] coronary artery of [place] heart without angina pectoris I25.10 [facility] [address] [id number] [address] [place] [address] 18 Apr, 2017 Chronic pain disorder G89.4 [facility] [address] [id number] [address] [place] [address] 15 Apr, 2017 Coronary artery disease invo lving [place] coronary artery of [place] heart without angina pectoris I25.10 ; Tobacco abuse Z72.0 ; Tobacco abuse counseling Z71.6 ; Obesity (BMI 30-39.9) E66.9 ; Acute reaction to situational stress F43.0 ; Mixed hyperlipidemia E78.2 ; Chronic pain disorder G89.4 and Right otitis media with effusion H65.91 [facility] [address] [id number] [address] [place] [address] 13 Apr, 2017 Pain in right ankle and join ts of right foot M25.571 [facility] [address] [id number] [address] [place] [address] 13 Apr, 2017 Pain in right ankle and join ts of right foot M25.571 and Coronary artery disease involving [place] coronary artery of [place] heart without angina pectoris I25.10 [place] [address] [id number] [address] [place] [address] Mar, [facility] [address] [id number] [address] [place] [address] Mar, [facility] [address] [facility] [id number] [address] [place] [address] Mar, [place] [address] [facility] [id number] [address] [place] [address] Mar, Acute mucoid otitis media of both ears H65.113 and Dizziness R42 [place] [address] [id number] [address] [place] [address] Feb, [place] [address] [facility] [id number] [address] [place] [address] Feb, Pain in right ankle and join ts of right foot M25.571 ; Pain in left finger(s) M79.645 and Coronary artery disease involving [place] coronary artery of [place] heart without angina pectoris I25.10 [place] [address] [facility] [id number] [address] [place] [address] Feb, [place] [address] [facility] [id number] [address] [place] [address] Feb, [place] [address] [facility] [id number] [address] [place] [address] Jan, [place] [address] [facility] [id number] [address] [place] [address] Jan, Encounter for routine adult health examination with abnormal findings Z00.01 ; Foot pain, left M79.672 ; Pain in right ankle and joints of right foot M25.571 ; Chronic pain disorder G89.4 ; Coronary artery disease involving [place] coronary artery of [place] heart without angina pectoris I25.10 ; Tobacco abuse Z72.0 ; Tobacco abuse counseling Z71.6 and Obesity (BMI 30-39.9) E66.[address] [id number] [address] [place] [place] [phone] Jan, [facility] [address] [id number] [address] [place] [id number] Mar, Dental examination V72.2 IMMUNIZATIONS No Known Immunizations SOCIAL HISTORY Never Assessed REASON FOR VISIT Medication question PLAN OF CARE VITAL SIGNS MEDICATIONS Medication Instructions Dosage Frequency Start Date End Date Duration S tatus Clonidine HCl 0.1 MG Orally twice a day 1 tablet at bedtime 12h May, 30 day(s) Active RESULTS No Results PROCEDURES No Known procedures INSTRUCTIONS MEDICATIONS ADMINISTERED No Known Medications MEDICAL (GENERAL) HISTORY Type Description Date Medical History Arthritis Medical History 2 heart attacks with numerou s stents- 10 yrs ago and then 7 years ago- 1st [place]- Promus 2.5 x 18 mm stent to LAD, 3.0x 23 mm stent to DIAG, 2.5x 15 mm stent to LAD/ 2nd [place]- Promus 2.5 x12 to distal Circ and [...]
--- OUTSIDE RECORDS SUMMARY | 2019-12-11 14:39 | XMS REPORT ---
Author Author Reza WELCH Organization [facility] Address [address] [place] [address] Care Team Providers Care Technical Operations Vice President Name Role Phone OLIVER WELCH Unavailable PROBLEMS Type Condition ICD9-CM Code QNB70-UE Code Onset Dates Condition S tatus SNOMED Code Problem Tobacco abuse Z72.0 Active 747818 000 Problem Pain in right ankle and joints of right foot M25.5 71 Active 841661856 Problem Tobacco abuse counseling Z71.6 Activ e 767704688 Problem Plantar fasciitis, bilateral M72.2 A ctive [id number] Problem Foot pain, left M79.672 Active 3167 07588865634 Problem Coronary artery disease invo lving [place] coronary artery of [place] heart without angina pectoris I25.10 Active 1641 365009924 Problem Obesity (BMI 30-39.9) E66.9 Active 205482755 Problem Essential hypertension I10 Active 81590865 Problem Anxiety F41.9 Active 66564785 Problem Acute reaction to situational stress F43.0 Active 63658202 Problem Chronic pain disorder G89.4 Active 454842888 Problem Primary insomnia F51.01 Active 397 2004 Problem Mixed hyperlipidemia E78.2 Active 424926858 ALLERGIES No Information ENCOUNTERS Encounter Location Date Diagnosis [facility] [address] [facility] [id number] [address] [place] [address] Nov, Chronic pain disorder G89.4 [facility] [address] [facility] [id number] [address] [place] [address] Nov, [facility] [address] [facility] [id number] [address] [place] [address] Oct, Acute bronchitis, unspecifie d organism J20.9 [facility] [address] [facility] [id number] [address] [place] [address] Oct, [place] [address] [place] [address] Oct, Chronic pain disorder G89.4 and Primary insomnia F51.01 [place] [address] [place] [address] Oct, [place] [address] [address] Oct, Anxiety F41.9 and Essential hypertension I10 [place] [address] [address] [place] [id number] [address] [place] [address] Sep, Primary insomnia F51.01 [place] [address] [address] Sep, Chronic pain disorder G89.4 [place] [address] [address] Sep, Essential hypertension I10 a nd Chronic pain disorder G89.4 [place] [address] [address] Sep, Anxiety F41.9 and Chronic pa in disorder G89.4 [place] [address] [address] Sep, Controlled substance agreeme nt signed Z79.899 [place] [address] [address] Aug, Chronic pain disorder G89.4 and Primary insomnia F51.01 [place] [address] [address] [place] [id number] [address] [place] [address] Aug, Essential hypertension I10 ; Mixed hyperlipidemia E78.2 ; Primary insomnia F51.01 ; Tobacco abuse Z72.0 ; Chronic pain disorder G89.4 ; Acute suppurative otitis media of left ear without spontaneous rupture of tympanic membrane, recurrence not specified H66.002 ; Acute bronchitis, unspecified organism J20.9 and Anxiety F41.9 [place] [address] [place] [address] [place] [address] Aug, [facility] [address] [facility] [id number] [address] [place] [address] Aug, [facility] [address] [facility] [id number] [address] [place] [address] Aug, Primary insomnia F51.01 [facility] [address] [facility] [id number] [address] [place] [address] Jul, Paronychia of finger of righ t hand L03.011 [facility] [address] [facility] [id number] [address] [place] [address] Jul, Primary insomnia F51.01 [facility] [address] [facility] [id number] [address] [place] [address] Jul, Mixed hyperlipidemia E78.2 [facility] [address] [facility] [id number] [address] [place] [address] Jul, Chronic pain disorder G89.4 [facility] [address] [facility] [id number] [address] [place] [address] Jun, Mixed hyperlipidemia E78.2 [facility] [address] [facility] [id number] [address] [place] [address] Jun, Primary insomnia F51.01 [facility] [address] [facility] [id number] [address] [place] [address] Jun, [facility] [address] [facility] [id number] [address] [place] [address] May, [facility] [address] [facility] [id number] [address] [place] [address] May, [facility] [address] [facility] [id number] [address] [place] [address] May, Chronic pain disorder G89.4 ; Bilateral otitis media with effusion H65.93 and Primary insomnia F51.01 [facility] [address] [facility] [id number] [address] [place] [address] 16 May, 2017 Chronic pain disorder G89.4 [facility] [address] [id number] [address] [place] [address] 12 May, 2017 [facility] [address] [id number] [address] [place] [address] 05 May, 2017 [facility] [address] [id number] [address] [place] [address] 03 May, 2017 [facility] [address] [id number] [address] [place] [address] 22 Apr, 2017 [facility] [address] [id number] [address] [place] [address] 21 Apr, 2017 [facility] [address] [id number] [address] [place] [address] 19 Apr, 2017 Coronary artery disease invo lving [place] coronary artery of [place] heart without angina pectoris I25.10 [facility] [address] [id number] [address] [place] [address] 18 Apr, 2017 Chronic pain disorder G89.4 [facility] [address] [id number] [address] [place] [address] 15 Apr, 2017 Coronary artery disease invo lving [place] coronary artery of [place] heart without angina pectoris I25.10 ; Tobacco abuse Z72.0 ; Tobacco abuse counseling Z71.6 ; Obesity (BMI 30-39.9) E66.9 ; Acute reaction to situational stress F43.0 ; Mixed hyperlipidemia E78.2 ; Chronic pain disorder G89.4 and Right otitis media with effusion H65.91 [facility] [address] [id number] [address] [place] [address] 13 Apr, 2017 Pain in right ankle and join ts of right foot M25.571 [facility] [address] [id number] [address] [place] [address] 13 Apr, 2017 Pain in right ankle and join ts of right foot M25.571 and Coronary artery disease involving [place] coronary artery of [place] heart without angina pectoris I25.10 [place] [address] [id number] [address] [place] [address] Mar, [facility] [address] [id number] [address] [place] [address] Mar, [facility] [address] [facility] [id number] [address] [place] [address] Mar, [place] [address] [facility] [id number] [address] [place] [address] Mar, Acute mucoid otitis media of both ears H65.113 and Dizziness R42 [place] [address] [id number] [address] [place] [address] Feb, [place] [address] [facility] [id number] [address] [place] [address] Feb, Pain in right ankle and join ts of right foot M25.571 ; Pain in left finger(s) M79.645 and Coronary artery disease involving [place] coronary artery of [place] heart without angina pectoris I25.10 [place] [address] [facility] [id number] [address] [place] [address] Feb, [place] [address] [facility] [id number] [address] [place] [address] Feb, [place] [address] [facility] [id number] [address] [place] [address] Jan, [place] [address] [facility] [id number] [address] [place] [address] Jan, Encounter for routine adult health examination with abnormal findings Z00.01 ; Foot pain, left M79.672 ; Pain in right ankle and joints of right foot M25.571 ; Chronic pain disorder G89.4 ; Coronary artery disease involving [place] coronary artery of [place] heart without angina pectoris I25.10 ; Tobacco abuse Z72.0 ; Tobacco abuse counseling Z71.6 and Obesity (BMI 30-39.9) E66.[address] [id number] [address] [place] [address] Jan, [facility] [address] [id number] [address] [place] [id number] Mar, Dental examination V72.2 IMMUNIZATIONS No Known Immunizations SOCIAL HISTORY Never Assessed REASON FOR VISIT Controlled Refill Request PLAN OF CARE VITAL SIGNS MEDICATIONS Medication Instructions Dosage Frequency Start Date End Date Duration S tatus Duloxetine HCl 60 mg Orally Once a day 1 capsule 24h 30 days Active Tramadol HCl 50 mg Orally every 6 hrs 1 tablet as needed 6h 28 days Active RESULTS No Results PROCEDURES No Known procedures INSTRUCTIONS MEDICATIONS ADMINISTERED No Known Medications MEDICAL (GENERAL) HISTORY Type Description Date Medical History Arthritis Medical History 2 heart attacks with numerou s stents- 10 yrs ago and then 7 years ago- 1st [place]- Promus 2.5 x 18 mm stent to LAD, 3.0x 23 mm stent to DIAG, 2.5x 15 mm stent to LAD/ 2nd [place]- Promus 2.5 x12 to distal Circ and [...]
--- OUTSIDE RECORDS SUMMARY | 2019-12-11 14:39 | XMS REPORT ---
Author Author Reza WELCH Organization [facility] Address [address] [place] [address] Care Team Providers Care Lean Manufacturing Specialist Name Role Phone OLIVER WELCH Unavailable PROBLEMS Type Condition ICD9-CM Code [id number] Code Onset Dates Condition S tatus SNOMED Code Problem Tobacco abuse Z72.0 Active 692788 000 Problem Pain in right ankle and joints of right foot M25.5 71 Active 131355709 Problem Tobacco abuse counseling Z71.6 Activ e 796368720 Problem Plantar fasciitis, bilateral M72.2 A ctive 52337776098438286 Problem Foot pain, left M79.672 Active 3167 22731205122 Problem Coronary artery disease invo lving [place] coronary artery of [place] heart without angina pectoris I25.10 Active 1641 659440194 Problem Obesity (BMI 30-39.9) E66.9 Active 928755135 Problem Essential hypertension I10 Active 63330982 Problem Anxiety F41.9 Active 75770276 Problem Acute reaction to situational stress F43.0 Active 15400101 Problem Chronic pain disorder G89.4 Active 009112855 Problem Primary insomnia F51.01 Active 397 2004 Problem Mixed hyperlipidemia E78.2 Active 290617356 ALLERGIES No Information ENCOUNTERS Encounter Location Date Diagnosis [facility] [address] [facility] [id number] [address] [place] [address] Jan, [facility] [address] [facility] [id number] [address] [place] [address] December, Essential hypertension I10 a nd Mixed hyperlipidemia E78.2 [facility] [address] [facility] [id number] [address] [place] [address] December, [facility] [address] [facility] [id number] [address] [place] [address] December, Primary insomnia F51.01 [facility] [address] [facility] [id number] [address] [place] [address] 13 Nov, 2017 Chronic pain disorder G89.4 [facility] [address] [facility] [id number] [address] [place] [address] Nov, [facility] [address] [facility] [id number] [address] [place] [address] Oct, Acute bronchitis, unspecifie d organism J20.9 [facility] [address] [facility] [id number] [address] [place] [address] 16 Oct, 2017 [facility] [address] [address] 15 Oct, 2017 Chronic pain disorder G89.4 and Primary insomnia F51.01 [place] [address] [place] [id number] [address] [place] [address] 14 Oct, 2017 [place] [address] [place] [id number] [address] [place] [address] Oct, Anxiety F41.9 and Essential hypertension I10 [place] [address] [address] Sep, Primary insomnia F51.01 [facility] [address] [place] [id number] [address] [place] [address] 12 Sep, 2017 Chronic pain disorder G89.4 [facility] [address] [place] [address] Sep, Essential hypertension I10 a nd Chronic pain disorder G89.4 [facility] [address] [place] [address] Sep, Anxiety F41.9 and Chronic pa in disorder G89.4 [facility] [address] [place] [id number] [address] [place] [address] 02 Sep, 2017 Controlled substance agreeme nt signed Z79.899 [place] [address] [place] [id number] [address] [place] [address] Aug, Chronic pain disorder G89.4 and Primary insomnia F51.01 [facility] [address] [place] [id number] [address] [place] [address] Aug, Essential hypertension I10 ; Mixed hyperlipidemia E78.2 ; Primary insomnia F51.01 ; Tobacco abuse Z72.0 ; Chronic pain disorder G89.4 ; Acute suppurative otitis media of left ear without spontaneous rupture of tympanic membrane, recurrence not specified H66.002 ; Acute bronchitis, unspecified organism J20.9 and Anxiety F41.9 [facility] [address] [facility] [id number] [address] [place] [address] Aug, [facility] [address] [place] [id number] [address] [place] [address] Aug, [facility] [address] [place] [address] Aug, Primary insomnia F51.01 [facility] [address] [place] [id number] [address] [place] [address] Jul, Paronychia of finger of righ t hand L03.011 [facility] [address] [place] [id number] [address] [place] [address] Jul, Primary insomnia F51.01 [facility] [address] [place] [id number] [address] [place] [address] Jul, Mixed hyperlipidemia E78.2 [facility] [address] [place] [id number] [address] [place] [address] 13 Jul, 2017 Chronic pain disorder G89.4 [facility] [address] [facility] [id number] [address] [place] [address] 17 Jun, 2017 Mixed hyperlipidemia E78.2 [facility] [address] [place] [id number] [address] [place] [address] 16 Jun, 2017 Primary insomnia F51.01 [facility] [address] [place] [id number] [address] [place] [address] Jun, [facility] [address] [id number] [address] [place] [address] May, [facility] [address] [id number] [address] [place] [address] May, [facility] [address] [id number] [address] [place] [address] May, Chronic pain disorder G89.4 ; Bilateral otitis media with effusion H65.93 and Primary insomnia F51.01 [facility] [address] [id number] [address] [place] [address] May, Chronic pain disorder G89.4 [facility] [address] [id number] [address] [place] [address] May, [facility] [address] [id number] [address] [place] [address] May, [facility] [address] [id number] [address] [place] [address] May, [facility] [address] [id number] [address] [place] [address] Apr, [facility] [address] [id number] [address] [place] [address] Apr, [facility] [address] [id number] [address] [place] [address] 19 Apr, 2017 Coronary artery disease invo lving [place] coronary artery of [place] heart without angina pectoris I25.10 [facility] [address] [id number] [address] [place] [address] 18 Apr, 2017 Chronic pain disorder G89.4 [facility] [address] [id number] [address] [place] [address] 15 Apr, 2017 Coronary artery disease invo lving [place] coronary artery of [place] heart without angina pectoris I25.10 ; Tobacco abuse Z72.0 ; Tobacco abuse counseling Z71.6 ; Obesity (BMI 30-39.9) E66.9 ; Acute reaction to situational stress F43.0 ; Mixed hyperlipidemia E78.2 ; Chronic pain disorder G89.4 and Right otitis media with effusion H65.91 [facility] [address] [id number] [address] [place] [address] Apr, Pain in right ankle and join ts of right foot M25.571 [facility] [address] [id number] [address] [place] [address] Apr, Pain in right ankle and join ts of right foot M25.571 and Coronary artery disease involving [place] coronary artery of [place] heart without angina pectoris I25.10 [facility] [address] [id number] [address] [place] [address] Mar, [facility] [address] [id number] [address] [place] [address] Mar, [facility] [address] [id number] [address] [place] [address] Mar, [facility] [address] [id number] [address] [place] [address] Mar, Acute mucoid otitis media of both ears H65.113 and Dizziness R42 [facility] [address] [id number] [address] [place] [address] Feb, [facility] [address] [id number] [address] [place] [address] Feb, Pain in right ankle and join ts of right foot M25.571 ; Pain in left finger(s) M79.645 and Coronary artery disease involving [place] coronary artery of [place] heart without angina pectoris I25.10 [facility] [address] [id number] [address] [place] [address] Feb, [facility] [address] [id number] [address] [place] [address] Feb, [facility] [address] [id number] [address] [place] [address] Jan, [facility] [address] [facility] [id number] [place] [address] 15 Jan, 2017 Encounter for routine adult health examination with abnormal findings Z00.01 ; Foot pain, left M79.672 ; Pain in right ankle and joints of right foot M25.571 ; Chronic pain disorder G89.4 ; Coronary artery disease involving [place] coronary artery of [place] heart without angina pectoris I25.10 ; Tobacco abuse Z72.0 ; Tobacco abuse counseling Z71.6 and Obesity (BMI 30-39.9) E66.9 [facility] [address] [facility] [id number] [place] [address] Jan, [facility] [address] [facility] [id number] [place] [id number] 10 Mar, 2015 Dental examination V72.2 IMMUNIZATIONS No Known Immunizations SOCIAL HISTORY Never Assessed REASON FOR VISIT Refill request PLAN OF CARE VITAL SIGNS MEDICATIONS Medication Instructions Dosage Frequency Start Date End Date Duration S tatus Atorvastatin Calcium 80 MG Orally Once a day 1 tablet 24h 90 days Active RESULTS No Results PROCEDURES No [...] [place]- Promus 2.5 x12 to distal Circ and [...]
--- OUTSIDE RECORDS SUMMARY | 2019-12-11 14:39 | XMS REPORT ---
Author Author Reza WELCH Organization [facility] Address [address] [place] [address] Care Team Providers Care Master Craftsman Name Role Phone OLIVER WELCH Unavailable PROBLEMS Type Condition ICD9-CM Code KIL49-XK Code Onset Dates Condition S tatus SNOMED Code Problem Tobacco abuse Z72.0 Active 558161 000 Problem Pain in right ankle and joints of right foot M25.5 71 Active 040569688 Problem Tobacco abuse counseling Z71.6 Activ e 552788109 Problem Plantar fasciitis, bilateral M72.2 A ctive [id number] Problem Foot pain, left M79.672 Active 3167 65823307447 Problem Coronary artery disease invo lving [place] coronary artery of [place] heart without angina pectoris I25.10 Active 1641 747364623 Problem Obesity (BMI 30-39.9) E66.9 Active 312907190 Problem Essential hypertension I10 Active 90186287 Problem Anxiety F41.9 Active 09234107 Problem Acute reaction to situational stress F43.0 Active 42289300 Problem Chronic pain disorder G89.4 Active 423277301 Problem Primary insomnia F51.01 Active 397 2004 Problem Mixed hyperlipidemia E78.2 Active 614044226 ALLERGIES No Information ENCOUNTERS Encounter Location Date Diagnosis [facility] [address] [facility] [id number] [address] [place] [id number] Jan, [facility] [address] [facility] [id number] [address] [place] [phone] December, Essential hypertension I10 a nd Mixed hyperlipidemia E78.2 [facility] [address] [facility] [id number] [address] [place] [id number] December, [facility] [address] [facility] [id number] [address] [place] [id number] December, Primary insomnia F51.01 [facility] [address] [facility] [id number] [address] [place] [id number] 13 Nov, 2017 Chronic pain disorder G89.4 [facility] [address] [facility] [id number] [address] [place] [phone] Nov, [facility] [address] [facility] [id number] [address] [place] [phone] Oct, Acute bronchitis, unspecifie d organism J20.9 [facility] [address] [facility] [id number] [address] [place] [phone] 16 Oct, 2017 [facility] [address] [id number] 15 Oct, 2017 Chronic pain disorder G89.4 and Primary insomnia F51.01 [place] [address] [place] [id number] [address] [place] [id number] 14 Oct, 2017 [place] [address] [place] [id number] [address] [place] [phone] Oct, Anxiety F41.9 and Essential hypertension I10 [place] [address] [address] Sep, Primary insomnia F51.01 [facility] [address] [place] [id number] [address] [place] [id number] 12 Sep, 2017 Chronic pain disorder G89.4 [facility] [address] [place] [phone] Sep, Essential hypertension I10 a nd Chronic pain disorder G89.4 [facility] [address] [place] [phone] Sep, Anxiety F41.9 and Chronic pa in disorder G89.4 [facility] [address] [place] [id number] [address] [place] [id number] 02 Sep, 2017 Controlled substance agreeme nt signed Z79.899 [place] [address] [place] [id number] [address] [place] [phone] Aug, Chronic pain disorder G89.4 and Primary insomnia F51.01 [facility] [address] [place] [id number] [address] [place] [phone] Aug, Essential hypertension I10 ; Mixed hyperlipidemia E78.2 ; Primary insomnia F51.01 ; Tobacco abuse Z72.0 ; Chronic pain disorder G89.4 ; Acute suppurative otitis media of left ear without spontaneous rupture of tympanic membrane, recurrence not specified H66.002 ; Acute bronchitis, unspecified organism J20.9 and Anxiety F41.9 [facility] [address] [facility] [id number] [address] [place] [id number] Aug, [facility] [address] [place] [id number] [address] [place] [id number] Aug, [facility] [address] [place] [address] Aug, Primary insomnia F51.01 [facility] [address] [place] [id number] [address] [place] [phone] Jul, Paronychia of finger of righ t hand L03.011 [facility] [address] [place] [id number] [address] [place] [id number] Jul, Primary insomnia F51.01 [facility] [address] [place] [id number] [address] [place] [id number] Jul, Mixed hyperlipidemia E78.2 [facility] [address] [place] [id number] [address] [place] [id number] 13 Jul, 2017 Chronic pain disorder G89.4 [facility] [address] [facility] [id number] [address] [place] [id number] 17 Jun, 2017 Mixed hyperlipidemia E78.2 [facility] [address] [place] [id number] [address] [place] [id number] 16 Jun, 2017 Primary insomnia F51.01 [facility] [address] [place] [id number] [address] [place] [id number] Jun, [facility] [address] [id number] [address] [place] [phone] May, [facility] [address] [id number] [address] [place] [id number] May, [facility] [address] [id number] [address] [place] [phone] May, Chronic pain disorder G89.4 ; Bilateral otitis media with effusion H65.93 and Primary insomnia F51.01 [facility] [address] [id number] [address] [place] [phone] May, Chronic pain disorder G89.4 [facility] [address] [id number] [address] [place] [phone] May, [facility] [address] [id number] [address] [place] [phone] May, [facility] [address] [id number] [address] [place] [phone] May, [facility] [address] [id number] [address] [place] [phone] Apr, [facility] [address] [id number] [address] [place] [phone] Apr, [facility] [address] [id number] [address] [place] [id number] 19 Apr, 2017 Coronary artery disease invo lving [place] coronary artery of [place] heart without angina pectoris I25.10 [facility] [address] [id number] [address] [place] [id number] 18 Apr, 2017 Chronic pain disorder G89.4 [facility] [address] [id number] [address] [place] [id number] 15 Apr, 2017 Coronary artery disease invo lving [place] coronary artery of [place] heart without angina pectoris I25.10 ; Tobacco abuse Z72.0 ; Tobacco abuse counseling Z71.6 ; Obesity (BMI 30-39.9) E66.9 ; Acute reaction to situational stress F43.0 ; Mixed hyperlipidemia E78.2 ; Chronic pain disorder G89.4 and Right otitis media with effusion H65.91 [facility] [address] [id number] [address] [place] [phone] Apr, Pain in right ankle and join ts of right foot M25.571 [facility] [address] [id number] [address] [place] [id number] Apr, Pain in right ankle and join ts of right foot M25.571 and Coronary artery disease involving [place] coronary artery of [place] heart without angina pectoris I25.10 [facility] [address] [id number] [address] [place] [phone] Mar, [facility] [address] [id number] [address] [place] [phone] Mar, [facility] [address] [id number] [address] [place] [phone] Mar, [facility] [address] [id number] [address] [place] [id number] Mar, Acute mucoid otitis media of both ears H65.113 and Dizziness R42 [facility] [address] [id number] [address] [place] [phone] Feb, [facility] [address] [id number] [address] [place] [phone] Feb, Pain in right ankle and join ts of right foot M25.571 ; Pain in left finger(s) M79.645 and Coronary artery disease involving [place] coronary artery of [place] heart without angina pectoris I25.10 [facility] [address] [id number] [address] [place] [phone] Feb, [facility] [address] [id number] [address] [place] [phone] Feb, [facility] [address] [id number] [address] [place] [phone] Jan, [facility] [address] [facility] [id number] [address] [address] 15 Jan, 2017 Encounter for routine adult health examination with abnormal findings Z00.01 ; Foot pain, left M79.672 ; Pain in right ankle and joints of right foot M25.571 ; Chronic pain disorder G89.4 ; Coronary artery disease involving [place] coronary artery of [place] heart without angina pectoris I25.10 ; Tobacco abuse Z72.0 ; Tobacco abuse counseling Z71.6 and Obesity (BMI 30-39.9) E66.9 [facility] [address] [facility] [id number] [address] [address] Jan, [facility] [address] [facility] [id number] [address] [id number] 10 Mar, 2015 Dental examination V72.2 IMMUNIZATIONS No Known Immunizations SOCIAL HISTORY Never Assessed REASON FOR VISIT Controlled Refill Request Due 06/21 PLAN OF CARE VITAL SIGNS MEDICATIONS Medication [...]
--- OUTSIDE RECORDS SUMMARY | 2019-12-11 14:39 | XMS REPORT ---
Author Author Reza WELCH Organization [facility] Address [address] [place] [address] Care Team Providers Care Tourist Escort Name Role Phone OLIVER WELCH Unavailable PROBLEMS Type Condition ICD9-CM Code YDE28-YD Code Onset Dates Condition S tatus SNOMED Code Problem Tobacco abuse Z72.0 Active 158171 000 Problem Pain in right ankle and joints of right foot M25.5 71 Active 699100449 Problem Tobacco abuse counseling Z71.6 Activ e 234846086 Problem Plantar fasciitis, bilateral M72.2 A ctive [id number] Problem Foot pain, left M79.672 Active 3167 [id number] Problem Coronary artery disease invo lving [place] coronary artery of [place] heart without angina pectoris I25.10 Active 1641 419792162 Problem Obesity (BMI 30-39.9) E66.9 Active 528177119 Problem Essential hypertension I10 Active 91066681 Problem Anxiety F41.9 Active 52182218 Problem Acute reaction to situational stress F43.0 Active 95937090 Problem Chronic pain disorder G89.4 Active 301483327 Problem Primary insomnia F51.01 Active 397 2004 Problem Mixed hyperlipidemia E78.2 Active 230811630 ALLERGIES No Information ENCOUNTERS Encounter Location Date Diagnosis [facility] [address] [place] [id number] [address] [place] [id number] 26 Jan, 2018 Essential hypertension I10 ; Mixed hyperlipidemia E78.2 ; Throat tightness R68.89 ; Left arm pain M79.602 ; Coronary artery disease involving [place] coronary artery of [place] heart without angina pectoris I25.10 ; Chronic pain disorder G89.4 ; Tobacco abuse counseling Z71.6 and Primary insomnia F51.01 [facility] [address] [facility] [id number] [address] [place] [phone] Jan, [facility] [address] [place] [id number] [address] [place] [id number] 17 Dec, 2017 Essential hypertension I10 a nd Mixed hyperlipidemia E78.2 [facility] [address] [facility] [id number] [address] [place] [phone] December, [facility] [address] [facility] [id number] [address] [place] [phone] December, Primary insomnia F51.01 [facility] [address] [facility] [id number] [address] [place] [phone] Nov, Chronic pain disorder G89.4 [facility] [address] [facility] [id number] [address] [place] [phone] Nov, [facility] [address] [place] [id number] [address] [place] [phone] Oct, Acute bronchitis, unspecifie d organism J20.9 [facility] [address] [place] [id number] [address] [place] [phone] 16 Oct, 2017 [facility] [address] [facility] [id number] [address] [place] [id number] 15 Oct, 2017 Chronic pain disorder G89.4 and Primary insomnia F51.01 [facility] [address] [facility] [id number] [address] [place] [id number] 14 Oct, 2017 [facility] [address] [facility] [id number] [address] [place] [id number] 05 Oct, 2017 Anxiety F41.9 and Essential hypertension I10 [facility] [address] [facility] [id number] [address] [place] [phone] Sep, Primary insomnia F51.01 [facility] [address] [facility] [id number] [address] [place] [phone] Sep, Chronic pain disorder G89.4 [facility] [address] [facility] [id number] [address] [place] [id number] Sep, Essential hypertension I10 a nd Chronic pain disorder G89.4 [facility] [address] [place] [id number] [address] [place] [id number] 09 Sep, 2017 Anxiety F41.9 and Chronic pa in disorder G89.4 [place] [address] [place] [id number] [address] [place] [phone] 02 Sep, 2017 Controlled substance agreeme nt signed Z79.899 [place] [address] [place] [id number] [address] [place] [id number] Aug, Chronic pain disorder G89.4 and Primary insomnia F51.01 [place] [address] [place] [id number] [address] [place] [phone] Aug, Essential hypertension I10 ; Mixed hyperlipidemia E78.2 ; Primary insomnia F51.01 ; Tobacco abuse Z72.0 ; Chronic pain disorder G89.4 ; Acute suppurative otitis media of left ear without spontaneous rupture of tympanic membrane, recurrence not specified H66.002 ; Acute bronchitis, unspecified organism J20.9 and Anxiety F41.9 [place] [id number] [place] [phone] Aug, [place] [address] [place] [id number] [address] [place] [phone] Aug, [place] [address] [place] [id number] [address] [place] [phone] Aug, Primary insomnia F51.01 [facility] [address] [place] [id number] [address] [place] [phone] Jul, Paronychia of finger of righ t hand L03.011 [facility] [address] [facility] [id number] [address] [place] [phone] Jul, Primary insomnia F51.01 [facility] [address] [place] [id number] [address] [place] [phone] Jul, Mixed hyperlipidemia E78.2 [facility] [address] [place] [id number] [address] [place] [phone] Jul, Chronic pain disorder G89.4 [facility] [address] [id number] [address] [place] [phone] Jun, Mixed hyperlipidemia E78.2 [facility] [address] [id number] [address] [place] [phone] Jun, Primary insomnia F51.01 [facility] [address] [id number] [address] [place] [phone] Jun, [facility] [address] [id number] [address] [place] [phone] May, [facility] [address] [id number] [address] [place] [id number] May, [facility] [address] [facility] [id number] [address] [place] [id number] May, Chronic pain disorder G89.4 ; Bilateral otitis media with effusion H65.93 and Primary insomnia F51.01 [facility] [address] [id number] [address] [place] [id number] May, Chronic pain disorder G89.4 [facility] [address] [id number] [address] [place] [phone] May, [facility] [address] [facility] [id number] [address] [place] [phone] May, [facility] [address] [id number] [address] [place] [phone] May, [facility] [address] [id number] [address] [place] [phone] Apr, [facility] [address] [id number] [address] [place] [id number] Apr, [facility] [address] [facility] [id number] [address] [place] [phone] Apr, Coronary artery disease invo lving [place] coronary artery of [place] heart without angina pectoris I25.10 [facility] [address] [id number] [address] [place] [id number] 18 Apr, 2017 Chronic pain disorder G89.4 [facility] [address] [id number] [address] [place] [phone] 15 Apr, 2017 Coronary artery disease invo lving [place] coronary artery of [place] heart without angina pectoris I25.10 ; Tobacco abuse Z72.0 ; Tobacco abuse counseling Z71.6 ; Obesity (BMI 30-39.9) E66.9 ; Acute reaction to situational stress F43.0 ; Mixed hyperlipidemia E78.2 ; Chronic pain disorder G89.4 and Right otitis media with effusion H65.91 [facility] [address] [id number] [address] [place] [id number] Apr, Pain in right ankle and join ts of right foot M25.571 [place] [id number] [id number] [address] [place] [id number] Apr, Pain in right ankle and join ts of right foot M25.571 and Coronary artery disease involving [place] coronary artery of [place] heart without angina pectoris I25.10 [facility] [address] [id number] [address] [place] [id number] Mar, [facility] [address] [id number] [address] [place] [id number] Mar, [facility] [address] [id number] [address] [place] [id number] Mar, [facility] [address] [id number] [address] [place] [id number] Mar, Acute mucoid otitis media of both ears H65.113 and Dizziness R42 [facility] [address] [id number] [address] [place] [id number] Feb, [facility] [address] [facility] [id number] [address] [place] [id number] Feb, Pain in right ankle and join ts of right foot M25.571 ; Pain in left finger(s) M79.645 and Coronary artery disease involving [place] coronary artery of [place] heart without angina pectoris I25.10 [facility] [address] [facility] [id number] [address] [place] [phone] Feb, [facility] [address] [facility] [id number] [address] [place] [phone] Feb, [facility] [address] [facility] [id number] [address] [place] [phone] Jan, [facility] [place] [address] [facility] [id number] [address] [place] [phone] Jan, Encounter for routine adult health examination with abnormal findings Z00.01 ; Foot pain, left M79.672 ; Pain in right ankle and joints of right foot M25.571 ; Chronic pain disorder G89.4 ; Coronary artery disease involving [place] coronary artery of [place] heart without angina pectoris I25.10 ; Tobacco abuse Z72.0 ; Tobacco abuse counseling Z71.6 and Obesity (BMI 30-39.9) E66.9 [facility] [place] [address] [facility] [id number] [address] [place] [phone] Jan, [facility] [address] [facility] [id number] [address] [place] [id number] Mar, Dental examination V72.2 IMMUNIZATIONS No Known [...] ago and then 7 years ago- 1st CO- Promus 2.5 x 18 mm stent to LAD, 3.0x 23 mm stent to DIAG, 2.5x 15 mm stent to LAD/ 2nd CO- Promus 2.5 x12 to distal Circ and [...]
--- OUTSIDE RECORDS SUMMARY | 2019-12-11 14:39 | XMS REPORT ---
Author Author Reza WELCH Organization [facility] Address [address] [place] [address] Care Team Providers Care Medicine Tech Name Role Phone REBEKAH OLIVER Unavailable PROBLEMS Type Condition ICD9-CM Code EED38-YG Code Onset Dates Condition S tatus SNOMED Code Problem Tobacco abuse Z72.0 Active 792682 000 Problem Pain in right ankle and joints of right foot M25.5 71 Active 444110779 Problem Tobacco abuse counseling Z71.6 Activ e 669978104 Problem Plantar fasciitis, bilateral M72.2 A ctive [id number] Problem Foot pain, left M79.672 Active 3167 20634286085 Problem Coronary artery disease invo [place]ving [place] coronary artery of [place] heart without angina pectoris I25.10 Active 1641 661794269 Problem Obesity (BMI 30-39.9) E66.9 Active 280614095 Problem Essential hypertension I10 Active 08057825 Problem Anxiety F41.9 Active 80863859 Problem Acute reaction to situational stress F43.0 Active 21652106 Problem Chronic pain disorder G89.4 Active 410229153 Problem Primary insomnia F51.01 Active 397 2004 Problem Mixed hyperlipidemia E78.2 Active 738939547 ALLERGIES No Information ENCOUNTERS Encounter Location Date Diagnosis [facility] [address] [facility] [id number] [address] [place] [phone] Jan, [facility] [address] [facility] [id number] [address] [place] [phone] Jan, [facility] [address] [facility] [id number] [address] [place] [phone] December, Essential hypertension I10 a nd Mixed hyperlipidemia E78.2 [facility] [address] [facility] [id number] [address] [place] [address] December, [facility] [address] [place] [id number] [address] [place] [address] December, Primary insomnia F51.01 [facility] [address] [facility] [id number] [address] [place] [phone] Nov, Chronic pain disorder G89.4 [facility] [address] [facility] [id number] [address] [place] [address] Nov, [facility] [address] [facility] [id number] [address] [place] [address] Oct, Acute bronchitis, unspecifie d organism J20.9 [place] [address] [facility] [id number] [address] [place] [phone] 16 Oct, 2017 [facility] [address] [place] [id number] [place] [phone] Oct, Chronic pain disorder G89.4 and Primary insomnia F51.01 [place] [address] [place] [phone] 14 Oct, 2017 [facility] [address] [place] [id number] [address] [place] [phone] 05 Oct, 2017 Anxiety F41.9 and Essential hypertension I10 [place] [address] [place] [id number] [address] [place] [address] Sep, Primary insomnia F51.01 [place] [address] [place] [id number] [address] [place] [address] Sep, Chronic pain disorder G89.4 [place] [address] [place] [id number] [address] [place] [address] Sep, Essential hypertension I10 a nd Chronic pain disorder G89.4 [place] [address] [place] [id number] [address] [place] [phone] 09 Sep, 2017 Anxiety F41.9 and Chronic pa in disorder G89.4 [place] [address] [place] [id number] [address] [place] [address] Sep, Controlled substance agreeme nt signed Z79.899 [facility] [address] [place] [id number] [address] [place] [address] Aug, Chronic pain disorder G89.4 and Primary insomnia F51.01 [facility] [address] [place] [id number] [address] [place] [address] Aug, Essential hypertension I10 ; Mixed hyperlipidemia E78.2 ; Primary insomnia F51.01 ; Tobacco abuse Z72.0 ; Chronic pain disorder G89.4 ; Acute suppurative otitis media of left ear without spontaneous rupture of tympanic membrane, recurrence not specified H66.002 ; Acute bronchitis, unspecified organism J20.9 and Anxiety F41.9 [place] [address] [place] [id number] [address] [place] [address] Aug, [place] [address] [place] [address] Aug, [facility] [address] [place] [address] Aug, Primary insomnia F51.01 [facility] [address] [facility] [id number] [address] [place] [address] Jul, Paronychia of finger of righ t hand L03.011 [facility] [address] [place] [id number] [address] [place] [address] Jul, Primary insomnia F51.01 [facility] [address] [place] [id number] [address] [place] [address] Jul, Mixed hyperlipidemia E78.2 [facility] [address] [facility] [id number] [address] [place] [address] Jul, Chronic pain disorder G89.4 [facility] [address] [place] [id number] [address] [place] [phone] Jun, Mixed hyperlipidemia E78.2 [facility] [address] [place] [id number] [address] [place] [address] Jun, Primary insomnia F51.01 [facility] [address] [id number] [address] [place] [address] Jun, [facility] [address] [id number] [address] [place] [phone] May, [facility] [address] [id number] [address] [place] [phone] May, [facility] [address] [id number] [address] [place] [address] May, Chronic pain disorder G89.4 ; Bilateral otitis media with effusion H65.93 and Primary insomnia F51.01 [facility] [address] [id number] [address] [place] [address] May, Chronic pain disorder G89.4 [facility] [address] [id number] [address] [place] [address] May, [facility] [address] [id number] [address] [place] [phone] May, [facility] [address] [id number] [address] [place] [phone] May, [facility] [address] [id number] [address] [place] [address] Apr, [facility] [address] [id number] [address] [place] [phone] Apr, [facility] [address] [id number] [address] [place] [address] 19 Apr, 2017 Coronary artery disease [place] coronary artery of [place] heart without angina pectoris I25.10 [facility] [address] [id number] [address] [place] [address] 18 Apr, 2017 Chronic pain disorder G89.4 [facility] [address] [id number] [address] [place] [phone] 15 Apr, 2017 Coronary artery disease invo [place] coronary artery of [place] heart without angina pectoris I25.10 ; Tobacco abuse Z72.0 ; Tobacco abuse counseling Z71.6 ; Obesity (BMI 30-39.9) E66.9 ; Acute reaction to situational stress F43.0 ; Mixed hyperlipidemia E78.2 ; Chronic pain disorder G89.4 and Right otitis media with effusion H65.91 [place] [address] [id number] [address] [place] [phone] Apr, Pain in right ankle and join ts of right foot M25.571 [place] [address] [id number] [address] [place] [address] Apr, Pain in right ankle and join ts of right foot M25.571 and Coronary artery disease involving [place] coronary artery of [place] heart without angina pectoris I25.10 [place] [address] [id number] [address] [place] [address] Mar, [place] [address] [id number] [address] [place] [address] Mar, [place] [address] [id number] [address] [place] [phone] Mar, [place] [address] [id number] [address] [place] [address] Mar, Acute mucoid otitis media of both ears H65.113 and Dizziness R42 [place] [address] [id number] [address] [place] [address] Feb, [place] [address] [id number] [address] [place] [address] Feb, Pain in right ankle and join ts of right foot M25.571 ; Pain in left finger(s) M79.645 and Coronary artery disease [place] coronary artery of [place] heart without angina pectoris I25.10 [facility] [address] [id number] [address] [place] [address] Feb, [place] [address] [id number] [address] [place] [phone] Feb, [facility] [address] [facility] [id number] [address] [place] [phone] Jan, [facility] [address] [facility] [id number] [address] [place] [address] Jan, Encounter for routine adult health examination with abnormal findings Z00.01 ; Foot pain, left M79.672 ; Pain in right ankle and joints of right foot M25.571 ; Chronic pain disorder G89.4 ; Coronary artery disease involving [place] coronary artery of [place] heart without angina pectoris I25.10 ; Tobacco abuse Z72.0 ; Tobacco abuse counseling Z71.6 and Obesity (BMI 30-39.9) E66.9 [facility] [address] [facility] [id number] [address] [place] [address] Jan, [facility] [address] [facility] [id number] [address] [place] [id number] Mar, Dental examination V72.2 IMMUNIZATIONS No Known [...] ago and then 7 years ago- 1st GA- Promus 2.5 x 18 mm stent to LAD, 3.0x 23 mm stent to DIAG, 2.5x 15 mm stent to LAD/ 2nd GA- Promus 2.5 x12 to distal Circ and [...]
--- OUTSIDE RECORDS SUMMARY | 2019-12-11 14:39 | XMS REPORT ---
Author Author Reza WELCH Organization [facility] Address [address] [place] [address] Care Team Providers Care Tag Stringer Name Role Phone OLIVER WELCH Unavailable PROBLEMS Type Condition ICD9-CM Code JLI05-IA Code Onset Dates Condition S tatus SNOMED Code Problem Tobacco abuse Z72.0 Active 291322 000 Problem Pain in right ankle and joints of right foot M25.5 71 Active 097020730 Problem Tobacco abuse counseling Z71.6 Activ e 598494578 Problem Plantar fasciitis, bilateral M72.2 A ctive 14976447446429439 Problem Foot pain, left M79.672 Active 3167 17014262616 Problem Coronary artery disease [place] coronary artery of [place] heart without angina pectoris I25.10 Active 1641 889123432 Problem Obesity (BMI 30-39.9) E66.9 Active 066019157 Problem Essential hypertension I10 Active 80801120 Problem Anxiety F41.9 Active 33388253 Problem Acute reaction to situational stress F43.0 Active 62200299 Problem Chronic pain disorder G89.4 Active 153368186 Problem Primary insomnia F51.01 Active 397 2004 Problem Mixed hyperlipidemia E78.2 Active 080271222 ALLERGIES No Information ENCOUNTERS Encounter Location Date Diagnosis [facility] [address] [facility] [id number] [address] [place] [phone] Jan, [facility] [address] [facility] [id number] [address] [place] [phone] December, Essential hypertension I10 a nd Mixed hyperlipidemia E78.2 [facility] [address] [facility] [id number] [address] [place] [phone] December, [facility] [address] [facility] [id number] [address] [place] [address] December, Primary insomnia F51.01 [facility] [address] [facility] [id number] [address] [place] [phone] 13 Nov, 2017 Chronic pain disorder G89.4 [facility] [address] [facility] [id number] [address] [place] [address] Nov, [facility] [address] [facility] [id number] [address] [place] [address] Oct, Acute bronchitis, unspecifie d organism J20.9 [facility] [address] [facility] [id number] [address] [place] [phone] 16 Oct, 2017 [facility] [address] [address] 15 Oct, 2017 Chronic pain disorder G89.4 and Primary insomnia F51.01 [place] [address] [place] [id number] [address] [place] [address] 14 Oct, 2017 [place] [address] [place] [id number] [address] [place] [address] Oct, Anxiety F41.9 and Essential hypertension I10 [place] [address] [address] Sep, Primary insomnia F51.01 [facility] [address] [place] [id number] [address] [place] [address] 12 Sep, 2017 Chronic pain disorder G89.4 [facility] [address] [place] [address] Sep, Essential hypertension I10 a nd Chronic pain disorder G89.4 [facility] [id number] [place] [address] Sep, Anxiety F41.9 and Chronic pa in disorder G89.4 [facility] [address] [place] [id number] [address] [place] [address] 02 Sep, 2017 Controlled substance agreeme nt signed Z79.899 [place] [address] [place] [id number] [address] [place] [address] Aug, Chronic pain disorder G89.4 and Primary insomnia F51.01 [facility] [address] [place] [id number] [address] [place] [address] Aug, Essential hypertension I10 ; Mixed hyperlipidemia E78.2 ; Primary insomnia F51.01 ; Tobacco abuse Z72.0 ; Chronic pain disorder G89.4 ; Acute suppurative otitis media of left ear without spontaneous rupture of tympanic membrane, recurrence not specified H66.002 ; Acute bronchitis, unspecified organism J20.9 and Anxiety F41.9 [facility] [address] [facility] [id number] [address] [place] [phone] Aug, [facility] [address] [place] [id number] [address] [place] [address] Aug, [facility] [address] [place] [address] Aug, Primary insomnia F51.01 [facility] [address] [place] [id number] [address] [place] [phone] Jul, Paronychia of finger of righ t hand L03.011 [facility] [address] [place] [id number] [address] [place] [address] Jul, Primary insomnia F51.01 [facility] [address] [place] [id number] [address] [place] [address] Jul, Mixed hyperlipidemia E78.2 [facility] [address] [place] [id number] [address] [place] [id number] 13 Jul, 2017 Chronic pain disorder G89.4 [facility] [address] [facility] [id number] [address] [place] [phone] 17 Jun, 2017 Mixed hyperlipidemia E78.2 [facility] [address] [place] [id number] [address] [place] [address] 16 Jun, 2017 Primary insomnia F51.01 [facility] [address] [place] [id number] [address] [place] [address] Jun, [facility] [address] [id number] [address] [place] [address] May, [facility] [address] [id number] [address] [place] [address] May, [facility] [address] [id number] [address] [place] [address] May, Chronic pain disorder G89.4 ; Bilateral otitis media with effusion H65.93 and Primary insomnia F51.01 [facility] [address] [id number] [address] [place] [address] May, Chronic pain disorder G89.4 [facility] [address] [id number] [address] [place] [phone] May, [facility] [address] [id number] [address] [place] [phone] May, [facility] [address] [id number] [address] [place] [address] May, [facility] [address] [id number] [address] [place] [address] Apr, [facility] [address] [id number] [address] [place] [phone] Apr, [facility] [address] [id number] [address] [place] [id number] 19 Apr, 2017 Coronary artery disease invo [place] coronary artery [place] heart without angina pectoris I25.10 [facility] [address] [id number] [address] [place] [id number] 18 Apr, 2017 Chronic pain disorder G89.4 [facility] [address] [id number] [address] [place] [address] 15 Apr, 2017 Coronary artery disease invo [place]ving [place] coronary artery of [place] heart without angina pectoris I25.10 ; Tobacco abuse Z72.0 ; Tobacco abuse counseling Z71.6 ; Obesity (BMI 30-39.9) E66.9 ; Acute reaction to situational stress F43.0 ; Mixed hyperlipidemia E78.2 ; Chronic pain disorder G89.4 and Right otitis media with effusion H65.91 [facility] [address] [id number] [address] [place] [address] Apr, Pain in right ankle and join ts of right foot M25.571 [facility] [address] [id number] [address] [place] [address] Apr, Pain in right ankle and join ts of right foot M25.571 and Coronary artery disease involving [place] coronary artery of [place] heart without angina pectoris I25.10 [facility] [address] [id number] [address] [place] [address] Mar, [facility] [address] [id number] [address] [place] [phone] Mar, [facility] [address] [id number] [address] [place] [address] Mar, [facility] [address] [id number] [address] [place] [phone] Mar, Acute mucoid otitis media of both ears H65.113 and Dizziness R42 [facility] [address] [id number] [address] [place] [phone] Feb, [facility] [address] [id number] [address] [place] [address] Feb, Pain in right ankle and join ts of right foot M25.571 ; Pain in left finger(s) M79.645 and Coronary artery disease involving [place] coronary artery of [place] heart without angina pectoris I25.10 [facility] [address] [id number] [address] [place] [address] Feb, [facility] [address] [id number] [address] [place] [phone] Feb, [facility] [address] [id number] [address] [place] [phone] Jan, [facility] [address] [facility] [id number] [address] [place] [address] 15 Jan, 2017 Encounter for routine adult health examination with abnormal findings Z00.01 ; Foot pain, left M79.672 ; Pain in right ankle and joints of right foot M25.571 ; Chronic pain disorder G89.4 ; Coronary artery disease involving [place] coronary artery of [place] heart without angina pectoris I25.10 ; Tobacco abuse Z72.0 ; Tobacco abuse counseling Z71.6 and Obesity (BMI 30-39.9) E66.9 [facility] [address] [facility] [id number] [address] [place] [address] Jan, [facility] [address] [facility] [id number] [address] [id number] 10 Mar, 2015 Dental examination V72.2 IMMUNIZATIONS [...]
--- OUTSIDE RECORDS SUMMARY | 2019-12-11 14:40 | XMS REPORT ---
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 Name Role Phone OLIVER WELCH Unavailable PROBLEMS Type Condition ICD9-CM Code XMR24-MN Code Onset Dates Condition S tatus SNOMED Code Problem Tobacco abuse Z72.0 Active 086128 000 Problem Pain in right ankle and joints of right foot M25.5 71 Active 593566799 Problem Tobacco abuse counseling Z71.6 Activ e 301922225 Problem Plantar fasciitis, bilateral M72.2 A ctive 15593363836809053 Problem Foot pain, left M79.672 Active 3167 00438947101 Problem Coronary artery disease invo lving [place] coronary artery of [place] heart without angina pectoris I25.10 Active 1641 820514109 Problem Obesity (BMI 30-39.9) E66.9 Active 484883211 Problem Essential hypertension I10 Active 94454341 Problem Anxiety F41.9 Active 62527438 Problem Acute reaction to situational stress F43.0 Active 18689658 Problem Chronic pain disorder G89.4 Active 262884124 Problem Primary insomnia F51.01 Active 397 2004 Problem Mixed hyperlipidemia E78.2 Active 022656546 ALLERGIES Substance Reaction Event Type Date Status Augmentin Unknown Drug Allergy Apr, Active ENCOUNTERS Encounter Location Date Diagnosis [facility] [address] [facility] [id number] [address] [place] [phone] Nov, Chronic pain disorder G89.4 [facility] [address] [facility] [id number] [address] [place] [phone] Nov, [facility] [address] [facility] [id number] [address] [place] [phone] Oct, Acute bronchitis, unspecifie d organism J20.9 [facility] [address] [facility] [id number] [address] [place] [phone] 16 Oct, 2017 [place] [address] [facility] [id number] [address] [place] [phone] 15 Oct, 2017 Chronic pain disorder G89.4 and Primary insomnia F51.01 [place] [address] [facility] [id number] [address] [place] [phone] 14 Oct, 2017 [place] [address] [place] [phone] 05 Oct, 2017 Anxiety F41.9 and Essential hypertension I10 [place] [address] [facility] [id number] [address] [place] [phone] Sep, Primary insomnia F51.01 [place] [address] [place] [id number] [address] [place] [phone] Sep, Chronic pain disorder G89.4 [place] [address] [phone] Sep, Essential hypertension I10 a nd Chronic pain disorder G89.4 [place] [address] [place] [phone] Sep, Anxiety F41.9 and Chronic pa in disorder G89.4 [place] [address] [place] [id number] [address] [place] [phone] Sep, Controlled substance agreeme nt signed Z79.899 [place] [address] [place] [id number] [address] [place] [phone] Aug, Chronic pain disorder G89.4 and Primary insomnia F51.01 [place] [address] [facility] [id number] [address] [place] [phone] Aug, Essential hypertension I10 ; Mixed hyperlipidemia E78.2 ; Primary insomnia F51.01 ; Tobacco abuse Z72.0 ; Chronic pain disorder G89.4 ; Acute suppurative otitis media of left ear without spontaneous rupture of tympanic membrane, recurrence not specified H66.002 ; Acute bronchitis, unspecified organism J20.9 and Anxiety F41.9 [facility] [address] [facility] [id number] [address] [place] [phone] Aug, [facility] [address] [facility] [id number] [address] [place] [phone] Aug, [facility] [address] [facility] [id number] [address] [place] [phone] Aug, Primary insomnia F51.01 [facility] [address] [facility] [id number] [address] [place] [phone] Jul, Paronychia of finger of righ t hand L03.011 [facility] [address] [facility] [id number] [address] [place] [phone] Jul, Primary insomnia F51.01 [facility] [address] [facility] [id number] [address] [place] [phone] Jul, Mixed hyperlipidemia E78.2 [facility] [address] [facility] [id number] [address] [place] [phone] Jul, Chronic pain disorder G89.4 [facility] [address] [facility] [id number] [address] [place] [phone] Jun, Mixed hyperlipidemia E78.2 [facility] [address] [facility] [id number] [address] [place] [phone] 16 Jun, 2017 Primary insomnia F51.01 [facility] [address] [facility] [id number] [address] [place] [phone] Jun, [facility] [address] [facility] [id number] [address] [place] [phone] May, [facility] [address] [facility] [id number] [address] [place] [phone] May, [facility] [address] [facility] [id number] [address] [place] [phone] May, Chronic pain disorder G89.4 ; Bilateral otitis media with effusion H65.93 and Primary insomnia F51.01 [facility] [address] [id number] [address] [place] [phone] 16 May, 2017 Chronic pain disorder G89.4 [facility] [address] [id number] [address] [place] [phone] 12 May, 2017 [facility] [address] [id number] [address] [place] [phone] 05 May, 2017 [facility] [address] [id number] [address] [place] [phone] May, [facility] [address] [id number] [address] [place] [phone] 22 Apr, 2017 [facility] [address] [id number] [address] [place] [phone] 21 Apr, 2017 [facility] [address] [id number] [address] [place] [phone] 19 Apr, 2017 Coronary artery disease invo lving [place] coronary artery of [place] heart without angina pectoris I25.10 [facility] [address] [id number] [address] [place] [phone] 18 Apr, 2017 Chronic pain disorder G89.4 [facility] [address] [id number] [address] [place] [phone] 15 Apr, 2017 Coronary artery disease invo lving [place] coronary artery of [place] heart without angina pectoris I25.10 ; Tobacco abuse Z72.0 ; Tobacco abuse counseling Z71.6 ; Obesity (BMI 30-39.9) E66.9 ; Acute reaction to situational stress F43.0 ; Mixed hyperlipidemia E78.2 ; Chronic pain disorder G89.4 and Right otitis media with effusion H65.91 [facility] [address] [id number] [address] [place] [phone] 13 Apr, 2017 Pain in right ankle and join ts of right foot M25.571 [facility] [address] [id number] [address] [place] [phone] 13 Apr, 2017 Pain in right ankle and join ts of right foot M25.571 and Coronary artery disease involving [place] coronary artery of [place] heart without angina pectoris I25.10 [place] [address] [facility] [id number] [address] [place] [phone] Mar, [place] [address] [facility] [id number] [address] [place] [phone] Mar, [place] [address] [id number] [address] [place] [phone] Mar, [place] [address] [id number] [address] [place] [phone] Mar, Acute mucoid otitis media of both ears H65.113 and Dizziness R42 [address] [id number] [address] [place] [phone] Feb, [place] [address] [facility] [id number] [address] [place] [phone] Feb, Pain in right ankle and join ts of right foot M25.571 ; Pain in left finger(s) M79.645 and Coronary artery disease involving [place] coronary artery of [place] heart without angina pectoris I25.10 [place] [address] [facility] [id number] [address] [place] [phone] Feb, [place] [address] [facility] [id number] [address] [place] [phone] Feb, [place] [address] [facility] [id number] [address] [place] [phone] Jan, [address] [id number] [address] [place] [phone] Jan, Encounter for routine adult health examination with abnormal findings Z00.01 ; Foot pain, left M79.672 ; Pain in right ankle and joints of right foot M25.571 ; Chronic pain disorder G89.4 ; Coronary artery disease involving [place] coronary artery of [place] heart without angina pectoris I25.10 ; Tobacco abuse Z72.0 ; Tobacco abuse counseling Z71.6 and Obesity (BMI 30-39.9) E66.[address] [id number] [address] [place] [address] Jan, [facility] [address] [id number] [address] [place] [id number] Mar, Dental examination V72.2 IMMUNIZATIONS No Known Immunizations SOCIAL HISTORY Never Assessed REASON FOR VISIT Blood Pressure---DBennettRN, needs controlled substance agreement and ameritox, ER f/u (records requested) PLAN OF CARE Activity Details Follow Up 4 Weeks Reason:F/U anxiety VITAL SIGNS Height 69 in 2017-04-19 Weight 221 lbs 2017-04-19 Temperature 98.4 degrees Fahrenheit 2017-04-19 Heart Rate 90 bpm 2017-04-19 Respiratory Rate 20 2017-04-19 BMI 32.63 kg/m2 2017-04-19 Blood pressure systolic 134 mmHg 2017-04-19 Blood pressure diastolic 86 mmHg 2017-04-19 MEDICATIONS Medication Instructions Dosage Frequency Start Date End Date Duration S tatus Amoxicillin 500 mg Orally every 12 hrs 1 capsule 12h Apr, 201 7 Apr, 10 day(s) Active Atenolol 50 mg Orally twice a day 1 tablet 12h 90 da ys Active Clopidogrel Bisulfate 75 MG Orally Once a day 1 tablet 24h 90 days Active Lyrica 75 MG Orally Twice a day 1 capsule 12h Apr, 9 0 days Active Aspir-81 81 MG Orally Once a day 1 tablet 24h 30 day s Active Tramadol HCl 50 mg Orally every 6 hrs 1 tablet as needed 6h 28 days Active Duloxetine HCl 40 mg Orally Once a day 1 capsule 24h Apr, 30 day(s) Active HydrOXYzine HCl 50 mg Orally every 8 hrs 1 tablet as needed 8h Apr, 30 days Active Ambien 10 mg Orally Once a day 1 tablet at bedtime as needed 24h 28 days Active Meclizine HCl 25 MG Orally 3 times a day 1 tablet as needed 8h Mar, 10 days Active Atorvastatin Calcium 80 MG Orally Once a day 1 tablet 24h 90 days Active RESULTS No Results PROCEDURES No Known procedures INSTRUCTIONS MEDICATIONS ADMINISTERED No Known Medications MEDICAL (GENERAL) HISTORY Type Description Date Medical History Arthritis Medical History 2 heart attacks with numerou s stents- 10 yrs ago and then 7 years ago- 1st MS- Promus 2.5 x 18 mm stent to LAD, 3.0x 23 mm stent to DIAG, 2.5x 15 mm stent to LAD/ 2nd MS- Promus 2.5 x12 to distal Circ and [...]
--- OUTSIDE RECORDS SUMMARY | 2019-12-11 14:40 | XMS REPORT ---
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 Role Phone OLIVER WELCH Unavailable PROBLEMS Type Condition ICD9-CM Code LFC20-BD Code Onset Dates Condition S tatus SNOMED Code Problem Tobacco abuse Z72.0 Active 521582 000 Problem Pain in right ankle and joints of right foot M25.5 71 Active 857724693 Problem Tobacco abuse counseling Z71.6 Activ e 927818974 Problem Plantar fasciitis, bilateral M72.2 A ctive 11084856222425376 Problem Foot pain, left M79.672 Active 3167 54093314464 Problem Coronary artery disease invo lving [place] coronary artery of [place] heart without angina pectoris I25.10 Active 1641 045628578 Problem Obesity (BMI 30-39.9) E66.9 Active 145896896 Problem Essential hypertension I10 Active 39952935 Problem Anxiety F41.9 Active 46662519 Problem Acute reaction to situational stress F43.0 Active 95384294 Problem Chronic pain disorder G89.4 Active 627437002 Problem Primary insomnia F51.01 Active 397 2004 Problem Mixed hyperlipidemia E78.2 Active 751158904 ALLERGIES No Information ENCOUNTERS Encounter Location Date Diagnosis [facility] [address] [facility] [id number] [address] [place] [phone] Jan, [facility] [address] [facility] [id number] [address] [place] [phone] December, Essential hypertension I10 a nd Mixed hyperlipidemia E78.2 [facility] [address] [facility] [id number] [address] [place] [phone] December, [facility] [address] [facility] [id number] [address] [place] [phone] December, Primary insomnia F51.01 [facility] [address] [facility] [id number] [address] [place] [phone] 13 Nov, 2017 Chronic pain disorder G89.4 [facility] [address] [facility] [id number] [address] [place] [phone] Nov, [facility] [address] [facility] [id number] [address] [place] [phone] Oct, Acute bronchitis, unspecifie d organism J20.9 [facility] [address] [facility] [id number] [address] [place] [phone] 16 Oct, 2017 [facility] [address] [phone] 15 Oct, 2017 Chronic pain disorder G89.4 and Primary insomnia F51.01 [place] [address] [place] [id number] [address] [place] [phone] 14 Oct, 2017 [place] [address] [place] [id number] [address] [place] [phone] Oct, Anxiety F41.9 and Essential hypertension I10 [place] [address] [address] Sep, Primary insomnia F51.01 [facility] [address] [place] [id number] [address] [place] [phone] 12 Sep, 2017 Chronic pain disorder G89.4 [facility] [address] [place] [phone] Sep, Essential hypertension I10 a nd Chronic pain disorder G89.4 [facility] [address] [place] [phone] Sep, Anxiety F41.9 and Chronic pa in disorder G89.4 [facility] [address] [place] [id number] [address] [place] [phone] 02 Sep, 2017 Controlled substance agreeme nt signed Z79.899 [place] [address] [place] [id number] [address] [place] [phone] Aug, Chronic pain disorder G89.4 and Primary insomnia F51.01 [facility] [address] [place] [id number] [address] [place] [phone] Aug, Essential hypertension I10 ; Mixed hyperlipidemia E78.2 ; Primary insomnia F51.01 ; Tobacco abuse Z72.0 ; Chronic pain disorder G89.4 ; Acute suppurative otitis media of left ear without spontaneous rupture of tympanic membrane, recurrence not specified H66.002 ; Acute bronchitis, unspecified organism J20.9 and Anxiety F41.9 [facility] [address] [facility] [id number] [address] [place] [phone] Aug, [facility] [address] [place] [id number] [address] [place] [phone] Aug, [facility] [address] [place] [address] Aug, Primary insomnia F51.01 [facility] [address] [place] [id number] [address] [place] [phone] Jul, Paronychia of finger of righ t hand L03.011 [facility] [address] [place] [id number] [address] [place] [phone] Jul, Primary insomnia F51.01 [facility] [address] [place] [id number] [address] [place] [phone] Jul, Mixed hyperlipidemia E78.2 [facility] [address] [place] [id number] [address] [place] [id number] 13 Jul, 2017 Chronic pain disorder G89.4 [facility] [address] [facility] [id number] [address] [place] [phone] 17 Jun, 2017 Mixed hyperlipidemia E78.2 [facility] [address] [place] [id number] [address] [place] [phone] 16 Jun, 2017 Primary insomnia F51.01 [facility] [address] [place] [id number] [address] [place] [phone] Jun, [facility] [address] [id number] [address] [place] [phone] May, [facility] [address] [id number] [address] [place] [phone] May, [facility] [address] [id number] [address] [place] [phone] May, Chronic pain disorder G89.4 ; Bilateral otitis media with effusion H65.93 and Primary insomnia F51.01 [facility] [address] [id number] [address] [place] [phone] May, Chronic pain disorder G89.4 [facility] [address] [id number] [address] [place] [phone] May, [facility] [address] [id number] [address] [place] [id number] May, [facility] [address] [id number] [address] [place] [phone] May, [facility] [address] [id number] [address] [place] [phone] Apr, [facility] [address] [id number] [address] [place] [phone] Apr, [facility] [address] [id number] [address] [place] [id number] 19 Apr, 2017 Coronary artery disease invo lving [place] coronary artery of [place] heart without angina pectoris I25.10 [facility] [address] [id number] [address] [place] [phone] 18 Apr, 2017 Chronic pain disorder G89.4 [facility] [address] [id number] [address] [place] [id number] 15 Apr, 2017 Coronary artery disease invo lving [place] coronary artery of [place] heart without angina pectoris I25.10 ; Tobacco abuse Z72.0 ; Tobacco abuse counseling Z71.6 ; Obesity (BMI 30-39.9) E66.9 ; Acute reaction to situational stress F43.0 ; Mixed hyperlipidemia E78.2 ; Chronic pain disorder G89.4 and Right otitis media with effusion H65.91 [facility] [address] [id number] [address] [place] [phone] Apr, Pain in right ankle and join ts of right foot M25.571 [facility] [address] [id number] [address] [place] [phone] Apr, Pain in right ankle and join ts of right foot M25.571 and Coronary artery disease involving [place] coronary artery of [place] heart without angina pectoris I25.10 [facility] [address] [id number] [address] [place] [phone] Mar, [facility] [address] [id number] [address] [place] [phone] Mar, [facility] [address] [id number] [address] [place] [phone] Mar, [facility] [address] [id number] [address] [place] [phone] Mar, Acute mucoid otitis media of both ears H65.113 and Dizziness R42 [facility] [address] [id number] [address] [place] [phone] Feb, [facility] [address] [id number] [address] [place] [phone] Feb, Pain in right ankle and join ts of right foot M25.571 ; Pain in left finger(s) M79.645 and Coronary artery disease involving [place] coronary artery of [place] heart without angina pectoris I25.10 [facility] [address] [id number] [address] [place] [phone] Feb, [facility] [address] [id number] [address] [place] [phone] Feb, [facility] [address] [id number] [address] [place] [id number] Jan, [facility] [address] [facility] [id number] [address] [address] Jan, Encounter for routine adult health examination with abnormal findings Z00.01 ; Foot pain, left M79.672 ; Pain in right ankle and joints of right foot M25.571 ; Chronic pain disorder G89.4 ; Coronary artery disease involving [place] coronary artery of [place] heart without angina pectoris I25.10 ; Tobacco abuse Z72.0 ; Tobacco abuse counseling Z71.6 and Obesity (BMI 30-39.9) E66.9 [facility] [address] [facility] [id number] [address] [address] Jan, [facility] [address] [facility] [id number] [address] [id number] 10 Mar, 2015 Dental examination V72.2 IMMUNIZATIONS No Known Immunizations SOCIAL HISTORY Never Assessed REASON FOR VISIT Medication refill request PLAN OF CARE VITAL SIGNS MEDICATIONS Medication Instructions Dosage Frequency Start Date End Date Duration S tatus Duloxetine HCl 40 mg Orally Once a day 1 capsule 24h Apr, 30 day(s) Active RESULTS No Results PROCEDURES [...]
--- OUTSIDE RECORDS SUMMARY | 2019-12-11 14:40 | XMS REPORT ---
Author Author Reza WELCH Organization [facility] Address [address] [place] [address] Care Team Providers Care Stars Coordinator Name Role Phone OLIVER WELCH Unavailable PROBLEMS Type Condition ICD9-CM Code [id number] Code Onset Dates Condition S tatus SNOMED Code Problem Tobacco abuse Z72.0 Active 565346 000 Problem Pain in right ankle and joints of right foot M25.5 71 Active 467052603 Problem Tobacco abuse counseling Z71.6 Activ e 630855795 Problem Plantar fasciitis, bilateral M72.2 A ctive [id number] Problem Foot pain, left M79.672 Active 3167 [id number] Problem Coronary artery disease invo lving chitina coronary artery of chitina heart without angina pectoris I25.10 Active 1641 066647602 Problem Obesity (BMI 30-39.9) E66.9 Active 832362866 Problem Essential hypertension I10 Active 22637283 Problem Anxiety F41.9 Active 62600229 Problem Acute reaction to situational stress F43.0 Active 93772345 Problem Chronic pain disorder G89.4 Active 488318567 Problem Primary insomnia F51.01 Active 397 2004 Problem Mixed hyperlipidemia E78.2 Active 038092784 ALLERGIES No Information ENCOUNTERS Encounter Location Date Diagnosis [facility] [address] [facility] [id number] [address] [place] [phone] Nov, Chronic pain disorder G89.4 [facility] [address] [facility] [id number] [address] [place] [phone] Nov, [facility] [address] [facility] [id number] [address] [place] [phone] Oct, Acute bronchitis, unspecifie d organism J20.9 [facility] [address] [facility] [id number] [address] [place] [phone] Oct, [place] [id number] [place] [address] Oct, Chronic pain disorder G89.4 and Primary insomnia F51.01 [place] [id number] [place] [phone] Oct, [place] [address] [address] Oct, Anxiety F41.9 and Essential hypertension I10 [place] [address] [place] [id number] [address] [place] [address] Sep, Primary insomnia F51.01 [place] [address] [address] Sep, Chronic pain disorder G89.4 [place] [address] [address] Sep, Essential hypertension I10 a nd Chronic pain disorder G89.4 [place] [address] [address] Sep, Anxiety F41.9 and Chronic pa in disorder G89.4 [place] [address] [address] Sep, Controlled substance agreeme nt signed Z79.899 [place] [address] [address] Aug, Chronic pain disorder G89.4 and Primary insomnia F51.01 [place] [address] [place] [id number] [address] [place] [address] Aug, Essential hypertension I10 ; Mixed hyperlipidemia E78.2 ; Primary insomnia F51.01 ; Tobacco abuse Z72.0 ; Chronic pain disorder G89.4 ; Acute suppurative otitis media of left ear without spontaneous rupture of tympanic membrane, recurrence not specified H66.002 ; Acute bronchitis, unspecified organism J20.9 and Anxiety F41.9 [place] [address] [place] [id number] [address] Aug, [facility] [address] [facility] [id number] [address] [place] [phone] Aug, [facility] [address] [facility] [id number] [address] [place] [phone] Aug, Primary insomnia F51.01 [facility] [address] [facility] [id number] [address] [place] [address] Jul, Paronychia of finger of righ t hand L03.011 [facility] [address] [facility] [id number] [address] [place] [phone] Jul, Primary insomnia F51.01 [facility] [address] [facility] [id number] [address] [place] [phone] Jul, Mixed hyperlipidemia E78.2 [facility] [address] [facility] [id number] [address] [place] [phone] Jul, Chronic pain disorder G89.4 [facility] [address] [facility] [id number] [address] [place] [phone] Jun, Mixed hyperlipidemia E78.2 [facility] [address] [facility] [id number] [address] [place] [address] Jun, Primary insomnia F51.01 [facility] [address] [facility] [id number] [address] [place] [phone] Jun, [facility] [address] [facility] [id number] [address] [place] [phone] May, [facility] [address] [facility] [id number] [address] [place] [phone] May, [facility] [address] [facility] [id number] [address] [place] [phone] May, Chronic pain disorder G89.4 ; Bilateral otitis media with effusion H65.93 and Primary insomnia F51.01 [facility] [address] [facility] [id number] [address] [place] [phone] 16 May, 2017 Chronic pain disorder G89.4 [facility] [address] [id number] [address] [place] [phone] 12 May, 2017 [facility] [address] [id number] [address] [place] [phone] 05 May, 2017 [facility] [address] [id number] [address] [place] [phone] 03 May, 2017 [facility] [address] [id number] [address] [place] [phone] 22 Apr, 2017 [facility] [address] [id number] [address] [place] [phone] 21 Apr, 2017 [facility] [address] [id number] [address] [place] [phone] 19 Apr, 2017 Coronary artery disease invo lving chitina coronary artery of chitina heart without angina pectoris I25.10 [facility] [address] [id number] [address] [place] [phone] 18 Apr, 2017 Chronic pain disorder G89.4 [facility] [address] [id number] [address] [place] [phone] 15 Apr, 2017 Coronary artery disease invo lving chitina coronary artery of chitina heart without angina pectoris I25.10 ; Tobacco abuse Z72.0 ; Tobacco abuse counseling Z71.6 ; Obesity (BMI 30-39.9) E66.9 ; Acute reaction to situational stress F43.0 ; Mixed hyperlipidemia E78.2 ; Chronic pain disorder G89.4 and Right otitis media with effusion H65.91 [facility] [address] [id number] [address] [place] [phone] 13 Apr, 2017 Pain in right ankle and join ts of right foot M25.571 [facility] [address] [id number] [address] [place] [id number] 13 Apr, 2017 Pain in right ankle and join ts of right foot M25.571 and Coronary artery disease involving chitina coronary artery of chitina heart without angina pectoris I25.10 [place] [address] [id number] [address] [place] [phone] Mar, [facility] [address] [id number] [address] [place] [phone] Mar, [facility] [address] [facility] [id number] [address] [place] [phone] Mar, [place] [address] [facility] [id number] [address] [place] [phone] Mar, Acute mucoid otitis media of both ears H65.113 and Dizziness R42 [place] [address] [id number] [address] [place] [phone] Feb, [place] [address] [facility] [id number] [address] [place] [phone] Feb, Pain in right ankle and join ts of right foot M25.571 ; Pain in left finger(s) M79.645 and Coronary artery disease involving chitina coronary artery of chitina heart without angina pectoris I25.10 [place] [address] [facility] [id number] [address] [place] [phone] Feb, [place] [address] [facility] [id number] [address] [place] [phone] Feb, [place] [address] [facility] [id number] [address] [place] [phone] Jan, [place] [address] [facility] [id number] [address] [place] [address] Jan, Encounter for routine adult health examination with abnormal findings Z00.01 ; Foot pain, left M79.672 ; Pain in right ankle and joints of right foot M25.571 ; Chronic pain disorder G89.4 ; Coronary artery disease involving chitina coronary artery of chitina heart without angina pectoris I25.10 ; Tobacco abuse Z72.0 ; Tobacco abuse counseling Z71.6 and Obesity (BMI 30-39.9) E66.[address] [id number] [address] [place] [phone] Jan, [facility] [address] [id number] [address] [place] [id number] Mar, Dental examination V72.2 IMMUNIZATIONS No Known [...]
--- OUTSIDE RECORDS SUMMARY | 2019-12-11 14:40 | XMS REPORT ---
Author Author Reza WELCH Organization [facility] Address [address] [place] [address] Care Team Providers Care Casting Finisher Name Role Phone OLIVER WELCH Unavailable PROBLEMS Type Condition ICD9-CM Code PEH24-GF Code Onset Dates Condition S tatus SNOMED Code Problem Tobacco abuse Z72.0 Active 662413 000 Problem Pain in right ankle and joints of right foot M25.5 71 Active 291343406 Problem Tobacco abuse counseling Z71.6 Activ e 373232580 Problem Plantar fasciitis, bilateral M72.2 A ctive [id number] Problem Foot pain, left M79.672 Active 3167 59562798819 Problem Coronary artery disease invo lving [place] coronary artery of [place] heart without angina pectoris I25.10 Active 1641 591637890 Problem Obesity (BMI 30-39.9) E66.9 Active 988919747 Problem Essential hypertension I10 Active 86192145 Problem Anxiety F41.9 Active 95381597 Problem Acute reaction to situational stress F43.0 Active 15045537 Problem Chronic pain disorder G89.4 Active 089990195 Problem Primary insomnia F51.01 Active 397 2004 Problem Mixed hyperlipidemia E78.2 Active 523419952 ALLERGIES No Information ENCOUNTERS Encounter Location Date Diagnosis [facility] [address] [facility] [id number] [address] [place] [phone] 26 Oct, 2017 Acute bronchitis, unspecifie d organism J20.9 [facility] [address] [facility] [id number] [address] [place] [phone] 16 Oct, 2017 [facility] [address] [facility] [id number] [address] [place] [phone] 15 Oct, 2017 Chronic pain disorder G89.4 and Primary insomnia F51.01 [facility] [address] [facility] [id number] [address] [place] [phone] Oct, [place] [id number] [place] [address] Oct, Anxiety F41.9 and Essential hypertension I10 [place] [address] [address] Sep, Primary insomnia F51.01 [place] [address] [address] Sep, Chronic pain disorder G89.4 [place] [address] [address] Sep, Essential hypertension I10 a nd Chronic pain disorder G89.4 [place] [address] [address] Sep, Anxiety F41.9 and Chronic pa in disorder G89.4 [place] [address] [address] Sep, Controlled substance agreeme nt signed Z79.899 [place] [address] [address] Aug, Chronic pain disorder G89.4 and Primary insomnia F51.01 [place] [address] [address] Aug, Essential hypertension I10 ; Mixed hyperlipidemia E78.2 ; Primary insomnia F51.01 ; Tobacco abuse Z72.0 ; Chronic pain disorder G89.4 ; Acute suppurative otitis media of left ear without spontaneous rupture of tympanic membrane, recurrence not specified H66.002 ; Acute bronchitis, unspecified organism J20.9 and Anxiety F41.9 [place] [address] [address] Aug, [place] [address] [address] Aug, [place] [address] [phone] Aug, Primary insomnia F51.01 [facility] [address] [id number] [address] [place] [address] Jul, Paronychia of finger of karl cabrales hand L03.011 [facility] [address] [id number] [address] [place] [address] Jul, Primary insomnia F51.01 [facility] [address] [facility] [id number] [address] [place] [phone] Jul, Mixed hyperlipidemia E78.2 [facility] [address] [facility] [id number] [address] [place] [address] Jul, Chronic pain disorder G89.4 [facility] [address] [facility] [id number] [address] [place] [phone] Jun, Mixed hyperlipidemia E78.2 [facility] [address] [facility] [id number] [address] [place] [phone] Jun, Primary insomnia F51.01 [facility] [address] [facility] [id number] [address] [place] [phone] Jun, [facility] [address] [facility] [id number] [address] [place] [phone] May, [facility] [address] [facility] [id number] [address] [place] [phone] May, [facility] [address] [facility] [id number] [address] [place] [phone] May, Chronic pain disorder G89.4 ; Bilateral otitis media with effusion H65.93 and Primary insomnia F51.01 [facility] [address] [facility] [id number] [address] [place] [phone] May, Chronic pain disorder G89.4 [facility] [address] [facility] [id number] [address] [place] [phone] May, [facility] [address] [facility] [id number] [address] [place] [phone] May, [facility] [address] [id number] [address] [place] [phone] May, [facility] [address] [id number] [address] [place] [phone] Apr, [facility] [address] [id number] [address] [place] [phone] Apr, [facility] [address] [id number] [address] [place] [phone] 19 Apr, 2017 Coronary artery disease invo lving pe[place] coronary artery of pe[place] heart without angina pectoris I25.10 [facility] [address] [id number] [address] [place] [phone] 18 Apr, 2017 Chronic pain disorder G89.4 [facility] [address] [facility] [id number] [address] [place] [address] 15 Apr, 2017 Coronary artery disease invo lving [place] coronary artery of pe[place] heart without angina pectoris I25.10 ; Tobacco abuse Z72.0 ; Tobacco abuse counseling Z71.6 ; Obesity (BMI 30-39.9) E66.9 ; Acute reaction to situational stress F43.0 ; Mixed hyperlipidemia E78.2 ; Chronic pain disorder G89.4 and Right otitis media with effusion H65.91 [facility] [address] [id number] [address] [place] [phone] 13 Apr, 2017 Pain in right ankle and join ts of right foot M25.571 [facility] [address] [id number] [address] [place] [phone] 13 Apr, 2017 Pain in right ankle and join ts of right foot M25.571 and Coronary artery disease involving [place] coronary artery of [place] heart without angina pectoris I25.10 [facility] [address] [id number] [address] [place] [phone] Mar, [facility] [address] [id number] [address] [place] [phone] Mar, [place] [id number] [place] [address] Mar, [address] [address] Mar, Acute mucoid otitis media of both ears H65.113 and Dizziness R42 [place] [id number] [address] [place] [phone] Feb, [place] [id number] [address] [place] [phone] Feb, Pain in right ankle and join ts of right foot M25.571 ; Pain in left finger(s) M79.645 and Coronary artery disease involving pe[place] coronary artery of [place] heart without angina pectoris I25.10 [place] [id number] [address] [place] [phone] Feb, [address] [address] Feb, [place] [id number] [address] [place] [phone] Jan, [address] [address] Jan, Encounter for routine adult health examination with abnormal findings Z00.01 ; Foot pain, left M79.672 ; Pain in right ankle and joints of right foot M25.571 ; Chronic pain disorder G89.4 ; Coronary artery disease involving [place] coronary artery of pe[place] heart without angina pectoris I25.10 ; Tobacco abuse Z72.0 ; Tobacco abuse counseling Z71.6 and Obesity (BMI 30-39.9) E66.9 [place] [id number] [address] [place] [phone] Jan, [facility] [address] [facility] [id number] [address] [place] [id number] Mar, Dental examination V72.2 IMMUNIZATIONS No Known Immunizations SOCIAL HISTORY Never Assessed REASON FOR VISIT Requests return call PLAN OF CARE VITAL SIGNS MEDICATIONS Medication Instructions Dosage Frequency Start Date End Date Duration S tanna PredniSONE 20 mg Orally Once a day 1 tablet 24h Feb, Feb, 05 days Active RESULTS No Results PROCEDURES No Known procedures INSTRUCTIONS MEDICATIONS ADMINISTERED No Known Medications MEDICAL (GENERAL) HISTORY Type Description Date Medical History Arthritis Medical History 2 heart attacks with numerou s stents- 10 yrs ago and then 7 years ago- 1st [place]- Promus 2.5 x 18 mm stent to LAD, 3.0x 23 mm stent to DIAG, 2.5x 15 mm stent to LAD/ 2nd [place]- Promus 2.5 x12 to distal Circ and [...]
--- OUTSIDE RECORDS SUMMARY | 2019-12-11 14:40 | XMS REPORT ---
Author Author Reza Keith Organization [facility] Address [address] [place] [address] Care Team Providers Care Rubber And Pounder Name Role Phone KADEN Keith Unavailable PROBLEMS Type Condition ICD9-CM Code CAE54-MG Code Onset Dates Condition S tatus SNOMED Code Problem Tobacco abuse Z72.0 Active 683691 000 Problem Pain in right ankle and joints of right foot M25.5 71 Active 691977568 Problem Tobacco abuse counseling Z71.6 Activ e 151356005 Problem Plantar fasciitis, bilateral M72.2 A ctive [id number] Problem Foot pain, left M79.672 Active 3167 93816077492 Problem Coronary artery disease invo lving mentasta coronary artery of mentasta heart without angina pectoris I25.10 Active 1641 787768992 Problem Obesity (BMI 30-39.9) E66.9 Active 756152601 Problem Essential hypertension I10 Active 63778631 Problem Anxiety F41.9 Active 79042934 Problem Acute reaction to situational stress F43.0 Active 18973057 Problem Chronic pain disorder G89.4 Active 984490905 Problem Primary insomnia F51.01 Active 397 2004 Problem Mixed hyperlipidemia E78.2 Active 663750991 ALLERGIES Substance Reaction Event Type Date Status Augmentin Unknown Drug Allergy Mar, Active ENCOUNTERS Encounter Location Date Diagnosis [facility] [address] [facility] [id number] [address] [place] [phone] Oct, Acute bronchitis, unspecifie d organism J20.9 [facility] [address] [facility] [id number] [address] [place] [phone] Oct, [facility] [address] [facility] [id number] [address] [place] [phone] Oct, Chronic pain disorder G89.4 and Primary insomnia F51.01 [place] [address] [place] [address] 14 Oct, 2017 [place] [address] [address] 05 Oct, 2017 Anxiety F41.9 and Essential hypertension I10 [place] [address] [address] Sep, Primary insomnia F51.01 [place] [address] [address] Sep, Chronic pain disorder G89.4 [place] [address] [address] Sep, Essential hypertension I10 a nd Chronic pain disorder G89.4 [place] [address] [address] Sep, Anxiety F41.9 and Chronic pa in disorder G89.4 [place] [address] [address] Sep, Controlled substance agreeme nt signed Z79.899 [place] [address] [address] Aug, Chronic pain disorder G89.4 and Primary insomnia F51.01 [place] [address] [address] Aug, Essential hypertension I10 ; Mixed hyperlipidemia E78.2 ; Primary insomnia F51.01 ; Tobacco abuse Z72.0 ; Chronic pain disorder G89.4 ; Acute suppurative otitis media of left ear without spontaneous rupture of tympanic membrane, recurrence not specified H66.002 ; Acute bronchitis, unspecified organism J20.9 and Anxiety F41.9 [place] [address] [address] Aug, [place] [address] [address] Aug, [facility] [address] [facility] [id number] [address] [place] [phone] Aug, Primary insomnia F51.01 [facility] [address] [facility] [id number] [address] [place] [address] Jul, Paronychia of finger of righ t hand L03.011 [facility] [address] [facility] [id number] [address] [place] [address] Jul, Primary insomnia F51.01 [facility] [address] [facility] [id number] [address] [place] [address] Jul, Mixed hyperlipidemia E78.2 [facility] [address] [facility] [id number] [address] [place] [address] Jul, Chronic pain disorder G89.4 [facility] [address] [facility] [id number] [address] [place] [phone] Jun, Mixed hyperlipidemia E78.2 [facility] [address] [facility] [id number] [address] [place] [phone] Jun, Primary insomnia F51.01 [facility] [address] [facility] [id number] [address] [place] [address] Jun, [facility] [address] [facility] [id number] [address] [place] [address] May, [facility] [address] [facility] [id number] [address] [place] [phone] May, [facility] [address] [facility] [id number] [address] [place] [address] May, Chronic pain disorder G89.4 ; Bilateral otitis media with effusion H65.93 and Primary insomnia F51.01 [facility] [address] [facility] [id number] [address] [place] [address] May, Chronic pain disorder G89.4 [facility] [address] [facility] [id number] [address] [place] [phone] May, [facility] [address] [id number] [address] [place] [phone] May, [facility] [address] [id number] [address] [place] [phone] May, [facility] [address] [id number] [address] [place] [phone] Apr, [facility] [address] [id number] [address] [place] [phone] Apr, [facility] [address] [id number] [address] [place] [phone] 19 Apr, 2017 Coronary artery disease invo lving mentasta coronary artery of mentasta heart without angina pectoris I25.10 [facility] [address] [id number] [address] [place] [address] 18 Apr, 2017 Chronic pain disorder G89.4 [facility] [address] [id number] [address] [place] [phone] 15 Apr, 2017 Coronary artery disease invo lving mentasta coronary artery of mentasta heart without angina pectoris I25.10 ; Tobacco abuse Z72.0 ; Tobacco abuse counseling Z71.6 ; Obesity (BMI 30-39.9) E66.9 ; Acute reaction to situational stress F43.0 ; Mixed hyperlipidemia E78.2 ; Chronic pain disorder G89.4 and Right otitis media with effusion H65.91 [facility] [address] [id number] [address] [place] [address] 13 Apr, 2017 Pain in right ankle and join ts of right foot M25.571 [facility] [address] [id number] [address] [place] [phone] 13 Apr, 2017 Pain in right ankle and join ts of right foot M25.571 and Coronary artery disease involving mentasta coronary artery of mentasta heart without angina pectoris I25.10 [facility] [address] [id number] [address] [place] [phone] Mar, [facility] [address] [place] [id number] [address] [place] [phone] Mar, [facility] [address] [facility] [id number] [address] [place] [phone] Mar, [facility] [address] [place] [id number] [place] [address] Mar, Acute mucoid otitis media of both ears H65.113 and Dizziness R42 [place] [address] [place] [id number] [address] [place] [address] Feb, [facility] [address] [place] [id number] [address] [place] [phone] Feb, Pain in right ankle and join ts of right foot M25.571 ; Pain in left finger(s) M79.645 and Coronary artery disease involving mentasta coronary artery of mentasta heart without angina pectoris I25.[address] [address] Feb, [facility] [address] [place] [id number] [address] [place] [phone] Feb, [place] [address] [address] Jan, [place] [address] [place] [id number] [address] [place] [phone] Jan, Encounter for routine adult health examination [...] (BMI 30-39.9) E66.9 [facility] [address] [place] [id number] [address] [place] [phone] Jan, [facility] [address] [id number] [address] [place] [id number] Mar, Dental examination V72.2 IMMUNIZATIONS Vaccine Route Administration Date Status ROCEPHIN 1 GM (IM) IM Intramuscular Mar 07, 2017 Administered SOCIAL HISTORY Never Assessed REASON FOR VISIT fever ear pain body aches since yesterday. Has had problems with his ears for m any years. Tubes placed numerous times. BETTY Rueda PLAN OF CARE Activity Details Follow Up 2 - 3 Days, prn Reason:ear p ain VITAL SIGNS Height 69 in 2017-03-07 Weight 225 lbs 2017-03-07 Temperature 98.0 degrees Fahrenheit 2017-03-07 Heart Rate 88 bpm 2017-03-07 Respiratory Rate 18 2017-03-07 BMI 33.22 kg/m2 2017-03-07 Blood pressure systolic 146 mmHg 2017-03-07 Blood pressure diastolic 102 mmHg 2017-03-07 MEDICATIONS Medication Instructions Dosage Frequency Start Date End Date Duration S tatus Indomethacin 50 mg Orally Once a day 1 capsule with food or milk 24 h Feb, 16 Mar, 2017 30 day(s) Active Lyrica 50 mg Orally 2 times a day 1 capsule 12h Feb, 21 days Active Atenolol 50 mg Orally twice a day 1 tablet 12h 30 da ys Active Meclizine HCl 25 MG Orally 3 times a day 1 tablet as needed 8h Mar, 10 days Active Ambien 10 MG Orally Once a day 1 tablet at bedtime as needed 24h Active Tramadol HCl 50 mg Orally every 6 hrs 1 tablet as needed 6h 28 days Active Atorvastatin Calcium 80 MG Orally Once a day 1 tablet 24h Active Aspir-81 81 MG Orally Once a day 1 tablet 24h Active Duloxetine HCl 60 mg Orally Once a day 1 capsule 24h 30 days Active Clopidogrel Bisulfate 75 MG Orally Once a day 1 tablet 24h Active Cefdinir 300 MG Orally every 12 hrs 1 capsule 12h Mar, 1 3 Mar, 2017 10 day(s) Active RESULTS No Results PROCEDURES Procedure Date Ordered Result Body Site ROCEPHIN 1 GM (IM) Mar 07, 2017 THER/PROPH/DIAG INJ, SC/IM Mar 07, 2017 INSTRUCTIONS MEDICATIONS ADMINISTERED No Known Medications MEDICAL (GENERAL) HISTORY Type Description Date Medical History Arthritis Medical History 2 heart attacks with numerou s stents- 10 yrs ago and then 7 years ago- 1st [place]- Promus 2.5 x 18 mm stent to LAD, 3.0x 23 mm stent to DIAG, 2.5x 15 mm stent to LAD/ 2nd [place]- Promus 2.5 x12 to distal Circ and [...]
--- OUTSIDE RECORDS SUMMARY | 2019-12-11 14:40 | XMS REPORT ---
Author Author Reza WELCH Organization [facility] Address [address] [place] [address] Care Team Providers Care Accountant Auditor Name Role Phone OLIVER WELCH Unavailable PROBLEMS Type Condition ICD9-CM Code VHS25-NB Code Onset Dates Condition S tatus SNOMED Code Problem Tobacco abuse Z72.0 Active 018610 000 Problem Pain in right ankle and joints of right foot M25.5 71 Active 602009818 Problem Tobacco abuse counseling Z71.6 Activ e 666225987 Problem Plantar fasciitis, bilateral M72.2 A ctive 02457194686880605 Problem Foot pain, left M79.672 Active 3167 51050173226 Problem Coronary artery disease invo lving squaxin coronary artery of squaxin heart without angina pectoris I25.10 Active 1641 860546757 Problem Obesity (BMI 30-39.9) E66.9 Active 978680057 Problem Essential hypertension I10 Active 48454409 Problem Anxiety F41.9 Active 05791791 Problem Acute reaction to situational stress F43.0 Active 88399961 Problem Chronic pain disorder G89.4 Active 960432156 Problem Primary insomnia F51.01 Active 397 2004 Problem Mixed hyperlipidemia E78.2 Active 476235599 ALLERGIES No Information ENCOUNTERS Encounter Location Date Diagnosis [facility] [address] [facility] [id number] [address] [place] [phone] Nov, Chronic pain disorder G89.4 [facility] [address] [facility] [id number] [address] [place] [phone] Nov, [facility] [address] [facility] [id number] [address] [place] [phone] Oct, Acute bronchitis, unspecifie d organism J20.9 [facility] [address] [facility] [id number] [address] [place] [address] Oct, [place] [address] [place] [address] Oct, Chronic pain disorder G89.4 and Primary insomnia F51.01 [place] [address] [place] [address] Oct, [place] [address] [address] Oct, Anxiety F41.9 and Essential hypertension I10 [place] [address] [place] [id number] [address] [place] [address] Sep, Primary insomnia F51.01 [place] [address] [address] Sep, Chronic pain disorder G89.4 [place] [address] [address] Sep, Essential hypertension I10 a nd Chronic pain disorder G89.4 [place] [address] [address] Sep, Anxiety F41.9 and Chronic pa in disorder G89.4 [place] [address] [address] Sep, Controlled substance agreeme nt signed Z79.899 [place] [address] [address] Aug, Chronic pain disorder G89.4 and Primary insomnia F51.01 [place] [address] [place] [id number] [address] [place] [address] Aug, Essential hypertension I10 ; Mixed hyperlipidemia E78.2 ; Primary insomnia F51.01 ; Tobacco abuse Z72.0 ; Chronic pain disorder G89.4 ; Acute suppurative otitis media of left ear without spontaneous rupture of tympanic membrane, recurrence not specified H66.002 ; Acute bronchitis, unspecified organism J20.9 and Anxiety F41.9 [place] [address] [place] [address] [place] [address] Aug, [facility] [address] [facility] [id number] [address] [place] [address] Aug, [facility] [address] [facility] [id number] [address] [place] [address] Aug, Primary insomnia F51.01 [facility] [address] [facility] [id number] [address] [place] [address] Jul, Paronychia of finger of righ t hand L03.011 [facility] [address] [facility] [id number] [address] [place] [address] Jul, Primary insomnia F51.01 [facility] [address] [facility] [id number] [address] [place] [address] Jul, Mixed hyperlipidemia E78.2 [facility] [address] [facility] [id number] [address] [place] [address] Jul, Chronic pain disorder G89.4 [facility] [address] [facility] [id number] [address] [place] [address] Jun, Mixed hyperlipidemia E78.2 [facility] [address] [facility] [id number] [address] [place] [address] Jun, Primary insomnia F51.01 [facility] [address] [facility] [id number] [address] [place] [phone] Jun, [facility] [address] [facility] [id number] [address] [place] [phone] May, [facility] [address] [facility] [id number] [address] [place] [address] May, [facility] [address] [facility] [id number] [address] [place] [phone] May, Chronic pain disorder G89.4 ; Bilateral otitis media with effusion H65.93 and Primary insomnia F51.01 [facility] [address] [facility] [id number] [address] [place] [address] 16 May, 2017 Chronic pain disorder G89.4 [facility] [address] [id number] [address] [place] [address] 12 May, 2017 [facility] [address] [id number] [address] [place] [address] 05 May, 2017 [facility] [address] [id number] [address] [place] [phone] 03 May, 2017 [facility] [address] [id number] [address] [place] [phone] 22 Apr, 2017 [facility] [address] [id number] [address] [place] [phone] 21 Apr, 2017 [facility] [address] [id number] [address] [place] [address] 19 Apr, 2017 Coronary artery disease invo lving squaxin coronary artery of squaxin heart without angina pectoris I25.10 [facility] [address] [id number] [address] [place] [address] 18 Apr, 2017 Chronic pain disorder G89.4 [facility] [address] [id number] [address] [place] [address] 15 Apr, 2017 Coronary artery disease invo lving squaxin coronary artery of squaxin heart without angina pectoris I25.10 ; Tobacco abuse Z72.0 ; Tobacco abuse counseling Z71.6 ; Obesity (BMI 30-39.9) E66.9 ; Acute reaction to situational stress F43.0 ; Mixed hyperlipidemia E78.2 ; Chronic pain disorder G89.4 and Right otitis media with effusion H65.91 [facility] [address] [id number] [address] [place] [address] 13 Apr, 2017 Pain in right ankle and join ts of right foot M25.571 [facility] [address] [id number] [address] [place] [address] 13 Apr, 2017 Pain in right ankle and join ts of right foot M25.571 and Coronary artery disease involving squaxin coronary artery of squaxin heart without angina pectoris I25.10 [place] [address] [id number] [address] [place] [address] Mar, [facility] [address] [id number] [address] [place] [phone] Mar, [facility] [address] [facility] [id number] [address] [place] [phone] Mar, [place] [address] [facility] [id number] [address] [place] [address] Mar, Acute mucoid otitis media of both ears H65.113 and Dizziness R42 [place] [address] [id number] [address] [place] [address] Feb, [place] [address] [facility] [id number] [address] [place] [address] Feb, Pain in right ankle and join ts of right foot M25.571 ; Pain in left finger(s) M79.645 and Coronary artery disease involving squaxin coronary artery of squaxin heart without angina pectoris I25.10 [place] [address] [facility] [id number] [address] [place] [address] Feb, [place] [address] [facility] [id number] [address] [place] [phone] Feb, [place] [address] [facility] [id number] [address] [place] [phone] Jan, [place] [address] [facility] [id number] [address] [place] [phone] Jan, Encounter for routine adult health examination with abnormal findings Z00.01 ; Foot pain, left M79.672 ; Pain in right ankle and joints of right foot M25.571 ; Chronic pain disorder G89.4 ; Coronary artery disease involving squaxin coronary artery of squaxin heart without angina pectoris I25.10 ; Tobacco abuse Z72.0 ; Tobacco abuse counseling Z71.6 and Obesity (BMI 30-39.9) E66.[address] [id number] [address] [place] [address] Jan, [facility] [address] [id number] [address] [place] [id number] Mar, Dental examination V72.2 IMMUNIZATIONS No Known [...] ago and then 7 years ago- 1st [place]- Promus 2.5 x 18 mm stent to LAD, 3.0x 23 mm stent to DIAG, 2.5x 15 mm stent to LAD/ 2nd [place]- Promus 2.5 x12 to distal Circ and [...]
--- OUTSIDE RECORDS SUMMARY | 2019-12-11 14:40 | XMS REPORT ---
Author Author Reza WELCH Organization [facility] Address [address] [place] [address] Care Team Providers Care Core Inspector Name Role Phone OLIVER WELCH Unavailable PROBLEMS Type Condition ICD9-CM Code AMU25-XY Code Onset Dates Condition S tatus SNOMED Code Problem Tobacco abuse Z72.0 Active 310796 000 Problem Pain in right ankle and joints of right foot M25.5 71 Active 084437859 Problem Tobacco abuse counseling Z71.6 Activ e 500707654 Problem Plantar fasciitis, bilateral M72.2 A ctive [id number] Problem Foot pain, left M79.672 Active 3167 31621726161 Problem Coronary artery disease invo lving [place] coronary artery of [place] heart without angina pectoris I25.10 Active 1641 812914406 Problem Obesity (BMI 30-39.9) E66.9 Active 287031530 Problem Essential hypertension I10 Active 15850095 Problem Anxiety F41.9 Active 79443665 Problem Acute reaction to situational stress F43.0 Active 02737939 Problem Chronic pain disorder G89.4 Active 699459867 Problem Primary insomnia F51.01 Active 397 2004 Problem Mixed hyperlipidemia E78.2 Active 353944722 ALLERGIES No Information ENCOUNTERS Encounter Location Date Diagnosis [facility] [address] [id number] [address] [place] [phone] Jan, Essential hypertension I10 ; Mixed hyperlipidemia E78.2 ; Throat tightness R68.89 ; Left arm pain M79.602 ; Coronary artery disease involving [place] coronary artery of [place] heart without angina pectoris I25.10 ; Chronic pain disorder G89.4 ; Tobacco abuse counseling Z71.6 and Primary insomnia F51.01 [facility] [address] [facility] [id number] [address] [place] [phone] Jan, [facility] [address] [id number] [address] [place] [phone] 17 Dec, 2017 Essential hypertension I10 a nd Mixed hyperlipidemia E78.2 [facility] [address] [facility] [id number] [address] [place] [phone] December, [facility] [address] [facility] [id number] [address] [place] [phone] December, Primary insomnia F51.01 [facility] [address] [facility] [id number] [address] [place] [phone] Nov, Chronic pain disorder G89.4 [facility] [address] [facility] [id number] [address] [place] [phone] Nov, [facility] [address] [id number] [address] [place] [phone] Oct, Acute bronchitis, unspecifie d organism J20.9 [facility] [address] [id number] [address] [place] [id number] 16 Oct, 2017 [facility] [address] [facility] [id number] [address] [place] [phone] 15 Oct, 2017 Chronic pain disorder G89.4 and Primary insomnia F51.01 [facility] [address] [facility] [id number] [address] [place] [phone] 14 Oct, 2017 [facility] [address] [facility] [id number] [address] [place] [phone] 05 Oct, 2017 Anxiety F41.9 and Essential hypertension I10 [facility] [address] [facility] [id number] [address] [place] [phone] Sep, Primary insomnia F51.01 [facility] [address] [facility] [id number] [address] [place] [phone] Sep, Chronic pain disorder G89.4 [facility] [address] [facility] [id number] [address] [place] [phone] Sep, Essential hypertension I10 a nd Chronic pain disorder G89.4 [facility] [address] [id number] [address] [place] [phone] 09 Sep, 2017 Anxiety F41.9 and Chronic pa in disorder G89.4 [place] [address] [id number] [address] [place] [phone] 02 Sep, 2017 Controlled substance agreeme nt signed Z79.899 [place] [address] [id number] [address] [place] [phone] Aug, Chronic pain disorder G89.4 and Primary insomnia F51.01 [place] [address] [id number] [address] [place] [phone] Aug, Essential hypertension I10 ; Mixed hyperlipidemia E78.2 ; Primary insomnia F51.01 ; Tobacco abuse Z72.0 ; Chronic pain disorder G89.4 ; Acute suppurative otitis media of left ear without spontaneous rupture of tympanic membrane, recurrence not specified H66.002 ; Acute bronchitis, unspecified organism J20.9 and Anxiety F41.9 [place] [id number] [place] [phone] Aug, [place] [address] [place] [id number] [address] [place] [phone] Aug, [place] [address] [id number] [address] [place] [phone] Aug, Primary insomnia F51.01 [facility] [address] [id number] [address] [place] [phone] Jul, Paronychia of finger of righ t hand L03.011 [facility] [address] [facility] [id number] [address] [place] [phone] Jul, Primary insomnia F51.01 [facility] [address] [id number] [address] [place] [id number] Jul, Mixed hyperlipidemia E78.2 [facility] [address] [id number] [address] [place] [phone] Jul, Chronic pain disorder G89.4 [facility] [address] [id number] [address] [place] [phone] Jun, Mixed hyperlipidemia E78.2 [facility] [address] [id number] [address] [place] [phone] Jun, Primary insomnia F51.01 [facility] [address] [id number] [address] [place] [phone] Jun, [facility] [address] [id number] [address] [place] [phone] May, [facility] [address] [id number] [address] [place] [phone] May, [facility] [address] [facility] [id number] [address] [place] [phone] May, Chronic pain disorder G89.4 ; Bilateral otitis media with effusion H65.93 and Primary insomnia F51.01 [facility] [address] [id number] [address] [place] [phone] May, Chronic pain disorder G89.4 [facility] [address] [id number] [address] [place] [phone] May, [facility] [address] [facility] [id number] [address] [place] [phone] May, [facility] [address] [id number] [address] [place] [phone] May, [facility] [address] [id number] [address] [place] [id number] Apr, [facility] [address] [id number] [address] [place] [phone] Apr, [facility] [address] [facility] [id number] [address] [place] [phone] Apr, Coronary artery disease invo [place]ving [place] coronary artery of [place] heart without angina pectoris I25.10 [facility] [address] [id number] [address] [place] [id number] 18 Apr, 2017 Chronic pain disorder G89.4 [facility] [address] [id number] [address] [place] [id number] 15 Apr, 2017 Coronary artery disease invo [place]ving [place] coronary artery of [place] heart without angina pectoris I25.10 ; Tobacco abuse Z72.0 ; Tobacco abuse counseling Z71.6 ; Obesity (BMI 30-39.9) E66.9 ; Acute reaction to situational stress F43.0 ; Mixed hyperlipidemia E78.2 ; Chronic pain disorder G89.4 and Right otitis media with effusion H65.91 [facility] [address] [id number] [address] [place] [phone] Apr, Pain in right ankle and join ts of right foot M25.571 [place] [address] [id number] [address] [place] [phone] Apr, Pain in right ankle and join ts of right foot M25.571 and Coronary artery disease involving [place] coronary artery of [place] heart without angina pectoris I25.10 [facility] [address] [id number] [address] [place] [phone] Mar, [facility] [address] [id number] [address] [place] [phone] Mar, [facility] [address] [id number] [address] [place] [phone] Mar, [facility] [address] [id number] [address] [place] [phone] Mar, Acute mucoid otitis media of both ears H65.113 and Dizziness R42 [facility] [address] [id number] [address] [place] [id number] Feb, [facility] [address] [facility] [id number] [address] [place] [phone] Feb, Pain in right ankle and join ts of right foot M25.571 ; Pain in left finger(s) M79.645 and Coronary artery disease involving [place] coronary artery of [place] heart without angina pectoris I25.10 [facility] [address] [facility] [id number] [address] [place] [id number] Feb, [facility] [address] [facility] [id number] [address] [place] [phone] Feb, [facility] [address] [facility] [id number] [address] [place] [phone] Jan, [facility] [address] [facility] [id number] [address] [place] [phone] Jan, Encounter for routine adult health examination with abnormal findings Z00.01 ; Foot pain, left M79.672 ; Pain in right ankle and joints of right foot M25.571 ; Chronic pain disorder G89.4 ; Coronary artery disease involving [place] coronary artery of [place] heart without angina pectoris I25.10 ; Tobacco abuse Z72.0 ; Tobacco abuse counseling Z71.6 and Obesity (BMI 30-39.9) E66.9 [facility] [address] [facility] [id number] [address] [place] [phone] Jan, [facility] [address] [facility] [id number] [address] [place] [id number] Mar, Dental examination V72.2 IMMUNIZATIONS No Known Immunizations SOCIAL HISTORY Never Assessed REASON FOR VISIT Medication refill request PLAN OF CARE VITAL SIGNS MEDICATIONS Medication Instructions Dosage Frequency Start Date End Date Duration S tatus Duloxetine HCl 40 mg Orally Once a day 1 capsule 24h Apr, 30 day(s) Active Clopidogrel Bisulfate 75 MG Orally Once [...]
--- OUTSIDE RECORDS SUMMARY | 2019-12-11 14:40 | XMS REPORT ---
Author Author Reza WELCH Organization [facility] Address [address] [place] [address] Care Team Providers Care Mass Spectrometry Specialist Name Role Phone OLIVER WELCH Unavailable PROBLEMS Type Condition ICD9-CM Code BMV90-LU Code Onset Dates Condition S tatus SNOMED Code Problem Tobacco abuse Z72.0 Active 093499 000 Problem Pain in right ankle and joints of right foot M25.5 71 Active 006659908 Problem Tobacco abuse counseling Z71.6 Activ e 363001662 Problem Plantar fasciitis, bilateral M72.2 A ctive [id number] Problem Foot pain, left M79.672 Active 3167 18535656505 Problem Coronary artery disease invo [place]ving [place] coronary artery of [place] heart without angina pectoris I25.10 Active 1641 241933951 Problem Obesity (BMI 30-39.9) E66.9 Active 386486125 Problem Essential hypertension I10 Active 23725358 Problem Anxiety F41.9 Active 81152989 Problem Acute reaction to situational stress F43.0 Active 29897153 Problem Chronic pain disorder G89.4 Active 280669567 Problem Primary insomnia F51.01 Active 397 2004 Problem Mixed hyperlipidemia E78.2 Active 447776275 ALLERGIES No Information ENCOUNTERS Encounter Location Date Diagnosis [facility] [address] [id number] [address] [place] [phone] Jan, Essential hypertension I10 ; Mixed hyperlipidemia E78.2 ; Throat tightness R68.89 ; Left arm pain M79.602 ; Coronary artery disease involving [place] coronary artery of [place] heart without angina pectoris I25.10 ; Chronic pain disorder G89.4 ; Tobacco abuse counseling Z71.6 and Primary insomnia F51.01 [facility] [address] [facility] [id number] [address] [place] [phone] Jan, [facility] [address] [id number] [address] [place] [phone] 17 Dec, 2017 Essential hypertension I10 a nd Mixed hyperlipidemia E78.2 [facility] [address] [facility] [id number] [address] [place] [phone] December, [facility] [address] [facility] [id number] [address] [place] [phone] December, Primary insomnia F51.01 [facility] [address] [facility] [id number] [address] [place] [phone] Nov, Chronic pain disorder G89.4 [facility] [address] [facility] [id number] [address] [place] [phone] Nov, [facility] [address] [id number] [address] [place] [phone] Oct, Acute bronchitis, unspecifie d organism J20.9 [facility] [address] [id number] [address] [place] [phone] 16 Oct, 2017 [facility] [address] [facility] [id number] [address] [place] [phone] 15 Oct, 2017 Chronic pain disorder G89.4 and Primary insomnia F51.01 [facility] [address] [facility] [id number] [address] [place] [phone] 14 Oct, 2017 [facility] [address] [facility] [id number] [address] [place] [phone] 05 Oct, 2017 Anxiety F41.9 and Essential hypertension I10 [facility] [address] [facility] [id number] [address] [place] [phone] Sep, Primary insomnia F51.01 [facility] [address] [facility] [id number] [address] [place] [phone] Sep, Chronic pain disorder G89.4 [facility] [address] [facility] [id number] [address] [place] [phone] Sep, Essential hypertension I10 a nd Chronic pain disorder G89.4 [facility] [id number] [address] [place] [phone] 09 Sep, 2017 Anxiety F41.9 and Chronic pa in disorder G89.4 [place] [id number] [address] [place] [phone] 02 Sep, 2017 Controlled substance agreeme nt signed Z79.899 [place] [address] [place] [address] [id number] [address] [place] [address] Aug, Chronic pain disorder G89.4 and Primary insomnia F51.01 [place] [address] [place] [id number] [address] [place] [phone] Aug, Essential hypertension I10 ; Mixed hyperlipidemia E78.2 ; Primary insomnia F51.01 ; Tobacco abuse Z72.0 ; Chronic pain disorder G89.4 ; Acute suppurative otitis media of left ear without spontaneous rupture of tympanic membrane, recurrence not specified H66.002 ; Acute bronchitis, unspecified organism J20.9 and Anxiety F41.9 [place] [id number] [place] [phone] Aug, [place] [address] [place] [id number] [address] [place] [phone] Aug, [place] [address] [place] [id number] [address] [place] [phone] Aug, Primary insomnia F51.01 [facility] [id number] [address] [place] [phone] Jul, Paronychia of finger of righ t hand L03.011 [facility] [address] [facility] [id number] [address] [place] [phone] Jul, Primary insomnia F51.01 [facility] [address] [place] [id number] [address] [place] [phone] Jul, Mixed hyperlipidemia E78.2 [facility] [address] [place] [id number] [place] [phone] Jul, Chronic pain disorder G89.4 [facility] [address] [id number] [address] [place] [phone] Jun, Mixed hyperlipidemia E78.2 [facility] [address] [id number] [address] [place] [address] Jun, Primary insomnia F51.01 [facility] [address] [id number] [address] [place] [phone] Jun, [facility] [address] [id number] [address] [place] [phone] May, [facility] [address] [id number] [address] [place] [phone] May, [facility] [address] [facility] [id number] [address] [place] [phone] May, Chronic pain disorder G89.4 ; Bilateral otitis media with effusion H65.93 and Primary insomnia F51.01 [facility] [address] [id number] [address] [place] [phone] May, Chronic pain disorder G89.4 [facility] [address] [id number] [address] [place] [phone] May, [facility] [address] [facility] [id number] [address] [place] [phone] May, [facility] [address] [id number] [address] [place] [phone] May, [facility] [address] [id number] [address] [place] [phone] Apr, [facility] [address] [id number] [address] [place] [phone] Apr, [facility] [address] [facility] [id number] [address] [place] [phone] Apr, Coronary artery disease invo lving [place] coronary artery of [place] heart without angina pectoris I25.10 [facility] [address] [id number] [address] [place] [phone] 18 Apr, 2017 Chronic pain disorder G89.4 [facility] [address] [id number] [address] [place] [phone] 15 Apr, 2017 Coronary artery disease invo lving [place] coronary artery of [place] heart without angina pectoris I25.10 ; Tobacco abuse Z72.0 ; Tobacco abuse counseling Z71.6 ; Obesity (BMI 30-39.9) E66.9 ; Acute reaction to situational stress F43.0 ; Mixed hyperlipidemia E78.2 ; Chronic pain disorder G89.4 and Right otitis media with effusion H65.91 [facility] [address] [id number] [address] [place] [phone] Apr, Pain in right ankle and join ts of right foot M25.571 [place] [address] [id number] [address] [place] [address] Apr, Pain in right ankle and join ts of right foot M25.571 and Coronary artery disease involving [place] coronary artery of [place] heart without angina pectoris I25.10 [facility] [address] [id number] [address] [place] [address] Mar, [facility] [address] [id number] [address] [place] [phone] Mar, [facility] [address] [id number] [address] [place] [phone] Mar, [facility] [address] [id number] [address] [place] [address] Mar, Acute mucoid otitis media of both ears H65.113 and Dizziness R42 [facility] [address] [id number] [address] [place] [phone] Feb, [facility] [address] [facility] [id number] [address] [place] [phone] Feb, Pain in right ankle and join ts of right foot M25.571 ; Pain in left finger(s) M79.645 and Coronary artery disease involving [place] coronary artery of [place] heart without angina pectoris I25.10 [facility] [address] [facility] [id number] [address] [place] [phone] Feb, [facility] [address] [place] [id number] [address] [place] [phone] Feb, [facility] [address] [facility] [id number] [address] [place] [address] Jan, [facility] [address] [place] [id number] [address] [place] [phone] Jan, Encounter for routine adult health examination with abnormal findings Z00.01 ; Foot pain, left M79.672 ; Pain in right ankle and joints of right foot M25.571 ; Chronic pain disorder G89.4 ; Coronary artery disease involving [place] coronary artery of [place] heart without angina pectoris I25.10 ; Tobacco abuse Z72.0 ; Tobacco abuse counseling Z71.6 and Obesity (BMI 30-39.9) E66.9 [facility] [address] [facility] [id number] [address] [place] [phone] Jan, [facility] [address] [facility] [id number] [address] [place] [id number] Mar, Dental examination V72.2 IMMUNIZATIONS No Known Immunizations SOCIAL HISTORY Never Assessed REASON FOR VISIT Refill request PLAN OF CARE VITAL SIGNS MEDICATIONS Medication Instructions Dosage Frequency Start Date End Date Duration S tatus Tramadol HCl 50 mg Orally every 6 hrs 1 tablet as needed 6h 28 days Active Clonidine HCl 0.1 MG Orally [...]
--- OUTSIDE RECORDS SUMMARY | 2019-12-11 14:40 | XMS REPORT ---
Author Author Reza WELCH Organization [facility] Address [address] [place] [address] Care Team Providers Care Corporate Buyer Name Role Phone OLIVER WELCH Unavailable PROBLEMS Type Condition ICD9-CM Code SKP18-IZ Code Onset Dates Condition S tatus SNOMED Code Problem Tobacco abuse Z72.0 Active 892975 000 Problem Pain in right ankle and joints of right foot M25.5 71 Active 594927382 Problem Tobacco abuse counseling Z71.6 Activ e 687661466 Problem Plantar fasciitis, bilateral M72.2 A ctive [id number] Problem Foot pain, left M79.672 Active 3167 51840572215 Problem Coronary artery disease invo lving ugashik coronary artery of ugashik heart without angina pectoris I25.10 Active 1641 766031013 Problem Obesity (BMI 30-39.9) E66.9 Active 418560359 Problem Essential hypertension I10 Active 97325366 Problem Anxiety F41.9 Active 53588434 Problem Acute reaction to situational stress F43.0 Active 47280711 Problem Chronic pain disorder G89.4 Active 621436967 Problem Primary insomnia F51.01 Active 397 2004 Problem Mixed hyperlipidemia E78.2 Active 574987125 ALLERGIES No Information ENCOUNTERS Encounter Location Date Diagnosis [facility] [address] [place] [id number] [address] [place] [id number] Jan, Essential hypertension I10 ; Mixed hyperlipidemia E78.2 ; Throat tightness R68.89 ; Left arm pain M79.602 ; Coronary artery disease involving ugashik coronary artery of ugashik heart without angina pectoris I25.10 ; Chronic pain disorder G89.4 ; Tobacco abuse counseling Z71.6 and Primary insomnia F51.01 [facility] [address] [facility] [id number] [address] [place] [phone] Jan, [facility] [address] [place] [id number] [address] [place] [id number] 17 Dec, 2017 Essential hypertension I10 a nd Mixed hyperlipidemia E78.2 [facility] [address] [facility] [id number] [address] [place] [phone] December, [facility] [address] [facility] [id number] [address] [place] [phone] December, Primary insomnia F51.01 [facility] [address] [facility] [id number] [address] [place] [phone] Nov, Chronic pain disorder G89.4 [facility] [address] [facility] [id number] [address] [place] [phone] Nov, [facility] [address] [place] [id number] [address] [place] [phone] Oct, Acute bronchitis, unspecifie d organism J20.9 [facility] [address] [place] [id number] [address] [place] [id number] 16 Oct, 2017 [facility] [address] [facility] [id number] [address] [place] [id number] 15 Oct, 2017 Chronic pain disorder G89.4 and Primary insomnia F51.01 [facility] [address] [facility] [id number] [address] [place] [id number] 14 Oct, 2017 [facility] [address] [facility] [id number] [address] [place] [phone] 05 Oct, 2017 Anxiety F41.9 and Essential hypertension I10 [facility] [address] [facility] [id number] [address] [place] [phone] Sep, Primary insomnia F51.01 [facility] [address] [facility] [id number] [address] [place] [phone] Sep, Chronic pain disorder G89.4 [facility] [address] [facility] [id number] [address] [place] [phone] Sep, Essential hypertension I10 a nd Chronic pain disorder G89.4 [facility] [address] [place] [id number] [address] [place] [id number] 09 Sep, 2017 Anxiety F41.9 and Chronic pa in disorder G89.4 [place] [address] [place] [id number] [address] [place] [id number] 02 Sep, 2017 Controlled substance agreeme nt signed Z79.899 [place] [address] [place] [id number] [address] [place] [phone] Aug, Chronic pain disorder G89.4 and Primary insomnia F51.01 [place] [address] [place] [id number] [address] [place] [phone] Aug, Essential hypertension I10 ; Mixed hyperlipidemia E78.2 ; Primary insomnia F51.01 ; Tobacco abuse Z72.0 ; Chronic pain disorder G89.4 ; Acute suppurative otitis media of left ear without spontaneous rupture of tympanic membrane, recurrence not specified H66.002 ; Acute bronchitis, unspecified organism J20.9 and Anxiety F41.9 [place] [id number] [place] [id number] Aug, [place] [address] [place] [id number] [address] [place] [phone] Aug, [place] [address] [place] [id number] [address] [place] [phone] Aug, Primary insomnia F51.01 [facility] [address] [place] [id number] [address] [place] [phone] Jul, Paronychia of finger of righ t hand L03.011 [facility] [address] [facility] [id number] [address] [place] [phone] Jul, Primary insomnia F51.01 [facility] [address] [place] [id number] [address] [place] [phone] Jul, Mixed hyperlipidemia E78.2 [facility] [address] [place] [id number] [address] [place] [phone] Jul, Chronic pain disorder G89.4 [facility] [address] [id number] [address] [place] [id number] Jun, Mixed hyperlipidemia E78.2 [facility] [address] [id number] [address] [place] [id number] Jun, Primary insomnia F51.01 [facility] [address] [id number] [address] [place] [phone] Jun, [facility] [address] [id number] [address] [place] [phone] May, [facility] [address] [id number] [address] [place] [phone] May, [facility] [address] [facility] [id number] [address] [place] [phone] May, Chronic pain disorder G89.4 ; Bilateral otitis media with effusion H65.93 and Primary insomnia F51.01 [facility] [address] [id number] [address] [place] [id number] May, Chronic pain disorder G89.4 [facility] [address] [id number] [address] [place] [phone] May, [facility] [address] [facility] [id number] [address] [place] [phone] May, [facility] [address] [id number] [address] [place] [phone] May, [facility] [address] [id number] [address] [place] [phone] Apr, [facility] [address] [id number] [address] [place] [phone] Apr, [facility] [address] [facility] [id number] [address] [place] [phone] Apr, Coronary artery disease invo lving ugashik coronary artery of ugashik heart without angina pectoris I25.10 [facility] [address] [id number] [address] [place] [id number] 18 Apr, 2017 Chronic pain disorder G89.4 [facility] [address] [id number] [address] [place] [id number] 15 Apr, 2017 Coronary artery disease invo lving ugashik coronary artery of ugashik heart without angina pectoris I25.10 ; Tobacco abuse Z72.0 ; Tobacco abuse counseling Z71.6 ; Obesity (BMI 30-39.9) E66.9 ; Acute reaction to situational stress F43.0 ; Mixed hyperlipidemia E78.2 ; Chronic pain disorder G89.4 and Right otitis media with effusion H65.91 [facility] [address] [id number] [address] [place] [id number] Apr, Pain in right ankle and join ts of right foot M25.571 [place] [address] [id number] [address] [place] [id number] Apr, Pain in right ankle and join ts of right foot M25.571 and Coronary artery disease involving ugashik coronary artery of ugashik heart without angina pectoris I25.10 [facility] [address] [id number] [address] [place] [id number] Mar, [facility] [address] [id number] [address] [place] [phone] Mar, [facility] [address] [id number] [address] [place] [phone] Mar, [facility] [address] [id number] [address] [place] [id number] Mar, Acute mucoid otitis media of both ears H65.113 and Dizziness R42 [facility] [address] [id number] [address] [place] [id number] Feb, [facility] [address] [facility] [id number] [address] [place] [phone] Feb, Pain in right ankle and join ts of right foot M25.571 ; Pain in left finger(s) M79.645 and Coronary artery disease involving ugashik coronary artery of ugashik heart without angina pectoris I25.10 [facility] [address] [facility] [id number] [address] [place] [id number] Feb, [facility] [address] [place] [id number] [address] [place] [phone] Feb, [facility] [address] [facility] [id number] [address] [place] [phone] Jan, [facility] [address] [place] [id number] [address] [place] [phone] Jan, Encounter for routine adult health examination with abnormal findings Z00.01 ; Foot pain, left M79.672 ; Pain in right ankle and joints of right foot M25.571 ; Chronic pain disorder G89.4 ; Coronary artery disease involving ugashik coronary artery of ugashik heart without angina pectoris I25.10 ; Tobacco abuse Z72.0 ; Tobacco abuse counseling Z71.6 and Obesity (BMI 30-39.9) E66.9 [facility] [address] [facility] [id number] [address] [place] [phone] Jan, [facility] [address] [facility] [id number] [address] [place] [id number] Mar, Dental examination V72.2 IMMUNIZATIONS No Known [...] ago and then 7 years ago- 1st [place]- Promus 2.5 x 18 mm stent to LAD, 3.0x 23 mm stent to DIAG, 2.5x 15 mm stent to LAD/ 2nd [place]- Promus 2.5 x12 to distal Circ and [...]
--- OUTSIDE RECORDS SUMMARY | 2019-12-11 14:41 | XMS REPORT ---
Author Author Reza WELCH Organization [facility] Address [address] [place] [address] Care Team Providers Care Communications Professional Name Role Phone REBEKAH OLIVER Unavailable PROBLEMS Type Condition ICD9-CM Code BCO87-OF Code Onset Dates Condition S tatus SNOMED Code Problem Tobacco abuse Z72.0 Active 336967 000 Problem Pain in right ankle and joints of right foot M25.5 71 Active 591951456 Problem Tobacco abuse counseling Z71.6 Activ e 762549015 Problem Plantar fasciitis, bilateral M72.2 A ctive [id number] Problem Foot pain, left M79.672 Active 3167 67586089440 Problem Coronary artery disease invo lving kotlik coronary artery of kotlik heart without angina pectoris I25.10 Active 1641 786711088 Problem Obesity (BMI 30-39.9) E66.9 Active 715764666 Problem Essential hypertension I10 Active 04405373 Problem Anxiety F41.9 Active 43791078 Problem Acute reaction to situational stress F43.0 Active 85201946 Problem Chronic pain disorder G89.4 Active 115487752 Problem Primary insomnia F51.01 Active 397 2004 Problem Mixed hyperlipidemia E78.2 Active 900330745 ALLERGIES No Information ENCOUNTERS Encounter Location Date Diagnosis [facility] [address] [facility] [id number] [address] [place] [phone] Jan, [facility] [address] [facility] [id number] [address] [place] [phone] Jan, [facility] [address] [facility] [id number] [address] [place] [phone] December, Essential hypertension I10 a nd Mixed hyperlipidemia E78.2 [facility] [address] [facility] [id number] [address] [place] [phone] December, [facility] [address] [place] [id number] [address] [place] [phone] December, Primary insomnia F51.01 [facility] [address] [facility] [id number] [address] [place] [phone] Nov, Chronic pain disorder G89.4 [facility] [address] [facility] [id number] [address] [place] [phone] Nov, [facility] [address] [facility] [id number] [address] [place] [phone] Oct, Acute bronchitis, unspecifie d organism J20.9 [place] [address] [facility] [id number] [address] [place] [phone] 16 Oct, 2017 [facility] [address] [place] [id number] [place] [phone] Oct, Chronic pain disorder G89.4 and Primary insomnia F51.01 [place] [address] [place] [phone] 14 Oct, 2017 [facility] [address] [place] [id number] [address] [place] [id number] 05 Oct, 2017 Anxiety F41.9 and Essential hypertension I10 [place] [address] [place] [id number] [address] [place] [id number] Sep, Primary insomnia F51.01 [place] [address] [place] [id number] [address] [place] [phone] Sep, Chronic pain disorder G89.4 [place] [address] [place] [id number] [address] [place] [phone] Sep, Essential hypertension I10 a nd Chronic pain disorder G89.4 [place] [address] [place] [id number] [address] [place] [id number] 09 Sep, 2017 Anxiety F41.9 and Chronic pa in disorder G89.4 [place] [address] [place] [id number] [address] [place] [phone] Sep, Controlled substance agreeme nt signed Z79.899 [facility] [address] [place] [id number] [address] [place] [phone] Aug, Chronic pain disorder G89.4 and Primary insomnia F51.01 [facility] [address] [place] [id number] [address] [place] [phone] Aug, Essential hypertension I10 ; Mixed hyperlipidemia E78.2 ; Primary insomnia F51.01 ; Tobacco abuse Z72.0 ; Chronic pain disorder G89.4 ; Acute suppurative otitis media of left ear without spontaneous rupture of tympanic membrane, recurrence not specified H66.002 ; Acute bronchitis, unspecified organism J20.9 and Anxiety F41.9 [place] [address] [place] [id number] [address] [place] [phone] Aug, [place] [address] [place] [phone] Aug, [facility] [address] [place] [phone] Aug, Primary insomnia F51.01 [facility] [address] [facility] [id number] [address] [place] [id number] Jul, Paronychia of finger of righ t hand L03.011 [facility] [address] [place] [id number] [address] [place] [phone] Jul, Primary insomnia F51.01 [facility] [address] [place] [id number] [address] [place] [phone] Jul, Mixed hyperlipidemia E78.2 [facility] [address] [facility] [id number] [address] [place] [phone] Jul, Chronic pain disorder G89.4 [facility] [address] [place] [id number] [place] [phone] Jun, Mixed hyperlipidemia E78.2 [facility] [address] [place] [id number] [place] [phone] Jun, Primary insomnia F51.01 [facility] [address] [id number] [address] [place] [phone] Jun, [facility] [address] [id number] [address] [place] [phone] May, [facility] [address] [id number] [address] [place] [phone] May, [facility] [address] [id number] [address] [place] [phone] May, Chronic pain disorder G89.4 ; Bilateral otitis media with effusion H65.93 and Primary insomnia F51.01 [facility] [address] [id number] [address] [place] [phone] May, Chronic pain disorder G89.4 [facility] [address] [id number] [address] [place] [phone] May, [facility] [address] [id number] [address] [place] [phone] May, [facility] [address] [id number] [address] [place] [phone] May, [facility] [address] [id number] [address] [place] [phone] Apr, [facility] [address] [id number] [address] [place] [phone] Apr, [facility] [address] [id number] [address] [place] [id number] 19 Apr, 2017 Coronary artery disease invo lving kotlik coronary artery of kotlik heart without angina pectoris I25.10 [facility] [address] [id number] [address] [place] [phone] 18 Apr, 2017 Chronic pain disorder G89.4 [facility] [address] [id number] [address] [place] [phone] 15 Apr, 2017 Coronary artery disease invo lving kotlik coronary artery of kotlik heart without angina pectoris I25.10 ; Tobacco abuse Z72.0 ; Tobacco abuse counseling Z71.6 ; Obesity (BMI 30-39.9) E66.9 ; Acute reaction to situational stress F43.0 ; Mixed hyperlipidemia E78.2 ; Chronic pain disorder G89.4 and Right otitis media with effusion H65.91 [place] [address] [id number] [address] [place] [phone] Apr, Pain in right ankle and join ts of right foot M25.571 [place] [address] [id number] [address] [place] [phone] Apr, Pain in right ankle and join ts of right foot M25.571 and Coronary artery disease involving kotlik coronary artery of kotlik heart without angina pectoris I25.10 [place] [address] [id number] [address] [place] [phone] Mar, [place] [address] [id number] [address] [place] [phone] Mar, [place] [address] [id number] [address] [place] [id number] Mar, [place] [address] [id number] [address] [place] [phone] Mar, Acute mucoid otitis media of both ears H65.113 and Dizziness R42 [place] [address] [id number] [address] [place] [phone] Feb, [place] [address] [id number] [address] [place] [phone] Feb, Pain in right ankle and join ts of right foot M25.571 ; Pain in left finger(s) M79.645 and Coronary artery disease involving kotlik coronary artery of kotlik heart without angina pectoris I25.10 [facility] [address] [id number] [address] [place] [phone] Feb, [place] [address] [id number] [address] [place] [phone] Feb, [facility] [address] [facility] [id number] [address] [place] [phone] Jan, [facility] [address] [facility] [id number] [address] [place] [phone] Jan, Encounter for routine adult health examination with abnormal findings Z00.01 ; Foot pain, left M79.672 ; Pain in right ankle and joints of right foot M25.571 ; Chronic pain disorder G89.4 ; Coronary artery disease involving kotlik coronary artery of kotlik heart without angina pectoris I25.10 ; Tobacco abuse Z72.0 ; Tobacco abuse counseling Z71.6 and Obesity (BMI 30-39.9) E66.9 [facility] [address] [facility] [id number] [address] [place] [phone] Jan, [facility] [address] [facility] [id number] [address] [place] [address] [id number] Mar, Dental examination V72.2 IMMUNIZATIONS No Known [...] 6 hrs 1 tablet as needed 6h Sep, 28 days Active RESULTS No Results PROCEDURES [...]
--- OUTSIDE RECORDS SUMMARY | 2019-12-11 14:41 | XMS REPORT ---
Author Author Reza WELCH Organization [facility] [place] Address [address] [place] [address] Care Team Providers Care Ncqa Specialist Name Role Phone OLIVER WELCH Unavailable PROBLEMS Type Condition ICD9-CM Code ZDN95-GQ Code Onset Dates Condition S tatus SNOMED Code Problem Tobacco abuse Z72.0 Active 163545 000 Problem Pain in right ankle and joints of right foot M25.5 71 Active 376142189 Problem Tobacco abuse counseling Z71.6 Activ e 865620840 Problem Plantar fasciitis, bilateral M72.2 A ctive [id number] Problem Foot pain, left M79.672 Active 3167 40679447505 Problem Coronary artery disease invo lving [place] coronary artery of [place] heart without angina pectoris I25.10 Active 1641 646915937 Problem Obesity (BMI 30-39.9) E66.9 Active 344771215 Problem Essential hypertension I10 Active 96269275 Problem Anxiety F41.9 Active 68466709 Problem Acute reaction to situational stress F43.0 Active 42744167 Problem Chronic pain disorder G89.4 Active 358098872 Problem Primary insomnia F51.01 Active 397 2004 Problem Mixed hyperlipidemia E78.2 Active 941017638 ALLERGIES No Information ENCOUNTERS Encounter Location Date Diagnosis [facility] [place] [address] [facility] [id number] [address] [place] [phone] Nov, Chronic pain disorder G89.4 [facility] [place] [address] [facility] [id number] [address] [place] [phone] Nov, [facility] [place] [address] [facility] [id number] [address] [place] [phone] Oct, Acute bronchitis, unspecifie d organism J20.9 [facility] [place] [address] [facility] [id number] [address] [place] [address] Oct, [place] [address] [address] [place] [address] Oct, Chronic pain disorder G89.4 and Primary insomnia F51.01 [place] [address] [place] [address] Oct, [place] [address] [address] Oct, Anxiety F41.9 and Essential hypertension I10 [place] [address] [address] [place] [id number] [address] [place] [address] Sep, Primary insomnia F51.01 [place] [address] [address] Sep, Chronic pain disorder G89.4 [place] [address] [address] Sep, Essential hypertension I10 a nd Chronic pain disorder G89.4 [place] [address] [address] Sep, Anxiety F41.9 and Chronic pa in disorder G89.4 [place] [address] [address] Sep, Controlled substance agreeme nt signed Z79.899 [place] [address] [address] Aug, Chronic pain disorder G89.4 and Primary insomnia F51.01 [place] [address] [place] [id number] [address] [place] [address] Aug, Essential hypertension I10 ; Mixed hyperlipidemia E78.2 ; Primary insomnia F51.01 ; Tobacco abuse Z72.0 ; Chronic pain disorder G89.4 ; Acute suppurative otitis media of left ear without spontaneous rupture of tympanic membrane, recurrence not specified H66.002 ; Acute bronchitis, unspecified organism J20.9 and Anxiety F41.9 [place] [address] [place] [address] [place] [address] Aug, [facility] [place] [address] [facility] [id number] [address] [place] [id number] Aug, [facility] [place] [address] [facility] [id number] [address] [place] [address] Aug, Primary insomnia F51.01 [facility] [address] [facility] [id number] [address] [place] [address] Jul, Paronychia of finger of righ t hand L03.011 [facility] [place] [address] [facility] [id number] [address] [place] [address] Jul, Primary insomnia F51.01 [facility] [place] [address] [facility] [id number] [address] [place] [address] Jul, Mixed hyperlipidemia E78.2 [facility] [place] [address] [facility] [id number] [address] [place] [phone] Jul, Chronic pain disorder G89.4 [facility] [place] [address] [facility] [id number] [address] [place] [id number] Jun, Mixed hyperlipidemia E78.2 [facility] [place] [address] [facility] [id number] [address] [place] [address] Jun, Primary insomnia F51.01 [facility] [place] [address] [facility] [id number] [address] [place] [id number] Jun, [facility] [place] [address] [facility] [id number] [address] [place] [phone] May, [facility] [place] [address] [facility] [id number] [address] [place] [phone] May, [facility] [place] [address] [facility] [id number] [address] [place] [address] May, Chronic pain disorder G89.4 ; Bilateral otitis media with effusion H65.93 and Primary insomnia F51.01 [facility] [place] [address] [facility] [id number] [address] [place] [id number] 16 May, 2017 Chronic pain disorder G89.4 [facility] [place] [address] [id number] [address] [place] [phone] 12 May, 2017 [facility] [place] [address] [id number] [address] [place] [phone] 05 May, 2017 [facility] [place] [address] [id number] [address] [place] [phone] 03 May, 2017 [facility] [place] [address] [id number] [address] [place] [id number] 22 Apr, 2017 [facility] [place] [address] [id number] [address] [place] [id number] 21 Apr, 2017 [facility] [place] [address] [id number] [address] [place] [id number] 19 Apr, 2017 Coronary artery disease invo lving [place] coronary artery of [place] heart without angina pectoris I25.10 [facility] [place] [address] [id number] [address] [place] [id number] 18 Apr, 2017 Chronic pain disorder G89.4 [facility] [place] [address] [id number] [address] [place] [phone] 15 Apr, 2017 Coronary artery disease invo lving [place] coronary artery of [place] heart without angina pectoris I25.10 ; Tobacco abuse Z72.0 ; Tobacco abuse counseling Z71.6 ; Obesity (BMI 30-39.9) E66.9 ; Acute reaction to situational stress F43.0 ; Mixed hyperlipidemia E78.2 ; Chronic pain disorder G89.4 and Right otitis media with effusion H65.91 [facility] [place] [address] [id number] [address] [place] [id number] 13 Apr, 2017 Pain in right ankle and join ts of right foot M25.571 [facility] [place] [address] [id number] [address] [place] [id number] 13 Apr, 2017 Pain in right ankle and join ts of right foot M25.571 and Coronary artery disease involving [place] coronary artery of [place] heart without angina pectoris I25.10 [place] [id number] [id number] [address] [place] [address] Mar, [facility] [place] [address] [id number] [address] [place] [phone] Mar, [facility] [place] [address] [facility] [id number] [address] [place] [address] Mar, [place] [address] [facility] [id number] [address] [place] [address] Mar, Acute mucoid otitis media of both ears H65.113 and Dizziness R42 [place] [address] [id number] [address] [place] [id number] Feb, [place] [address] [facility] [id number] [address] [place] [address] Feb, Pain in right ankle and join ts of right foot M25.571 ; Pain in left finger(s) M79.645 and Coronary artery disease involving [place] coronary artery of [place] heart without angina pectoris I25.10 [place] [address] [facility] [id number] [address] [place] [phone] Feb, [place] [address] [facility] [id number] [address] [place] [phone] Feb, [place] [address] [facility] [id number] [address] [place] [address] Jan, [place] [address] [facility] [id number] [address] [place] [address] Jan, Encounter for routine adult health examination with abnormal findings Z00.01 ; Foot pain, left M79.672 ; Pain in right ankle and joints of right foot M25.571 ; Chronic pain disorder G89.4 ; Coronary artery disease involving [place] coronary artery of [place] heart without angina pectoris I25.10 ; Tobacco abuse Z72.0 ; Tobacco abuse counseling Z71.6 and Obesity (BMI 30-39.9) E66.[address] [id number] [address] [place] [phone] Jan, [facility] [address] [id number] [address] [place] [id number] Mar, Dental examination V72.2 IMMUNIZATIONS No Known Immunizations SOCIAL HISTORY Never Assessed REASON FOR VISIT PLAN OF CARE VITAL SIGNS MEDICATIONS Unknown [...]
--- OUTSIDE RECORDS SUMMARY | 2019-12-11 14:41 | XMS REPORT ---
Author Author Reza WELCH Organization [facility] Address [address] [place] [address] Care Team Providers Care Caddie Name Role Phone OLIVER WELCH Unavailable PROBLEMS Type Condition ICD9-CM Code TOQ13-JY Code Onset Dates Condition S tatus SNOMED Code Problem Tobacco abuse Z72.0 Active 432405 000 Problem Pain in right ankle and joints of right foot M25.5 71 Active 815844793 Problem Tobacco abuse counseling Z71.6 Activ e 362408642 Problem Plantar fasciitis, bilateral M72.2 A ctive [id number] Problem Foot pain, left M79.672 Active 3167 01328501702 Problem Coronary artery disease invo lving [place] coronary artery of [place] heart without angina pectoris I25.10 Active 1641 683965156 Problem Obesity (BMI 30-39.9) E66.9 Active 608013034 Problem Essential hypertension I10 Active 67280288 Problem Anxiety F41.9 Active 40820393 Problem Acute reaction to situational stress F43.0 Active 21754553 Problem Chronic pain disorder G89.4 Active 094966504 Problem Primary insomnia F51.01 Active 397 2004 Problem Mixed hyperlipidemia E78.2 Active 405313000 ALLERGIES No Information ENCOUNTERS Encounter Location Date Diagnosis [facility] [address] [facility] [id number] [address] [place] [phone] 26 Oct, 2017 Acute bronchitis, unspecifie d organism J20.9 [facility] [address] [facility] [id number] [address] [place] [id number] 16 Oct, 2017 [facility] [address] [facility] [id number] [address] [place] [phone] 15 Oct, 2017 Chronic pain disorder G89.4 and Primary insomnia F51.01 [facility] [address] [facility] [id number] [address] [place] [phone] Oct, [place] [id number] [place] [address] Oct, Anxiety F41.9 and Essential hypertension I10 [place] [address] [address] Sep, Primary insomnia F51.01 [place] [address] [address] Sep, Chronic pain disorder G89.4 [place] [address] [address] Sep, Essential hypertension I10 a nd Chronic pain disorder G89.4 [place] [address] [address] Sep, Anxiety F41.9 and Chronic pa in disorder G89.4 [place] [address] [address] Sep, Controlled substance agreeme nt signed Z79.899 [place] [address] [address] Aug, Chronic pain disorder G89.4 and Primary insomnia F51.01 [place] [address] [address] Aug, Essential hypertension I10 ; Mixed hyperlipidemia E78.2 ; Primary insomnia F51.01 ; Tobacco abuse Z72.0 ; Chronic pain disorder G89.4 ; Acute suppurative otitis media of left ear without spontaneous rupture of tympanic membrane, recurrence not specified H66.002 ; Acute bronchitis, unspecified organism J20.9 and Anxiety F41.9 [place] [address] [address] Aug, [place] [address] [address] Aug, [place] [address] [address] Aug, Primary insomnia F51.01 [facility] [address] [id number] [address] [place] [address] Jul, Paronychia of finger of karl cabrales hand L03.011 [facility] [address] [id number] [address] [place] [address] Jul, Primary insomnia F51.01 [facility] [address] [facility] [id number] [address] [place] [address] Jul, Mixed hyperlipidemia E78.2 [facility] [address] [facility] [id number] [address] [place] [address] Jul, Chronic pain disorder G89.4 [facility] [address] [facility] [id number] [address] [place] [phone] Jun, Mixed hyperlipidemia E78.2 [facility] [address] [facility] [id number] [address] [place] [address] Jun, Primary insomnia F51.01 [facility] [address] [facility] [id number] [address] [place] [phone] Jun, [facility] [address] [facility] [id number] [address] [place] [phone] May, [facility] [address] [facility] [id number] [address] [place] [phone] May, [facility] [address] [facility] [id number] [address] [place] [phone] May, Chronic pain disorder G89.4 ; Bilateral otitis media with effusion H65.93 and Primary insomnia F51.01 [facility] [address] [facility] [id number] [address] [place] [address] May, Chronic pain disorder G89.4 [facility] [address] [facility] [id number] [address] [place] [phone] May, [facility] [address] [facility] [id number] [address] [place] [phone] May, [facility] [address] [id number] [address] [place] [phone] May, [facility] [address] [id number] [address] [place] [phone] Apr, [facility] [address] [id number] [address] [place] [phone] Apr, [facility] [address] [id number] [address] [place] [phone] 19 Apr, 2017 Coronary artery disease invo lving [place] coronary artery of [place] heart without angina pectoris I25.10 [facility] [address] [id number] [address] [place] [phone] 18 Apr, 2017 Chronic pain disorder G89.4 [facility] [address] [facility] [id number] [address] [place] [address] 15 Apr, 2017 Coronary artery disease invo lving [place] coronary artery of [place] heart without angina pectoris I25.10 ; Tobacco abuse Z72.0 ; Tobacco abuse counseling Z71.6 ; Obesity (BMI 30-39.9) E66.9 ; Acute reaction to situational stress F43.0 ; Mixed hyperlipidemia E78.2 ; Chronic pain disorder G89.4 and Right otitis media with effusion H65.91 [facility] [address] [id number] [address] [place] [phone] 13 Apr, 2017 Pain in right ankle and join ts of right foot M25.571 [facility] [address] [id number] [address] [place] [id number] 13 Apr, 2017 Pain in right ankle and join ts of right foot M25.571 and Coronary artery disease involving [place] coronary artery of [place] heart without angina pectoris I25.10 [facility] [address] [id number] [address] [place] [phone] Mar, [facility] [address] [id number] [address] [place] [phone] Mar, [place] [address] [address] [place] [id number] [address] [place] [phone] Mar, [address] [address] Mar, Acute mucoid otitis media of both ears H65.113 and Dizziness R42 [place] [id number] [address] [place] [address] Feb, [place] [id number] [address] [place] [id number] Feb, Pain in right ankle and join ts of right foot M25.571 ; Pain in left finger(s) M79.645 and Coronary artery disease involving [place] coronary artery of [place] heart without angina pectoris I25.10 [place] [id number] [address] [place] [phone] Feb, [address] [address] Feb, [place] [id number] [address] [place] [phone] Jan, [address] [address] Jan, Encounter for routine adult health examination with abnormal findings Z00.01 ; Foot pain, left M79.672 ; Pain in right ankle and joints of right foot M25.571 ; Chronic pain disorder G89.4 ; Coronary artery disease involving [place] coronary artery of [place] heart without angina pectoris I25.10 ; Tobacco abuse Z72.0 ; Tobacco abuse counseling Z71.6 and Obesity (BMI 30-39.9) E66.9 [place] [id number] [address] [place] [phone] Jan, [facility] [address] [facility] [id number] [address] [place] [id number] Mar, Dental examination V72.2 IMMUNIZATIONS No Known Immunizations SOCIAL HISTORY Never Assessed REASON FOR VISIT Tramadol refill PLAN OF CARE VITAL SIGNS MEDICATIONS Medication Instructions Dosage Frequency Start Date End Date Duration S tanna Tramadol HCl 50 mg Orally every 6 [...]
--- OUTSIDE RECORDS SUMMARY | 2019-12-11 14:41 | XMS REPORT ---
Author Author Reza ROBERTS [facility] Address [address] [place] [address] Care Team Providers Care Ibm Mainframe Systems Programmer Name Role Phone MAKEDA ROBERTS Unavailable PROBLEMS Type Condition ICD9-CM Code IHI73-ZK Code Onset Dates Condition S tatus SNOMED Code Problem Tobacco abuse Z72.0 Active 276038 000 Problem Pain in right ankle and joints of right foot M25.5 71 Active 246042783 Problem Tobacco abuse counseling Z71.6 Activ e 402802923 Problem Plantar fasciitis, bilateral M72.2 A ctive 40231382058352123 Problem Foot pain, left M79.672 Active 3167 [id number] Problem Coronary artery disease invo lving [place] coronary artery of [place] heart without angina pectoris I25.10 Active 1641 294681043 Problem Obesity (BMI 30-39.9) E66.9 Active 758213951 Problem Essential hypertension I10 Active 79721125 Problem Anxiety F41.9 Active 81561634 Problem Acute reaction to situational stress F43.0 Active 50535391 Problem Chronic pain disorder G89.4 Active 482053450 Problem Primary insomnia F51.01 Active 397 2004 Problem Mixed hyperlipidemia E78.2 Active 051425159 ALLERGIES Substance Reaction Event Type Date Status Augmentin Unknown Drug Allergy Jul, Active ENCOUNTERS Encounter Location Date Diagnosis [facility] [address] [facility] [id number] [address] [place] [phone] Jan, [facility] [address] [facility] [id number] [address] [place] [phone] Jan, [facility] [address] [facility] [id number] [address] [place] [phone] December, Essential hypertension I10 a nd Mixed hyperlipidemia E78.2 [facility] [address] [facility] [id number] [address] [place] [id number] 14 Dec, 2017 [facility] [address] [facility] [id number] [address] [place] [phone] December, Primary insomnia F51.01 [facility] [address] [facility] [id number] [address] [place] [address] Nov, Chronic pain disorder G89.4 [facility] [address] [facility] [id number] [address] [place] [phone] Nov, [facility] [address] [facility] [id number] [address] [place] [phone] Oct, Acute bronchitis, unspecifie d organism J20.9 [facility] [address] [facility] [id number] [address] [place] [phone] 16 Oct, 2017 [facility] [address] [facility] [id number] [address] [place] [phone] Oct, Chronic pain disorder G89.4 and Primary insomnia F51.01 [facility] [address] [facility] [id number] [address] [place] [id number] 14 Oct, 2017 [facility] [address] [place] [id number] [address] [place] [phone] 05 Oct, 2017 Anxiety F41.9 and Essential hypertension I10 [facility] [address] [place] [id number] [address] [place] [phone] Sep, Primary insomnia F51.01 [facility] [address] [facility] [id number] [address] [place] [phone] Sep, Chronic pain disorder G89.4 [facility] [address] [facility] [id number] [address] [place] [phone] Sep, Essential hypertension I10 a nd Chronic pain disorder G89.4 [facility] [address] [facility] [id number] [address] [place] [phone] 09 Sep, 2017 Anxiety F41.9 and Chronic pa in disorder G89.4 [facility] [address] [place] [address] 02 Sep, 2017 Controlled substance agreeme nt signed Z79.899 [place] [address] [address] Aug, Chronic pain disorder G89.4 and Primary insomnia F51.01 [facility] [address] [address] Aug, Essential hypertension I10 ; Mixed hyperlipidemia E78.2 ; Primary insomnia F51.01 ; Tobacco abuse Z72.0 ; Chronic pain disorder G89.4 ; Acute suppurative otitis media of left ear without spontaneous rupture of tympanic membrane, recurrence not specified H66.002 ; Acute bronchitis, unspecified organism J20.9 and Anxiety F41.9 [place] [address] [address] Aug, [place] [address] [address] Aug, [place] [address] [place] [id number] [address] [place] [phone] Aug, Primary insomnia F51.01 [facility] [address] [place] [id number] [address] [place] [address] Jul, Paronychia of finger of righ t hand L03.011 [place] [address] [place] [address] Jul, Primary insomnia F51.01 [facility] [address] [place] [id number] [address] [place] [address] Jul, Mixed hyperlipidemia E78.2 [place] [address] [place] [id number] [address] [place] [address] Jul, Chronic pain disorder G89.4 [facility] [address] [place] [id number] [address] [place] [address] Jun, Mixed hyperlipidemia E78.2 [place] [address] [place] [id number] [address] [place] [phone] Jun, Primary insomnia F51.01 [facility] [address] [id number] [address] [place] [phone] Jun, [facility] [address] [id number] [address] [place] [phone] May, [facility] [address] [id number] [address] [place] [phone] May, [facility] [address] [id number] [address] [place] [phone] May, Chronic pain disorder G89.4 ; Bilateral otitis media with effusion H65.93 and Primary insomnia F51.01 [facility] [address] [id number] [address] [place] [phone] May, Chronic pain disorder G89.4 [facility] [address] [id number] [address] [place] [phone] May, [facility] [address] [id number] [address] [place] [phone] May, [facility] [address] [id number] [address] [place] [phone] May, [facility] [address] [id number] [address] [place] [phone] Apr, [facility] [address] [id number] [address] [place] [phone] Apr, [facility] [address] [id number] [address] [place] [id number] 19 Apr, 2017 Coronary artery disease invo lving [place] coronary artery of [place] heart without angina pectoris I25.10 [facility] [address] [id number] [address] [place] [id number] 18 Apr, 2017 Chronic pain disorder G89.4 [facility] [address] [id number] [address] [place] [address] Apr, Coronary artery disease invo lving [place] coronary artery of [place] heart without angina pectoris I25.10 ; Tobacco abuse Z72.0 ; Tobacco abuse counseling Z71.6 ; Obesity (BMI 30-39.9) E66.9 ; Acute reaction to situational stress F43.0 ; Mixed hyperlipidemia E78.2 ; Chronic pain disorder G89.4 and Right otitis media with effusion H65.91 [facility] [address] [id number] [address] [place] [phone] Apr, Pain in right ankle and join ts of right foot M25.571 [facility] [address] [id number] [address] [place] [address] Apr, Pain in right ankle and join ts of right foot M25.571 and Coronary artery disease involving [place] coronary artery of [place] heart without angina pectoris I25.10 [facility] [address] [id number] [address] [place] [address] Mar, [facility] [address] [id number] [address] [place] [phone] Mar, [facility] [address] [id number] [address] [place] [phone] Mar, [facility] [address] [id number] [address] [place] [address] Mar, Acute mucoid otitis media of both ears H65.113 and Dizziness R42 [facility] [address] [id number] [address] [place] [phone] Feb, [facility] [address] [id number] [address] [place] [phone] Feb, Pain in right ankle and join ts of right foot M25.571 ; Pain in left finger(s) M79.645 and Coronary artery disease involving [place] coronary artery of [place] heart without angina pectoris I25.10 [facility] [address] [id number] [address] [place] [phone] Feb, [place] [address] [facility] [id number] [address] [place] [phone] Feb, [facility] [address] [facility] [id number] [address] [place] [phone] Jan, [facility] [address] [facility] [id number] [address] [place] [phone] 15 Jan, 2017 Encounter for routine adult health examination with abnormal findings Z00.01 ; Foot pain, left M79.672 ; Pain in right ankle and joints of right foot M25.571 ; Chronic pain disorder G89.4 ; Coronary artery disease involving [place] coronary artery of [place] heart without angina pectoris I25.10 ; Tobacco abuse Z72.0 ; Tobacco abuse counseling Z71.6 and Obesity (BMI 30-39.9) E66.9 [facility] [address] [facility] [id number] [address] [place] [phone] Jan, [facility] [address] [facility] [id number] [address] [place] [address] [id number] 10 Mar, 2015 Dental examination V72.2 IMMUNIZATIONS No Known Immunizations SOCIAL HISTORY Never Assessed REASON FOR VISIT infected finger Pt c/o possible infection on ring finger on R hand SILVIA Hernandez PLAN OF CARE Activity Details Follow Up prn Reason: VITAL SIGNS Height 69 in 2017-08-02 Weight 233.2 lbs 2017-08-02 Temperature 98.6 degrees Fahrenheit 2017-08-02 Heart Rate 88 bpm 2017-08-02 Respiratory Rate 18 2017-08-02 BMI 34.43 kg/m2 2017-08-02 Blood pressure systolic 176 mmHg 2017-08-02 Blood pressure diastolic 102 mmHg 2017-08-02 MEDICATIONS Medication Instructions Dosage Frequency Start Date End Date Duration S tatus Aspir-81 81 MG Orally Once a day 1 tablet 24h 30 day s Active Clopidogrel Bisulfate 75 MG Orally Once a day 1 tablet 24h 90 days Active Lyrica 75 MG Orally Twice a day 1 capsule 12h 15 Apr, 2017 9 0 days Active Bactrim DS 800-160 MG Orally Twice a day 1 tablet 12h 29 Jul, 2 017 8 Aug, 2017 10 day(s) Active Ciprodex 0.3-0.1 % Otic Twice a day 4 drops into affected ear 12h 16 May, 2017 10 days Active Meclizine HCl 25 MG Orally 3 times a day 1 tablet as needed 8h 03 Mar, 2017 10 days Active Atenolol 25 MG Orally twice a day 2 tablet 12h 90 da ys Active Tramadol HCl 50 mg Orally every 6 hrs 1 tablet as needed 6h 28 days Active Ambien 10 mg Orally Once a day 1 tablet at bedtime as needed 24h 28 days Active Clonidine HCl 0.1 MG Orally twice a day 1 tablet at bedtime 12h 06 May, 2017 30 day(s) Active Atorvastatin Calcium 80 MG Orally Once a day 1 tablet 24h 90 days Active Duloxetine HCl 40 mg Orally Once a day 1 capsule 24h 15 Apr, 2017 30 day(s) Active RESULTS No Results PROCEDURES No Known procedures INSTRUCTIONS MEDICATIONS ADMINISTERED No Known Medications MEDICAL (GENERAL) HISTORY Type Description Date Medical History Arthritis Medical History 2 heart attacks with numerou s stents- 10 yrs ago and then 7 years ago- 1st CA- Promus 2.5 x 18 mm stent to LAD, 3.0x 23 mm stent to DIAG, 2.5x 15 mm stent to LAD/ 2nd CA- Promus 2.5 x12 to distal Circ and [...]
--- OUTSIDE RECORDS SUMMARY | 2019-12-11 14:41 | XMS REPORT ---
Author Author Reza WELCH Organization [facility] Address [address] [place] [address] Care Team Providers Care Development Intern Name Role Phone OLIVER WELCH Unavailable PROBLEMS Type Condition ICD9-CM Code JDY56-NV Code Onset Dates Condition S tatus SNOMED Code Problem Tobacco abuse Z72.0 Active 409576 000 Problem Pain in right ankle and joints of right foot M25.5 71 Active 710475035 Problem Tobacco abuse counseling Z71.6 Activ e 667858416 Problem Plantar fasciitis, bilateral M72.2 A ctive 86000396183149516 Problem Foot pain, left M79.672 Active 3167 42612627077 Problem Coronary artery disease invo lving [place] coronary artery of [place] heart without angina pectoris I25.10 Active 1641 629677644 Problem Obesity (BMI 30-39.9) E66.9 Active 407386934 Problem Essential hypertension I10 Active 89988419 Problem Anxiety F41.9 Active 17882946 Problem Acute reaction to situational stress F43.0 Active 67415419 Problem Chronic pain disorder G89.4 Active 987278653 Problem Primary insomnia F51.01 Active 397 2004 Problem Mixed hyperlipidemia E78.2 Active 228058778 ALLERGIES No Information ENCOUNTERS Encounter Location Date Diagnosis [facility] [address] [facility] [id number] [address] [place] [phone] Nov, Chronic pain disorder G89.4 [facility] [address] [facility] [id number] [address] [place] [phone] Nov, [facility] [address] [facility] [id number] [address] [place] [phone] Oct, Acute bronchitis, unspecifie d organism J20.9 [facility] [address] [facility] [id number] [address] [place] [phone] Oct, [place] [id number] [place] [address] Oct, Chronic pain disorder G89.4 and Primary insomnia F51.01 [place] [id number] [place] [address] Oct, [place] [address] [address] Oct, Anxiety F41.9 and Essential hypertension I10 [place] [address] [place] [id number] [address] [place] [address] Sep, Primary insomnia F51.01 [place] [address] [address] Sep, Chronic pain disorder G89.4 [place] [address] [address] Sep, Essential hypertension I10 a nd Chronic pain disorder G89.4 [place] [address] [address] Sep, Anxiety F41.9 and Chronic pa in disorder G89.4 [place] [address] [address] Sep, Controlled substance agreeme nt signed Z79.899 [place] [address] [address] Aug, Chronic pain disorder G89.4 and Primary insomnia F51.01 [place] [address] [place] [id number] [address] [place] [address] Aug, Essential hypertension I10 ; Mixed hyperlipidemia E78.2 ; Primary insomnia F51.01 ; Tobacco abuse Z72.0 ; Chronic pain disorder G89.4 ; Acute suppurative otitis media of left ear without spontaneous rupture of tympanic membrane, recurrence not specified H66.002 ; Acute bronchitis, unspecified organism J20.9 and Anxiety F41.9 [place] [address] [place] [id number] [place] [address] Aug, [facility] [address] [facility] [id number] [address] [place] [address] Aug, [facility] [address] [facility] [id number] [address] [place] [address] Aug, Primary insomnia F51.01 [facility] [address] [facility] [id number] [address] [place] [address] Jul, Paronychia of finger of righ t hand L03.011 [facility] [address] [facility] [id number] [address] [place] [address] Jul, Primary insomnia F51.01 [facility] [address] [facility] [id number] [address] [place] [address] Jul, Mixed hyperlipidemia E78.2 [facility] [address] [facility] [id number] [address] [place] [phone] Jul, Chronic pain disorder G89.4 [facility] [address] [facility] [id number] [address] [place] [address] Jun, Mixed hyperlipidemia E78.2 [facility] [address] [facility] [id number] [address] [place] [phone] Jun, Primary insomnia F51.01 [facility] [address] [facility] [id number] [address] [place] [address] Jun, [facility] [address] [facility] [id number] [address] [place] [address] May, [facility] [address] [facility] [id number] [address] [place] [address] May, [facility] [address] [facility] [id number] [address] [place] [address] May, Chronic pain disorder G89.4 ; Bilateral otitis media with effusion H65.93 and Primary insomnia F51.01 [facility] [address] [facility] [id number] [address] [place] [address] 16 May, 2017 Chronic pain disorder G89.4 [facility] [address] [id number] [address] [place] [phone] 12 May, 2017 [facility] [address] [id number] [address] [place] [id number] 05 May, 2017 [facility] [address] [id number] [address] [place] [phone] 03 May, 2017 [facility] [address] [id number] [address] [place] [id number] 22 Apr, 2017 [facility] [address] [id number] [address] [place] [phone] 21 Apr, 2017 [facility] [address] [id number] [address] [place] [phone] 19 Apr, 2017 Coronary artery disease invo lving [place] coronary artery of [place] heart without angina pectoris I25.10 [facility] [address] [id number] [address] [place] [phone] 18 Apr, 2017 Chronic pain disorder G89.4 [facility] [address] [id number] [address] [place] [id number] 15 Apr, 2017 Coronary artery disease invo lving [place] coronary artery of [place] heart without angina pectoris I25.10 ; Tobacco abuse Z72.0 ; Tobacco abuse counseling Z71.6 ; Obesity (BMI 30-39.9) E66.9 ; Acute reaction to situational stress F43.0 ; Mixed hyperlipidemia E78.2 ; Chronic pain disorder G89.4 and Right otitis media with effusion H65.91 [facility] [address] [id number] [address] [place] [id number] 13 Apr, 2017 Pain in right ankle and join ts of right foot M25.571 [facility] [address] [id number] [address] [place] [phone] 13 Apr, 2017 Pain in right ankle and join ts of right foot M25.571 and Coronary artery disease involving [place] coronary artery of [place] heart without angina pectoris I25.10 [place] [address] [id number] [address] [place] [address] Mar, [facility] [address] [id number] [address] [place] [phone] Mar, [facility] [address] [facility] [id number] [address] [place] [phone] Mar, [place] [address] [facility] [id number] [address] [place] [phone] Mar, Acute mucoid otitis media of both ears H65.113 and Dizziness R42 [place] [address] [id number] [address] [place] [phone] Feb, [place] [address] [facility] [id number] [address] [place] [phone] Feb, Pain in right ankle and join ts of right foot M25.571 ; Pain in left finger(s) M79.645 and Coronary artery disease involving [place] coronary artery of [place] heart without angina pectoris I25.10 [place] [address] [facility] [id number] [address] [place] [id number] Feb, [place] [address] [facility] [id number] [address] [place] [phone] Feb, [place] [address] [facility] [id number] [address] [place] [phone] Jan, [place] [address] [facility] [id number] [address] [place] [phone] Jan, Encounter for routine adult health examination with abnormal findings Z00.01 ; Foot pain, left M79.672 ; Pain in right ankle and joints of right foot M25.571 ; Chronic pain disorder G89.4 ; Coronary artery disease involving [place] coronary artery of [place] heart without angina pectoris I25.10 ; Tobacco abuse Z72.0 ; Tobacco abuse counseling Z71.6 and Obesity (BMI 30-39.9) E66.[address] [id number] [address] [place] [phone] Jan, [facility] [address] [id number] [address] [place] [id number] Mar, Dental examination V72.2 IMMUNIZATIONS No Known [...]
--- OUTSIDE RECORDS SUMMARY | 2019-12-11 14:41 | XMS REPORT ---
Author Author Reza WELCH Organization [facility] Address [address] [place] [address] Care Team Providers Care Clubhouse Attendant Name Role Phone REBEKAH OLIVER Unavailable PROBLEMS Type Condition ICD9-CM Code [id number] Code Onset Dates Condition S tatus SNOMED Code Problem Tobacco abuse Z72.0 Active 433979 000 Problem Pain in right ankle and joints of right foot M25.5 71 Active 019692535 Problem Tobacco abuse counseling Z71.6 Activ e 871362364 Problem Plantar fasciitis, bilateral M72.2 A ctive [id number] Problem Foot pain, left M79.672 Active 3167 [id number] Problem Coronary artery disease invo lving [place] coronary artery of [place] heart without angina pectoris I25.10 Active 1641 688573176 Problem Obesity (BMI 30-39.9) E66.9 Active 960816904 Problem Essential hypertension I10 Active 70238748 Problem Anxiety F41.9 Active 21799002 Problem Acute reaction to situational stress F43.0 Active 41201959 Problem Chronic pain disorder G89.4 Active 935178900 Problem Primary insomnia F51.01 Active 397 2004 Problem Mixed hyperlipidemia E78.2 Active 619036523 ALLERGIES No Information ENCOUNTERS Encounter Location Date Diagnosis [facility] [address] [facility] [id number] [address] [place] [phone] Jan, [facility] [address] [facility] [id number] [address] [place] [phone] Jan, [facility] [address] [facility] [id number] [address] [place] [phone] December, Essential hypertension I10 a nd Mixed hyperlipidemia E78.2 [facility] [address] [facility] [id number] [address] [place] [phone] December, [facility] [address] [place] [id number] [address] [place] [phone] December, Primary insomnia F51.01 [facility] [address] [facility] [id number] [address] [place] [phone] Nov, Chronic pain disorder G89.4 [facility] [address] [facility] [id number] [address] [place] [phone] Nov, [facility] [address] [facility] [id number] [address] [place] [phone] Oct, Acute bronchitis, unspecifie d organism J20.9 [place] [address] [facility] [id number] [address] [place] [phone] 16 Oct, 2017 [facility] [address] [place] [id number] [place] [address] Oct, Chronic pain disorder G89.4 and Primary insomnia F51.01 [place] [id number] [place] [phone] 14 Oct, 2017 [facility] [address] [place] [id number] [address] [place] [phone] 05 Oct, 2017 Anxiety F41.9 and Essential hypertension I10 [place] [address] [place] [id number] [address] [place] [phone] Sep, Primary insomnia F51.01 [place] [address] [place] [id number] [address] [place] [address] Sep, Chronic pain disorder G89.4 [place] [address] [place] [id number] [address] [place] [address] Sep, Essential hypertension I10 a nd Chronic pain disorder G89.4 [place] [address] [place] [id number] [address] [place] [phone] 09 Sep, 2017 Anxiety F41.9 and Chronic pa in disorder G89.4 [place] [address] [place] [id number] [address] [place] [phone] Sep, Controlled substance agreeme nt signed Z79.899 [facility] [address] [place] [id number] [address] [place] [phone] Aug, Chronic pain disorder G89.4 and Primary insomnia F51.01 [facility] [address] [place] [id number] [address] [place] [address] Aug, Essential hypertension I10 ; Mixed hyperlipidemia E78.2 ; Primary insomnia F51.01 ; Tobacco abuse Z72.0 ; Chronic pain disorder G89.4 ; Acute suppurative otitis media of left ear without spontaneous rupture of tympanic membrane, recurrence not specified H66.002 ; Acute bronchitis, unspecified organism J20.9 and Anxiety F41.9 [place] [address] [place] [id number] [address] [place] [phone] Aug, [place] [id number] [place] [phone] Aug, [facility] [address] [place] [phone] Aug, Primary insomnia F51.01 [facility] [address] [facility] [id number] [address] [place] [address] Jul, Paronychia of finger of righ t hand L03.011 [facility] [address] [place] [id number] [address] [place] [address] Jul, Primary insomnia F51.01 [facility] [address] [place] [id number] [address] [place] [phone] Jul, Mixed hyperlipidemia E78.2 [facility] [address] [facility] [id number] [address] [place] [phone] Jul, Chronic pain disorder G89.4 [facility] [address] [place] [id number] [address] [place] [address] Jun, Mixed hyperlipidemia E78.2 [facility] [address] [place] [id number] [address] [place] [address] Jun, Primary insomnia F51.01 [facility] [address] [id number] [address] [place] [phone] Jun, [facility] [address] [id number] [place] [phone] May, [facility] [address] [id number] [address] [place] [phone] May, [facility] [address] [id number] [address] [place] [address] May, Chronic pain disorder G89.4 ; Bilateral otitis media with effusion H65.93 and Primary insomnia F51.01 [facility] [address] [id number] [address] [place] [address] May, Chronic pain disorder G89.4 [facility] [address] [id number] [address] [place] [phone] May, [facility] [address] [id number] [address] [place] [phone] May, [facility] [address] [id number] [address] [place] [phone] May, [facility] [address] [id number] [address] [place] [phone] Apr, [facility] [address] [id number] [address] [place] [phone] Apr, [facility] [address] [id number] [address] [place] [phone] 19 Apr, 2017 Coronary artery disease invo lving [place] coronary artery of [place] heart without angina pectoris I25.10 [facility] [address] [id number] [address] [place] [phone] 18 Apr, 2017 Chronic pain disorder G89.4 [facility] [address] [id number] [address] [place] [phone] 15 Apr, 2017 Coronary artery disease invo lving [place] coronary artery of [place] heart without angina pectoris I25.10 ; Tobacco abuse Z72.0 ; Tobacco abuse counseling Z71.6 ; Obesity (BMI 30-39.9) E66.9 ; Acute reaction to situational stress F43.0 ; Mixed hyperlipidemia E78.2 ; Chronic pain disorder G89.4 and Right otitis media with effusion H65.91 [place] [address] [id number] [address] [place] [address] Apr, Pain in right ankle and join ts of right foot M25.571 [place] [address] [id number] [address] [place] [address] Apr, Pain in right ankle and join ts of right foot M25.571 and Coronary artery disease involving [place] coronary artery of [place] heart without angina pectoris I25.10 [place] [address] [id number] [address] [place] [phone] Mar, [place] [address] [id number] [address] [place] [phone] Mar, [place] [address] [id number] [address] [place] [address] Mar, [place] [address] [id number] [address] [place] [address] Mar, Acute mucoid otitis media of both ears H65.113 and Dizziness R42 [place] [address] [id number] [address] [place] [address] Feb, [place] [address] [id number] [address] [place] [address] Feb, Pain in right ankle and join ts of right foot M25.571 ; Pain in left finger(s) M79.645 and Coronary artery disease involving [place] coronary artery of [place] heart without angina pectoris I25.10 [facility] [address] [id number] [address] [place] [phone] Feb, [place] [address] [id number] [address] [place] [address] Feb, [facility] [address] [facility] [id number] [address] [place] [phone] Jan, [facility] [address] [facility] [id number] [address] [place] [phone] Jan, Encounter for routine adult health examination [...] 30-39.9) E66.9 [facility] [address] [facility] [id number] [address] [place] [phone] Jan, [facility] [address] [facility] [id number] [address] [place] [address] [id number] 10 Mar, 2015 Dental examination V72.2 IMMUNIZATIONS No Known Immunizations SOCIAL HISTORY Never Assessed REASON FOR VISIT Clonidine RX Correction PLAN OF CARE VITAL SIGNS MEDICATIONS Medication Instructions Dosage Frequency Start Date End Date Duration S tatus Clonidine HCl 0.1 MG Orally twice a day 1 tablet 12h May, 30 day(s) Active RESULTS No Results PROCEDURES No Known procedures INSTRUCTIONS MEDICATIONS ADMINISTERED No Known Medications MEDICAL (GENERAL) HISTORY Type Description Date Medical History Arthritis Medical History 2 heart attacks with numerou s stents- 10 yrs ago and then 7 years ago- 1st [facility]- Promus 2.5 x 18 mm stent to LAD, 3.0x 23 mm stent to DIAG, 2.5x 15 mm stent to LAD/ 2nd [facility]- Promus 2.5 x12 to distal Circ and [...]
--- OUTSIDE RECORDS SUMMARY | 2019-12-11 14:41 | XMS REPORT ---
Author Author Reza WELCH Organization [facility] Address [address] [place] [address] Care Team Providers Care Drop Board Man Name Role Phone OLIVER WELCH Unavailable PROBLEMS Type Condition ICD9-CM Code [id number] Code Onset Dates Condition S tatus SNOMED Code Problem Tobacco abuse Z72.0 Active 632740 000 Problem Pain in right ankle and joints of right foot M25.5 71 Active 918351325 Problem Tobacco abuse counseling Z71.6 Activ e 377154453 Problem Plantar fasciitis, bilateral M72.2 A ctive [id number] Problem Foot pain, left M79.672 Active 3167 61541149775 Problem Coronary artery disease invo lving [place] coronary artery of [place] heart without angina pectoris I25.10 Active 1641 050142381 Problem Obesity (BMI 30-39.9) E66.9 Active 372743141 Problem Essential hypertension I10 Active 66613617 Problem Anxiety F41.9 Active 00279300 Problem Acute reaction to situational stress F43.0 Active 82393434 Problem Chronic pain disorder G89.4 Active 575064409 Problem Primary insomnia F51.01 Active 397 2004 Problem Mixed hyperlipidemia E78.2 Active 444832413 ALLERGIES Substance Reaction Event Type Date Status Augmentin Unknown Drug Allergy Aug, Active ENCOUNTERS Encounter Location Date Diagnosis [facility] [address] [facility] [id number] [address] [place] [phone] Jan, [facility] [address] [facility] [id number] [address] [place] [phone] Jan, [facility] [address] [facility] [id number] [address] [place] [phone] December, Essential hypertension I10 a nd Mixed hyperlipidemia E78.2 [facility] [address] [facility] [id number] [address] [place] [phone] December, [facility] [address] [facility] [id number] [address] [place] [phone] December, Primary insomnia F51.01 [facility] [address] [facility] [id number] [address] [place] [phone] Nov, Chronic pain disorder G89.4 [facility] [address] [facility] [id number] [address] [place] [phone] Nov, [facility] [address] [facility] [id number] [address] [place] [phone] Oct, Acute bronchitis, unspecifie d organism J20.9 [facility] [address] [facility] [id number] [address] [place] [phone] Oct, [facility] [address] [place] [id number] [address] [place] [phone] Oct, Chronic pain disorder G89.4 and Primary insomnia F51.01 [facility] [address] [facility] [id number] [address] [place] [phone] Oct, [facility] [address] [place] [id number] [address] [place] [phone] 05 Oct, 2017 Anxiety F41.9 and Essential hypertension I10 [facility] [address] [place] [id number] [address] [place] [address] Sep, Primary insomnia F51.01 [facility] [address] [facility] [id number] [address] [place] [phone] Sep, Chronic pain disorder G89.4 [facility] [address] [facility] [id number] [address] [place] [address] Sep, Essential hypertension I10 a nd Chronic pain disorder G89.4 [facility] [address] [facility] [id number] [address] [place] [phone] 09 Sep, 2017 Anxiety F41.9 and Chronic pa in disorder G89.4 [facility] [address] [place] [id number] [address] [place] [phone] 02 Sep, 2017 Controlled substance agreeme nt signed Z79.899 [place] [id number] [place] [address] Aug, Chronic pain disorder G89.4 and Primary insomnia F51.01 [facility] [address] [place] [id number] [address] [place] [address] Aug, Essential hypertension I10 ; Mixed hyperlipidemia E78.2 ; Primary insomnia F51.01 ; Tobacco abuse Z72.0 ; Chronic pain disorder G89.4 ; Acute suppurative otitis media of left ear without spontaneous rupture of tympanic membrane, recurrence not specified H66.002 ; Acute bronchitis, unspecified organism J20.9 and Anxiety F41.9 [place] [address] [place] [id number] [address] [place] [phone] Aug, [place] [address] [address] Aug, [facility] [address] [place] [id number] [address] [place] [phone] Aug, Primary insomnia F51.01 [facility] [address] [facility] [id number] [address] [place] [phone] Jul, Paronychia of finger of righ t hand L03.011 [place] [address] [place] [id number] [address] [place] [phone] Jul, Primary insomnia F51.01 [facility] [address] [facility] [id number] [address] [place] [phone] Jul, Mixed hyperlipidemia E78.2 [place] [address] [place] [id number] [address] [place] [phone] Jul, Chronic pain disorder G89.4 [facility] [address] [facility] [id number] [address] [place] [address] Jun, Mixed hyperlipidemia E78.2 [place] [address] [place] [id number] [address] [place] [phone] Jun, Primary insomnia F51.01 [facility] [address] [id number] [address] [place] [phone] Jun, [facility] [address] [id number] [address] [place] [phone] May, [facility] [address] [id number] [address] [place] [phone] May, [facility] [address] [id number] [address] [place] [phone] May, Chronic pain disorder G89.4 ; Bilateral otitis media with effusion H65.93 and Primary insomnia F51.01 [facility] [address] [id number] [address] [place] [phone] May, Chronic pain disorder G89.4 [facility] [address] [id number] [address] [place] [phone] May, [facility] [address] [id number] [address] [place] [phone] May, [facility] [address] [id number] [address] [place] [phone] May, [facility] [address] [id number] [address] [place] [phone] Apr, [facility] [address] [id number] [address] [place] [phone] Apr, [facility] [address] [id number] [address] [place] [phone] 19 Apr, 2017 Coronary artery disease invo lving wain[place] coronary artery of [place] heart without angina pectoris I25.10 [facility] [address] [id number] [address] [place] [phone] 18 Apr, 2017 Chronic pain disorder G89.4 [facility] [address] [id number] [address] [place] [phone] 15 Sep, 2017 Coronary artery disease invo lving wain[place] coronary artery of [place] heart without angina pectoris I25.10 ; Tobacco abuse Z72.0 ; Tobacco abuse counseling Z71.6 ; Obesity (BMI 30-39.9) E66.9 ; Acute reaction to situational stress F43.0 ; Mixed hyperlipidemia E78.2 ; Chronic pain disorder G89.4 and Right otitis media with effusion H65.91 [facility] [address] [id number] [address] [place] [id number] Apr, Pain in right ankle and join ts of right foot M25.571 [facility] [address] [id number] [address] [place] [phone] Apr, Pain in right ankle and join ts of right foot M25.571 and Coronary artery disease involving wainwright coronary artery of [place] heart without angina pectoris I25.10 [facility] [address] [id number] [address] [place] [phone] Mar, [facility] [address] [id number] [address] [place] [phone] Mar, [facility] [address] [id number] [address] [place] [phone] Mar, [facility] [address] [id number] [address] [place] [phone] Mar, Acute mucoid otitis media of both ears H65.113 and Dizziness R42 [facility] [address] [id number] [address] [place] [phone] Feb, [facility] [address] [id number] [address] [place] [phone] Feb, Pain in right ankle and join ts of right foot M25.571 ; Pain in left finger(s) M79.645 and Coronary artery disease involving wainwright coronary artery of wainwright heart without angina pectoris I25.10 [facility] [address] [id number] [address] [place] [phone] Feb, [facility] [address] [id number] [address] [place] [phone] Feb, [facility] [address] [facility] [id number] [address] [place] [phone] Jan, [facility] [address] [facility] [id number] [address] [place] [phone] Jan, Encounter for routine adult health examination with abnormal findings Z00.01 ; Foot pain, left M79.672 ; Pain in right ankle and joints of right foot M25.571 ; Chronic pain disorder G89.4 ; Coronary artery disease involving wainwright coronary artery of wainwright heart without angina pectoris I25.10 ; Tobacco abuse Z72.0 ; Tobacco abuse counseling Z71.6 and Obesity (BMI 30-39.9) E66.9 [facility] [address] [facility] [id number] [address] [place] [phone] Jan, [facility] [address] [facility] [id number] [address] [place] [id number] Mar, Dental examination V72.2 IMMUNIZATIONS No Known Immunizations SOCIAL HISTORY Never Assessed REASON FOR VISIT Pain management (chronic)--tcuppettRN, --cough, congestion x 1.5 weeks PLAN OF CARE Activity Details Follow Up 3 Months, prn Reason:CHM/HTN VITAL SIGNS Height 69 in 2017-08-16 Weight 233.8 lbs 2017-08-16 Temperature 97.9 degrees Fahrenheit 2017-08-16 Heart Rate 84 bpm 2017-08-16 Respiratory Rate 18 2017-08-16 BMI 34.52 kg/m2 2017-08-16 Blood pressure systolic 140 mmHg 2017-08-16 Blood pressure diastolic 96 mmHg 2017-08-16 MEDICATIONS Medication Instructions Dosage Frequency Start Date End Date Duration S tatus Lyrica 150 MG Orally twice a day 1 capsule 1 to 3 flower rs before bedtime in the evening 12h Aug, 30 days Active PredniSONE 50 mg Orally Once a day 1 tablet 24h Aug, Aug, 05 days Active Meclizine HCl 25 MG Orally 3 times a day 1 tablet as needed 8h Mar, 10 days Active Clopidogrel Bisulfate 75 MG Orally Once a day 1 tablet 24h Active Aspir-81 81 MG Orally Once a day 1 tablet 24h Active Tramadol HCl 50 mg Orally every 6 hrs 1 tablet as needed 6h Active Atenolol 25 MG Orally twice a day 2 tablet 12h Active Duloxetine HCl 40 mg Orally Once a day 1 capsule 24h 15 Apr, 2017 30 day(s) Active Ciprodex 0.3-0.1 % Otic Twice a day 4 drops into affected ear 12h 16 May, 2017 10 days Not-Taking Ambien 10 mg Orally Once a day 1 tablet at bedtime as needed 24h Active Levaquin 750 MG Orally Once a day 1 tablet 24h Aug, Aug, 05 days Active Atorvastatin Calcium 80 MG Orally Once a day 1 tablet 24h Active Clonidine HCl 0.1 MG Orally twice a day 1 tablet 12h May, Active RESULTS No Results PROCEDURES No Known procedures INSTRUCTIONS MEDICATIONS ADMINISTERED No Known Medications MEDICAL (GENERAL) HISTORY Type Description Date Medical History Arthritis Medical History 2 heart attacks with numerou s stents- 10 yrs ago and then 7 years ago- 1st [place]- Promus 2.5 x 18 mm stent to LAD, 3.0x 23 mm stent to DIAG, 2.5x 15 mm stent to LAD/ 2nd [place]- Promus 2.5 x12 to distal Circ and [...]
--- OUTSIDE RECORDS SUMMARY | 2019-12-11 14:42 | XMS REPORT | Continuity of Care Document ---
Demographics Preferred Language Unknown Marital Status Unknown Confucianist Affiliation Unknown Race Unknown Ethnic Group Unknown Author Organization Unknown Address Unknown Phone Unavailable Allergies Active Description Code Type Severity Reaction Onset Reported/Identified Relationship to Patient Clinical Status Yes amoxicillin [id number] Drug Aller gy Unknown N/A 02/17/2009 Yes potassium clavulanate [id number] Drug Allergy Unknown N/A 02/17/2009 Medications There is no data. 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 01/26/2012 Ot 401.9 HYPE RTENSION NOS 01/26/2012 Ot 412 OLD MY OCARDIAL INFARCT 01/26/2012 Ot 414.01 COR ONARY ATHEROSCLEROSIS OF [place] CORON 01/26/2012 Ot 716.90 ART HROPATHY NOS- UNSPEC 01/26/2012 Ot 786.09 RES PIRATORY ABNORM NEC 01/26/[address] PAIN NOS 01/26/2012 Ot V45.82 PER CUTANEOUS TRANSLUM CORON ANGIOPLASTY 01/26/2012 Ot V58.63 LOUANN G- TERM(CURRENT)USE OF ANTIPLATELET/AN 01/26/2012 Ot V58.66 LOUANN G-TERM (CURRENT) USE OF ASPIRIN 01/26/2012 Ot V58.69 OTH MED,LT,CURRENT USE 01/29/2012 Ot 272.4 HYPE RLIPIDEMIA NEC/NOS 01/29/2012 Ot 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 01/29/2012 Ot 401.9 HYPE RTENSION NOS 01/29/2012 Ot 414.01 COR ONARY ATHEROSCLEROSIS OF [place] CORON 01/29/2012 Ot 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 01/29/2012 Ot 530.81 ESO PHAGEAL REFLUX 01/29/2012 Ot 724.2 LUMBAGO 01/29/[address] PAIN NEC 01/29/2012 Ot V45.82 PER CUTANEOUS TRANSLUM CORON ANGIOPLASTY 02/23/2012 Ot 412 OLD MY OCARDIAL INFARCT 02/23/2012 Ot 414.01 COR ONARY ATHEROSCLEROSIS OF [place] CORON 02/23/2012 Ot V45.82 PER CUTANEOUS TRANSLUM CORON ANGIOPLASTY 08/05/2012 Ot 272.4 HYPE RLIPIDEMIA NEC/NOS 08/05/2012 Ot 401.9 HYPE RTENSION NOS 08/05/2012 Ot 414.01 COR ONARY ATHEROSCLEROSIS OF [place] CORON 08/05/2012 Ot 719.40 MARIAMA NT PAIN-UNSPEC 08/05/[address] PAIN NEC 08/05/2012 Ot V15.82 HIS TORY OF TOBACCO USE 08/05/2012 Ot V17.49 FAM FRANCES HISTORY OF OTHER CARDIOVASCULAR D 08/05/2012 Ot V45.82 PER CUTANEOUS TRANSLUM CORON ANGIOPLASTY 08/05/2012 Ot V58.63 LOUANN G- TERM(CURRENT)USE OF ANTIPLATELET/AN 08/05/2012 Ot V58.66 LOUANN G-TERM (CURRENT) USE OF ASPIRIN 08/05/2012 Ot V58.69 OTH MED,LT,CURRENT USE 08/05/2012 Ot V85.34 BOD Y MASS INDEX 34.0-34.9, ADULT 07/21/2014 ANKITA MERRILL APRN Ot 721.3 11/23/2014 ANKITA MERRILL APRN Ot 721.3 12/16/2014 ANKITA MERRILL WINDOWS SECURITY ANALYST Ot 721.3 12/30/2014 ANKITA MERRILL APRN Ot 721.3 01/05/2015 GAVIN ELI MD Ot 722. 52 01/13/2015 GAVIN ELI MD Ot 722. 52 01/13/2015 GAVIN ELI MD Ot 722. 52 01/13/2015 GAVIN ELI MD Ot 722. 52 02/01/2015 GAVIN ELI MD Ot 722. 52 02/28/2015 ANKITA MERRILL APRN Ot 721.3 02/28/2015 GAVIN ELI MD Ot 722. 52 08/26/2015 Ot F17.210 NI COTINE DEPENDENCE, CIGARETTES, UNCOMPL 08/26/2015 Ot K57.90 DVR TCLOS OF INTEST, PART UNSP, W/O PERF 08/26/2015 Ot R10.30 LOW ER ABDOMINAL PAIN, UNSPECIFIED 08/26/2015 Ot R93.5 ABN FINDINGS ON DX IMAGING OF ABD REGION 10/27/2015 ANKITA MERRILL APRN Ot 721.3 10/27/2015 GAVIN ELI MD Ot 722. 52 10/28/2015 ANKITA MERRILL WINDOWS SECURITY ANALYST Ot 721.3 10/28/2015 GAVIN ELI MD Ot 722. 52 11/07/2015 ANKITA MERRILL WINDOWS SECURITY ANALYST Ot 721.3 11/07/2015 GAVIN ELI MD Ot 722. 52 04/10/2016 ANKITA MERRILL WINDOWS SECURITY ANALYST Ot 721.3 LUMBOSACRAL SPONDYLOSIS 04/10/2016 GAVIN ELI MD Ot 722. 52 LUMB/LUMBOSAC DISC DEGEN 04/12/2016 YOLANDA LLAMAS MD Ot H65.23 CHRONIC SEROUS OTITIS MEDIA, BILATERAL 04/12/2016 YOLANDA LLAMAS MD Ot H69.83 OTHER SPECIFIED DISORDERS OF [place] 04/12/2016 YOLANDA LLAMAS MD Ot Z01.818 ENCOUNTER FOR OTHER PREPROCEDURAL EXAMIN 04/13/2016 YOLANDA LLAMAS MD Ot H65.23 CHRONIC SEROUS OTITIS MEDIA, BILATERAL 04/13/2016 YOLANDA LLAMAS MD Ot H69.83 OTHER SPECIFIED DISORDERS OF [place] 04/13/2016 YOLANDA LLAMAS MD P Ot Z01.818 ENCOUNTER FOR OTHER PREPROCEDURAL EXAMIN 04/19/2016 ANKITA MERRILL WINDOWS SECURITY ANALYST Ot 721.3 LUMBOSACRAL SPONDYLOSIS 04/19/2016 GAVIN ELI MD Ot 722. 52 LUMB/LUMBOSAC DISC DEGEN 04/19/2016 YOLANDA LLAMAS MD Ot H65.23 CHRONIC SEROUS OTITIS MEDIA, BILATERAL 04/19/2016 YOLANDA LLAMAS MD Ot H69.83 OTHER SPECIFIED DISORDERS OF [place] 04/19/2016 YOLANDA LLAMAS MD Ot Z01.818 ENCOUNTER FOR OTHER PREPROCEDURAL EXAMIN 04/19/2016 YOLANDA LLAMAS MD Ot H65.23 CHRONIC SEROUS OTITIS MEDIA, BILATERAL 04/19/2016 YOLANDA LLAMAS MD P Ot H69.83 OTHER SPECIFIED DISORDERS OF [place] 04/19/2016 YOLANDA LLAMAS MD P Ot Z01.818 ENCOUNTER FOR OTHER PREPROCEDURAL EXAMIN 04/19/2016 YOLANDA LLAMAS MD Ot H65.23 CHRONIC SEROUS OTITIS MEDIA, BILATERAL 04/19/2016 YOLANDA LLAMAS MD P Ot H69.83 OTHER SPECIFIED DISORDERS OF [place] 04/19/2016 YOLANDA LLAMAS MD P Ot Z01.818 ENCOUNTER FOR OTHER PREPROCEDURAL EXAMIN 04/20/2016 ANKITA MERRILL WINDOWS SECURITY ANALYST Ot 721.3 LUMBOSACRAL SPONDYLOSIS 04/20/2016 SREEDHAR GATES, GAVIN Meredith Ot 722. 52 LUMB/LUMBOSAC DISC DEGEN 04/20/2016 FAHRAD GATES, YOLANDA P Ot H65.23 CHRONIC SEROUS OTITIS MEDIA, BILATERAL 04/20/2016 FARHAD GATES, YOLANDA Ochoa Ot H69.83 OTHER SPECIFIED DISORDERS OF [place] 04/20/2016 FARHAD GATES, YOLANDA Ochoa Ot Z01.818 ENCOUNTER FOR OTHER PREPROCEDURAL EXAMIN 04/20/2016 FARHAD GATES, YOLANDA Ochoa Ot H66.93 OTITIS MEDIA, UNSPECIFIED, BILATERAL 04/25/2016 FARHAD GATES, YOLANDA Ochoa Ot H66.93 OTITIS MEDIA, UNSPECIFIED, BILATERAL 04/26/2016 FARHAD GATES, YOLANDA Ochoa Ot H66.93 OTITIS MEDIA, UNSPECIFIED, BILATERAL 04/27/2016 FARHAD GATES, YOLANDA Ochoa Ot H66.93 OTITIS MEDIA, UNSPECIFIED, BILATERAL 04/28/2016 FARHAD GATES, YOLANDA Ochoa Ot H66.93 OTITIS MEDIA, UNSPECIFIED, BILATERAL 07/17/2016 RONI DO, FORTINO S Ot E78.5 HYPERLIPIDEMIA, UNSPECIFIED 07/17/2016 TAMMYNDER DO, FORTINO S Ot F17.210 NICOTINE DEPENDENCE, CIGARETTES, UNCOMPL 07/17/2016 TAMMYNDER DO, FORTINO S Ot I16.0 HYPERTENSIVE URGENCY 07/17/2016 TAMMYNDER DO, FORTINO S Ot I25.10 ATHSCL HEART DISEASE OF [place] CORONARY 07/17/2016 TAMMYNDER DO, FORTINO S Ot I25.2 OLD MYOCARDIAL INFARCTION 07/17/2016 ATMMYNDER DO, FORTINO S Ot M25.512 PAIN IN LEFT SHOULDER 07/17/2016 TAMMYNDER DO, FORTINO S Ot M54.2 CERVICALGIA 07/17/2016 TAMMYNDER DO, FORTINO S Ot M54.5 LOW BACK PAIN 07/17/2016 TAMMYNDER DO, FORTINO S Ot R68.84 JAW PAIN 07/17/2016 TAMMYNDER DO, FORTINO S Ot Z91.14 PATIENT'S OTHER NONCOMPLIANCE WITH MEDIC 07/17/2016 ATMMYNDROB DO, FORTINO S Ot Z95.5 PRESENCE OF CORONARY ANGIOPLASTY IMPLANT 10/30/2016 ANKITA MERRILL WINDOWS SECURITY ANALYST Ot 721.3 LUMBOSACRAL SPONDYLOSIS 10/30/2016 SREEDHAR GATES, GAVIN Meredith Ot 722. 52 LUMB/LUMBOSAC DISC DEGEN 12/17/2016 GARFIELD ANKITACOLLIN Sanchez APRN Ot 721.3 LUMBOSACRAL SPONDYLOSIS 12/17/2016 SREEDHAR GATES, GAVIN Meredith Ot 722. 52 LUMB/LUMBOSAC DISC DEGEN 12/19/2016 PAIGE GATES FACC, ALI FACP CCDS Ot E78.5 HYPERLIPIDEMIA, UNSPECIFIED 12/19/2016 PAIGE GATES FACC, ALI FACP CCDS Ot F41.9 ANXIETY DISORDER, UNSPECIFIED 12/19/2016 PAIGE GATES FACC, ALI FACP CCDS Ot I10 ESSENTIAL (PRIMARY) HYPERTENSION 12/19/2016 PAIGE GATES FACC, ALI FACP CCDS Ot I25.110 ATHSCL HEART DISEASE OF [place] COR ART W 12/19/2016 PAIGE GATES FACC, ALI FACP CCDS Ot M19.90 UNSPECIFIED OSTEOARTHRITIS, UNSPECIFIED 12/19/2016 PAIGE GATES FACC, ALI FACP CCDS Ot T82.855A STENOSIS OF CORONARY ARTERY STENT, INITI 12/19/2016 PAIGE GATES FACC, ALI FACP CCDS Ot Z72.0 TOBACCO USE 12/19/2016 PAIGE GATES FACC, ALI FACP CCDS Ot Z79.899 OTHER USP (CURRENT) DRUG THERAPY 12/19/2016 PAIGE GATES FACC, ALI FACP CCDS Ot Z82.49 FAMILY HX OF ISCHEM HEART DIS AND OTH DI 12/19/2016 PAIGE GATES FACC, ALI FACP CCDS Ot Z91.19 PATIENT'S NONCOMPLIANCE W OTH MEDICAL TR 12/27/2016 PAIGE GATES FACC, ALI FACP CCDS Ot E78.5 HYPERLIPIDEMIA, UNSPECIFIED 12/27/2016 PAIGE GATES FACC, ALI FACP CCDS Ot F41.9 ANXIETY DISORDER, UNSPECIFIED 12/27/2016 PAIGE GATES FACC, ALI FACP CCDS Ot I10 ESSENTIAL (PRIMARY) HYPERTENSION 12/27/2016 PAIGE GATES FACC, ALI FACP CCDS Ot I25.110 ATHSCL HEART DISEASE OF [place] COR ART W 12/27/2016 PAIGE GATES FACC, ALI FACP CCDS Ot M19.90 UNSPECIFIED OSTEOARTHRITIS, UNSPECIFIED 12/27/2016 PAIGE GATES FACC, ALI FACP CCDS Ot T82.855A STENOSIS OF CORONARY ARTERY STENT, INITI 12/27/2016 PAIGE GATES FACC, LAKESHA FACP CCDS Ot Z72.0 TOBACCO USE 12/27/2016 PAIGE GATES FACC, LAKESHA FACP CCDS Ot Z79.899 OTHER PRODUCTIVITY ENGINEER (CURRENT) DRUG THERAPY 12/27/2016 PAIGE GATES FACC, LAKESHA FACP CCDS Ot Z82.49 FAMILY HX OF ISCHEM HEART DIS AND OTH DI 12/27/2016 PAIGE GATES FACC, LAKESHA FACP CCDS Ot Z91.19 PATIENT'S NONCOMPLIANCE W OT MEDICAL TR 01/30/2017 ANKITA MERRILL APRN Ot 721.3 LUMBOSACRAL SPONDYLOSIS 01/30/2017 SREEDHAR GATES, GAVIN Meredith Ot 722. 52 LUMB/LUMBOSAC DISC DEGEN 04/18/2017 JACK DOSS MD Ot E78.0 0 PURE HYPERCHOLESTEROLEMIA, UNSPECIFIED 04/18/2017 JACK DOSS MD Ot F17.2 10 NICOTINE DEPENDENCE, CIGARETTES, UNCOMPL 04/18/2017 JACK DOSS MD Ot F41.9 ANXIETY DISORDER, UNSPECIFIED 04/18/2017 JACK DOSS MD Ot I10 ESSENTIAL (PRIMARY) HYPERTENSION 04/18/2017 JACK DOSS MD Ot I25.1 0 ATHSCL HEART DISEASE OF [place] CORONARY 04/18/2017 JACK DOSS MD Ot I25.2 OLD MYOCARDIAL INFARCTION 04/18/2017 JACK DOSS MD Ot M17.0 BILATERAL PRIMARY OSTEOARTHRITIS OF [place]NEE 04/18/2017 JACK DOSS MD Ot M19.0 41 PRIMARY OSTEOARTHRITIS, RIGHT HAND 04/18/2017 JACK DOSS MD Ot M19.0 42 PRIMARY OSTEOARTHRITIS, LEFT HAND 04/18/2017 JACK DOSS MD Ot M19.0 71 PRIMARY OSTEOARTHRITIS, RIGHT ANKLE AND 04/18/2017 JACK DOSS MD Ot M19.0 72 PRIMARY OSTEOARTHRITIS, LEFT ANKLE AND F 04/18/2017 JACK DOSS MD Ot R07.9 CHEST PAIN, UNSPECIFIED 04/18/2017 JACK DOSS MD Ot Z79.0 2 PRODUCTIVITY ENGINEER (CURRENT) USE OF ANTITHROMBOTI 04/18/2017 JACK DOSS MD Ot Z79.8 2 PRODUCTIVITY ENGINEER (CURRENT) USE OF ASPIRIN 04/18/2017 JACK DOSS MD Ot Z79.8 99 OTHER USP (CURRENT) DRUG THERAPY 04/18/2017 JACK DOSS MD Ot Z95.5 PRESENCE OF CORONARY ANGIOPLASTY IMPLANT 04/18/2017 ANKITA MERRILL APRN Ot 721.3 LUMBOSACRAL SPONDYLOSIS 04/18/2017 GAVIN ELI MD Ot 722. 52 LUMB/LUMBOSAC DISC DEGEN 05/15/2017 Ot 550.90 05/15/2017 Ot V72.81 05/15/2017 Ot V72.83 05/15/2017 Ot V74.8 05/15/2017 ANKITA MERRILL APRN Ot 721.3 LUMBOSACRAL SPONDYLOSIS 05/15/2017 GAVIN ELI MD Ot 722. 52 LUMB/LUMBOSAC DISC DEGEN 05/15/2017 ANKITA MERRILL APRN Ot 721.3 LUMBOSACRAL SPONDYLOSIS 05/15/2017 GAVIN ELI MD Ot 722. 52 LUMB/LUMBOSAC DISC DEGEN 06/25/2017 Ot 550.90 06/25/2017 Ot V72.81 06/25/2017 Ot V72.83 06/25/2017 Ot V74.8 06/25/2017 ANKITA MERRILL APRN Ot 721.3 LUMBOSACRAL SPONDYLOSIS 06/25/2017 GAVIN ELI MD Ot 722. 52 LUMB/LUMBOSAC DISC DEGEN 06/25/2017 ANKITA MERRILL APRN Ot 721.3 LUMBOSACRAL SPONDYLOSIS 06/25/2017 GAVIN ELI MD Ot 722. 52 LUMB/LUMBOSAC DISC DEGEN 07/11/2017 Ot 550.90 07/11/2017 Ot V72.81 07/11/2017 Ot V72.83 07/11/2017 Ot V74.8 07/11/2017 ANKITA MERRILL APRN Ot 721.3 LUMBOSACRAL SPONDYLOSIS 07/11/2017 ANKITA MERRILL APRN Ot 721.3 LUMBOSACRAL SPONDYLOSIS 07/11/2017 GAVIN ELI MD Ot 722. 52 LUMB/LUMBOSAC DISC DEGEN 08/15/2017 Ot 550.90 08/15/2017 Ot V72.81 08/15/2017 Ot V72.83 08/15/2017 Ot V74.8 08/15/2017 ANKITA MERRILL APRN Ot 721.3 LUMBOSACRAL SPONDYLOSIS 08/15/2017 GAVIN ELI MD Ot 722. 52 LUMB/LUMBOSAC DISC DEGEN 08/15/2017 ANKITA MERRILL WINDOWS SECURITY ANALYST Ot 721.3 LUMBOSACRAL SPONDYLOSIS 08/15/2017 GAVIN ELI MD Ot 722. 52 LUMB/LUMBOSAC DISC DEGEN 09/13/2017 Ot 550.90 09/13/2017 Ot V72.81 09/13/2017 Ot V72.83 09/13/2017 Ot V74.8 09/13/2017 ANKITA MERRILL APRN Ot 721.3 LUMBOSACRAL SPONDYLOSIS 09/13/2017 GAVIN ELI MD Ot 722. 52 LUMB/LUMBOSAC DISC DEGEN 09/13/2017 ANKITA MERRILL APRN Ot 721.3 LUMBOSACRAL SPONDYLOSIS 09/13/2017 GAVIN ELI MD Ot 722. 52 LUMB/LUMBOSAC DISC DEGEN 09/16/2017 Ot 550.90 09/16/2017 Ot V72.81 09/16/2017 Ot V72.83 09/16/2017 Ot V74.8 09/16/2017 ANKITA MERRILL APRN Ot 721.3 LUMBOSACRAL SPONDYLOSIS 09/16/2017 GAVIN ELI MD Ot 722. 52 LUMB/LUMBOSAC DISC DEGEN 09/16/2017 ANKITA MERRILL APRN Ot 721.3 LUMBOSACRAL SPONDYLOSIS 09/16/2017 GAVIN ELI MD Ot 722. 52 LUMB/LUMBOSAC DISC DEGEN 09/25/2017 Ot 550.90 09/25/2017 Ot V72.81 09/25/2017 Ot V72.83 09/25/2017 Ot V74.8 09/25/2017 ANKITA MERRILL APRN Ot 721.3 LUMBOSACRAL SPONDYLOSIS 09/25/2017 GAVIN ELI MD Ot 722. 52 LUMB/LUMBOSAC DISC DEGEN 09/25/2017 ANKITA MERRILL APRN Ot 721.3 LUMBOSACRAL SPONDYLOSIS 09/25/2017 GAVIN EIL MD Ot 722. 52 LUMB/LUMBOSAC DISC DEGEN 09/26/2017 Ot 550.90 09/26/2017 Ot V72.81 09/26/2017 Ot V72.83 09/26/2017 Ot V74.8 09/26/2017 ANKITA MERRILL APRN Ot 721.3 LUMBOSACRAL SPONDYLOSIS 09/26/2017 GAVIN ELI MD Ot 722. 52 LUMB/LUMBOSAC DISC DEGEN 09/26/2017 ANKITA MERRILL APRN Ot 721.3 LUMBOSACRAL SPONDYLOSIS 09/26/2017 GAVIN ELI MD Ot 722. 52 LUMB/LUMBOSAC DISC DEGEN 10/16/2017 Ot 550.90 10/16/2017 Ot V72.81 10/16/2017 Ot V72.83 10/16/2017 Ot V74.8 10/16/2017 ANKITA MERRILL APRN Ot 721.3 LUMBOSACRAL SPONDYLOSIS 10/16/2017 GAVIN ELI MD Ot 722. 52 LUMB/LUMBOSAC DISC DEGEN 10/16/2017 ANKITA MERRILL APRN Ot 721.3 LUMBOSACRAL SPONDYLOSIS 10/16/2017 GAVIN ELI MD Ot 722. 52 LUMB/LUMBOSAC DISC DEGEN 10/28/2017 Ot 550.90 10/28/2017 Ot V72.81 10/28/2017 Ot V72.83 10/28/2017 Ot V74.8 10/28/2017 ANKIAT MERRILL APRN Ot 721.3 LUMBOSACRAL SPONDYLOSIS 10/28/2017 GAVIN ELI MD Ot 722. 52 LUMB/LUMBOSAC DISC DEGEN 10/28/2017 ANKITA MERRILL WINDOWS SECURITY ANALYST Ot 721.3 LUMBOSACRAL SPONDYLOSIS 10/28/2017 GAVIN ELI MD Ot 722. 52 LUMB/LUMBOSAC DISC DEGEN 12/10/2019 GAVIN ELI MD, Ot 722. 52 LUMB/LUMBOSAC DISC DEGEN Procedures Code Description Performed By Per tavo On 00.40 PROC EDURE ON SINGLE VESSEL 02/22/2012 00.45 INSE RTION OF ONE VASCULAR STENT 02/22/2012 00.66 PERC UTANEOUS TRANSLUMINAL CORONARY ANGIO 02/22/2012 36.07 INSR T OF DRUG-ELUTING CORON ARTERY STENT 02/22/2012 37.22 LEFT HEART CARDIAC CATH 02/22/2012 88.55 JULIAN DIONNE ARTERIOGR-1 CATH 02/22/2012 Results Test Result Range Complete blood count (CBC) with automate d white blood cell (WBC) differential - 04/19/16 15:12 Blood leukocytes automated count (number/volume) 9.7 10*3/uL 4.3-11.0 Blood erythrocytes automated count (number/volume) 4.75 10*6/uL 4.35-5.85 Venous blood hemoglobin measurement (mass/volume) 15.9 g/dL 13.3-17.7 Blood hematocrit (volume fraction) 46 % 40-54 Automated erythrocyte mean corpuscular volume 97 [ foz_us] 80-99 Automated erythrocyte mean corpuscular h emoglobin (mass per erythrocyte) 34 pg 25-34 Automated erythrocyte mean corpuscular h emoglobin concentration measurement (mass/volume) 35 g/dL 32-36 Automated erythrocyte distribution width ratio 13. 6 % 10.0- 14.5 Automated blood platelet count (count/volume) 196 10*3/uL 130-400 Automated blood platelet mean volume measurement 12.0 [foz_us] 7.4-10.4 Automated blood neutrophils/100 leukocytes 67 % 42-75 Automated blood lymphocytes/100 leukocytes 25 % 12-44 Blood monocytes/100 leukocytes 7 % 0-12 Automated blood eosinophils/100 leukocytes 1 % 0-10 Automated blood basophils/100 leukocytes 0 % 0-10 Blood neutrophils automated count (number/volume) 6.5 10*3 1.8-7.8 Blood lymphocytes automated count (number/volume) 2.4 10*3 1.0-4.0 Blood monocytes automated count (number/volume) 0. 6 10*3 0.0-1.0 Automated eosinophil count 0.1 10*3/uL 0 .0-0.3 Automated blood basophil count (count/volume) 0.0 10*3/uL 0.0-0.1 Whole blood basic metabolic panel - 04/05 12/18 15:12 Serum or plasma sodium measurement (moles/volume) 143 mmol/L 135-145 Serum or plasma potassium measurement (moles/volume) 4.1 mmol/L 3.6-5.0 Serum or plasma chloride measurement (moles/volume) 107 mmol/L 98-107 Carbon dioxide 27 mmol/L 21-32 Serum or plasma anion gap determination (moles/volume) 9 mmol/L 5-14 Serum or plasma urea nitrogen measurement (mass/volume ) 12 mg/dL 7-18 Serum or plasma creatinine measurement (mass/volume) 0.83 mg/dL 0.60-1.30 Serum or plasma urea nitrogen/creatinine mass ratio 14 NRG Serum or plasma creatinine measurement w ith calculation of estimated glomerular filtration rate > NRG Serum or plasma glucose measurement (mass/volume) 128 mg/dL 70-105 Serum or plasma calcium measurement (mass/volume) 9.3 mg/dL 8.5-10.1 Methicillin resistant Staphylococcus aur eus (MRSA) screening culture - 04/19/16 15:12 Methicillin resistant Staphylococcus aureus (MRSA) scr eening culture NEG NRG Complete blood count (CBC) with automate d white blood cell (WBC) differential - 07/16/16 20:14 Blood leukocytes automated count (number/volume) 8.7 10*3/uL 4.3-11.0 Blood erythrocytes automated count (number/volume) 4.52 10*6/uL 4.35-5.85 Venous blood hemoglobin measurement (mass/volume) 15.5 g/dL 13.3-17.7 Blood hematocrit (volume fraction) 44 % 40-54 Automated erythrocyte mean corpuscular volume 97 [ foz_us] 80-99 Automated erythrocyte mean corpuscular h emoglobin (mass per erythrocyte) 34 pg 25-34 Automated erythrocyte mean corpuscular h emoglobin concentration measurement (mass/volume) 35 g/dL 32-36 Automated erythrocyte distribution width ratio 13. 3 % 10.0- 14.5 Automated blood platelet count (count/volume) 205 10*3/uL 130-400 Automated blood platelet mean volume measurement 12.6 [foz_us] 7.4-10.4 Automated blood neutrophils/100 leukocytes 56 % 42-75 Automated blood lymphocytes/100 leukocytes 33 % 12-44 Blood monocytes/100 leukocytes 10 % 0-12 Automated blood eosinophils/100 leukocytes 1 % 0-10 Automated blood basophils/100 leukocytes 0 % 0-10 Blood neutrophils automated count (number/volume) 4.8 10*3 1.8-7.8 Blood lymphocytes automated count (number/volume) 2.9 10*3 1.0-4.0 Blood monocytes automated count (number/volume) 0. 9 10*3 0.0-1.0 Automated eosinophil count 0.1 10*3/uL 0 .0-0.3 Automated blood basophil count (count/volume) 0.0 10*3/uL 0.0-0.1 PT panel in platelet poor plasma by coag ulation assay - 07/16/16 20:14 Prothrombin time (PT) in platelet poor plasma by coagu lation assay 12.4 s 12.2-14.7 INR in platelet poor plasma or blood by coagulation as say 1.0 0.8-1.4 Activated partial thromboplastin time (a PTT) in platelet poor plasma bycoagulation assay - 07/16/16 20:14 Activated partial thromboplastin time (a PTT) in platelet poor plasma bycoagulation assay 27 s 24-35 Comprehensive metabolic panel - 07/16/16 20:14 Serum or plasma sodium measurement (moles/volume) 140 mmol/L 135-145 Serum or plasma potassium measurement (moles/volume) 3.9 mmol/L 3.6-5.0 Serum or plasma chloride measurement (moles/volume) 108 mmol/L 98-107 Carbon dioxide 20 mmol/L 21-32 Serum or plasma anion gap determination (moles/volume) 12 mmol/L 5-14 Serum or plasma urea nitrogen measurement (mass/volume ) 13 mg/dL 7-18 Serum or plasma creatinine measurement (mass/volume) 0.82 mg/dL 0.60-1.30 Serum or plasma urea nitrogen/creatinine mass ratio 16 NRG Serum or plasma creatinine measurement w ith calculation of estimated glomerular filtration rate > NRG Serum or plasma glucose measurement (mass/volume) 130 mg/dL 70-105 Serum or plasma calcium measurement (mass/volume) 8.8 mg/dL 8.5-10.1 Serum or plasma total bilirubin measurement (mass/volu me) 0.3 mg/dL 0.1-1.0 Serum or plasma alkaline phosphatase kamini surement (enzymatic activity/volume) 84 U/L 40-136 Serum or plasma aspartate aminotransfera se measurement (enzymatic activity/volume) 19 U/L 5-34 Serum or plasma alanine aminotransferase measurement (enzymatic activity/volume) 23 U/L 0-55 Serum or plasma protein measurement (mass/volume) 6.8 g/dL 6.4-8.2 Serum or plasma albumin measurement (mass/volume) 4.2 g/dL 3.2-4.5 Serum or plasma creatine kinase measurem ent (enzymatic activity/volume) - 07/16/16 20:14 Serum or plasma creatine kinase measurem ent (enzymatic activity/volume) 125 U/L 30-200 Serum or plasma creatine kinase MB measu rement (enzymatic activity/volume) - 07/16/16 20:14 Serum or plasma creatine kinase MB measu rement (enzymatic activity/volume) 1.4 ng/mL <6.6 Serum or plasma troponin i.cardiac measu rement (mass/volume) - 07/16/16 20:14 Serum or plasma troponin i.cardiac measurement (mass/v olume) < ng/mL <0.30 Serum or plasma amylase measurement (enz ymatic activity/volume) - 07/16/16 20:14 Serum or plasma amylase measurement (enzymatic activit y/volume) 33 U/L 25-125 Lipase - 07/16/16 20:14 Lipase 28 U/L 8-78 Serum or plasma lithium measurement (mol es/volume) - 07/16/16 20:14 BNP level < pg/mL <100.0 Complete blood count (CBC) with automate d white blood cell (WBC) differential - 07/17/16 02:34 Blood leukocytes automated count (number/volume) 8.0 10*3/uL 4.3-11.0 Blood erythrocytes automated count (number/volume) 4.39 10*6/uL 4.35-5.85 Venous blood hemoglobin measurement (mass/volume) 14.8 g/dL 13.3-17.7 Blood hematocrit (volume fraction) 43 % 40-54 Automated erythrocyte mean corpuscular volume 98 [ foz_us] 80-99 Automated erythrocyte mean corpuscular h emoglobin (mass per erythrocyte) 34 pg 25-34 Automated erythrocyte mean corpuscular h emoglobin concentration measurement (mass/volume) 35 g/dL 32-36 Automated erythrocyte distribution width ratio 13. 3 % 10.0- 14.5 Automated blood platelet count (count/volume) 180 10*3/uL 130-400 Automated blood platelet mean volume measurement 12.2 [foz_us] 7.4-10.4 Automated blood neutrophils/100 leukocytes 46 % 42-75 Automated blood lymphocytes/100 leukocytes 40 % 12-44 Blood monocytes/100 leukocytes 11 % 0-12 Automated blood eosinophils/100 leukocytes 2 % 0-10 Automated blood basophils/100 leukocytes 0 % 0-10 Blood neutrophils automated count (number/volume) 3.7 10*3 1.8-7.8 Blood lymphocytes automated count (number/volume) 3.2 10*3 1.0-4.0 Blood monocytes automated count (number/volume) 0. 9 10*3 0.0-1.0 Automated eosinophil count 0.1 10*3/uL 0 .0-0.3 Automated blood basophil count (count/volume) 0.0 10*3/uL 0.0-0.1 Serum or plasma troponin i.cardiac measu rement (mass/volume) - 07/17/16 02:34 Serum or plasma troponin i.cardiac measurement (mass/v olume) < ng/mL <0.30 Myoglobin, serum - 07/17/16 02:34 Myoglobin, serum 39.2 ng/mL 10.0-92.0 Lipid 1996 panel - 07/17/16 07:55 Serum or plasma triglyceride measurement (mass/volume) 222 mg/dL <150 Serum or plasma cholesterol measurement (mass/volume) 224 mg/dL < 200 Serum or plasma cholesterol in HDL measurement (mass/v olume) 30 mg/dL 40-60 Cholesterol in LDL [mass/volume] in serum or plasma by direct assay 154 mg/dL 1-129 Serum or plasma cholesterol in VLDL measurement (mass/ volume) 44 mg/dL 5-40 Complete blood count (CBC) with automate d white blood cell (WBC) differential - 12/17/16 16:00 Blood leukocytes automated count (number/volume) 10.5 10*3/uL 4.3-11.0 Blood erythrocytes automated count (number/volume) 4.81 10*6/uL 4.35-5.85 Venous blood hemoglobin measurement (mass/volume) 16.0 g/dL 13.3-17.7 Blood hematocrit (volume fraction) 46 % 40-54 Automated erythrocyte mean corpuscular volume 96 [ foz_us] 80-99 Automated erythrocyte mean corpuscular h emoglobin (mass per erythrocyte) 33 pg 25-34 Automated erythrocyte mean corpuscular h emoglobin concentration measurement (mass/volume) 35 g/dL 32-36 Automated erythrocyte distribution width ratio 13. 2 % 10.0- 14.5 Automated blood platelet count (count/volume) 225 10*3/uL 130-400 Automated blood platelet mean volume measurement 12.4 [foz_us] 7.4-10.4 Automated blood neutrophils/100 leukocytes 70 % 42-75 Automated blood lymphocytes/100 leukocytes 21 % 12-44 Blood monocytes/100 leukocytes 7 % 0-12 Automated blood eosinophils/100 leukocytes 1 % 0-10 Automated blood basophils/100 leukocytes 0 % 0-10 Blood neutrophils automated count (number/volume) 7.4 10*3 1.8-7.8 Blood lymphocytes automated count (number/volume) 2.2 10*3 1.0-4.0 Blood monocytes automated count (number/volume) 0. 8 10*3 0.0-1.0 Automated eosinophil count 0.1 10*3/uL 0 .0-0.3 Automated blood basophil count (count/volume) 0.0 10*3/uL 0.0-0.1 Comprehensive metabolic panel - 12/17/16 16:00 Serum or plasma sodium measurement (moles/volume) 141 mmol/L 135-145 Serum or plasma potassium measurement (moles/volume) 4.0 mmol/L 3.6-5.0 Serum or plasma chloride measurement (moles/volume) 108 mmol/L 98-107 Carbon dioxide 25 mmol/L 21-32 Serum or plasma anion gap determination (moles/volume) 8 mmol/L 5-14 Serum or plasma urea nitrogen measurement (mass/volume ) 15 mg/dL 7-18 Serum or plasma creatinine measurement (mass/volume) 0.86 mg/dL 0.60-1.30 Serum or plasma urea nitrogen/creatinine mass ratio 17 NRG Serum or plasma creatinine measurement w ith calculation of estimated glomerular filtration rate > NRG Serum or plasma glucose measurement (mass/volume) 130 mg/dL 70-105 Serum or plasma calcium measurement (mass/volume) 9.7 mg/dL 8.5-10.1 Serum or plasma total bilirubin measurement (mass/volu me) 0.3 mg/dL 0.1-1.0 Serum or plasma alkaline phosphatase kamini surement (enzymatic activity/volume) 99 U/L 40-136 Serum or plasma aspartate aminotransfera se measurement (enzymatic activity/volume) 20 U/L 5-34 Serum or plasma alanine aminotransferase measurement (enzymatic activity/volume) 33 U/L 0-55 Serum or plasma protein measurement (mass/volume) 7.6 g/dL 6.4-8.2 Serum or plasma albumin measurement (mass/volume) 4.6 g/dL 3.2-4.5 Magnesium - 12/17/16 16:00 Magnesium 2.4 mg/dL 1.8-2.4 Serum or plasma troponin i.cardiac measu rement (mass/volume) - 12/17/16 16:00 Serum or plasma troponin i.cardiac measurement (mass/v olume) < ng/mL <0.30 Myoglobin, serum - 12/17/16 16:00 Myoglobin, serum 34.4 ng/mL 10.0-92.0 PT panel in platelet poor plasma by coag ulation assay - 12/17/16 16:00 Prothrombin time (PT) in platelet poor plasma by coagu lation assay 11.9 s 12.2-14.7 INR in platelet poor plasma or blood by coagulation as say 0.9 0.8-1.4 Activated partial thromboplastin time (a PTT) in platelet poor plasma bycoagulation assay - 12/17/16 16:00 Activated partial thromboplastin time (a PTT) in platelet poor plasma bycoagulation assay 29 s 24-35 Serum or plasma amylase measurement (enz ymatic activity/volume) - 12/17/16 16:00 Serum or plasma amylase measurement (enzymatic activit y/volume) 48 U/L 25-125 Lipase - 12/17/16 16:00 Lipase 36 U/L 8-78 Serum or plasma lithium measurement (mol es/volume) - 12/17/16 16:00 BNP level 11.5 pg/mL <100.0 Fibrin D-dimer FEU measurement in platel et poor plasma (mass/volume) - 12/17/16 16:00 Fibrin D-dimer FEU measurement in platelet poor plasma (mass/volume) 0.42 ug/mL 0.00-0.49 Serum or plasma troponin i.cardiac measu rement (mass/volume) - 12/17/16 23:05 Serum or plasma troponin i.cardiac measurement (mass/v olume) < ng/mL <0.30 Myoglobin, serum - 12/17/16 23:05 Myoglobin, serum 37.5 ng/mL 10.0-92.0 Lipid 1996 panel - 12/18/16 05:45 Serum or plasma triglyceride measurement (mass/volume) 347 mg/dL <150 Serum or plasma cholesterol measurement (mass/volume) 243 mg/dL < 200 Serum or plasma cholesterol in HDL measurement (mass/v olume) 32 mg/dL 40-60 Cholesterol in LDL [mass/volume] in serum or plasma by direct assay 142 mg/dL 1-129 Serum or plasma cholesterol in VLDL measurement (mass/ volume) 69 mg/dL 5-40 Automated blood complete blood count (he mogram) panel - 12/19/16 04:00 Blood leukocytes automated count (number/volume) 7.2 10*3/uL 4.3-11.0 Blood erythrocytes automated count (number/volume) 4.40 10*6/uL 4.35-5.85 Venous blood hemoglobin measurement (mass/volume) 14.7 g/dL 13.3-17.7 Blood hematocrit (volume fraction) 43 % 40-54 Automated erythrocyte mean corpuscular volume 97 [ foz_us] 80-99 Automated erythrocyte mean corpuscular h emoglobin (mass per erythrocyte) 33 pg 25-34 Automated erythrocyte mean corpuscular h emoglobin concentration measurement (mass/volume) 34 g/dL 32-36 Automated erythrocyte distribution width ratio 13. 5 % 10.0- 14.5 Automated blood platelet count (count/volume) 181 10*3/uL 130-400 Automated blood platelet mean volume measurement 12.1 [foz_us] 7.4-10.4 Whole blood basic metabolic panel - 12/03 02/18 04:00 Serum or plasma sodium measurement (moles/volume) 139 mmol/L 135-145 Serum or plasma potassium measurement (moles/volume) 4.0 mmol/L 3.6-5.0 Serum or plasma chloride measurement (moles/volume) 107 mmol/L 98-107 Carbon dioxide 19 mmol/L 21-32 Serum or plasma anion gap determination (moles/volume) 13 mmol/L 5-14 Serum or plasma urea nitrogen measurement (mass/volume ) 10 mg/dL 7-18 Serum or plasma creatinine measurement (mass/volume) 0.79 mg/dL 0.60-1.30 Serum or plasma urea nitrogen/creatinine mass ratio 13 NRG Serum or plasma creatinine measurement w ith calculation of estimated glomerular filtration rate > NRG Serum or plasma glucose measurement (mass/volume) 108 mg/dL 70-105 Serum or plasma calcium measurement (mass/volume) 8.8 mg/dL 8.5-10.1 CBC With Differential/Platelet - 7 15:29 WBC 10.4 x10E3/uL 3.4-10.8 RBC 4.45 x10E6/uL 4.14-5.80 Hemoglobin 14.7 g/dL 12.6-17.7 Hematocrit 43.5 % 37.5-51.0 MCV 98 fL 79-97 MCH 33.0 pg 26.6-33.0 MCHC 33.8 g/dL 31.5-35.7 RDW 14.2 % 12.3-15.4 Platelets 207 x10E3/uL 150-379 Neutrophils 73 % Lymphs 19 % Monocytes 7 % Eos 1 % Basos 0 % Neutrophils (Absolute) 7.6 x10E3/uL 1.4- 7.0 Lymphs (Absolute) 2.0 x10E3/uL 0.7-3.1 Monocytes(Absolute) 0.7 x10E3/uL 0.1-0.9 Eos (Absolute) 0.1 x10E3/uL 0.0-0.4 Baso (Absolute) 0.0 x10E3/uL 0.0-0.2 Immature Granulocytes 0 % Immature Grans (Abs) 0.0 x10E3/uL 0.0-0. 1 Comp. Metabolic Panel (14) - 02/18/17 15 :29 Glucose, Serum 91 mg/dL 65-99 BUN 9 mg/dL 6-24 Creatinine, Serum 0.80 mg/dL 0.76-1.27 eGFR If NonAfricn Am 103 mL/min/1.73 >59 eGFR If Africn Am 119 mL/min/1.73 >5 9 BUN/Creatinine Ratio 11 9-20 Sodium, Serum 144 mmol/L 134-144 Potassium, Serum 3.8 mmol/L 3.5-5.2 Chloride, Serum 103 mmol/L 96-106 Carbon Dioxide, Total 20 mmol/L 18-29 Calcium, Serum 9.4 mg/dL 8.7-10.2 Protein, Total, Serum 7.0 g/dL 6.0-8.5 Albumin, Serum 4.7 g/dL 3.5-5.5 Globulin, Total 2.3 g/dL 1.5-4.5 A/G Ratio 2.0 1.2-2.2 Bilirubin, Total 0.6 mg/dL 0.0-1.2 Alkaline Phosphatase, S 96 IU/L 39-117 AST (SGOT) 19 IU/L 0-40 ALT (SGPT) 25 IU/L 0-44 Rheumatoid Arthritis Factor - 02/18/17 1 5:29 RA Latex Turbid. <10.0 IU/mL 0.0-13.9 Thyroid [place] Profile - 02/18/17 15:29 TSH 0.264 uIU/mL 0.450-4.500 Thyroxine (T4) Free, Direct, S - 7 15:29 T4,Free (Direct) 1.35 ng/dL 0.82-1.77 T3Free - 02/18/17 15:29 Triiodothyronine, Free, Serum 3.7 pg/mL 2.0-4.4 Interpretive Comment Comment Complete blood count (CBC) with automate d white blood cell (WBC) differential - 04/17/17 21:19 Blood leukocytes automated count (number/volume) 10.4 10*3/uL 4.3-11.0 Blood erythrocytes automated count (number/volume) 4.52 10*6/uL 4.35-5.85 Venous blood hemoglobin measurement (mass/volume) 15.2 g/dL 13.3-17.7 Blood hematocrit (volume fraction) 43 % 40-54 Automated erythrocyte mean corpuscular volume 95 [ foz_us] 80-99 Automated erythrocyte mean corpuscular h emoglobin (mass per erythrocyte) 34 pg 25-34 Automated erythrocyte mean corpuscular h emoglobin concentration measurement (mass/volume) 35 g/dL 32-36 Automated erythrocyte distribution width ratio 12. 9 % 10.0- 14.5 Automated blood platelet count (count/volume) 198 10*3/uL 130-400 Automated blood platelet mean volume measurement 11.9 [foz_us] 7.4-10.4 Automated blood neutrophils/100 leukocytes 71 % 42-75 Automated blood lymphocytes/100 leukocytes 21 % 12-44 Blood monocytes/100 leukocytes 7 % 0-12 Automated blood eosinophils/100 leukocytes 2 % 0-10 Automated blood basophils/100 leukocytes 0 % 0-10 Blood neutrophils automated count (number/volume) 7.4 10*3 1.8-7.8 Blood lymphocytes automated count (number/volume) 2.2 10*3 1.0-4.0 Blood monocytes automated count (number/volume) 0. 7 10*3 0.0-1.0 Automated eosinophil count 0.2 10*3/uL 0 .0-0.3 Automated blood basophil count (count/volume) 0.0 10*3/uL 0.0-0.1 PT panel in platelet poor plasma by coag ulation assay - 04/17/17 21:19 Prothrombin time (PT) in platelet poor plasma by coagu lation assay 13.1 s 12.2-14.7 INR in platelet poor plasma or blood by coagulation as say 1.0 0.8-1.4 Activated partial thromboplastin time (a PTT) in platelet poor plasma bycoagulation assay - 04/17/17 21:19 Activated partial thromboplastin time (a PTT) in platelet poor plasma bycoagulation assay 27 s 24-35 Comprehensive metabolic panel - 04/17/17 21:19 Serum or plasma sodium measurement (moles/volume) 142 mmol/L 135-145 Serum or plasma potassium measurement (moles/volume) 3.5 mmol/L 3.6-5.0 Serum or plasma chloride measurement (moles/volume) 105 mmol/L 98-107 Carbon dioxide 26 mmol/L 21-32 Serum or plasma anion gap determination (moles/volume) 11 mmol/L 5-14 Serum or plasma urea nitrogen measurement (mass/volume ) 12 mg/dL 7-18 Serum or plasma creatinine measurement (mass/volume) 0.88 mg/dL 0.60-1.30 Serum or plasma urea nitrogen/creatinine mass ratio 14 NRG Serum or plasma creatinine measurement w ith calculation of estimated glomerular filtration rate > NRG Serum or plasma glucose measurement (mass/volume) 165 mg/dL 70-105 Serum or plasma calcium measurement (mass/volume) 9.3 mg/dL 8.5-10.1 Serum or plasma total bilirubin measurement (mass/volu me) 0.4 mg/dL 0.1-1.0 Serum or plasma alkaline phosphatase kamini surement (enzymatic activity/volume) 95 U/L 40-136 Serum or plasma aspartate aminotransfera se measurement (enzymatic activity/volume) 21 U/L 5-34 Serum or plasma alanine aminotransferase measurement (enzymatic activity/volume) 37 U/L 0-55 Serum or plasma protein measurement (mass/volume) 7.1 g/dL 6.4-8.2 Serum or plasma albumin measurement (mass/volume) 4.4 g/dL 3.2-4.5 Magnesium - 04/17/17 21:19 Magnesium 2.2 mg/dL 1.8-2.4 Serum or plasma creatine kinase measurem ent (enzymatic activity/volume) - 04/17/17 21:19 Serum or plasma creatine kinase measurem ent (enzymatic activity/volume) 151 U/L 30-200 Serum or plasma creatine kinase MB measu rement (enzymatic activity/volume) - 04/17/17 21:19 Serum or plasma creatine kinase MB measu rement (enzymatic activity/volume) 1.6 ng/mL <6.6 Serum or plasma troponin i.cardiac measu rement (mass/volume) - 04/17/17 21:19 Serum or plasma troponin i.cardiac measurement (mass/v olume) < ng/mL <0.30 Serum or plasma amylase measurement (enz ymatic activity/volume) - 04/17/17 21:19 Serum or plasma amylase measurement (enzymatic activit y/volume) 44 U/L 25-125 Serum or plasma lithium measurement (mol es/volume) - 04/17/17 21:19 BNP level 25.2 pg/mL <100.0 Lipase - 04/17/17 21:19 Lipase 43 U/L 8-78 Complete blood count (CBC) with automate d white blood cell (WBC) differential - 04/18/17 03:44 Blood leukocytes automated count (number/volume) 8.0 10*3/uL 4.3-11.0 Blood erythrocytes automated count (number/volume) 4.37 10*6/uL 4.35-5.85 Venous blood hemoglobin measurement (mass/volume) 14.5 g/dL 13.3-17.7 Blood hematocrit (volume fraction) 42 % 40-54 Automated erythrocyte mean corpuscular volume 96 [ foz_us] 80-99 Automated erythrocyte mean corpuscular h emoglobin (mass per erythrocyte) 33 pg 25-34 Automated erythrocyte mean corpuscular h emoglobin concentration measurement (mass/volume) 34 g/dL 32-36 Automated erythrocyte distribution width ratio 13. 0 % 10.0- 14.5 Automated blood platelet count (count/volume) 177 10*3/uL 130-400 Automated blood platelet mean volume measurement 12.1 [foz_us] 7.4-10.4 Automated blood neutrophils/100 leukocytes 55 % 42-75 Automated blood lymphocytes/100 leukocytes 32 % 12-44 Blood monocytes/100 leukocytes 11 % 0-12 Automated blood eosinophils/100 leukocytes 3 % 0-10 Automated blood basophils/100 leukocytes 0 % 0-10 Blood neutrophils automated count (number/volume) 4.4 10*3 1.8-7.8 Blood lymphocytes automated count (number/volume) 2.6 10*3 1.0-4.0 Blood monocytes automated count (number/volume) 0. 9 10*3 0.0-1.0 Automated eosinophil count 0.2 10*3/uL 0 .0-0.3 Automated blood basophil count (count/volume) 0.0 10*3/uL 0.0-0.1 Comprehensive metabolic panel - 04/18/17 03:44 Serum or plasma sodium measurement (moles/volume) 141 mmol/L 135-145 Serum or plasma potassium measurement (moles/volume) 3.7 mmol/L 3.6-5.0 Serum or plasma chloride measurement (moles/volume) 108 mmol/L 98-107 Carbon dioxide 23 mmol/L 21-32 Serum or plasma anion gap determination (moles/volume) 10 mmol/L 5-14 Serum or plasma urea nitrogen measurement (mass/volume ) 11 mg/dL 7-18 Serum or plasma creatinine measurement (mass/volume) 0.80 mg/dL 0.60-1.30 Serum or plasma urea nitrogen/creatinine mass ratio 14 NRG Serum or plasma creatinine measurement w ith calculation of estimated glomerular filtration rate > NRG Serum or plasma glucose measurement (mass/volume) 122 mg/dL 70-105 Serum or plasma calcium measurement (mass/volume) 9.0 mg/dL 8.5-10.1 Serum or plasma total bilirubin measurement (mass/volu me) 0.4 mg/dL 0.1-1.0 Serum or plasma alkaline phosphatase kamini surement (enzymatic activity/volume) 89 U/L 40-136 Serum or plasma aspartate aminotransfera se measurement (enzymatic activity/volume) 20 U/L 5-34 Serum or plasma alanine aminotransferase measurement (enzymatic activity/volume) 34 U/L 0-55 Serum or plasma protein measurement (mass/volume) 6.6 g/dL 6.4-8.2 Serum or plasma albumin measurement (mass/volume) 4.0 g/dL 3.2-4.5 Serum or plasma troponin i.cardiac measu rement (mass/volume) - 04/18/17 03:44 Serum or plasma troponin i.cardiac measurement (mass/v olume) < ng/mL <0.30 Serum or plasma troponin i.cardiac measu rement (mass/volume) - 04/18/17 03:44 Serum or plasma troponin i.cardiac measurement (mass/v olume) < ng/mL <0.30 Myoglobin, serum - 04/18/17 03:44 Myoglobin, serum 33.3 ng/mL 10.0-92.0 Lipid 1996 panel - 04/18/17 03:44 Serum or plasma triglyceride measurement (mass/volume) 230 mg/dL <150 Serum or plasma cholesterol measurement (mass/volume) 141 mg/dL < 200 Serum or plasma cholesterol in HDL measurement (mass/v olume) 30 mg/dL 40-60 Cholesterol in LDL [mass/volume] in serum or plasma by direct assay 80 mg/dL 1-129 Serum or plasma cholesterol in VLDL measurement (mass/ volume) 46 mg/dL 5-40 - PANEL (PROFILE 1) - 01/09/19 16 :19 Prescribed Drug 1 Tramadol NRG Creatinine 204.4 mg/dL > or = 20.0 pH 6.90 4.5 - 9.0 Oxidant NEGATIVE mcg/mL <200 Amphetamines NEGATIVE ng/mL <500 medMATCH Amphetamines CONSISTENT NRG Benzodiazepines NEGATIVE ng/mL <100 medMATCH Benzodiazepines CONSISTENT NRG Marijuana Metabolite NEGATIVE ng/mL <20 medMATCH Marijuana Metab CONSISTENT NRG Cocaine Metabolite NEGATIVE ng/mL <150 medMATCH Cocaine Metab CONSISTENT NRG Opiates NEGATIVE ng/mL <100 medMATCH Opiates CONSISTENT NRG Oxycodone NEGATIVE ng/mL <100 medMATCH Oxycodone CONSISTENT NRG COMMENT NRG Barbiturates NEGATIVE ng/mL <300 medMATCH Barbiturates CONSISTENT NRG Methadone Metabolite NEGATIVE ng/mL <100 medMATCH Methadone Metab CONSISTENT NRG Phencyclidine NEGATIVE ng/mL <25 medMATCH Phencyclidine CONSISTENT NRG Automated blood complete blood count (he mogram) panel - 12/11/19 13:22 Blood leukocytes automated count (number/volume) 8.0 10*3/uL 4.3-11.0 Blood erythrocytes automated count (number/volume) 4.70 10*6/uL 4.35-5.85 Venous blood hemoglobin measurement (mass/volume) 15.4 g/dL 13.3-17.7 Blood hematocrit (volume fraction) 45 % 40-54 Automated erythrocyte mean corpuscular volume 96 [ foz_us] 80-99 Automated erythrocyte mean corpuscular h emoglobin (mass per erythrocyte) 33 pg 25-34 Automated erythrocyte mean corpuscular h emoglobin concentration measurement (mass/volume) 34 g/dL 32-36 Automated erythrocyte distribution width ratio 13. 6 % 10.0- 14.5 Automated blood platelet count (count/volume) 211 10*3/uL 130-400 Automated blood platelet mean volume measurement 11.7 [foz_us] 7.4-10.4 PT panel in platelet poor plasma by coag ulation assay - 12/11/19 13:22 Prothrombin time (PT) in platelet poor plasma by coagu lation assay 13.0 s 12.2-14.7 INR in platelet poor plasma or blood by coagulation as say 1.0 0.8-1.4 Activated partial thromboplastin time (a PTT) in platelet poor plasma bycoagulation assay - 12/11/19 13:22 Activated partial thromboplastin time (a PTT) in platelet poor plasma bycoagulation assay 30 s 24-35 Comprehensive metabolic panel - 12/11/19 13:22 Serum or plasma sodium measurement (moles/volume) 140 mmol/L 135-145 Serum or plasma potassium measurement (moles/volume) 4.1 mmol/L 3.6-5.0 Serum or plasma chloride measurement (moles/volume) 105 mmol/L 98-107 Carbon dioxide 25 mmol/L 21-32 Serum or plasma anion gap determination (moles/volume) 10 mmol/L 5-14 Serum or plasma urea nitrogen measurement (mass/volume ) 16 mg/dL 7-18 Serum or plasma creatinine measurement (mass/volume) 0.82 mg/dL 0.60-1.30 Serum or plasma urea nitrogen/creatinine mass ratio 20 NRG Serum or plasma creatinine measurement w ith calculation of estimated glomerular filtration rate > NRG Serum or plasma glucose measurement (mass/volume) 107 mg/dL 70-105 Serum or plasma calcium measurement (mass/volume) 9.6 mg/dL 8.5-10.1 Serum or plasma total bilirubin measurement (mass/volu me) 0.4 mg/dL 0.1-1.0 Serum or plasma alkaline phosphatase kamini surement (enzymatic activity/volume) 85 U/L 40-136 Serum or plasma aspartate aminotransfera se measurement (enzymatic activity/volume) 15 U/L 5-34 Serum or plasma alanine aminotransferase measurement (enzymatic activity/volume) 20 U/L 0-55 Serum or plasma protein measurement (mass/volume) 7.1 g/dL 6.4-8.2 Serum or plasma albumin measurement (mass/volume) 4.3 g/dL 3.2-4.5 CALCIUM CORRECTED 9.4 mg/dL 8.5-10.1 Lipid 1996 panel - 12/11/19 13:22 Serum or plasma triglyceride measurement (mass/volume) 374 mg/dL <150 Serum or plasma cholesterol measurement (mass/volume) 197 mg/dL < 200 Serum or plasma cholesterol in HDL measurement (mass/v olume) 32 mg/dL 40-60 Cholesterol in LDL [mass/volume] in serum or plasma by direct assay 134 mg/dL 1-129 Serum or plasma cholesterol in VLDL measurement (mass/ volume) 75 mg/dL 5-40 Encounters ACCT No. Visit Date/Time Discharge Status Pt. Type Provider Facility Loc./Unit Complaint [id number] 02/19/2017 17:08:00 Document Registration [id number] 12/04/2019 16:40:00 12/04/2019 23:59: 59 C[id number] 01/09/2019 16:20:00 Document Registration [id number] 04/30/2017 13:00:00 017 23:59:59 CLS Preadmit ARTHUR LONDON [employer] [facility] RAD CAD I25.10,CLAUDICATION I73.9 [id number] 04/17/2017 22:51:00 017 09:43:00 DIS Inpatient JACK DOSS MD [facility] ICU CHEST PAIN [id number] 01/01/2017 15:30:00 017 23:59:59 CLS Preadmit PAIGE GATES FACC, LAKESHA ZAVALA CCDS [facility] RAD CAD I25.10 [id number] 12/17/2016 19:25:00 017 13:05:00 DIS Outpatient LAKESHA GIBSON MD, FACC, FACP CC DS [facility] CATH CHEST PAIN [id number] 07/16/2016 21:45:00 016 11:20:00 DIS Inpatient FORTINO TAMAYO DO S [facility] ICU CHEST PAIN, HTN [id number] 04/20/2016 06:55:00 016 10:45:00 DIS Outpatient YOLANDA LLAMAS MD [facility] SDC EUSTACHION TUBE DYSFUNC TION [id number] 04/19/2016 14:30:00 016 15:18:00 DIS Outpatient YOLANDA LLAMAS MD [facility] PREOP EUSTACHION TUBE DYSFUNC TION [id number] 01/03/2015 13:48:00 015 23:59:59 CLS Outpatient GAVIN ELI MD [facility] CARD DDD LUMBAR [id number] 01/02/2013 15:31:00 013 23:59:59 CLS Outpatient ANKITA MERRILL APRN [facility] RAD LOW BACK PAIN W/RADICULOPATHY [id number] 12/11/2019 15:00:00 P EN Preadmit PAIGE GATES FACC, LAKESHA ZAVALA CCDS [facility] ANGINA,SOB,PALPITATIONS,CAD,HTN,HYPERLIPIDEMIA [id number] 05/15/2017 04:47:00 Document Registration [id number] 08/26/2015 15:02:00 Document Registration [id number] 05/02/2015 09:08:00 Document Registration [id number] 08/04/2012 15:24:00 Document Registration [id number] 02/22/2012 06:49:00 Document Registration [id number] 01/25/2012 10:31:00 Document Registration [id number] 02/09/2009 07:50:00 Document Registration
[2019-12-11] MEDS ORDERED: fentaNYL INJECTION 100 MCG/2 ML AMP ONE ×2 (16:14→17:37)
[2019-12-11] MEDS ORDERED: MIDAZOLAM 5 MG/5 ML (VERSED) VIAL ONE (16:14)
[2019-12-11] MEDS ORDERED: HEParin 1000 UNIT/ML (10ML VIAL) FOR BOLUS ONE (16:59)
[2019-12-11] MEDS ORDERED: EPTIFIBATIDE BOLUS 20 ML IV ONE (17:03)
[2019-12-11] MEDS ORDERED: ASPIRIN 81 MG CHEW (CHILDREN'S ASA) ONE (17:42)
[2019-12-11] MEDS ORDERED: CLOPIDOGREL 300 MG (PLAVIX) TABLET PO ONE (17:43)
[2019-12-11 19:00] VITALS: BP 122/85
[2019-12-11 20:00] VITALS: BP 120/86
[2019-12-11 21:00] VITALS: BP 131/95
[2019-12-11] MEDS ORDERED: ACETAMINOPHEN 325 MG TABLET PO PRN (21:00)
[2019-12-11] MEDS: oxyCODONE/APAP 5/325MG (PERCOCET 5) TABLET PO PRN (21:18)
[2019-12-11 22:00] VITALS: BP 109/77
[2019-12-11 23:00] VITALS: BP 116/58
--- NOTE | 2019-12-11 23:12 | CARDIAC CATHETERIZATION ---
DATE OF SERVICE: 12/11/2019 CARDIAC CATHETERIZATION AND CORONARY INTERVENTION REPORT The patient is a 54-year-old man who has had multiple coronary interventions in the past and has had recurrent chest discomfort that are suggestive of angina. Cardiac catheterization was carried out today after having obtained an informed consent. DESCRIPTION OF PROCEDURE: He was brought to the cardiac catheterization laboratory in a fasting state. Right groin was prepared and draped in the usual sterile fashion. Lidocaine 1% was used for local anesthesia. Modified Seldinger technique was used to advance a 5-Belizean sheath in the right femoral artery. A 5-Belizean JL4 catheter was used for left coronary angiography. A 5-Belizean JR4 catheter was used for right coronary angiography. A 5-Belizean pigtail catheter was used for left heart catheterization and left ventricular angiography. PERCUTANEOUS INTERVENTION TO THE RIGHT CORONARY ARTERY: Following completion of the diagnostic procedure, we carried out percutaneous intervention to the distal right coronary artery that was exhibiting up to 99% stenosis past the origin of the posterior descending branch of the right coronary artery. We exchanged the sheath over a wire for a 6-Belizean sheath. 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 We advanced a ChoICE floppy wire across the lesion into the distal right coronary artery and carried out balloon angioplasty with Emerge 2.0 x 20 mm balloon, which reduced the stenosis from up to 99% to less than 60%. The vessel is of a small caliber and we felt that good results and did not obtain and the vessel did not appear suitable for stenting. Angioplasty equipment was removed. The patient tolerated the procedure well. HEMODYNAMICS: Left ventricular end-diastolic pressure following coronary angiography was 11 mmHg. There was no significant pressure gradient on pullback across the aortic valve. Ascending aortic pressure was 112/70 with a mean of 92 mmHg. CORONARY ANGIOGRAPHY: Left main coronary artery does not exhibit significant obstructive disease. Left anterior descending artery has a patent stent in its proximal and mid portion. The distal left anterior descending artery has severe disease with stenoses up to 80%, but the vessel is of a small caliber and not amenable to intervention. The first diagonal branch is the proximal stented segment in its proximal portion. The left circumflex artery had 50% proximal stenosis. Right coronary artery has a patent stent in its proximal and distal portion. The very distal right coronary artery had up to 99% stenoses. To this, successful balloon angioplasty was carried out with reduction of stenosis to less than 50% or less. LEFT VENTRICULAR ANGIOGRAPHY: Left ventricular angiography was carried out in the right anterior oblique projection. Global left ventricular systolic function normal. No regional wall motion abnormalities are seen. Left ventricular ejection fraction is approximately 60%. CONCLUSIONS: 1. Multivessel coronary artery disease. There are patent stents in the left anterior descending that are known to be, from proximal to distal 3.0 x 23, 3.0 x 23, 2.5 x 15 mm. There is a patent stent in the first diagonal that is known to be 2.5 x 18 mm. The left circumflex artery has a 50% proximal stenosis. Right coronary artery has patent stents. The proximal stent details are not known. The distal stent is 2.5 x 18 mm. These stents are known to be drug-eluting stents. The very distal right coronary artery had multiple up to 99% stenosis, which was reduced to 50% or less with balloon angioplasty. 2. Normal left ventricular end-diastolic pressure. 3. Normal global left ventricular systolic function with ejection fraction approximately 60%. DISCUSSION AND RECOMMENDATIONS: Dual antiplatelet therapy is being continued. The rest of his cardiac regimen is being continued. He is being hospitalized for overnight observation. Risk factor modification has been reviewed. Job ID: [id number] DocumentID: [id number] Dictated Date: 12/11/2019 18:53:09 [employer] Date: 12/11/2019 23:11:45 Dictated By: LAKESHA GIBSON MD, MA, FACP, FACC,
[2019-12-12] VITALS (8 sets, daily range): BP systolic 108–140; BP diastolic 63–87
[2019-12-12] MEDS: oxyCODONE/APAP 5/325MG (PERCOCET 5) TABLET PO PRN (06:46)
[2019-12-12] MEDS: NS IV 1000 ML 1,000 ML IV SCH (10:51)
--- NOTE | 2019-12-12 12:13 | Progress Note - Cardiology ---
Cardiology SOAP Progress Note Subjective: No cp or palp or syncope or shortness of breath No focal weakness No groin discomfort No leg swelling No n/v/d Objective: I&O/Vital Signs 12/12/19 12/12/19 12/12/19 12/12/19 01:00 01:00 02:00 03:00 Pulse 85 84 78 73 Resp 16 15 16 B/P (MAP) 108/69 (82) 123/70 (87) 126/75 (92) Pulse Ox 94 96 95 O2 Delivery Room Air Room Air Room Air 12/12/19 12/12/19 12/12/19 12/12/19 04:00 04:00 05:00 06:00 Pulse 69 67 67 Resp 15 16 18 B/P (MAP) 122/81 (95) 117/73 (88) 140/87 (104) Pulse Ox 96 96 97 O2 Delivery Room Air Room Air Room Air Room Air 12/12/19 12/12/19 12/12/19 12/12/19 06:39 08:00 08:00 08:00 Pulse 68 70 Resp 15 B/P (MAP) 117/74 (88) Pulse Ox 93 O2 Delivery Room Air Room Air Room Air 12/12/19 00:00 Intake Total 600 ml Output Total 400 ml Balance 200 ml Weight (Pounds): 221 Weight (Ounces): 0.5 Weight (Calculated Kilograms): [id number] Condition: DP/PT pulses palpable Device Insertion Site: without hematoma Bruising: mild bruising Constitutional: AAO x 3, well-developed, well-nourished Respiratory: No accessory muscle use; other (good bilat air entry) Cardiovascular: regular rate-rhythm, S1 and S2, systolic murmur (faint [place]ER at [employer]) Gastrointestional: No tender; soft; No guarding, No rebound; audible bowel sounds Extremities: No clubbing, No cyanosis, No significant edema Neurologic/Psychiatric: alert, oriented x 3, other (moves all limbs equally) Skin: No rash on exposed areas, No ulcerations on exposed areas Results/Procedures: Labs Laboratory Tests 12/11/19 13:22: White Blood Count 8.0, Red Blood Count 4.70, Hemoglobin 15.4, Hematocrit 45, Mean Corpuscular Volume 96, Mean Corpuscular Hemoglobin 33, Mean Corpuscular Hemoglobin Concent 34, Red Cell Distribution Width 13.6, Platelet Count 211, Mean Platelet Volume 11.7H, Prothrombin Time 13.0, INR Comment 1.0, Activated Partial Thromboplast Time 30, Sodium Level 140, Potassium Level 4.1, Chloride Level 105, Carbon Dioxide Level 25, Anion Gap 10, Blood Urea Nitrogen 16, Creatinine 0.82, Estimat Glomerular Filtration Rate > 60, BUN/Creatinine Ratio 20, Glucose Level 107H, Calcium Level 9.6, Corrected Calcium 9.4, Total Bilirubin 0.4, Aspartate Amino Transf (AST/SGOT) 15, Alanine Aminotransferase (ALT/SGPT) 20, Alkaline Phosphatase 85, Total Protein 7.1, Albumin 4.3, Triglycerides Level 374H, Cholesterol Level 197, LDL Cholesterol Direct 134H, VLDL Cholesterol 75H, HDL Cholesterol 32L Laboratory Tests 12/11/19 13:22 A/P: Assessment: CAD with h/o multiple PCI. Last card cath on 12/11/19: Multivessel coronary artery disease. There are patent stents in the left anterior descending that are known to be, from proximal to distal 3.0 x 23, 3.0 x 23, 2.5 x 15 mm. There is a patent stent in the first diagonal that is known to be 2.5 x 18 mm. The left circumflex artery has a 50% proximal stenosis. Right coronary artery has patent stents; proximal stent details are not known, distal stent is 2.5 x 18 mm. The known stents are known to be drug-eluting stents. The very distal right coronary artery had multiple up to 99% stenosis, which was reduced to 50% or less with balloon angioplasty. Normal left ventricular end-diastolic pressure. Normal global left ventricular systolic function with ejection fraction approximately 60%. DJD, primarily involving the knees and ankles and hands, managed by his pcp Symptoms of mild to mod, bilat leg claudication HTN HLP - statin tx managed by PCP Tobaccoism - refraining since late October 2019 Intermittent non-compliance with medications Chronic hardness of hearing Plan: * I discussed in detail with him the results of cath and subsequent intervention. This discussion took place yesterday and today * We recommend compliance with meds * Advised to continue to refrain from tobacco use * Close clinical f/u for now * Questions answered LAKESHA GIBSON MD FACP FAC CCDS December 12, 2019 12:13
--- NOTE | 2019-12-12 12:20 | Discharge Inst-Cardiology ---
Discharge Inst-Cardiac Discharge Medications Continued Medications: Amlodipine Besylate (Amlodipine Besylate) 5 Mg Tablet 5 MG PO DAILY, TAB Aspirin (Aspirin) 81 Mg Tab.chew 81 MG PO DAILY for 30 Days, TAB Atorvastatin Calcium (Atorvastatin Calcium) 20 Mg Tablet 20 MG PO HS, TAB Clopidogrel Bisulfate (Plavix) 75 Mg Tablet 75 MG PO DAILY for 90 Days, TAB 3 Refills Duloxetine HCl (Cymbalta) 60 Mg Capsule.dr 60 MG PO DAILY, #30 CAP Metoprolol Succinate (Metoprolol Succinate) 100 Mg Tab.er.24h 100 MG PO DAILY, TAB Nitroglycerin (Nitroglycerin) 0.4 Mg Tab.subl 0.4 MG SL PRN PRN for CHEST PAIN (ANGINA), #24 TAB Quetiapine Fumarate (Seroquel) 200 Mg Tablet 200 MG PO HS, TAB Tramadol HCl (Tramadol HCl) 50 Mg Tablet 50 MG PO Q8H PRN for PAIN-MILD (1-4), TAB Patient Instructions Patient Instructions: No smoking LAKESHA GIBSON MD FACP FAC CCDS December 12, 2019 12:20
--- NOTE | 2019-12-12 12:21 | Discharge Inst-Post CATH ---
Discharge Inst-CATH/EP Post Cardiac Cath/EP D/C Inst Follow Up/Plan F/u with Dr Mao within 2 weeks ACTIVITY * Go Home directly and rest. * Limit activity of the leg (or wrist if it was used) for 7 days including aerobics, swimming, jogging, bicycling, etc. * Restrict stair-climbing for 7 days if possible, if not, climb up with your non-cath leg, then bring together on the same step. * Avoid lifting, pushing, pulling or excessive movement of the affected extremity for 7 days. * Customary sexual activity may be resumed after 2 days-use caution not to use a position that strains or causes pain to the affected extremity. * No driving for 24 hours. * NO SMOKING. * Avoid straining for bowel movements for 7 days. * Gentle walking on level ground is allowed. * Returning to work will depend on the type of procedure and the results. Your doctor will discuss this with you. CALL YOUR DOCTOR FOR ANY OF THE FOLLOWING: *If bleeding from the puncture site occurs- Apply gentle pressure to site with clean cloth and call your doctor or EMS. * If a knot or lump forms under the skin, increases in size, or causes pain. * If bruising appears to be worsening or moving further down your leg instead of disappearing. * Temperature above 101 F. CARE OF YOUR GROIN INCISION; * Bruising or purple discoloration of the skin near the puncture site is common. * You may shower only, no bathtub bathing for 5 days. Be careful to avoid slipping as your leg may feel stiff. * If a closure device was used on your femoral artery, please see the attached guide regarding care of the device and your leg. * Leave dressing on FOR 24 hours. CARE OF YOUR WRIST INCISION; * Bruising or purple discoloration of the skin near the puncture site is common. * You may shower. * DO NOT submerge wrist. * Leave dressing on FOR 24 hours. LAKESHA MAO MD FACP FAC CCDS December 12, 2019 12:20
--- NOTE | 2019-12-12 12:23 | Cardiology Discharge Summary ---
Diagnosis/Chief Complaint Date of Admission 12/11/19 Date of Discharge 12/12/19 Final/Discharge Diagnosis CAD with h/o multiple PCI. Last card cath on 12/11/19: Multivessel coronary artery disease. There are patent stents in the left anterior descending that are known to be, from proximal to distal 3.0 x 23, 3.0 x 23, 2.5 x 15 mm. There is a patent stent in the first diagonal that is known to be 2.5 x 18 mm. The left circumflex artery has a 50% proximal stenosis. Right coronary artery has patent stents; proximal stent details are not known, distal stent is 2.5 x 18 mm. The known stents are known to be drug-eluting stents. The very distal right coronary artery had multiple up to 99% stenosis, which was reduced to 50% or less with balloon angioplasty. Normal left ventricular end-diastolic pressure. Normal global left ventricular systolic function with ejection fraction approximately 60%. DJD, primarily involving the knees and ankles and hands, managed by his pcp Symptoms of mild to mod, bilat leg claudication HTN HLP - statin tx managed by PCP Tobaccoism - refraining since late October 2019 Intermittent non-compliance with medications Chronic hardness of hearing Chief Complaint/HPI Chief Complaint/HPI Please refer to my H&P for reason for cath and subsequent observation Please refer to my progress note of today's date (12/12/19) for condition at discharge and f/u plan Discharge Summary Discussion & Recommendations Home Medications Reviewed patient Home Medication Reconciliation performed by pharmacy medication reconciliations x ray service technician and/or nursing. Patients Allergies have been reviewed. Discharge Home Medications: Reviewed and agree with Discharge Medication list on patient's Discharge Instruction sheet Instructions to patient/family F/u with Dr Mao within 2 weeks LAKESHA MAO MD FACP FAC CCDS December 12, 2019 12:23
== END 2019-12-12 12:35 | disposition home or self-care (01) ==
LOC: CATH 12:55 → ICU 16:30 → CATH 12-12 12:35
PROVIDERS: ATTEND Internal Medicine Cardiovascular Disease
DX: I25.10 Atherosclerotic heart disease of native coronary artery without angina pectoris (principal); I77.9 Disorder of arteries and arterioles, unspecified; I73.9 Peripheral vascular disease, unspecified; I10 Essential (primary) hypertension; M17.0 Bilateral primary osteoarthritis of knee; M19.072 Primary osteoarthritis, left ankle and foot; M19.071 Primary osteoarthritis, right ankle and foot; M19.042 Primary osteoarthritis, left hand; M19.041 Primary osteoarthritis, right hand; E78.5 Hyperlipidemia, unspecified; M51.36 Other intervertebral disc degeneration, lumbar region; E66.9 Obesity, unspecified; J30.1 Allergic rhinitis due to pollen; F17.210 Nicotine dependence, cigarettes, uncomplicated; Z68.34 Body mass index [BMI] 34.0-34.9, adult; Z91.19 Patient's noncompliance with other medical treatment and regimen; Z88.1 Allergy status to other antibiotic agents; Z79.02 Long term (current) use of antithrombotics/antiplatelets; Z79.899 Other long term (current) drug therapy; Z83.3 Family history of diabetes mellitus; Z82.3 Family history of stroke
CPT/HCPCS: 36415; 80053; 80061; 85027; 85610; 85730; 87081; 93458

== ENCOUNTER 2020-11-07 14:17 | Inpatient (IN) | payer SELFPAY ==
[~2020-11-07] VITALS: Ht 175.3 cm; Wt 106.6 kg
[~2020-11-07 14:17] MED LIST changes: +AMLO-250 PO; +ASPI-1238 PO; -ASPI-983 PO; +ATOR20TA66 PO; -HEParin (CATH LAB) 2,000 ML IV ONE; -LIDOCAINE 1% INJ 20 ML 20 ML VIAL ONE; +MTP100TCR PO; +NITR0.4T42 SL; -NS IV 1000 ML 1,000 ML ONE; +QUET200T PO; +TRAM50TA3 PO
[2020-11-07] MEDS ORDERED: ASPIRIN 81 MG CHEW (CHILDREN'S ASA) PO ONE (14:45)
[2020-11-07 14:47] LABS: BASOPHILS % (AUTO) 0 % (0-10); EOSINOPHILS # (AUTO) 0.2 10^3/uL (0.0-0.3); EOSINOPHILS % (AUTO) 2 % (0-10); HEMATOCRIT 43 % (40-54); HEMOGLOBIN 14.7 g/dL (13.3-17.7); LYMPHOCYTES # (AUTO) 2.1 10^3/uL (1.0-4.0); LYMPHOCYTES % (AUTO) 23 % (12-44); MEAN CORPUSCULAR HEMOGLOBIN 33 pg (25-34); MEAN CORPUSCULAR HGB CONC 34 g/dL (32-36); MEAN CORPUSCULAR VOLUME 98 fL (80-99); MEAN PLATELET VOLUME 11.9 fL (9.0-12.2); MONOCYTES # (AUTO) 0.6 10^3/uL (0.0-1.0); MONOCYTES % (AUTO) 6 % (0-12); NEUTROPHILS # (AUTO) 6.4 10^3/uL (1.8-7.8); NEUTROPHILS % (AUTO) 70 % (42-75); PLATELET COUNT 213 10^3/uL (130-400); WHITE BLOOD COUNT 9.2 10^3/uL (4.3-11.0)
--- NOTE | 2020-11-07 14:47 | ED Cardiac General ---
History of Present Illness General Chief Complaint: Chest Pain Stated Complaint: THROAT CRAMPING Source: patient Exam Limitations: no limitations History of Present Illness Date Seen by Provider: Nov 07, 2020 Time Seen by Provider: 14:24 Initial Comments To ER with reports of throat tightness. This seems to come about with activity and goes away with rest or the use of nitroglycerin. He has had these symptoms for about 2 months. Has a history of multiple coronary stents follows with Dr. aPlmer. Today he was at work and had some recurrence of this throat tightness with activity and was referred to the emergency room. He is pain-free upon arrival. This throat tightness was his presenting symptom during each of his previous myocardial infarctions. He did have an episode of this tightness last night while at rest. Timing/Duration: changing over time Severity: moderate Location: other Activities at Onset: none Prior CP/Workup: no prior chest pain NTG SL CLINICAL TRANSPLANT COORDINATOR: No ASA po CLINICAL TRANSPLANT COORDINATOR: No Associated Systoms: Denies Symptoms Allergies and Home Medications Allergies Coded Allergies: amoxicillin (Verified Allergy, Unknown, 12/11/19) clavulanic acid (Verified Allergy, Unknown, 12/11/19) Home Medications Amlodipine Besylate 5 Mg Tablet, 5 MG PO DAILY, (Reported) Aspirin 81 Mg Tab.chew, 81 MG PO DAILY Prescribed by: MAU HOLBROOK on 12/19/16 0940 Atorvastatin Calcium 20 Mg Tablet, 20 MG PO HS, (Reported) Clopidogrel Bisulfate 75 Mg Tablet, 75 MG PO DAILY Prescribed by: MAU HOLBROOK on 12/19/16 0940 Duloxetine HCl 60 Mg Capsule.dr, 60 MG PO DAILY Prescribed by: FORTINO TAMAYO on 12/19/16 1231 Metoprolol Succinate 100 Mg Tab.er.24h, 100 MG PO DAILY, (Reported) Nitroglycerin 0.4 Mg Tab.subl, 0.4 MG SL PRN PRN for CHEST PAIN (ANGINA), (Reported) Quetiapine Fumarate 200 Mg Tablet, 200 MG PO HS, (Reported) Tramadol HCl 50 Mg Tablet, 50 MG PO Q8H PRN for PAIN-MILD (1-4), (Reported) Patient Home Medication List Home Medication List Reviewed: Yes Review of Systems Review of Systems Constitutional: see HPI EENTM: No Symptoms Reported Respiratory: No Symptoms Reported Cardiovascular: See HPI, Chest Pain Gastrointestinal: No Symptoms Reported Genitourinary: No Symptoms Reported Musculoskeletal: no symptoms reported Skin: no symptoms reported Psychiatric/Neurological: No Symptoms Reported Endocrine: No Symptoms Reported Hematologic/Lymphatic: No Symptoms Reported Past Hhcbgyx-Msqnxv-Injadu Hx Patient Social History Type Used: Cigarettes 2nd Hand Smoke Exposure: Yes Recent Hopitalizations: No Immunizations Up To Date Tetanus Booster (TDap): Unknown Seasonal Allergies Seasonal Allergies: No Past Medical History Surgeries: Yes Abdominal, Cardiac, Coronary Stent, Ear Surgery Respiratory: No (STATES HE IS ALWAYS SHORT OF BREATH, BUT NO DX OF RESPIRATORY PROBLEMS) Currently Using CPAP: No Currently Using BIPAP: No Cardiac: Yes (HX OF [place] X2, HAS 14 OR 15 STENTS; LAFB) Coronary Artery Disease, Heart Attack, High Cholesterol, Hypertension Neurological: No Reproductive Disorders: No Sexually Transmitted Disease: No HIV/AIDS: No Genitourinary: No Gastrointestinal: No Musculoskeletal: Yes (joint pain) Arthritis, Chronic Back Pain Endocrine: No HEENT: Yes Chronic Ear Infection Loss of Vision: Denies Hearing Impairment: Denies Cancer: No Psychosocial: No Integumentary: No Blood Disorders: No Family Medical History No Pertinent Family Hx Physical Exam Vital Signs Vital Signs - First Documented 11/07/20 14:29 Temp 36.7 Pulse 96 Resp 18 B/P (MAP) 165/101 (122) Pulse Ox 99 O2 Delivery Room Air Capillary Refill : Height, Weight, BMI Height: 5'9.00" Weight: 221lbs. 0.5oz. 100.017626bp; 34.28 BMI Method:Stated General Appearance: No Apparent Distress, WD/WN, Other Neck: Full Range of Motion, Normal Inspection Respiratory: Lungs Clear, Normal Breath Sounds, No Accessory Muscle Use, No Respiratory Distress Cardiovascular: Regular Rate, Rhythm, Normal Peripheral Pulses Gastrointestinal: Normal Bowel Sounds, Non Tender, Soft Extremity: Normal Capillary Refill, Normal Inspection Neurologic/Psychiatric: Alert, Oriented x3 Skin: Normal Color, Warm/Dry Progress/Results/Core Measures Results/Orders Lab Results Laboratory Tests Test 11/07/20 14:35 Range/Units White Blood Count 9.2 4.3-11.0 10^3/uL Red Blood Count 4.40 4.30-5.52 10^6/uL Hemoglobin 14.7 13.3-17.7 g/dL Hematocrit 43 40-54 % Mean Corpuscular Volume 98 80-99 fL Mean Corpuscular Hemoglobin 33 25-34 pg Mean Corpuscular Hemoglobin Concent 34 32-36 g/dL Red Cell Distribution Width 13.2 10.0-14.5 % Platelet Count 213 130-400 10^3/uL Mean Platelet Volume 11.9 9.0-12.2 fL Immature Granulocyte % (Auto) 0 % Neutrophils (%) (Auto) 70 42-75 % Lymphocytes (%) (Auto) 23 12-44 % Monocytes (%) (Auto) 6 0-12 % Eosinophils (%) (Auto) 2 0-10 % Basophils (%) (Auto) 0 0-10 % Neutrophils # (Auto) 6.4 1.8-7.8 10^3/uL Lymphocytes # (Auto) 2.1 1.0-4.0 10^3/uL Monocytes # (Auto) 0.6 0.0-1.0 10^3/uL Eosinophils # (Auto) 0.2 0.0-0.3 10^3/uL Basophils # (Auto) 0.0 0.0-0.1 10^3/uL Immature Granulocyte # (Auto) 0.0 0.0-0.1 10^3/uL Prothrombin Time 13.3 12.2-14.7 SEC INR Comment 1.0 0.8-1.4 Activated Partial Thromboplast Time 26 24-35 SEC Sodium Level 141 135-145 MMOL/L Potassium Level 3.6 3.6-5.0 MMOL/L Chloride Level 107 98-107 MMOL/L Carbon Dioxide Level 22 21-32 MMOL/L Anion Gap 12 5-14 MMOL/L Blood Urea Nitrogen 11 7-18 MG/DL Creatinine 0.88 0.60-1.30 MG/DL Estimat Glomerular Filtration Rate > 60 BUN/Creatinine Ratio 13 Glucose Level 160 H 70-105 MG/DL Calcium Level 8.8 8.5-10.1 MG/DL Corrected Calcium 8.5 8.5-10.1 MG/DL Magnesium Level 1.9 1.6-2.4 MG/DL Total Bilirubin 0.2 0.1-1.0 MG/DL Aspartate Amino Transf (AST/SGOT) 15 5-34 U/L Alanine Aminotransferase (ALT/SGPT) 35 0-55 U/L Alkaline Phosphatase 106 40-136 U/L Myoglobin 38.0 10.0-92.0 NG/ML Troponin I < 0.028 <0.028 NG/ML B-Type Natriuretic Peptide 11.9 <100.0 PG/ML Total Protein 7.0 6.4-8.2 GM/DL Albumin 4.4 3.2-4.5 GM/DL My Orders Orders - JOHAN MARSHALL BARN BOSS Cbc With Automated Diff (11/07/20 14:41) Magnesium (11/07/20 14:41) Chest 1 View, Ap/Pa Only (11/07/20 14:41) Ekg Tracing (11/07/20 14:41) Comprehensive Metabolic Panel (11/07/20 14:41) Myoglobin Serum (11/07/20 14:41) Protime With Inr (11/07/20 14:41) Partial Thromboplastin Time (11/07/20 14:41) O2 (11/07/20 14:41) Monitor-Rhythm Ecg Trace Only (11/07/20 14:41) Lipid Panel (11/08/20 06:00) Ed Iv/Invasive Line Start (11/07/20 14:41) BNP (11/07/20 14:41) Troponin I (11/07/20 14:41) Aspirin Chewable Tablet (Baby Aspirin Ch (11/07/20 14:45) Enoxaparin Injection (Lovenox Injection) (11/07/20 15:45) Medications Given in ED Current Medications Medications Dose Ordered Sig/Paola Route Start Time Stop Time Status Last Admin Dose Admin Aspirin 324 mg ONCE ONCE PO 11/07/20 14:45 11/07/20 14:46 DC 11/07/20 14:48 324 MG Vital Signs/I&O 11/07/20 14:29 Temp 36.7 Pulse 96 Resp 18 B/P (MAP) 165/101 (122) Pulse Ox 99 O2 Delivery Room Air Departure Communication (Admissions) [id number] with Dr. Calabrese, will admit consult medicine. Notified Dr. Rios of the plan. Impression Primary Impression: Chest discomfort Disposition: ADMITTED INPATIENT Condition: Stable Admissions Decision to Admit Reason: Admit from ER (General) Decision to Admit/Date: Nov 07, 2020 Time/Decision to Admit Time: 15:44 Departure-Patient Inst. Referrals: JO CAMPUZANO DO (PCP) Primary Care Physician OLIVER WELCH APRN (Family) Primary Care Physician JOHAN MARSHALL APRN Nov 07, 2020 14:47
[2020-11-07 15:02] LABS: PROTHROMBIN TIME PATIENT 13.3 SEC (12.2-14.7)
[2020-11-07 15:08] LABS: ALANINE AMINOTRANSFERASE 35 U/L (0-55); ALBUMIN 4.4 GM/DL (3.2-4.5); ALKALINE PHOSPHATASE 106 U/L (40-136); BILIRUBIN,TOTAL 0.2 MG/DL (0.1-1.0); BUN/CREATININE RATIO 13; CALCIUM 8.8 MG/DL (8.5-10.1); CARBON DIOXIDE 22 MMOL/L (21-32); CHLORIDE 107 MMOL/L (98-107); CREATININE SERUM 0.88 MG/DL (0.60-1.30); GFR ESTIMATED > 60; GLUCOSE 160 MG/DL (70-105); MAGNESIUM 1.9 MG/DL (1.6-2.4); POTASSIUM 3.6 MMOL/L (3.6-5.0); SODIUM 141 MMOL/L (135-145)
[2020-11-07] MEDS ORDERED: ENOXAPARIN 100 MG/1 ML (LOVENOX) SYR SC ONE (15:45)
--- NOTE | 2020-11-07 15:52 | Diagnostic Imaging Report ---
EXAM: CHEST 1 VIEW, AP/PA ONLY INDICATION: Chest pain. Throat cramping. COMPARISON: Chest radiograph 04/17/2017. FINDINGS: Borderline heart size. Normal central pulmonary vascularity. No focal pulmonary opacity, pleural effusion or pneumothorax. No acute osseous findings. IMPRESSION: Stable borderline heart size. Chest is otherwise negative. Dictated by: Dictated on workstation # [id number]
[2020-11-07] MEDS ORDERED: CATHETER FLUSH 10 ML SYR IV PRN (16:45)
[2020-11-07] MEDS ORDERED: NITROGLYCERIN 0.4 MG SL TABS BTL 25'S SL PRN (16:45)
[2020-11-07] MEDS ORDERED: ONDANSETRON 4 MG/2 ML (SDV) Z0FRAN IVP PRN ×2 (16:45→20:15)
[2020-11-07] MEDS ORDERED: ATOR80TA76 PO (16:48)
--- NOTE | 2020-11-07 19:31 | Consultation-Cardiology ---
HPI-Cardiology Cardiology Consultation Date of Consultation 11/07/20 Date of Admission Time Seen by Provider: 19:29 Indication: Chest pain HPI 55 years old gentleman with extensive cardiac history, has been having increasing chest pain described it as tightness in his upper chest and around his neck with exertion relieving by rest which has been worsening recently, went to the emergency room for evaluation. Denied any palpitation, syncope or near syncopal episodes Home Medications & Allergies Allergies: Coded Allergies: amoxicillin (Verified Allergy, Unknown, 12/11/19) clavulanic acid (Verified Allergy, Unknown, 12/11/19) Home Medication List Reviewed: Yes ZOG-Pwpezg-Tvjsak Hx Patient Social History Marital Status: Employed/Student: employed Recreational Drug Use: No Smoking Status: Current Everyday Smoker Type Used: Cigarettes 2nd Hand Smoke Exposure: Yes Recent Hopitalizations: No Have you traveled recently?: No Alcohol Use?: No Immunizations Up To Date Tetanus Booster (TDap): Unknown Past Medical History Discussed below Family Medical History Significant Family History: No Pertinent Family Hx Family Medical Hx Noncontributory Review of Systems-General Review of Systems Constitutional: see HPI EENTM: see HPI, no symptoms reported Respiratory: no symptoms reported, see HPI Cardiovascular: see HPI, chest pain; No edema, No Hx of Intervention, No palpitations, No syncope, No vascular heart diseas, No other Gastrointestinal: no symptoms reported, see HPI Genitourinary: no symptoms reported, see HPI Musculoskeletal: no symptoms reported Skin: no symptoms reported Psychiatric/Neurological: No Symptoms Reported Reviewed Test Results Reviewed Test Results Lab Laboratory Tests Test 11/07/20 14:35 11/07/20 18:10 Range/Units White Blood Count 9.2 4.3-11.0 10^3/uL Red Blood Count 4.40 4.30-5.52 10^6/uL Hemoglobin 14.7 13.3-17.7 g/dL Hematocrit 43 40-54 % Mean Corpuscular Volume 98 80-99 fL Mean Corpuscular Hemoglobin 33 25-34 pg Mean Corpuscular Hemoglobin Concent 34 32-36 g/dL Red Cell Distribution Width 13.2 10.0-14.5 % Platelet Count 213 130-400 10^3/uL Mean Platelet Volume 11.9 9.0-12.2 fL Immature Granulocyte % (Auto) 0 % Neutrophils (%) (Auto) 70 42-75 % Lymphocytes (%) (Auto) 23 12-44 % Monocytes (%) (Auto) 6 0-12 % Eosinophils (%) (Auto) 2 0-10 % Basophils (%) (Auto) 0 0-10 % Neutrophils # (Auto) 6.4 1.8-7.8 10^3/uL Lymphocytes # (Auto) 2.1 1.0-4.0 10^3/uL Monocytes # (Auto) 0.6 0.0-1.0 10^3/uL Eosinophils # (Auto) 0.2 0.0-0.3 10^3/uL Basophils # (Auto) 0.0 0.0-0.1 10^3/uL Immature Granulocyte # (Auto) 0.0 0.0-0.1 10^3/uL Prothrombin Time 13.3 12.2-14.7 SEC INR Comment 1.0 0.8-1.4 Activated Partial Thromboplast Time 26 24-35 SEC Sodium Level 141 135-145 MMOL/L Potassium Level 3.6 3.6-5.0 MMOL/L Chloride Level 107 98-107 MMOL/L Carbon Dioxide Level 22 21-32 MMOL/L Anion Gap 12 5-14 MMOL/L Blood Urea Nitrogen 11 7-18 MG/DL Creatinine 0.88 0.60-1.30 MG/DL Estimat Glomerular Filtration Rate > 60 BUN/Creatinine Ratio 13 Glucose Level 160 H 70-105 MG/DL Calcium Level 8.8 8.5-10.1 MG/DL Corrected Calcium 8.5 8.5-10.1 MG/DL Magnesium Level 1.9 1.6-2.4 MG/DL Total Bilirubin 0.2 0.1-1.0 MG/DL Aspartate Amino Transf (AST/SGOT) 15 5-34 U/L Alanine Aminotransferase (ALT/SGPT) 35 0-55 U/L Alkaline Phosphatase 106 40-136 U/L Myoglobin 38.0 10.0-92.0 NG/ML Troponin I < 0.028 < 0.028 <0.028 NG/ML B-Type Natriuretic Peptide 11.9 <100.0 PG/ML Total Protein 7.0 6.4-8.2 GM/DL Albumin 4.4 3.2-4.5 GM/DL Physical Exam Physical Exam Vital Signs Vital Signs - First Documented 11/07/20 14:29 Temp 36.7 Pulse 96 Resp 18 B/P (MAP) 165/101 (122) Pulse Ox 99 O2 Delivery Room Air Capillary Refill : Less Than 3 Seconds Height, Weight, BMI Height: 5'9.00" Weight: 221lbs. 0.5oz. 100.687311hu; 34.68 BMI Method:Stated General Appearance: No Apparent Distress, WD/WN, Other Eyes: Bilateral Eye Normal Inspection, Bilateral Eye PERRL, Bilateral Eye EOMI HEENT: PERRL/EOMI, TMs Normal, Normal ENT Inspection, Pharynx Normal, Moist Mucous Membranes Neck: Full Range of Motion, Normal Inspection Respiratory: Lungs Clear, Normal Breath Sounds, No Accessory Muscle Use, No Respiratory Distress Cardiovascular: Regular Rate, Rhythm, Normal Peripheral Pulses Gastrointestinal: Normal Bowel Sounds, Non Tender, Soft Back: Normal Inspection, No CVA Tenderness, No Vertebral Tenderness Extremity: Normal Capillary Refill, Normal Inspection Neurologic/Psychiatric: Alert, Oriented x3 Skin: Normal Color, Warm/Dry Lymphatic: No Adenopathy A/P-Cardiology Admission Diagnosis Chest pain Coronary artery disease Hypertension Hyperlipidemia Assessment/Plan Chest pain resembling angina, accelerating angina, having more frequent episode of chest pain with exertion recently. Significant deterioration. Last work-up was done in December 2019, plan to evaluate exercise stress test and echocardiogram CAD with h/o multiple PCI. Last card cath on 12/11/19: Multivessel coronary artery disease. There are patent stents in the left anterior descending that are known to be, from proximal to distal 3.0 x 23, 3.0 x 23, 2.5 x 15 mm. There is a patent stent in the first diagonal that is known to be 2.5 x 18 mm. The left circumflex artery has a 50% proximal stenosis. Right coronary artery has patent stents; proximal stent details are not known, distal stent is 2.5 x 18 mm. The known stents are known to be drug-eluting stents. The very distal right coronary artery had multiple up to 99% stenosis, which was reduced to 50% or less with balloon angioplasty. Normal left ventricular end-diastolic pressure. Normal global left ventricular systolic function with ejection fraction approximately 60%. Planning to evaluate stress test DJD, primarily involving the knees and ankles and hands, discussed the possibility of exercise stress test, patient is agreeable Symptoms of mild to mod, bilat leg claudication HTN, restart home medication monitor Hyperlipidemia, evaluate lipids Tobaccoism - refraining since October 2019 Intermittent non-compliance with medications Chronic hardness of hearing Clinical Quality Measures AMI/AHF: ASA po Prior to arrival: AZALIA Manzano MD Nov 07, 2020 19:31
[2020-11-07] MEDS ORDERED: CALCIUM CARBONATE 500 MG (TUMS) TAB.CHEW PO PRN (20:15)
[2020-11-07] MEDS ORDERED: ENOXAPARIN 40 MG/0.4 ML (LOVENOX) SYR SC SCH (20:15)
[2020-11-07] MEDS ORDERED: LOPERAMIDE 2 MG (IMODIUM) TABLET PO PRN (20:15)
[2020-11-07] MEDS ORDERED: diphenhydrAMINE 25 MG TAB (BENADRYL) PO PRN (20:15)
[2020-11-07] MEDS ORDERED: ACETAMINOPHEN 500 MG TAB (TYLENOL) PO PRN (20:15)
[2020-11-07] MEDS ORDERED: DOCUSATE SODIUM 100 MG (COLACE) CAP PO PRN (20:15)
[2020-11-07] MEDS ORDERED: MELATONIN 3 MG TABLET PO PRN (20:15)
[2020-11-07] MEDS ORDERED: ALPRAZolam 0.25 MG (XANAX) TAB PO PRN (20:15)
[2020-11-07] MEDS ORDERED: ACETAMINOPHEN 325 MG TABLET PO PRN (20:30)
[2020-11-07] MEDS: HYDROcodone/APAP 5 MG/325 MG (LORTAB) TAB PO PRN (21:05)
[2020-11-07] MEDS: SENNA W/DOCUSATE (SENOKOT S) TABLET PO SCH (21:11)
[2020-11-08] MEDS: CATHETER FLUSH 10 ML SYR IV SCH ×3 (00:16→13:54)
[2020-11-08 05:09] LABS: HEMOGLOBIN 14.7 g/dL (13.3-17.7); MEAN PLATELET VOLUME 12.1 fL (9.0-12.2); WHITE BLOOD COUNT 7.4 10^3/uL (4.3-11.0)
--- NOTE | 2020-11-08 05:21 | Short Stay Summary-Hospitalist ---
History of Present Illness HPI/Chief Complaint CC: Chest Pain HPI: This is a 55yoWM clinic pt [facility] and Dr. Mao with nine stents placed in the past who presented with chest pain. He underwent stress test today and will likely need cardiac catheterization per patient. Overall pt feels pretty good, less chest pain and no SOB. Source: patient Exam Limitations: no limitations Date Seen 11/08/20 Time Seen by a Provider: 10:00 Attending Physician Rosie Calabrese DO PCP Nilay Brooks MD Referring Physician Date of Admission Nov 07, 2020 at 15:39 Home Medications & Allergies Home Medications Reviewed patient Home Medication Reconciliation performed by pharmacy medication reconciliations measurement technician and/or nursing. Patients Allergies have been reviewed. Allergies Allergies Coded Allergies amoxicillin (Verified Allergy, Unknown, 12/11/19) clavulanic acid (Verified Allergy, Unknown, 12/11/19) Past Oqebsng-Sjfxsg-Shmyis Hx Past Med/Social Hx: Reviewed Nursing Past Med/Soc Hx, Reviewed and Corrections made Patient Social History Marrital Status: Employed/Student: employed Alcohol Use: Denies Use Recreational Drug Use: No Smoking Status: Current Everyday Smoker Type Used: Cigarettes 2nd Hand Smoke Exposure: Yes Recent Foreign Travel: No Contact w/other who traveled: No Recent Hopitalizations: No Recent Infectious Disease Expo: No Immunizations Up To Date Tetanus Booster (TDap): Unknown Seasonal Allergies Seasonal Allergies: No Past Medical History Surgeries: Abdominal, Cardiac, Coronary Stent, Ear Surgery Currently Using CPAP: No Currently Using BIPAP: No Cardiac: Coronary Artery Disease, Heart Attack, High Cholesterol, Hypertension Reproductive: No Sexually Transmitted Disease: No HIV/AIDS: No Musculoskeletal: Arthritis, Chronic Back Pain HEENT: Chronic Ear Infection Loss of Vision: Denies Hearing Impairment: Denies History of Blood Disorders: No Family History No Pertinent Family Hx Review of Systems Constitutional: see HPI Cardiovascular: chest pain Physical Exam Physical Exam Vital Signs Vital Signs - First Documented 11/07/20 14:29 Temp 36.7 Pulse 96 Resp 18 B/P (MAP) 165/101 (122) Pulse Ox 99 O2 Delivery Room Air Capillary Refill : Less Than 3 Seconds Height, Weight, BMI Height: 5'9.00" Weight: 221lbs. 0.5oz. [id number]; 34.68 BMI Method:Stated General Appearance: No Apparent Distress, WD/WN, Chronically ill, Obese, Other Eyes: Bilateral Eye Normal Inspection, Bilateral Eye PERRL, Bilateral Eye EOMI HEENT: PERRL/EOMI, Normal ENT Inspection, Pharynx Normal, Moist Mucous Membranes Neck: Full Range of Motion, Normal Inspection Respiratory: Lungs Clear, Normal Breath Sounds, No Accessory Muscle Use, No Respiratory Distress Cardiovascular: Regular Rate, Rhythm, Normal Peripheral Pulses Gastrointestinal: Normal Bowel Sounds, Non Tender, Soft Back: Normal Inspection, No CVA Tenderness, No Vertebral Tenderness Extremity: Normal Capillary Refill, Normal Inspection Neurologic/Psychiatric: Alert, Oriented x3 Skin: Normal Color, Warm/Dry Lymphatic: No Adenopathy Results Results/Procedures Labs Laboratory Tests 11/07/20 14:35 11/08/20 04:57 Patient resulted labs reviewed. Short Stay Diagnosis Discharge Diagnosis-Short Stay Admission Diagnosis Assessment: Unstable angina CAD previous 9 stents HTN HLP Smoker Final Discharge Diagnosis Assessment: Unstable angina with abnormal EST sent for bypass evaluation CAD previous 9 stents HTN HLP Smoker Conclusion Plan Transfer for bypass evaluation Diagnosis/Problems Diagnosis/Problems (1) Unstable angina (2) Abnormal stress test (3) Multi-vessel coronary artery stenosis Clinical Quality Measures AMI/AHF: ASA po Prior to arrival: ROSIE Hernandez DO Nov 08, 2020 05:21
[2020-11-08 05:24] LABS: CHLORIDE 106 MMOL/L (98-107); SODIUM 140 MMOL/L (135-145)
[2020-11-08 05:25] LABS: ALBUMIN 4.1 GM/DL (3.2-4.5)
[2020-11-08 05:26] LABS: TRIGLYCERIDES 173 MG/DL (<150); VLDL CHOLESTEROL 35 MG/DL (5-40)
[2020-11-08 05:27] LABS: GLUCOSE 135 MG/DL (70-105); TOTAL PROTEIN 6.7 GM/DL (6.4-8.2)
[2020-11-08 05:28] LABS: CARBON DIOXIDE 22 MMOL/L (21-32)
[2020-11-08 05:29] LABS: BILIRUBIN,TOTAL 0.5 MG/DL (0.1-1.0)
[2020-11-08 05:31] LABS: ALKALINE PHOSPHATASE 100 U/L (40-136); CREATININE SERUM 0.78 MG/DL (0.60-1.30); GFR ESTIMATED > 60
[2020-11-08 05:32] LABS: BUN/CREATININE RATIO 10; CHOLESTEROL 127 MG/DL (< 200)
[2020-11-08 05:33] LABS: HDL CHOLESTEROL 34 MG/DL (40-60)
[2020-11-08 05:34] LABS: ALANINE AMINOTRANSFERASE 31 U/L (0-55)
[2020-11-08] MEDS ORDERED: REGADENOSON 0.4 MG/5 ML SYR (LEXISCAN) IV ONE ×2 (07:55→08:15)
--- NOTE | 2020-11-08 08:05 | Cardiology Progress Note ---
Subjective Date Seen by Provider: Nov 08, 2020 Time Seen by Provider: 08:04 Subjective/Events-last exam patient is down in heart center for stress test. Denies any chest pain this morning. Objective-Cardiology Exam Last Set of Vital Signs Vital Signs 11/08/20 11/08/20 04:00 07:56 Temp 36.6 Pulse 70 Resp 18 B/P (MAP) 120/79 (93) Pulse Ox 98 O2 Delivery Room Air Capillary Refill : Less Than 3 Seconds I&O Intake and Output 11/08/20 00:00 Intake Total 300 ml Output Total 250 ml Balance 50 ml Intake Oral 300 ml Output Urine Total 250 ml Daily Weight Change No General: Alert, Oriented X3, Cooperative HEENT: Atraumatic, PERRLA Neck: Supple, No JVD, No Thyromegaly Lungs: Clear to Auscultation, Normal Air Movement Heart: Regular Rate, Normal S1, Normal S2, No Murmurs Abdomen: Normal Bowel Sounds, Soft, No Tenderness, No Hepatosplenomegaly, No Masses Extremities: No Clubbing, No Cyanosis, No Edema, Normal Pulses, No Tenderness/Swelling Skin: No Rashes, No Breakdown, No Significant Lesion Neuro: Normal Gait, Normal Speech, Strength at 5/5 X4 Ext, Normal Tone, Sensation Intact Psych/Mental Status: Mental Status NL, Mood NL Results Lab Laboratory Tests 11/07/20 14:35 11/08/20 04:57 A/P-Cardiology Admission Diagnosis Chest pain Coronary artery disease Hypertension Hyperlipidemia Assessment/Plan Chest pain resembling angina, accelerating angina, having more frequent episode of chest pain with exertion recently. Significant deterioration. Last work-up was done in December 2019, plan to evaluate exercise stress test and echocardiogram CAD with h/o multiple PCI. Last card cath on 12/11/19: Multivessel coronary artery disease. There are patent stents in the left anterior descending that are known to be, from proximal to distal 3.0 x 23, 3.0 x 23, 2.5 x 15 mm. There is a patent stent in the first diagonal that is known to be 2.5 x 18 mm. The left circumflex artery has a 50% proximal stenosis. Right coronary artery has patent stents; proximal stent details are not known, distal stent is 2.5 x 18 mm. The known stents are known to be drug-eluting stents. The very distal right coronary artery had multiple up to 99% stenosis, which was reduced to 50% or less with balloon angioplasty. Normal left ventricular end-diastolic pressure. Normal global left ventricular systolic function with ejection fraction appr oximately 60%. Planning to evaluate stress test this morning DJD, primarily involving the knees and ankles and hands, discussed the possibility of exercise stress test, patient is agreeable Symptoms of mild to mod, bilat leg claudication HTN, contolled, conitnue to monitor. Hyperlipidemia, controlled, maintained on statin Tobaccoism - refraining since October 2019 Intermittent non-compliance with medications Chronic hardness of hearing Clinical Quality Measures AMI/AHF: ASA po Prior to arrival: No SIRISHA ESQUIVEL Nov 08, 2020 08:05
[2020-11-08] MEDS ORDERED: CLOPIDOGREL 75 MG (PLAVIX) TABLET PO SCH (09:00)
[2020-11-08] MEDS ORDERED: ASPIRIN 81 MG CHEW (CHILDREN'S ASA) PO SCH (09:00)
[2020-11-08] MEDS: SENNA W/DOCUSATE (SENOKOT S) TABLET PO SCH (09:25)
[2020-11-08 09:30] VITALS: BP 146/96
[2020-11-08] MEDS: HYDROcodone/APAP 5 MG/325 MG (LORTAB) TAB PO PRN (09:35)
[2020-11-08] MEDS ORDERED: NS IV 1000 ML 1,000 ML IV SCH ×2 (11:00→12:45)
[2020-11-08] MEDS ORDERED: HEParin (CATH LAB) 2,000 ML IV ONE (11:01)
[2020-11-08] MEDS ORDERED: LIDOCAINE 1% INJ 20 ML 20 ML VIAL ONE (11:01)
[2020-11-08] MEDS ORDERED: NS IV 1000 ML 1,000 ML ONE (11:02)
[2020-11-08] MEDS ORDERED: NITRO DRIP 25000 MCG/D5W 250 ML IV ONE (11:05)
[2020-11-08] MEDS ORDERED: MIDAZOLAM 5 MG/5 ML (VERSED) VIAL ONE (11:05)
[2020-11-08] MEDS ORDERED: VERAPAMIL 5 MG/2 ML (CALAN) VIAL IV ONE ×2 (11:05→12:02)
[2020-11-08] MEDS ORDERED: fentaNYL INJ 100 MCG/2 ML AMP ONE (11:05)
[2020-11-08] MEDS ORDERED: HEParin 1000 UNIT/ML (10ML VIAL) FOR BOLUS ONE (11:05)
--- NOTE | 2020-11-08 12:37 | Cardiac Cath Report ---
Cardiac Cath Report Physician (s)/Special Service Officer (s) Physician AZALIA ASHER MD Pre-Procedure Diagnosis Pre-Procedure Diagnosis: CP Post-Procedure Note Procedure Start Date: Nov 08, 2020 Name of Procedure: Left heart catheterization Findings/Procedure Note PROCEDURE NOTE: 55 years old gentleman with history of coronary artery disease admitted with unstable angina, had an abnormal stress test, scheduled for cardiac catheterization possible PTCA. After explaining the procedure to the patient, all pros and cons were explained, all questions were answered. The patient signed the consent and then he was placed on the cardiac catheterization laboratory. Groin was prepped SL fashion local anesthesia was used. Sheath placed in theRight radial artery, [place] catheter advanced to the level right coronary system and angiogram was done then exchanged into EBU catheter advanced to the left coronary system and angiogram was done the EBU catheter was prolapsed to the left ventricular cavity, pressure was measured, pullback LV to aorta was done. At the end of the procedure the sheath was removed. Vascular band was used FINDINGS: Hemodynamics LV 97/11 Aorta 96/59/76 ANATOMY: Left Main Is free of obstructive disease Left Anterior Descending Has moderate to severe in-stent restenosis in the mid LAD, severe stenosis in the distal LAD Left Circumflex Has severe stenosis/subtotal occlusion in the mid circumflex artery Right Coronary Artery Has severe stenosis at the right PDA LV Gram Was not done, pressure was measured CONCLUSION: 1. Severe multivessel coronary artery disease as described above 2. Normal left ventricular end-diastolic pressure DISCUSSION AND RECOMMENDATION: Patient will be referred for evaluation for possible CABG. Hospital course, patient underwent stress test and had significant chest pain with exertion, stress test showed ischemia in the inferior wall, normal left ventricular function. Cardiac catheterization showed severe multivessel disease, arrangements were made to transfer him for evaluation for CABG Final diagnosis Unstable angina Coronary artery disease Hypertension Hyperlipidemia Anesthesia Type: Conscious Sedation Estimated blood loss (mL): 25 nl Contrast Amount: 75 ml Total Radiation Dose: 869 mGy Post-Procedure Diagnosis Post-operative diagnosis: Unstable angina Coronary artery disease Hypertension Hyperlipidemia AZALIA ASHER MD Nov 08, 2020 12:37
--- NOTE | 2020-11-08 12:43 | Cardiology Stress Test Report ---
Stress Test Report Date of Procedure/Referring: Date of Procedure: Nov 08, 2020 PCP Rosie Calabrese DO Admitting Physician Nilay Brooks MD Indications: CP Baseline Heart Rate: 62 Baseline Blood Pressure: Blood Pressure Systolic: 146 Blood Pressure Diastolic: 96 Baseline Vitals Vital Signs Date Time Temp Pulse Resp B/P (MAP) Pulse Ox O2 Delivery O2 Flow Rate FiO2 11/07/20 14:29 36.7 96 18 165/101 (122) 99 Room Air Baseline EKG: Baseline EKG: NSR Summary After explaining the procedure to the patient, he signed a consent and then brought to the stress nuclear laboratory. Patient received 0.4 mg Lexiscan for stress test, ECG, heart rate and blood pressure were monitored continuously. Resting and stress dose of radio tracer were injected, imaging was acquired and reviewed in short axis, horizontal long axis and vertical long axis views. TID: 0.96 SSS: 7 SDS: 1 EF: 62 1. Patient was scheduled for exercise stress test exercised for 5 minutes 37 seconds on standard F[place] protocol, unable to perform any further, test was converted to Lexiscan Myoview stress test. 2. Patient tolerated Lexiscan well 3. Reversible ischemia involving the inferior wall and inferolateral wall 4. Normal left ventricular size, EF 62% AZALIA ASHER MD Nov 08, 2020 12:43
[2020-11-08] MEDS ORDERED: DULO60CA59 PO (13:31)
[2020-11-08] MEDS ORDERED: CLOP75TA28 PO (13:31)
[2020-11-08] MEDS ORDERED: ASPI-789 PO (13:31)
[2020-11-08] MEDS ORDERED: AMLO-250 PO (13:31)
[2020-11-08] MEDS ORDERED: QUET200T29 PO (13:31)
[2020-11-08] MEDS ORDERED: NITR0.4T39 SL (13:31)
[2020-11-08] MEDS ORDERED: MTP100TCR PO (13:31)
[2020-11-08] MEDS ORDERED: TRAM50TA3 PO (13:33)
[2020-11-08] MEDS ORDERED: ATOR80TA76 PO (13:33)
== END 2020-11-08 15:30 | disposition short-term general hospital (02) | DRG 287 ==
LOC: EDUNIT# 14:17 → ER 14:20 → CSD 15:39
PROVIDERS: ADMIT Internal Medicine; ATTEND Internal Medicine
PROC: 4A023N7 Measurement of Cardiac Sampling and Pressure, Left Heart, Percutaneous Approach (ICD-10-PCS; principal; 2020-11-08)
PROC: B2111ZZ Fluoroscopy of Multiple Coronary Arteries using Low Osmolar Contrast (ICD-10-PCS; 2020-11-08)
PROC: B2151ZZ Fluoroscopy of Left Heart using Low Osmolar Contrast (ICD-10-PCS; 2020-11-08)
DX: I25.110 Atherosclerotic heart disease of native coronary artery with unstable angina pectoris (principal); I10 Essential (primary) hypertension; E78.00 Pure hypercholesterolemia, unspecified; G89.29 Other chronic pain; M54.9 Dorsalgia, unspecified; F17.210 Nicotine dependence, cigarettes, uncomplicated; I25.9 Chronic ischemic heart disease, unspecified; I73.9 Peripheral vascular disease, unspecified; M17.0 Bilateral primary osteoarthritis of knee; M19.072 Primary osteoarthritis, left ankle and foot; M19.071 Primary osteoarthritis, right ankle and foot; Z95.5 Presence of coronary angioplasty implant and graft; Z88.1 Allergy status to other antibiotic agents; Z79.82 Long term (current) use of aspirin; I25.2 Old myocardial infarction; Z91.14 Patient's other noncompliance with medication regimen
CPT/HCPCS: 36415; 71045; 78452; 80053; 80061; 83735; 83874; 83880; 84484; 85025; 85027; 85610; 85730; 93005; 93017; 93041; 93306; 93458

== ENCOUNTER → 2020-11-25 | Outpatient (CLI) | payer SELFPAY ==
[~2020-11-25] MED LIST changes: +ASPI-789 PO; +CLOP75TA28 PO; +DULO60CA59 PO; +NITR0.4T39 SL; +QUET200T29 PO
--- NOTE | 2020-11-25 13:02 | Diagnostic Imaging Report ---
HISTORY: Followup atelectasis. Difficulty breathing after heart surgery. COMPARISON: 11/07/2020 TECHNIQUE: 2 views of the chest FINDINGS: There are new small bilateral pleural effusions, right greater than left, with associated atelectasis. The cardiac silhouette is mildly large with stable since the prior exam. Sternotomy wires and post-CABG changes are noted. No pneumothorax is seen. IMPRESSION: 1. New, small bilateral pleural effusions, right greater than left, with associated atelectasis. 2. Stable cardiomegaly. Dictated by: Dictated on workstation # [id number]
[2020-11-25 13:04] LABS: BASOPHILS % (AUTO) 0 % (0-10); EOSINOPHILS # (AUTO) 0.2 10^3/uL (0.0-0.3); EOSINOPHILS % (AUTO) 2 % (0-10); HEMATOCRIT 34 % (40-54); HEMOGLOBIN 10.9 g/dL (13.3-17.7); LYMPHOCYTES % (AUTO) 21 % (12-44); MEAN CORPUSCULAR HEMOGLOBIN 33 pg (25-34); MEAN CORPUSCULAR HGB CONC 32 g/dL (32-36); MEAN CORPUSCULAR VOLUME 104 fL (80-99); MEAN PLATELET VOLUME 10.2 fL (9.0-12.2); MONOCYTES # (AUTO) 0.9 10^3/uL (0.0-1.0); MONOCYTES % (AUTO) 9 % (0-12); NEUTROPHILS # (AUTO) 6.4 10^3/uL (1.8-7.8); NEUTROPHILS % (AUTO) 67 % (42-75); PLATELET COUNT 387 10^3/uL (130-400); WHITE BLOOD COUNT 9.5 10^3/uL (4.3-11.0)
[2020-11-25 13:25] LABS: ALBUMIN 4.1 GM/DL (3.2-4.5); BUN/CREATININE RATIO 12; CALCIUM 9.2 MG/DL (8.5-10.1); CARBON DIOXIDE 27 MMOL/L (21-32); CHLORIDE 97 MMOL/L (98-107); CREATININE SERUM 1.03 MG/DL (0.60-1.30); GFR ESTIMATED > 60; GLUCOSE 129 MG/DL (70-105); PHOSPHORUS 5.9 MG/DL (2.3-4.7); POTASSIUM 4.5 MMOL/L (3.6-5.0); SODIUM 135 MMOL/L (135-145)
== END ==
LOC: LAB 12:21
DX: E87.1 Hypo-osmolality and hyponatremia (principal); D72.829 Elevated white blood cell count, unspecified; J90 Pleural effusion, not elsewhere classified; J98.11 Atelectasis; I51.7 Cardiomegaly
CPT/HCPCS: 36415; 71046; 80069; 85025

== ENCOUNTER 2020-12-06 09:49 | Emergency (ER) | payer SELFPAY ==
[~2020-12-06] VITALS: Ht 149.7 cm; Wt 100.0 kg
[2020-12-06 11:07] LABS: BASOPHILS # (AUTO) 0.1 10^3/uL (0.0-0.1); BASOPHILS % (AUTO) 1 % (0-10); EOSINOPHILS # (AUTO) 0.3 10^3/uL (0.0-0.3); EOSINOPHILS % (AUTO) 4 % (0-10); HEMATOCRIT 36 % (40-54); HEMOGLOBIN 11.4 g/dL (13.3-17.7); LYMPHOCYTES # (AUTO) 1.4 10^3/uL (1.0-4.0); LYMPHOCYTES % (AUTO) 19 % (12-44); MEAN CORPUSCULAR HEMOGLOBIN 32 pg (25-34); MEAN CORPUSCULAR HGB CONC 32 g/dL (32-36); MEAN CORPUSCULAR VOLUME 100 fL (80-99); MEAN PLATELET VOLUME 10.3 fL (9.0-12.2); MONOCYTES # (AUTO) 0.4 10^3/uL (0.0-1.0); MONOCYTES % (AUTO) 5 % (0-12); NEUTROPHILS # (AUTO) 5.4 10^3/uL (1.8-7.8); NEUTROPHILS % (AUTO) 72 % (42-75); PLATELET COUNT 477 10^3/uL (130-400); WHITE BLOOD COUNT 7.5 10^3/uL (4.3-11.0)
[2020-12-06 11:26] LABS: ALBUMIN 3.9 GM/DL (3.2-4.5); CHLORIDE 103 MMOL/L (98-107); POTASSIUM 4.3 MMOL/L (3.6-5.0); SODIUM 137 MMOL/L (135-145)
[2020-12-06 11:27] LABS: CALCIUM 9.3 MG/DL (8.5-10.1)
[2020-12-06 11:28] LABS: GLUCOSE 136 MG/DL (70-105)
[2020-12-06 11:29] LABS: CARBON DIOXIDE 24 MMOL/L (21-32)
[2020-12-06 11:30] LABS: BILIRUBIN,TOTAL 0.2 MG/DL (0.1-1.0)
[2020-12-06 11:31] LABS: ALKALINE PHOSPHATASE 102 U/L (40-136)
[2020-12-06 11:32] LABS: CREATININE SERUM 0.76 MG/DL (0.60-1.30); GFR ESTIMATED > 60
[2020-12-06 11:33] LABS: BUN/CREATININE RATIO 12
[2020-12-06 11:35] LABS: ALANINE AMINOTRANSFERASE 32 U/L (0-55)
--- NOTE | 2020-12-06 11:50 | ED GU-Female ---
General Chief Complaint: - Urinary Stated Complaint: DIFFICULTY URINATING Nursing Triage Note: pt reports he had cabg x 5 3-4 weeks ago. difficulty urinating this morning. c/o extreme pressure, burning, blood at meatus. able to urinate small amounts, but not empty. reports he did have difficulty with catheter placement with bypass surgery, but has not had any issues since. Nursing Sepsis Screen: No Definite Risk Source: patient Exam Limitations: no limitations History of Present Illness Date Seen by Provider: December 06, 2020 Time Seen by Provider: 11:35 Initial Comments Patient presents ER by private conveyance from home with chief complaint of since he woke up this morning is not been able to urinate. Nursing reports a bladder scan of over 400 cc. He had a triple bypass at [place] about 2 weeks ago and had a Marie catheter at that time. He had to have a urologist inserted because of his enlarged prostate. He was started on Flomax and is on a antibiotic for prevention of pneumonia after his chest surgery. He is not having any fever chills nausea vomiting or diarrhea. Allergies and Home Medications Allergies Coded Allergies: amoxicillin (Verified Allergy, Unknown, 12/11/19) clavulanic acid (Verified Allergy, Unknown, 12/11/19) zolpidem (Unverified Adverse Reaction, Unknown, psychosis, 12/06/20) Home Medications Amlodipine Besylate 5 Mg Tablet, 5 MG PO HS, (Reported) Aspirin/Acetaminophen/Caffeine 1 Each Tablet, 2 EACH PO Q6-8HR PRN for Headache, (Reported) Atorvastatin Calcium 80 Mg Tablet, 80 MG PO HS, (Reported) Cephalexin 500 Mg Tablet, 500 MG PO BID Prescribed by: NELLY SILVA on 12/06/20 1318 Clopidogrel Bisulfate 75 Mg Tablet, 75 MG PO HS, (Reported) Duloxetine HCl 60 Mg Capsule.dr, 60 MG PO HS, (Reported) Metoprolol Succinate 100 Mg Tab.er.24h, 100 MG PO HS, (Reported) Nitroglycerin 0.4 Mg Tab.subl, 0.4 MG SL UD PRN for CHEST PAIN, (Reported) Quetiapine Fumarate 200 Mg Tablet, 200 MG PO HS, (Reported) Tramadol HCl 50 Mg Tablet, 50 MG PO Q6H PRN for PAIN-MODERATE (5-7), (Reported) Patient Home Medication List Home Medication List Reviewed: Yes Review of Systems Review of Systems Constitutional: No chills, No fever, No malaise EENTM: No ear discharge, No ear pain Respiratory: No cough, No short of breath Cardiovascular: No chest pain, No edema Gastrointestinal: No abdominal pain, No nausea, No vomiting Genitourinary: see HPI, dysuria Musculoskeletal: No back pain, No joint pain Skin: No pruritus, No rash All Other Systemes Reviewed Negative Unless Noted: Yes Past Kasnokl-Svkcxk-Tmpkeb Hx Patient Social History Alcohol Use: Denies Use Smoking Status: Former Smoker Type Used: Cigarettes Former Smoker, Quit: Nov 01, 2020 2nd Hand Smoke Exposure: Yes Recent Infectious Disease Expo: No Recent Hopitalizations: No Immunizations Up To Date Tetanus Booster (TDap): Unknown Seasonal Allergies Seasonal Allergies: No Past Medical History Surgeries: Yes (CARDIAC STENTS x14, hernia X2, CYST REMOVAL WRIST/LOW BACK; BMT'S 04/2016) Abdominal, Cardiac, Coronary Stent, Ear Surgery Respiratory: No (STATES HE IS ALWAYS SHORT OF BREATH, BUT NO DX OF RESPIRATORY PROBLEMS) Currently Using CPAP: No Currently Using BIPAP: No Cardiac: Yes (HX OF MD X2, HAS 14 OR 15 STENTS; LAFB, open heart) Coronary Artery Disease, Heart Attack, High Cholesterol, Hypertension Neurological: No Reproductive Disorders: No Sexually Transmitted Disease: No HIV/AIDS: No Genitourinary: No Gastrointestinal: No Musculoskeletal: Yes (joint pain) Arthritis, Chronic Back Pain Endocrine: No HEENT: Yes Chronic Ear Infection Loss of Vision: Denies Hearing Impairment: Denies Cancer: No Psychosocial: No Integumentary: No Blood Disorders: No Family Medical History No Pertinent Family Hx Physical Exam Vital Signs Vital Signs - First Documented 12/06/20 10:04 Temp 36.9 Pulse 101 Resp 20 B/P (MAP) 116/76 (89) Pulse Ox 95 Capillary Refill : Less Than 3 Seconds Height, Weight, BMI Height: 5'9.00" Weight: 221lbs. 0.5oz. 100.586641iq; 44.00 BMI Method:Stated General Appearance: WD/WN, mild distress HEENT: PERRL/EOMI, pharynx normal Neck: full range of motion, normal inspection Cardiovascular: normal peripheral pulses, regular rate, rhythm Respiratory: no respiratory distress, no accessory muscle use Gastrointestinal: soft, tenderness (Suprapubic fullness and tenderness) Genital/Rectal: other (Urethral strictures and scarring involving the meatus; unable to ascertain the opening of the penis.) Neurologic/Psychiatric: alert, oriented x 3 Progress/Results/Core Measures Suspected Sepsis Recent Fever Within 48 Hours: No Infection Criteria Present: Suspected New Infection New/Unexplained Altered Menta: No Sepsis Screen: No Definite Risk SIRS Temperature: Pulse: 101 Respiratory Rate: 20 Laboratory Tests 12/06/20 11:00: White Blood Count 7.5 Blood Pressure 116 /76 Mean: 89 Laboratory Tests 12/06/20 11:00: Creatinine 0.76, Platelet Count 477H, Total Bilirubin 0.2 Results/Orders Lab Results Laboratory Tests Test 12/06/20 11:00 12/06/20 13:05 Range/Units White Blood Count 7.5 4.3-11.0 10^3/uL Red Blood Count 3.57 L 4.30-5.52 10^6/uL Hemoglobin 11.4 L 13.3-17.7 g/dL Hematocrit 36 L 40-54 % Mean Corpuscular Volume 100 H 80-99 fL Mean Corpuscular Hemoglobin 32 25-34 pg Mean Corpuscular Hemoglobin Concent 32 32-36 g/dL Red Cell Distribution Width 13.6 10.0-14.5 % Platelet Count 477 H 130-400 10^3/uL Mean Platelet Volume 10.3 9.0-12.2 fL Immature Granulocyte % (Auto) 0 % Neutrophils (%) (Auto) 72 42-75 % Lymphocytes (%) (Auto) 19 12-44 % Monocytes (%) (Auto) 5 0-12 % Eosinophils (%) (Auto) 4 0-10 % Basophils (%) (Auto) 1 0-10 % Neutrophils # (Auto) 5.4 1.8-7.8 10^3/uL Lymphocytes # (Auto) 1.4 1.0-4.0 10^3/uL Monocytes # (Auto) 0.4 0.0-1.0 10^3/uL Eosinophils # (Auto) 0.3 0.0-0.3 10^3/uL Basophils # (Auto) 0.1 0.0-0.1 10^3/uL Immature Granulocyte # (Auto) 0.0 0.0-0.1 10^3/uL Sodium Level 137 135-145 MMOL/L Potassium Level 4.3 3.6-5.0 MMOL/L Chloride Level 103 98-107 MMOL/L Carbon Dioxide Level 24 21-32 MMOL/L Anion Gap 10 5-14 MMOL/L Blood Urea Nitrogen 9 7-18 MG/DL Creatinine 0.76 0.60-1.30 MG/DL Estimat Glomerular Filtration Rate > 60 BUN/Creatinine Ratio 12 Glucose Level 136 H 70-105 MG/DL Calcium Level 9.3 8.5-10.1 MG/DL Corrected Calcium 9.4 8.5-10.1 MG/DL Total Bilirubin 0.2 0.1-1.0 MG/DL Aspartate Amino Transf (AST/SGOT) 19 5-34 U/L Alanine Aminotransferase (ALT/SGPT) 32 0-55 U/L Alkaline Phosphatase 102 40-136 U/L Total Protein 7.0 6.4-8.2 GM/DL Albumin 3.9 3.2-4.5 GM/DL Urine Color YELLOW Urine Clarity CLEAR Urine pH 6.0 5-9 Urine Specific [place] 1.020 1.016-1.022 Urine Protein NEGATIVE NEGATIVE Urine Glucose (UA) NEGATIVE NEGATIVE Urine Ketones NEGATIVE NEGATIVE Urine Nitrite NEGATIVE NEGATIVE Urine Bilirubin NEGATIVE NEGATIVE Urine Urobilinogen 0.2 < = 1.0 MG/DL Urine Leukocyte Esterase NEGATIVE NEGATIVE Urine RBC (Auto) 1+ H NEGATIVE Urine RBC 10-25 H /HPF Urine WBC RARE /HPF Urine Squamous Epithelial Cells RARE /HPF Urine Crystals NONE /LPF Urine Bacteria TRACE /HPF Urine Casts NONE /LPF Urine Mucus SMALL H /LPF Urine Culture Indicated NO My Orders Orders - NELLY SILVA Ua Culture If Indicated (12/06/20 10:28) Bladder Scan (12/06/20 10:51) Cbc With Automated Diff (12/06/20 10:51) Comprehensive Metabolic Panel (12/06/20 10:51) Catheter(Urinary) Insert & Ass 03,15 (12/06/20 11:46) Lidocaine 2% (Urojet) (Xylocaine Urojet) (12/06/20 12:00) Alprazolam Tablet (Xanax Tablet) (12/06/20 12:00) Medications Given in ED Current Medications Medications Dose Ordered Sig/Paola Route Start Time Stop Time Status Last Admin Dose Admin Alprazolam 0.25 mg ONCE ONCE PO 12/06/20 12:00 12/06/20 12:01 DC 12/06/20 12:01 0.25 MG Lidocaine HCl 10 ml ONCE ONCE TOP 12/06/20 12:00 12/06/20 12:01 DC 12/06/20 12:45 10 ML Vital Signs/I&O 12/06/20 12/06/20 10:04 13:53 Temp 36.9 36.9 Pulse 101 101 Resp 20 20 B/P (MAP) 116/76 (89) 116/76 (89) Pulse Ox 95 95 Capillary Refill : Less Than 3 Seconds Blood Pressure Mean: 89 Progress Note #1: Time: 12:38 Progress Note Patient has some kind of stricture at the urethral meatus make it very difficult to even find where the opening is so we have asked Dr. Vazquez to come examine him for a dilatation. Dr. Vazquez came to the ER and is examining him now. Progress Note #2: Time: 13:[address] Vazquez recommends a leg bag, AZO and follow-up in the clinic after he used Donya dilators to access the urethra and place a Marie catheter. Departure Impression Primary Impression: Urethral stricture Qualified Codes: N35.914 - Unspecified anterior urethral stricture, male Disposition: 01 HOME, SELF-CARE Condition: Improved Departure-Patient Inst. Decision time for Depature: 13:09 Referrals: JOSE ROBERTO CLINTON MD (PCP/Family) Primary Care Physician SHARI VAZQUEZ MD Patient Instructions: Urinary Obstruction (DC), Urethral Stricture, Urethral Dilation Add. Discharge Instructions: Wear the leg bag and keep the skin clean with regular soap and water. Drink plenty of fluids. Call Dr. Vazquez, urologist and request follow-up appointment later this week or early next week. If you are having burning pain you can use AZO or Tylenol. Cephalexin 1 capsule twice a day for the next week. All discharge instructions reviewed with patient and/or family. Voiced understanding. Scripts Cephalexin (Cephalexin) 500 Mg Tablet 500 MG PO BID, #14 TAB 0 Refills Prov: NELLY SILVA 12/06/20 NELLY SILVA December 06, 2020 11:50
[2020-12-06] MEDS ORDERED: ALPRAZolam 0.25 MG (XANAX) TAB PO ONE (12:00)
[2020-12-06] MEDS: LIDOCAINE UROJET 2% GEL 10 ML PKG TOP ONE ×2 (12:11→12:45)
[2020-12-06 13:17] LABS: BILIRUBIN,URINE NEGATIVE (NEGATIVE); CLARITY,URINE CLEAR; COLOR,URINE YELLOW; GLUCOSE, URINE (UA) NEGATIVE (NEGATIVE); KETONES,URINE NEGATIVE (NEGATIVE); LEUKOCYTE ESTERASE ,URINE NEGATIVE (NEGATIVE); NITRITE,URINE NEGATIVE (NEGATIVE); PROTEIN,URINE NEGATIVE (NEGATIVE)
[2020-12-06] MEDS ORDERED: CEPH500T PO (13:18)
[2020-12-06 13:26] LABS: BACTERIA,URINE TRACE /HPF; SQUAMOUS EPITHELIAL CELL,UR RARE /HPF; WBC,URINE RARE /HPF
[2020-12-06 13:53] VITALS: BP 116/76
--- NOTE | 2020-12-06 14:01 | CONSULTATION REPORT ---
DATE OF SERVICE: 12/06/2020 ATTENDING PHYSICIAN: Dr. Hall. SUMMARY: A 55-year-old white man presented to the emergency room with difficulty urination and retention. The patient has recently had a cardiac bypass at [place] about two weeks ago, was difficulty inserting a catheter on the operating room table. Urologist was called and performed the procedure and inserted the catheter. The patient was supposed to follow up with him but did not. He denies any previous catheterization. Denies any surgery on his penis or prostate. Denies any previous venereal disease. On physical exam, he has severe meatal stenosis with very chronic changes causing almost complete obliteration of the meatus. I put some Uro-Jet jelly to hopefully locally numb it. I inserted a straight hemostat into the opening and stretched it enough to allow me to insert a 16-Czech Marie catheter. No further stricturing. Inflated the balloon to 10 mL of urine was drained. Catheter was connected to leg bag. Instructions were given to the patient and told to call my office for followup appointment. Job ID: [id number] DocumentID: [id number] Dictated Date: 12/06/2020 13:11:35 Profile Grinder Technician Date: 12/06/2020 14:00:37 Dictated By: SHARI VAZQUEZ MD MTDD
== END 2020-12-06 13:56 | disposition home or self-care (01) ==
LOC: EDUNIT# 09:49 → ER 09:51
DX: N35.919 Unspecified urethral stricture, male, unspecified site (principal); I25.2 Old myocardial infarction; I10 Essential (primary) hypertension; I25.10 Atherosclerotic heart disease of native coronary artery without angina pectoris; E78.00 Pure hypercholesterolemia, unspecified; Z88.1 Allergy status to other antibiotic agents; Z88.8 Allergy status to other drugs, medicaments and biological substances; Z87.891 Personal history of nicotine dependence; Z79.82 Long term (current) use of aspirin; Z79.899 Other long term (current) drug therapy
CPT/HCPCS: 36415; 51702; 80053; 81000; 85025

== ENCOUNTER 2021-04-07 10:46 | Emergency (ER) | payer OTHER ==
[~2021-04-07] VITALS: Ht 175.2 cm; Wt 100.0 kg
[~2021-04-07 10:46] MED LIST changes: +CEPH500T PO; +CIPR500T5 PO; +TMSL.4C PO
[2021-04-07 11:13] LABS: BASOPHILS % (AUTO) 1 % (0-10); EOSINOPHILS # (AUTO) 0.1 10^3/uL (0.0-0.3); EOSINOPHILS % (AUTO) 1 % (0-10); HEMATOCRIT 44 % (40-54); HEMOGLOBIN 14.6 g/dL (13.3-17.7); LYMPHOCYTES # (AUTO) 1.1 10^3/uL (1.0-4.0); LYMPHOCYTES % (AUTO) 20 % (12-44); MEAN CORPUSCULAR HEMOGLOBIN 32 pg (25-34); MEAN CORPUSCULAR HGB CONC 33 g/dL (32-36); MEAN CORPUSCULAR VOLUME 96 fL (80-99); MONOCYTES # (AUTO) 0.8 10^3/uL (0.0-1.0); MONOCYTES % (AUTO) 14 % (0-12); NEUTROPHILS # (AUTO) 3.5 10^3/uL (1.8-7.8); NEUTROPHILS % (AUTO) 64 % (42-75); PLATELET COUNT 227 10^3/uL (130-400); WHITE BLOOD COUNT 5.5 10^3/uL (4.3-11.0)
[2021-04-07] MEDS ORDERED: KETOROLAC 30 MG/ML VIAL IVP ONE (11:15)
[2021-04-07] MEDS ORDERED: HYDROcodone/APAP 5 MG/325 MG (LORTAB) TAB PO ONE (11:15)
[2021-04-07] MEDS ORDERED: ASPIRIN 81 MG CHEW (CHILDREN'S ASA) PO ONE (11:15)
[2021-04-07 11:18] LABS: ALBUMIN 4.1 GM/DL (3.2-4.5); POTASSIUM 3.6 MMOL/L (3.6-5.0)
[2021-04-07 11:19] LABS: INR 0.9 (0.8-1.4)
[2021-04-07 11:21] LABS: TOTAL PROTEIN 7.3 GM/DL (6.4-8.2)
--- NOTE | 2021-04-07 11:21 | ED Chest Pain ---
General Chief Complaint: Chest Pain Stated Complaint: CHEST AREA PAIN/POPPING Nursing Triage Note: Pt ambulatory into ER with complaint of chest pain x2 days. Pt states that it started yesterday while picking up a piece of steel. PT states that he had open heart surgery in december and it feels like something popped loose in his chest. Pt states that it hurts worse when coughing. Pt states that he was covid tested yesterday with a negative result. Pt rates pain at a 7/10 and describes pain as a pressure. Pain is just right of the sternum. PT denies N/V or diaphoresis. Source: patient Exam Limitations: no limitations (JOHAN MARSHALL APRN) History of Present Illness Date Seen by Provider: Apr 07, 2021 Time Seen by Provider: 11:16 Initial Comments To ER with c/o right sided parasternal chest pain onset 2 days ago. He had a CABG in December, 2 days ago while at work, at the onset of this pain, a piece of steel fell and he tried to catch it with his right arm pulling his right arm. Since then he feels a popping sensation in the upper sternum on the right side. Pain is worsened with coughing and deep breathing. Timing/Duration: 1-2 days Severity/Quality: moderate Location: central Radiation: no radiation Activities at Onset: none ASA po ICT SUPPORT ENGINEER: No NTG SL ICT SUPPORT ENGINEER: No (JOHAN MARSHALL APRN) Allergies and Home Medications Allergies Coded Allergies: amoxicillin (Verified Allergy, Unknown, 12/11/19) clavulanic acid (Verified Allergy, Unknown, 12/11/19) zolpidem (Unverified Adverse Reaction, Unknown, psychosis, 12/06/20) Patient Home Medication List Home Medication List Reviewed: Yes (JOHAN MARSHALL APRN) Amlodipine Besylate (Amlodipine Besylate) 5 Mg Tablet, 5 MG PO HS, (Reported) Entered as Reported by: ABDON PARIS on 11/08/20 1331 Aspirin/Acetaminophen/Caffeine (Excedrin Migraine Caplet) 1 Each Tablet, 2 EACH PO Q6-8HR PRN for Headache, (Reported) Entered as Reported by: ABDON PARIS on 11/08/20 1331 Atorvastatin Calcium (Atorvastatin Calcium) 80 Mg Tablet, 80 MG PO HS, (Reported) Entered as Reported by: ABDON PARIS on 11/08/20 1333 Cephalexin (Cephalexin) 500 Mg Tablet, 500 MG PO BID Prescribed by: NELLY SILVA on 12/06/20 1318 Ciprofloxacin HCl (Ciprofloxacin HCl) 500 Mg Tablet, 500 MG PO BID Prescribed by: JORDANA SHAH on 12/26/20 1131 Clopidogrel Bisulfate (Clopidogrel) 75 Mg Tablet, 75 MG PO HS, (Reported) Entered as Reported by: ABDON PARIS on 11/08/20 1331 Duloxetine HCl (Duloxetine HCl) 60 Mg Capsule.dr, 60 MG PO HS, (Reported) Entered as Reported by: ABDON PARIS on 11/08/20 1331 Hydrocodone/Acetaminophen (Hydrocodone-Acetamin 5-325 mg) 1 Each Tablet, 1 TAB PO Q4H PRN for PAIN-MODERATE (5-7) Prescribed by: JOHAN MARSHALL on 04/07/21 1137 Metoprolol Succinate (Metoprolol Succinate) 100 Mg Tab.er.24h, 100 MG PO HS, (Reported) Entered as Reported by: ABDON APRIS on 11/08/20 1331 Nitroglycerin (Nitroglycerin) 0.4 Mg Tab.subl, 0.4 MG SL UD PRN for CHEST PAIN, (Reported) Entered as Reported by: ABDON PARIS on 11/08/20 1331 Quetiapine Fumarate (Quetiapine Fumarate) 200 Mg Tablet, 200 MG PO HS, (Reported ) Entered as Reported by: ABDON PARIS on 11/08/20 1331 Tamsulosin HCl (Flomax) 0.4 Mg Cap, 0.4 MG PO DAILY Prescribed by: JORDANA SHAH on 12/26/20 1131 Tramadol HCl (Tramadol HCl) 50 Mg Tablet, 50 MG PO Q6H PRN for PAIN-MODERATE (5-7), (Reported) Entered as Reported by: ABDON PARIS on 11/08/20 1333 Review of Systems Review of Systems Constitutional: see HPI EENTM: No Symptoms Reported Respiratory: No Symptoms Reported Cardiovascular: See HPI, Chest Pain Gastrointestinal: No Symptoms Reported Genitourinary: No Symptoms Reported Musculoskeletal: no symptoms reported Psychiatric/Neurological: No Symptoms Reported Endocrine: No Symptoms Reported Hematologic/Lymphatic: No Symptoms Reported (JOHAN MARSHALL APRN) Past Cpzlgys-Uaytty-Wfhkvp Hx Patient Social History Tobacco Use?: No Smoking Status: Former Smoker Use of E-Cig and/or Vaping dev: No Substance use?: No Alcohol Use?: No Pt feels they are or have been: No (JOHAN MARSHALL APRN) Immunizations Up To Date Tetanus Booster (TDap): Unknown Influenza Vaccine Up-to-Date: No; Not Current (JOHAN MARSHALL APRN) Seasonal Allergies Seasonal Allergies: No (JOHAN MARSHALL APRN) Past Medical History Surgeries: Yes (CARDIAC STENTS x14, hernia X2, CYST REMOVAL WRIST/LOW BACK; BMT'S 04/2016) Abdominal, Cardiac, Coronary Stent, Ear Surgery Respiratory: No (STATES HE IS ALWAYS SHORT OF BREATH, BUT NO DX OF RESPIRATORY PROBLEMS) Currently Using CPAP: No Currently Using BIPAP: No Cardiac: Yes (HX OF ID X2, HAS 14 OR 15 STENTS; LAFB, open heart) Coronary Artery Disease, Heart Attack, High Cholesterol, Hypertension Neurological: No Reproductive Disorders: No Sexually Transmitted Disease: No HIV/AIDS: No Genitourinary: No Gastrointestinal: No Musculoskeletal: Yes (joint pain) Arthritis, Chronic Back Pain Endocrine: No HEENT: Yes Chronic Ear Infection Loss of Vision: Denies Hearing Impairment: Denies Cancer: No Psychosocial: No Integumentary: No Blood Disorders: No (JOHAN MARSHALL APRN) Family Medical History No Pertinent Family Hx (JOHAN MARSHALL APRN) Physical Exam Vital Signs Vital Signs - First Documented 04/07/21 10:50 Temp 36.5 Pulse 96 Resp 20 B/P (MAP) 155/106 (122) Pulse Ox 97 O2 Delivery Room Air (BOOGIE PABLO MD) Vital Signs Capillary Refill : Less Than 3 Seconds (JOHAN MARSHALL APRN) Height, Weight, BMI Height: 5'9.00" Weight: 221lbs. 0.5oz. [id number]; 32.00 BMI Method:Stated General Appearance: No Apparent Distress, WD/WN Respiratory: No Accessory Muscle Use, No Respiratory Distress Cardiovascular: Regular Rate, Rhythm, Normal Peripheral Pulses, Other (Sternotomy incision is clean dry and intact, well-healed. There is tenderness to the superior right side of it though there is no crepitus or abnormal appearance of the skin.) Gastrointestinal: Normal Bowel Sounds, Non Tender, Soft Neurologic/Psychiatric: Alert, Oriented x3 Skin: Normal Color, Warm/Dry (JOHAN MARSHALL APRN) Progress/Results/Core Measures Results/Orders Lab Results Laboratory Tests Test 04/07/21 10:52 Range/Units White Blood Count 5.5 4.3-11.0 10^3/uL Red Blood Count 4.60 4.30-5.52 10^6/uL Hemoglobin 14.6 13.3-17.7 g/dL Hematocrit 44 40-54 % Mean Corpuscular Volume 96 80-99 fL Mean Corpuscular Hemoglobin 32 25-34 pg Mean Corpuscular Hemoglobin Concent 33 32-36 g/dL Red Cell Distribution Width 15.0 H 10.0-14.5 % Platelet Count 227 130-400 10^3/uL Mean Platelet Volume 12.0 9.0-12.2 fL Immature Granulocyte % (Auto) 0 % Neutrophils (%) (Auto) 64 42-75 % Lymphocytes (%) (Auto) 20 12-44 % Monocytes (%) (Auto) 14 H 0-12 % Eosinophils (%) (Auto) 1 0-10 % Basophils (%) (Auto) 1 0-10 % Neutrophils # (Auto) 3.5 1.8-7.8 10^3/uL Lymphocytes # (Auto) 1.1 1.0-4.0 10^3/uL Monocytes # (Auto) 0.8 0.0-1.0 10^3/uL Eosinophils # (Auto) 0.1 0.0-0.3 10^3/uL Basophils # (Auto) 0.0 0.0-0.1 10^3/uL Immature Granulocyte # (Auto) 0.0 0.0-0.1 10^3/uL Prothrombin Time 13.0 12.2-14.7 SEC INR Comment 0.9 0.8-1.4 Activated Partial Thromboplast Time 31 24-35 SEC Sodium Level 137 135-145 MMOL/L Potassium Level 3.6 3.6-5.0 MMOL/L Chloride Level 104 98-107 MMOL/L Carbon Dioxide Level 21 21-32 MMOL/L Anion Gap 12 5-14 MMOL/L Blood Urea Nitrogen 8 7-18 MG/DL Creatinine 0.84 0.60-1.30 MG/DL Estimat Glomerular Filtration Rate 95 BUN/Creatinine Ratio 10 Glucose Level 167 H 70-105 MG/DL Calcium Level 9.0 8.5-10.1 MG/DL Corrected Calcium 8.9 8.5-10.1 MG/DL Magnesium Level 2.0 1.6-2.4 MG/DL Total Bilirubin 0.2 0.1-1.0 MG/DL Aspartate Amino Transf (AST/SGOT) 16 5-34 U/L Alanine Aminotransferase (ALT/SGPT) 20 0-55 U/L Alkaline Phosphatase 103 40-136 U/L Myoglobin 65.7 10.0-92.0 NG/ML B-Type Natriuretic Peptide 41.2 <100.0 PG/ML Total Protein 7.3 6.4-8.2 GM/DL Albumin 4.1 3.2-4.5 GM/DL (BOOGIE PABLO MD) Vital Signs/I&O 04/07/21 04/07/21 10:50 11:48 Temp 36.5 Pulse 96 87 Resp 20 20 B/P (MAP) 155/106 (122) 141/93 Pulse Ox 97 97 O2 Delivery Room Air Room Air (BOOGIE PABLO MD) Blood Pressure Mean: 122 Diagnostic Imaging Diagonstic Imaging: Xray Comments no acute pathology Reviewed: Reviewed by Me (JOHAN MARSHALL APRN) Departure Impression Primary Impression: sternotomy incisional pain Disposition: 01 HOME, SELF-CARE Condition: Stable Departure-Patient Inst. Decision time for Depature: 11:23 (JOHAN MARSHALL APRN) Referrals: JOSE ROBERTO CLINTON MD (PCP/Family) Primary Care Physician Patient Instructions: Chest Pain That Is Not Caused by the Heart (DC) Add. Discharge Instructions: 1. Wear the right arm sling for 1 week. Pain medication as directed. Follow- up with your doctor next week for any persistent pain. All discharge instructions reviewed with patient and/or family. Voiced understanding. Scripts Hydrocodone/Acetaminophen (Hydrocodone-Acetamin 5-325 mg) 1 Each Tablet 1 TAB PO Q4H PRN for PAIN-MODERATE (5-7), #14 TAB Prov: JOHAN MARSHALL APRN 04/07/21 Work/School Note: Work Release Form Date Seen in the Emergency Department: Apr 07, 2021 Return to Work: Apr 08, 2021 Other Restrictions Listed Below: right arm in sling x5 days ATTENDING PHYSICIAN NOTE: I was physically present as attending physician in the emergency department during the care of this patient, but I was not directly involved in the decision making or delivery of care for this patient. (BOOGIE PABLO MD) Images Torso/Trunk 1 - Tenderness (JOHAN MARSHALL APRN) JOHAN MARSHALL APRN Apr 07, 2021 11:21 BOOGIE PABLO MD Apr 08, 2021 06:42
[2021-04-07 11:22] LABS: BILIRUBIN,TOTAL 0.2 MG/DL (0.1-1.0)
[2021-04-07 11:24] LABS: CREATININE SERUM 0.84 MG/DL (0.60-1.30)
--- NOTE | 2021-04-07 11:27 | Diagnostic Imaging Report ---
INDICATION: Chest pain. TECHNIQUE: Frontal chest obtained at 11:20 a.m. and compared to 11/25/2020. FINDINGS: There is post-sternotomy change with mild cardiomegaly. There is no focal infiltrate or pneumothorax or pleural fluid. IMPRESSION: Post-sternotomy change with mild cardiomegaly. No focal infiltrate or pneumothorax or pleural fluid. Resolution of bilateral pleural effusions compared to the previous study. Dictated by: Dictated on workstation # [id number]
[2021-04-07] MEDS ORDERED: ACHD5005 PO (11:36)
[2021-04-07 11:48] VITALS: BP 141/93
== END 2021-04-07 11:45 | disposition home or self-care (01) ==
LOC: EDUNIT# 10:46 → ER 10:50
DX: G89.18 Other acute postprocedural pain (principal); I25.2 Old myocardial infarction; I10 Essential (primary) hypertension; E78.00 Pure hypercholesterolemia, unspecified; I25.10 Atherosclerotic heart disease of native coronary artery without angina pectoris; Z87.891 Personal history of nicotine dependence; Z79.01 Long term (current) use of anticoagulants; Z79.82 Long term (current) use of aspirin; Z79.899 Other long term (current) drug therapy
CPT/HCPCS: 36415; 71045; 80053; 83735; 83874; 83880; 85025; 85610; 85730; 93005; 93041

== ENCOUNTER → 2022-11-30 | Outpatient (CLI) | payer BC, OTHER ==
[~2022-11-30] MED LIST changes: +ACHD5005 PO; -ASPI-789 PO; +ASPI1TAB23 PO; +CLOP-31 PO; -CLOP75TA69 PO; -DULO60CA6 PO; +DULO60CA7 PO
--- NOTE | 2022-11-30 12:26 | Diagnostic Imaging Report ---
PROCEDURE: MRI lumbar spine. TECHNIQUE: Multiplanar, multisequence MRI of the lumbar spine was performed without contrast. INDICATION: Increasing low back pain. EXAMINATION: Lumbar spine MRI without contrast 11/30/2022. FINDINGS: There is normal height and alignment of the vertebral bodies. Tip of the conus is unremarkable in appearance and location. L1-L2: There is bilateral facet and ligamentum flavum hypertrophy. No central stenosis. Neural foramina patent. L2-L3: There is disc desiccation with bilateral facet hypertrophy. There is no central narrowing. There is moderate bilateral neural foraminal narrowing. L3-L4: There is bilateral facet and ligamentum flavum hypertrophy. No central stenosis. There is moderate bilateral neural foraminal narrowing. L4-L5: There is disc desiccation with a broad-based bulging disc. Left paracentral annular tear is noted. There is bilateral facet and ligamentum flavum hypertrophy. There is no significant central stenosis. There is moderate bilateral neural foraminal narrowing. L5-S1: There is bilateral facet and ligamentum flavum hypertrophy. No central stenosis is appreciated. There is a moderate left neural foraminal narrowing. Visualized intra-abdominal structures unremarkable. IMPRESSION: 1. Multilevel degenerative findings as detailed above. Dictated on workstation # [id number]
== END ==
LOC: RAD 09:34
PROVIDERS: ATTEND Internal Medicine
DX: M47.27 Other spondylosis with radiculopathy, lumbosacral region (principal); M48.07 Spinal stenosis, lumbosacral region; M51.16 Intervertebral disc disorders with radiculopathy, lumbar region
CPT/HCPCS: 72148

== ENCOUNTER → 2023-04-19 | Outpatient (CLI) | payer BC ==
--- NOTE | 2023-04-19 20:20 | Diagnostic Imaging Report ---
INDICATION: Lumbar radiculopathy, chronic back pain. TECHNIQUE: AP, lateral, bilateral oblique and spot imaging of the lumbar spine. CORRELATION STUDY: None. FINDINGS: Mild straightening with alignment otherwise anatomic. Vertebral body heights maintained. There is perhaps very minimal wedging of T12 and L1 acute. The intravertebral disc spaces overall are fairly well-maintained. There is minimal endplate lipping, particularly at L3 on L4 and L4 on L5 levels. Posterior elements intact without spondylolysis. No suggestion for high degree osseous encroachment or narrowing of the foramina. SI joints unremarkable. Metallic coils in right pelvis. Vascular calcification of the abdominal aorta. IMPRESSION: No radiographic evidence for acute bony abnormality of the lumbar spine. Dictated by: Dictated on workstation # [id number]
== END ==
LOC: RAD 08:40
PROVIDERS: ATTEND Nurse Practitioner
DX: M54.16 Radiculopathy, lumbar region (principal)
CPT/HCPCS: 72110

== ENCOUNTER → 2023-07-12 | Outpatient (CLI) | payer SELFPAY ==
[~2023-07-12] MED LIST changes: +CATHETER FLUSH 10 ML SYR IV PRN; -CELE-63 PO; +CELE-91 PO; +HOLD METFORMIN - RECEIVED CONTRAST 20 ML VIAL IV SCH; +IOHEXOL 350 MG/ML 100 ML (OMNIPAQUE 350) VIAL IV ONE; +NS 100 ML (IVPB) BAG IV ONE
--- NOTE | 2023-07-12 13:26 | Diagnostic Imaging Report ---
PROCEDURE: CT chest with contrast only. TECHNIQUE: Multiple contiguous axial images were obtained through the chest after administration of intravenous contrast. Auto Exposure Controls were utilized during the CT exam to meet ALARA standards for radiation dose reduction. INDICATION: Chest pain, history of CAD. COMPARISON: Correlation is made with chest x-rays of 04/07/2021 and with limited overlapped levels of a CT performed in 2016 of the abdomen. FINDINGS: The lungs are clear. The thoracic aorta is patent, nonaneurysmal, and nonacute. There are heavy [place] coronary artery atherosclerotic vascular calcifications. There is previous sternotomy without fracture of the sternal wires. The manubrium appears fused and solid as does the upper sternum. The lower sternum shows unfused bony fragments sclerotically marginated and by 9 mm, believed some mild chronic partial dehiscence. No acute appearing chest wall pathology. There is no pneumothorax. No pleural or pericardial effusion. No consolidating pneumonia. No lung mass. There are bilateral thyroid nodules with mixed solid/cystic composition. In the absence of priors to confirm long-term stability, a nonemergent outpatient thyroid ultrasound is suggested. The visible upper abdomen shows some chronic upper pole renal cysts with no acute appearing abnormality. Tiny hiatal hernia. IMPRESSION: 1. No acute appearing abnormality or findings to explain chest pain. Severe [place] coronary atherosclerosis. Previous sternotomy with likely incomplete bony bridging of the mid to lower sternal segments and mild chronic dehiscence. 2. Indeterminate thyroid nodules warrant a nonemergent outpatient sonographic correlation. 3. Clear lungs with no acute pleural pathology. Dictated by: Dictated on workstation # [id number]
== END ==
LOC: RAD 12:15
PROVIDERS: ATTEND Nurse Practitioner Family
DX: I25.10 Atherosclerotic heart disease of native coronary artery without angina pectoris (principal); E04.2 Nontoxic multinodular goiter
CPT/HCPCS: 71260